=== PATIENT | female | born 1940 | race Caucasian/White ===

== ENCOUNTER → 2017-01-30 | Outpatient (CLI) | payer BC ==
[~2017-01-30] MED LIST: ACET-1311 PO; ALBUAER2 INH; AMOX250C3 PO; ASPCH81X PO; CALC-416 PO; CHOL1000 PO; FLUO40CA8 PO; FLVHFA110 INH; MULT-506 PO; OMEG10007 PO; WARF2TAB PO
--- NOTE | 2017-01-30 15:47 | DIAGNOSTIC IMAGING REPORT ---
RIGHT KNEE 3 VIEWS; LEFT KNEE 3 VIEWS CLINICAL HISTORY: Bilateral knee pain. FINDINGS: An AP standing view of both knees, a sunrise view of both knees, with crosstable lateral views of the right and left knee are compared to study dated 08/29/2016. The skeletal structures are osteopenic. No fracture is identified. 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 There is been undersurface remodeling of both patellas. No periprosthetic lucency is identified in either knee. There are bilateral joint effusions, right larger than left. Mild soft tissue swelling is seen bilaterally, right greater than left. A calcified fabella is noted on the right. Venous varicosities are suggested in the right calf. IMPRESSION: 1. Osteopenia with no acute bony abnormality seen in either knee. 2. 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 No prior prosthetic lucency is identified. 3. There is bilateral soft tissue swelling and bilateral joint effusion, right greater than left. Electronically signed by: Nghia Marley M.D. 01/30/2017 3:46 PM Dictated Date/Time: 01/30/2017 3:43 PM
== END | disposition home or self-care (01) ==
LOC: C.RDSM 15:00
PROVIDERS: ATTEND Physician Assistant
DX: R52 Pain, unspecified (principal)

== ENCOUNTER → 2017-07-03 | Outpatient (CLI) | payer BC ==
--- NOTE | 2017-07-03 14:08 | DIAGNOSTIC IMAGING REPORT ---
BILATERAL KNEES 4 VIEWS CLINICAL HISTORY: Bilateral knee pain COMPARISON STUDY: 01/30/2017 FINDINGS: There are postsurgical changes of bilateral total knee arthroplasties and patellar resurfacing. No acute fractures are visualized. There are no erosive or destructive changes. A small right joint effusion is suspected. IMPRESSION: Postsurgical change. No fractures or dislocations. Small right joint effusion Electronically signed by: Jon Cespedes M.D. 07/03/2017 2:07 PM Dictated Date/Time: 07/03/2017 2:05 PM
== END | disposition home or self-care (01) ==
LOC: C.RDSM 13:45
PROVIDERS: ATTEND Physician Assistant
DX: M25.561 Pain in right knee (principal); M25.562 Pain in left knee; M25.461 Effusion, right knee; Z96.651 Presence of right artificial knee joint; Z96.652 Presence of left artificial knee joint

== ENCOUNTER → 2017-08-09 | Outpatient (CLI) | payer BC ==
[2017-08-09 15:23] LABS: ALT/SGPT 18 U/L (12-78); BLOOD UREA NITROGEN 13 mg/dl (7-18); BUN/CREATININE RATIO 17.5 (10-20); CALCIUM 9.3 mg/dl (8.5-10.1); CARBON DIOXIDE 26 mmol/L (21-32); CHLORIDE 105 mmol/L (98-107); CREATININE 0.76 mg/dl (0.60-1.20); GLUCOSE 94 mg/dl (70-99); SODIUM 139 mmol/L (136-145)
[2017-08-09 15:34] LABS: ALKALINE PHOSPHATASE 76 U/L (45-117); AST/SGOT 17 U/L (15-37)
== END | disposition home or self-care (01) ==
LOC: C.LAB1850 13:21
PROVIDERS: ATTEND Physician Assistant
DX: E05.00 Thyrotoxicosis with diffuse goiter without thyrotoxic crisis or storm (principal); M81.0 Age-related osteoporosis without current pathological fracture

== ENCOUNTER → 2017-10-12 | Outpatient (CLI) | payer BC ==
--- NOTE | 2017-10-12 11:21 | DIAGNOSTIC IMAGING REPORT ---
LUMBAR SPINE MIN 4 VIEWS HISTORY: Pain LOW BACK PAIN COMPARISON: None. FINDINGS: There is no fracture. Considerable degenerative disc change throughout the entire lumbar region. No evidence for compression deformity. No subluxation. IMPRESSION: Considerable degenerative disc change throughout the entire lumbar region. No acute process. No evidence for subluxation. The above report was generated using voice recognition software. It may contain grammatical, syntax or spelling errors. Electronically signed by: Huy Jung M.D. 10/12/2017 11:19 AM Dictated Date/Time: 10/12/2017 11:19 AM
== END | disposition home or self-care (01) ==
LOC: C.RDSM 11:04
PROVIDERS: ATTEND Family Medicine
DX: M54.5 Low back pain (principal); M47.896 Other spondylosis, lumbar region

== ENCOUNTER → 2017-10-27 | Outpatient (CLI) | payer BC ==
--- NOTE | 2017-10-27 18:19 | DIAGNOSTIC IMAGING REPORT ---
MRI LUMBAR SPINE W/O CONTRAST CLINICAL HISTORY: Back pain with left leg radiculopathy. Patient failed conservative management TECHNIQUE: Sagittal and axial T1, T2 and STIR images were obtained. COMPARISON STUDY: Conventional radiographic study the lumbar spine dated 10/12/2017 OBSERVATIONS: There are no areas of marrow edema to indicate occult fracture. There are old mild compression deformities involving the L5 and T11 vertebra. L1-2: No disc protrusions or extrusions. No evidence of spinal canal or neural foraminal compromise. L2-3: There is a mild circumferential disc bulge. There is mild spinal stenosis. There is mild bilateral foraminal narrowing L3-4: There is a mild circumferential disc bulge. There is no significant spinal stenosis. There is mild left-sided foraminal narrowing. L4-5: There is a mild circumferential disc bulge. There is no spinal stenosis. There is mild bilateral foraminal narrowing. L5-S1: There is a moderate left-sided disc extrusion. This likely impinges on the left S1 nerve root. There is facet joint hypertrophy. There is moderate spinal canal narrowing. The conus medullaris and cauda equina appear normal. The examination is moderately compromised due to technical standpoint secondary to patient motion. IMPRESSION: 1. Moderate left-sided disc extrusion at the L5-S1 level. There is moderate spinal canal narrowing. The disc likely impinges on the left S1 nerve root 2. Multilevel spondylitic changes. Multilevel mild foraminal narrowing. Mild spinal stenosis the L2-3 level. Electronically signed by: Jon Cespedes M.D. 10/27/2017 6:18 PM Dictated Date/Time: 10/27/2017 6:11 PM
== END | disposition home or self-care (01) ==
LOC: C.MRIBC 16:28
PROVIDERS: ATTEND Family Medicine
DX: M48.061 Spinal stenosis, lumbar region without neurogenic claudication (principal); M51.27 Other intervertebral disc displacement, lumbosacral region

== ENCOUNTER → 2017-11-22 | Day surgery (SDC) | payer BC ==
[2017-11-13 13:26] VITALS: Ht 154.9 cm; Wt 79.5 kg
[~2017-11-22] VITALS: Ht 154.9 cm; Wt 79.5 kg
[~2017-11-22] MED LIST changes: -ACET-1311 PO; -ALBUAER2 INH; -AMOX250C3 PO; -CALC-416 PO; +CALC150C PO; -CHOL1000 PO; +CHOL100010 PO; +IOPAMIDOL INJ 61% 15 ML VIAL ONE; +LIDOCAINE HCL 1% MPF 5 ML VIAL ONE; +NRN/300 PO; +SODIUM CHLORIDE 0.9% INJ 10 ML VIAL ONE; +TRAM-10 PO; -WARF2TAB PO
--- NOTE | 2017-11-22 14:48 | History & Physical Bridge - SC ---
H&P Re-Evaluation Bridge Note: I have examined the patient, reviewed the History & Physical and in the interval since the performance of the History & Physical I have noted the following changes of clinical significance: No changes noted
--- NOTE | 2017-11-22 15:09 | [facility] Post Operative Brief Note ---
Immediate Operative Summary Operative Date Nov 22, 2017. Pre-Operative Diagnosis L5-S1 HNP W/ STENOSIS AND LEFT L5 RADICULOPATHY Post-Operative Diagnosis SAME Procedure(s) Performed LUMBAR EPIDURAL STEROID INJECTION Surgeon DR. Roma SWANN Publicist Surgeon(s) 0 Estimated Blood Loss 0 Findings As per op note Specimens NA Complication(s) None Disposition Recovery Room / PACU
[2017-11-22 15:11] VITALS: TEMP 36.5
--- NOTE | 2017-11-22 15:18 | Discharge Instructions ---
Discharge Instructions Date of Service Nov 22, 2017. Visit Reason for Visit: Lumbar Spinal Stenosis Discharge Discharge Diagnosis / Problem: left leg pain Discharge Goals Goal(s): Decrease discomfort, Improve function Medications Stopped Medications Name(s): aspirin Activity Recommendations Activity Limitations: resume your previous activity Anesthesia . Post Anesthesia Instructions: If you have had General Anesthesia or IV Sedation: * Do not drive today. * Resume driving when surgeon permits. * Do not make important decisions or sign legal documents today. * Call surgeon for: 1. Temperature elevations greater than 101 degrees F. 2. Uncontrollable pain. 3. Excessive bleeding. 4. Persistent nausea and vomiting. 5. Medication intolerance (nausea, vomiting or rash). * For nausea and vomiting use only clear liquids such as: tea, soda, bouillon until nausea subsides, then gradually increase diet as tolerated. * If you have any concerns or questions, call your surgeon's office. If physician is unavailable and it is an emergency, call 911 or go to the nearest emergency room. . Diet Recommendations Recommended Home Diet: no limitations Procedures Procedures Performed: LUMBAR EPIDURAL STEROID INJECTION Pending Studies Studies pending at discharge: no Medical Emergencies . Who to Call and When: Medical Emergencies: If at any time you feel your situation is an emergency, please call 911 immediately. . Non-Emergent Contact Non-Emergency issues call your: Specialist . . "Provider Documentation" section prepared by Kenn Miller. .
[2017-11-22 15:37] VITALS: BP 151/79; PULSE 46; O2SAT 95
--- NOTE | 2017-11-22 15:58 | OPERATIVE REPORT ---
DATE OF OPERATION: 11/22/2017 PREOPERATIVE DIAGNOSES: L5-S1 herniated nucleus pulposus with stenosis and left L5 radiculopathy. POSTOPERATIVE DIAGNOSES: Same. PROCEDURE: Left paramedian L5-S1 intralaminar epidural steroid injection under fluoroscopic guidance. INDICATIONS: The patient is a 77-year-old white female who has a large disk herniation on top with some foraminal narrowing, causing a left-sided L5 radiculopathy, who presents today for an epidural injection to provide her with relief as she did not tolerate gabapentin and has not had any success with physical therapy since September. PHYSICAL EXAMINATION: Pleasant female seated comfortably. She has normal lower extremity strength. Negative seated straight leg raises. Intact sensation distally at L5-S1 dermatomes. CONSENT: Verbal and written consent was obtained from the patient. Risks and benefits were reviewed. Risks include, but are not limited to epidural abscess, epidural hematoma, allergic reaction, and dural puncture. The patient wishes to proceed. DESCRIPTION OF PROCEDURE: The patient was taken back into the special procedures room of [facility]. She was maintained in a prone position. Backside was cleansed with Betadine x3 and a dry sterile dressing was applied. Fluoroscope was used to identify the L5-S1 intralaminar space and overlying skin was anesthetized with 4 mL of lidocaine 1% with a 25-gauge 1-1/2 inch needle. A 22-gauge 3-1/2 inch Tuohy needle was then directed down towards the intralaminar space. It was advanced under lateral fluoroscopic guidance and loss of resistance was noted at a depth of 9 cm. Isovue-300 contrast 1 mL was injected in which demonstrated epidural uptake pattern, which was confirmed with both AP and lateral views. She then underwent injection after negative aspiration of 40 mg of Depo-Medrol and 4 mL of preservative free sodium chloride. Injection was well tolerated and reproduced a familiar transient radicular sensation down the left leg. DISPOSITION: 1. The patient was taken out into the discharge recovery area, where she will be discharged home once discharge criteria have been met. 2. Follow up in the [facility] office in 4 weeks' time. I attest to the content of the Intraoperative Record and any orders documented therein. Any exception s are noted below.
== END | disposition home or self-care (01) ==
LOC: X.SURG 13:17
PROVIDERS: ATTEND Physical Medicine & Rehabilitation
DX: M51.17 Intervertebral disc disorders with radiculopathy, lumbosacral region (principal)

== ENCOUNTER 2021-05-07 15:18 | Observation (INO) ==
--- NOTE | 2021-05-07 15:51 | XRay Report ---
XR wrist RT min 3V routine CLINICAL HISTORY: Right wrist pain status post trauma COMPARISON: None. DISCUSSION: There is an acute impacted intra-articular fracture of the distal radius. The radial zuleyma cular surface demonstrates a dorsal tilt of 24 degrees. There is mild widening of the scapholunate di stance and a scapholunate ligamentous disruption cannot be excluded. There are advanced arthritic jose nges the level the first carpal metacarpal joint IMPRESSION: 1. Acute impacted intra-articular fracture of the distal radius with secondary 24 degrees dorsal tilt of the radial articular surface 2. Mild widening of the scapholunate distance. A scapholunate ligamentous disruption cannot be exclud ed ACT 112: Negative or not required by law. Electronically signed by: Jon Cespedes M.D. 05/07/2021 3:50 PM
--- NOTE | 2021-05-07 17:41 | History & Physical Report ---
Date of Service May 07, 2021 Assessment & Plan (1) Fracture of right distal radius: I talked to her and her about the diagnosis and treatment options. They elected to proceed with open reduction internal fixation of the right wrist. I think it would be best done tomorrow morning. We will keep him at the hospital overnight tonight and do her procedure first thing tomorrow morning. Her and her understand the risks, benefits, and alternatives of procedure and elected to proceed. Questions were answered at bedside. The decision was made for surgery. She will be n.p.o. past midnight tonight. She was placed in a volar splint to help her with stability overnight. She does not need any pain medications. History of Present Illness Chief Complaint: Right distal radius fracture. Primary Care Provider: Milka Velasquez MD Kami is a pleasant 80-year-old female who was painting this evening on a stepladder. She took an awkward step off the stepladder and fell backwards. She used her right wrist to brace her fall. She had sudden pain in the right wrist. She came to the emergency room where radiographs demonstrated a displaced right distal radius fracture. Orthopedics was consulted to evaluate and treat.. Allergies Allergy/AdvReac Type Severity Reaction Status Date / Time gabapentin Allergy Intermediate Hives Verified 05/07/21 16:54 Sulfa (Sulfonamide Allergy Intermediate HIVES Verified 05/07/21 16:54 Antibiotics) trimethoprim Allergy Intermediate HIVES Verified 05/07/21 16:54 Home Medications Medication Instructions Recorded Confirmed Type calcium carbonate 500 mg calcium 500 mg PO DAILY 01/31/20 05/07/21 History (1,250 mg) tablet cholecalciferol (vitamin D3) 50 2,000 units PO DAILY 01/31/20 05/07/21 History mcg (2,000 unit) tablet multivitamin 1 tab PO DAILY 01/31/20 05/07/21 History omega 1-hbg-bml-fish oil 1,000 mg 1 cap PO DAILY 01/31/20 05/07/21 History (120 mg-180 mg) capsule fluoxetine 40 mg capsule 40 mg PO DAILY #90 cap 08/26/20 05/07/21 Rx albuterol sulfate 90 mcg/actuation 1 inh INH QID PRN #8.5 gm 12/14/20 05/07/21 Rx aerosol inhaler fluticasone propionate 110 2 puff INH BID gm 03/12/21 05/07/21 History mcg/actuation HFA aerosol inhaler Past Med/Surg History Medical History Depression History of Graves' disease Lumbar radiculopathy Paresthesia of both hands Surgical History S/P left knee arthroscopy Family History Mother Alzheimer disease Depression Father Myocardial infarction Brother Non-Hodgkin lymphoma Sister Stroke Denies family history of Ovarian cancer Prostate cancer Breast cancer Lung cancer Colorectal cancer Social History Smoking Status: Never smoker Second Hand Exposure: No; Hx Alcohol Use: No Hx Substance Use: No Preferred Language: Kazakh Communication Ability: Effective Visual Impairment: Limited 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 Physical Exam On physical examination of the right wrist, there is a slight radial deformity. She has active motion of all of her fingers. She has no numbness in her hand. Her skin is clean and dry.. Constitutional WD/WN, vitals as above Eyes PERRL, conjunctivae normal, anicteric sclerae ENMT external ear and nose normal, oropharynx normal Neck trachea midline, no thyromegaly Respiratory normal respiratory effort Cardiovascular RRR, no murmur, no edema Gastrointestinal (Abdomen) normal bowel sounds, soft, nontender, no hepatosplenomegaly Psychiatric A+Ox3, euthymic affect Results & Data Results & Data Laboratory Results . Diagnostic Findings X-rays of the right wrist do show a four-part right distal radius fracture. The fracture is intra-articular. There is a sagittal split of the fracture as well.. PG Care Time/CCT Total # of Minutes Spent Total Time Spent with Patient: Total time spent is greater than 50% in coordination of care (as documented) at patient's floor/unit and/or counseling patient: Coding Level of Care Code 08004 Initial Inpt Care Lvl 2 (57 - DECISION FOR SURGERY) Diagnoses Fracture of right distal radius S52.501A
[2021-05-07 18:23] LABS: Basophils # (auto) 0.04 K/uL (0-0.2); Basophils % (auto) 0.4 %; Eosinophils # (auto) 0.16 K/uL (0-0.5); Eosinophils % (auto) 1.7 %; Hematocrit (blood only) 44.4 % (37-47); Immature Granulocytes # (auto) 0.01 K/uL (0.00-0.02); Immature Granulocytes % (auto) 0.1 %; Lymphocytes # (auto) 2.43 K/uL (1.2-3.4); Lymphocytes % (auto) 26.2 %; Mean Corpuscular Hemoglobin 31.8 pg (25-34); Mean Corpuscular Hgb Conc 33.8 g/dL (32-36); Mean Corpuscular Volume 94.1 fL (80-100); Mean Platelet Volume 10.3 fL (7.4-10.4); Monocytes # (auto) 0.93 K/uL (0.11-0.59); Neutrophils # (auto) 5.69 K/uL (1.4-6.5); Neutrophils % (auto) 61.6 %; Platelet Count 267 K/uL (130-400); RDW Coefficient of Variation 14.9 % (11.5-14.5); RDW Standard Deviation 51.3 fL (36.4-46.3); Red Blood Count 4.72 M/uL (4.2-5.4); White Blood Count 9.26 K/uL (4.8-10.8)
--- NOTE | 2021-05-07 18:34 | XRay Report ---
XR chest 2V PA/lateral HISTORY: Preop. Right wrist fracture. COMPARISON: Chest 02/24/2018. FINDINGS: No pneumothorax. No pleural effusions. Mild emphysema and mild diffuse chronic interstitial thickening, unchanged. There are small linear densities within the mid lung zones suggestive of scar ring. This is also unchanged. No new focal lung consolidations to suggest pneumonia. No evidence for pulmonary edema. The heart remains mildly enlarged. There is a tortuous thoracic aorta, unchanged. IMPRESSION: Stable chronic changes as described above. No acute process within the chest. ACT 112: Negative or not required by law. Electronically signed by: Melvin Hale M.D. 05/07/2021 6:32 PM
[2021-05-07 18:40] LABS: Calcium 9.7 mg/dl (8.5-10.1); Creatinine Clr Calc Pharmacy 72.5 ml/min; Est GFR (African American) 97.4 ml/min; Potassium 4.4 mmol/L (3.5-5.1)
[2021-05-07] MEDS ORDERED: ALBUTEROL HFA 8 GM INHALER INH PRN (21:33)
[2021-05-07] MEDS ORDERED: FLUTICASONE FUROATE 200MCG 14 PUFFS/INHALER INH SCH (22:00)
--- NOTE | 2021-05-07 22:31 | Emergency Department Note ---
History of Present Illness General Chief complaint: Wrist Pain Stated complaint: POSS BROKEN RIGHT WRIST Time Seen by Provider: 05/07/21 16:19 History of Present Illness Maximum Pain Intensity: 5 80-year-old female who presents to the emergency department for evaluation of a right wrist injury after she missed the bottom step on her stepladder while painting, and fell. The patient reports a deformity and swelling of the right wrist. She denies any other injuries from her fall, and rates her wrist discomfort a 5 out of 10. The patient is right-hand dominant. She denies any paresthesias or numbness of the hand or fingers. Home Medications Medication Instructions Recorded Confirmed Type calcium carbonate 500 mg calcium 500 mg PO DAILY 01/31/20 05/07/21 History (1,250 mg) tablet cholecalciferol (vitamin D3) 50 2,000 units PO DAILY 01/31/20 05/07/21 History mcg (2,000 unit) tablet multivitamin 1 tab PO DAILY 01/31/20 05/07/21 History omega 9-xoj-gms-fish oil 1,000 mg 1 cap PO DAILY 01/31/20 05/07/21 History (120 mg-180 mg) capsule fluoxetine 40 mg capsule 40 mg PO DAILY #90 cap 08/26/20 05/07/21 Rx albuterol sulfate 90 mcg/actuation 1 inh INH QID PRN #8.5 gm 12/14/20 05/07/21 Rx aerosol inhaler fluticasone propionate 110 2 puff INH BID gm 03/12/21 05/07/21 History mcg/actuation HFA aerosol inhaler Allergies Allergy/AdvReac Type Severity Reaction Status Date / Time gabapentin Allergy Intermediate Hives Verified 05/07/21 16:54 Sulfa (Sulfonamide Allergy Intermediate HIVES Verified 05/07/21 16:54 Antibiotics) trimethoprim Allergy Intermediate HIVES Verified 05/07/21 16:54 Past Med/Surg History Medical History Depression History of Graves' disease Lumbar radiculopathy Paresthesia of both hands Surgical History S/P left knee arthroscopy Family History Mother Alzheimer disease Depression Father Myocardial infarction Brother Non-Hodgkin lymphoma Sister Stroke Denies family history of Ovarian cancer Prostate cancer Breast cancer Lung cancer Colorectal cancer Social History Smoking Status: Never smoker Second Hand Exposure: No; Hx Alcohol Use: No Hx Substance Use: No Preferred Language: Guamanian Communication Ability: Effective Visual Impairment: Limited Hearing Ability: Normal Nut Orchardist Required: No marital status: Current Living Situation: Spouse current occupational status: retired Feels Safe at Home: Yes during the past year weight has: remained stable Physical Activity Frequency: 5-6 Times per Week Physical Activity Frequency Comment: walks her dog at least a mile daily and gardens Seatbelt Use: always Sunscreen Use: Yes Review of Systems 10 system review was performed and was negative except for pertinent positives and negatives as indicated in history of present illness Physical Exam Vital Signs Vital Signs - 24 hr 05/07/21 15:28 05/07/21 16:21 05/07/21 17:58 Temperature 36.9 C Temperature Source Skin Pulse Rate 56 L Pulse Rate [Left Finger] 73 61 Pulse Rhythm [Left Finger] Regular Regular Pulse Strength [Left Finger] Normal Normal Respiratory Rate 18 20 16 Respiratory Effort / Characteristics Non-Labored Spontaneous Non-Labored Spontaneous Respiratory Depth Normal Normal Respiratory Pattern Regular Blood Pressure 141/71 H Blood Pressure [Right Arm] 185/103 H 161/76 H Blood Pressure Mean 94 Blood Pressure Mean [Right Arm] 130 104 Blood Pressure Position [Right Arm] Sitting Sitting Pulse Oximetry 99 95 94 Oxygen Delivery Method Room Air Room Air Sepsis Recent Fever Within 48 Hours No Sepsis New/Unexplained Change in Mental Status No Sepsis Action Taken by Nursing No Action Required CONSTITUTIONAL: Healthy and well nourished. Patient appears in minimal distress on initial exam. HEENT: Normocephalic, atraumatic. No facial abrasions, epistaxis, subconjunctival hemorrhage, raccoon's eyes or mejia sign. NECK: Full active range of motion without discomfort. RESPIRATORY: Clear to auscultation bilaterally with no wheezing, crackles, rhonchi or stridor. CARDIOVASCULAR: Regular rate and rhythm with no murmurs, rubs or gallops. MUSCULOSKELETAL: Examination shows a deformity of the right wrist without any open wounds or skin tenting. Patient has good flexion and extension of the fingers. Capillary refill of the fingers is less than 2 seconds. No tenderness to palpation through the forearm, elbow or shoulder region. INTEGUMENTARY: No rash or other significant dermatologic conditions noted. HEMATOLOGIC: No ecchymosis or petechiae. PSYCHIATRIC: Positive affect. NEUROLOGIC: Right hand and fingers are sensory intact. Course Course Patient history and physical exam were performed. Nurses notes were reviewed. Vital signs were reviewed, showing an elevated blood pressure. The patient refused any analgesics on initial exam. X-rays of the right wrist confirms a comminuted intra-articular fracture of the distal radius with dorsal displacement and angulation. X-rays were reviewed with the patient. Consultation was placed with Dr. Mcfarland, orthopedic surgeon on-call, who came to the emergency department and recommended overnight admission with open reduction internal fixation in the morning. The patient is in agreement. Please see Dr. Mcfarland's dictation for further treatment and final disposition. The patient refused any additional analgesics prior to transfer of care to Dr. Mcfarland's care. The patient was also seen and examined by Dr. Buchanan, ED attending physician, who agrees with work-up provided and orthopedic surgical management. Administered Medications Fluticasone Furoate (Fluticasone Furoate 200mcg 14 Puffs/Inhaler) 1 puffs INH HS АНДРЕЙ Stop: 06/06/21 21:59 Last Admin: 05/07/21 22:40 Dose: 1 puffs Documented by: [id number] Sodium Chloride (Nss 1000ml) 1,000 mls @ 80 mls/hr IV .[id number] АНДРЕЙ Stop: 06/06/21 21:32 Last Admin: 05/07/21 22:41 Dose: 80 mls/hr Documented by: [id number] Morphine Sulfate (Morphine Sulfate 2 Mg/Ml Carp) 1 mg IV Q1H PRN PRN Reason: Pain Stop: 05/21/21 22:32 Last Admin: 05/07/21 22:37 Dose: 1 mg Documented by: [id number] Medical Decision Making Medical Records Attestation: I reviewed the patient's medical records. Home Medications Current Medication List: was personally reviewed by me Laboratory Data Attestation: I reviewed the patient's lab results. Result diagrams: 05/07/21 18:10 05/07/21 18:10 Lab Results 05/07/21 05/07/21 05/07/21 Range/Units 17:50 17:50 18:10 WBC 9.26 (4.8-10.8) K/uL RBC 4.72 (4.2-5.4) M/uL Hgb 15.0 (12.0-16.0) g/dL Hct 44.4 (37-47) % MCV 94.1 (80-100) fL MCH 31.8 (25-34) pg MCHC 33.8 (32-36) g/dL RDW Std Deviation 51.3 H (36.4-46.3) fL RDW Coeff of Apple 14.9 H (11.5-14.5) % Plt Count 267 (130-400) K/uL MPV 10.3 (7.4-10.4) fL Immature Gran % (Auto) 0.1 % Neut % (Auto) 61.6 % Lymph % (Auto) 26.2 % Tompkins % (Auto) 10.0 % Eos % (Auto) 1.7 % Baso % (Auto) 0.4 % Neut # (Auto) 5.69 (1.4-6.5) K/uL Lymph # (Auto) 2.43 (1.2-3.4) K/uL Tompkins # (Auto) 0.93 H (0.11-0.59) K/uL Eos # (Auto) 0.16 (0-0.5) K/uL Baso # (Auto) 0.04 (0-0.2) K/uL Immature Gran # (Auto) 0.01 (0.00-0.02) K/uL Sodium (136-145) mmol/L Potassium (3.5-5.1) mmol/L Chloride (98-107) mmol/L Carbon Dioxide (21-32) mmol/L Anion Gap (3-11) BUN (7-18) mg/dl Creatinine (0.6-1.2) mg/dl Est Cr Clr Drug Dosing ml/min Est GFR ( Amer) ml/min Est GFR (Non-Af Amer) ml/min BUN/Creatinine Ratio (10-20) Glucose (70-99) mg/dl Calcium (8.5-10.1) mg/dl COVID-19 Eval Order Covid19 at [facility] SARS-CoV-2 (PCR) NEGATIVE (Negative) 05/07/21 Range/Units 18:10 WBC (4.8-10.8) K/uL RBC (4.2-5.4) M/uL Hgb (12.0-16.0) g/dL Hct (37-47) % MCV (80-100) fL MCH (25-34) pg MCHC (32-36) g/dL RDW Std Deviation (36.4-46.3) fL RDW Coeff of Apple (11.5-14.5) % Plt Count (130-400) K/uL MPV (7.4-10.4) fL Immature Gran % (Auto) % Neut % (Auto) % Lymph % (Auto) % Tompkins % (Auto) % Eos % (Auto) % Baso % (Auto) % Neut # (Auto) (1.4-6.5) K/uL Lymph # (Auto) (1.2-3.4) K/uL Tompkins # (Auto) (0.11-0.59) K/uL Eos # (Auto) (0-0.5) K/uL Baso # (Auto) (0-0.2) K/uL Immature Gran # (Auto) (0.00-0.02) K/uL Sodium 138 (136-145) mmol/L Potassium 4.4 (3.5-5.1) mmol/L Chloride 106 (98-107) mmol/L Carbon Dioxide 28 (21-32) mmol/L Anion Gap 4.0 (3-11) BUN 14 (7-18) mg/dl Creatinine 0.66 (0.6-1.2) mg/dl Est Cr Clr Drug Dosing 72.5 ml/min Est GFR ( Amer) 97.4 ml/min Est GFR (Non-Af Amer) 84.0 ml/min BUN/Creatinine Ratio 22.0 H (10-20) Glucose 97 (70-99) mg/dl Calcium 9.7 (8.5-10.1) mg/dl COVID-19 Eval Order SARS-CoV-2 (PCR) (Negative) Imaging Data Attestation: I personally reviewed and interpreted this imaging study as follows: My Impression: My interpretation of right wrist x-ray shows an impacted, comminu pelon and intra-articular fracture of the distal radius with dorsal displacement and angulation of approximately 24 degrees. Radiologist report was also reviewed. Radiologist's Impression: Wrist X-Ray 05/07/21 15:34 XR wrist RT min 3V routine CLINICAL HISTORY: Right wrist pain status post trauma COMPARISON: None. DISCUSSION: There is an acute impacted intra-articular fracture of the distal radius. The radial articular surface demonstrates a dorsal tilt of 24 degrees. There is mild widening of the scapholunate distance and a scapholunate li gamentous disruption cannot be excluded. There are advanced arthritic changes the level the first carpal metacarpal joint IMPRESSION: 1. Acute impacted intra-articular fracture of the distal radius with secondary 24 degrees dorsal tilt of the radial articular surface 2. Mild widening of the scapholunate distance. A scapholunate ligamentous disruption cannot be excluded ACT 112: Negative or not required by law. Electronically signed by: Jon Cespedes M.D. 05/07/2021 3:50 PM Chest X-Ray 05/07/21 17:37 XR chest 2V PA/lateral HISTORY: Preop. Right wrist fracture. COMPARISON: Chest 02/24/2018. FINDINGS: No pneumothorax. No pleural effusions. Mild emphysema and mild diffuse chronic interstitial thickening, unchanged. There are small linear densities within the mid lung zones suggestive of scarring. This is also unchanged. No new focal lung consolidations to suggest pneumonia. No evidence for pulmonary edema. The heart remains mildly enlarged. There is a tortuous thoracic aorta, unchanged. IMPRESSION: Stable chronic changes as described above. No acute process within the chest. ACT 112: Negative or not required by law. Electronically signed by: Melvin Hale M.D. 05/07/2021 6:32 PM Blood Pressure Blood Pressure Findings: Elevated blood pressure Blood Pressure Disposition: elevated BP felt to be situational MDM Narrative Attending Attestation: Mary Buchanan MD independently saw and evaluated this patient and agree with history and physical is otherwise documented by the physician family services assistant. See their note for full details. Patient seated in room with husbnad in no distress. Right handed with R wrist fracture on XR. No numbness in the right fingers. Seen by ortho, with plan for surgery in morning. Impression & Plan Fracture of right distal radius, Fall from ladder Discharge Plan Visit Data Chief Complaint: Wrist Pain Stated Complaint: POSS BROKEN RIGHT WRIST ED Provider: Ceasar Buchanan ED Midlevel Provider: Ariel Merritt Discharge Problem: Fracture of right distal radius, Fall from ladder Patient Disposition: Admitted As Inpatient Discharge Instructions Interventions: ED Discharge Assessment Last Done: 05/07/21 20:57 Discharge Problem: Fracture of right distal radius Qualifiers: Encounter type: initial encounter Fracture type: closed Fracture morphology: other intra-articular Qualified Code(s): S52.571A - Other intraarticular fracture of lower end of right radius, initial encounter for closed fracture Fall from ladder Qualifiers: Encounter type: initial encounter Qualified Code(s): W11.XXXA - Fall on and fro m ladder, initial encounter
[2021-05-07] MEDS ORDERED: MoRPHine SULFATE 2 MG/ML CARP ONE (22:36)
[2021-05-07] MEDS: MoRPHine SULFATE 2 MG/ML CARP IV PRN ×2 (22:37→23:41)
[2021-05-07] MEDS: SODIUM CHLORIDE 0.9% 1000ML 1,000 ML IV SCH (22:41)
[2021-05-08] MEDS ORDERED: KETOROLAC TROMETHAMINE 15 MG/ML VIAL IV ONE (00:28)
[2021-05-08] MEDS: MoRPHine SULFATE 2 MG/ML CARP IV PRN ×2 (01:15→04:19)
[2021-05-08] MEDS ORDERED: ceFAZolin 2000MG 2,000 MG/15 ML SYR IV SCH (06:00)
[2021-05-08] MEDS ORDERED: LIDOCAINE 2% 2 ML VIAL/AMP(20MG/ML) INFIL ONE ×2 (06:54→07:01)
[2021-05-08] MEDS ORDERED: ACETAMINOPHEN 1000 MG/100 ML IV IV ONE (06:55)
[2021-05-08] MEDS ORDERED: FAMOTIDINE/PF 20 MG/2 ML VIAL IV ONE (06:55)
[2021-05-08] MEDS ORDERED: DEXAMETHASONE SOD INJ 4 MG/ML VIAL ONE (07:01)
[2021-05-08] MEDS ORDERED: ONDANSETRON INJ 2 MG/ML 2 ML VIAL ONE (07:01)
[2021-05-08] MEDS ORDERED: PROPOFOL IV EMULSION 10 MG/ML 20 ML VIAL IV ONE (07:01)
[2021-05-08] MEDS ORDERED: MIDAZOLAM HCL 1 MG/ML 2ML VIAL ONE (07:02)
[2021-05-08] MEDS ORDERED: fentaNYL citrate 100 MCG/2 ML VIAL ONE (07:02)
--- NOTE | 2021-05-08 07:40 | Anesthesiology Consultation ---
Date of Service May 08, 2021 Assessment & Plan (1) Encounter for pre-operative examination: Chart Review Chart Review: Acceptable Risk for Surgery and Patient NOT seen in Pre Admission Testing Consults Requested none History Surgery Operation Date: 05/08/21 07:30 Proposed Procedures p Open Reduction Internal Fixation Wrist Fracture(Right) - Gareth Mcfarland DO Height/Weight Height: 5 ft 1 in Weight: 94.5 kg Allergies Allergy/AdvReac Type Severity Reaction Status Date / Time gabapentin Allergy Intermediate Hives Verified 05/07/21 16:54 Sulfa (Sulfonamide Allergy Intermediate HIVES Verified 05/07/21 16:54 Antibiotics) trimethoprim Allergy Intermediate HIVES Verified 05/07/21 16:54 Medications Home Medications Medication Instructions Recorded Confirmed Last Taken calcium carbonate 500 mg calcium 500 mg PO DAILY 01/31/20 05/07/21 05/07/21 (1,250 mg) tablet cholecalciferol (vitamin D3) 50 2,000 units PO DAILY 01/31/20 05/07/21 05/07/21 mcg (2,000 unit) tablet multivitamin 1 tab PO DAILY 01/31/20 05/07/21 05/07/21 omega 0-jlb-lcz-fish oil 1,000 mg 1 cap PO DAILY 01/31/20 05/07/21 05/07/21 (120 mg-180 mg) capsule fluoxetine 40 mg capsule 40 mg PO DAILY #90 cap 08/26/20 05/07/21 05/07/21 albuterol sulfate 90 mcg/actuation 1 inh INH QID PRN #8.5 gm 12/14/20 05/07/21 Unknown aerosol inhaler fluticasone propionate 110 2 puff INH BID gm 03/12/21 05/07/21 05/07/21 mcg/actuation HFA aerosol inhaler Active Medications Generic Name Dose Route Start Last Admin Trade Name Freq PRN Reason Stop Dose Admin Fluticasone Furoate 1 puffs 05/07/21 22:00 05/07/21 22:40 Fluticasone Furoate 200mcg 14 Puffs/Inhaler INH 06/06/21 21:59 1 puffs HS АНДРЕЙ Administration Sodium Chloride 1,000 mls @ 80 mls/hr 05/07/21 21:33 05/07/21 22:41 Nss 1000ml IV 06/06/21 21:32 80 mls/hr .[id number] АНДРЕЙ Administration Morphine Sulfate 2 mg 05/08/21 00:29 05/08/21 04:19 Morphine Sulfate 2 Mg/Ml Carp IV 05/22/21 00:28 2 mg Q1H PRN Administration Pain NPO Date Last Intake of Fluids: 05/07/21 Time Last Intake of Fluids: 22:00 Date Last Intake of Solids: 05/07/21 Time Last Intake of Solids: 22:00 Past Medical History Medical History Depression History of Graves' disease Lumbar radiculopathy Paresthesia of both hands Past Family History Family History Mother Alzheimer disease Depression Father Myocardial infarction Brother Non-Hodgkin lymphoma Sister Stroke Denies family history of Ovarian cancer Prostate cancer Breast cancer Lung cancer Colorectal cancer Past Surgical History Surgical History S/P left knee arthroscopy Social History Smoking Status: Never smoker Hx Alcohol Use: No Hx Substance Use: No Physical Exam Vital Signs Last Vital Signs Temp 36.6 C 05/07/21 23:58 Pulse 53 L 05/07/21 23:58 Resp 18 05/07/21 23:58 BP 99/62 L 05/07/21 23:58 Pulse Ox 92 05/07/21 23:58 Testing Laboratory Results 05/07/21 18:10 05/07/21 18:10
[2021-05-08] MEDS ORDERED: ATROPINE SULFATE 0.1 MG/ML 10ML SYR IV PRN (08:05)
[2021-05-08] MEDS ORDERED: ONDANSETRON INJ 2 MG/ML 2 ML VIAL IV PRN ×2 (08:05→10:45)
[2021-05-08] MEDS ORDERED: fentaNYL citrate 100 MCG/2 ML VIAL IV PRN (08:05)
[2021-05-08] MEDS ORDERED: ePHEDrine sulfate 50 MG/ML AMP IV PRN (08:05)
[2021-05-08] MEDS ORDERED: BUPIVACAINE/EPINEPHRINE 0.5% MPF 1:200,000 30 ML VIAL ONE (08:46)
[2021-05-08] MEDS ORDERED: FLUoxetine HCL 20 MG CAP PO SCH (09:00)
--- NOTE | 2021-05-08 09:02 | Fluoroscopy Report ---
INTRAOPERATIVE RADIOGRAPHS CLINICAL HISTORY: Open reduction and internal fixation of the right radius. Fluoroscopy time: 37 seconds. FINDINGS: 2 spot fluoroscopic views of the right wrist are compared to radiographs dated 05/07/2021. Th ere has been buttress plate fixation of an impacted distal radial fracture with restorationist of near-a natomic alignment. Numerous cortical lag screws transfix the buttress plate. The orthopedic hardware appears intact. Overlying soft tissue edema is noted. IMPRESSION: Intraoperative images from open reduction and internal fixation of the right radius. Electronically signed by: Nghia Marley M.D. 05/08/2021 9:00 AM
--- NOTE | 2021-05-08 09:22 | Operative Report ---
[facility] Post Operative Report Pre & Post Diagnosis Operation Date: 05/08/21 07:30 Pre-Op Diagnosis: 4 part right intra-articular distal radius fracture Post-Op Diagnosis: 4 part right intra-articular distal radius fracture I identified the patient and participated in the time-out.: Yes Procedure Operation Date: 05/08/21 07:30 Actual Procedures p Open Reduction Internal Fixation Right distal radius Fracture(Right) - Gareth Mcfarland DO Surgeon Gareth Mcfarland DO Environmental Law Professor Modesto Lopez PAC Estimated Blood Loss 10 Findings Consistent with Post-Op Diagnosis Specimens None Complications none Disposition Disposition: Recovery Room Indications Kami is a pleasant 80-year-old female who fell yesterday onto her right outstretched hand. She came to the emergency room and radiographs demonstrated a displaced distal radius fracture. After discussions at bedside, she elected to proceed with open reduction internal fixation the following morning. Description of Procedure On May 08, 2021 Vannesa was brought down from her hospital room to the preoperative holding area. The operative extremity was identified and signed. She was given a preoperative antibiotic. She is taken back the operating room and laid on the table in supine position. She was put under general anesthesia. The right wrist was prepped and draped in sterile fashion. A timeout was done. The patient and the operative extremity was properly identified. A volar approach was made directly over the flexor carpi radialis. Dissection was taken down to the tendon and the flexor tendon was retracted ulnarly. The supinator was then elevated off the distal radius and the fracture was exposed. The fracture was then reduced. Fluoroscopic images were used to ensure anatomic reduction of the fracture. A Synthes variable angle distal radial locking plate was then placed. K wires were used to hold the plate in place. Fluoroscopic images showed anatomic alignment of the fracture and appropriate placement of the plate. A single compression screw was placed in the combination hole. A single locking screw was placed distally. The K wires were removed. I was happy with the overall alignment of the wrist and the hardware. The remainder the distal locking screws were placed. 2 proximal locking screws were placed. All the screws were tightened. The length of the screws were checked under fluoroscopy. Final fluoroscopic images showed anatomic alignment of the wrist. The wounds then irrigated. Surrounding soft tissues were injected with 15 cc of Marcaine with epinephrine. The tourniquet was deflated and hemostasis was obtained. The deep fascial layer was closed with 3-0 Vicryl. Skin was closed with 3-0 Vicryl and 4-0 nylon suture in a mattress fashion. She was then placed in a soft dressing and a volar splint. She was then extubated and transferred to a [facility]. She was taken to the post anesthesia care unit in stable condition. She tolerated the procedure well. Modesto Lopez PA-C, was present for the entire procedure. He was critical for patient positioning, prepping, draping, retraction exposure, wound closure and application of sterile dressing. I attest to the content of the Intraoperative Record and any orders documented therein. Any exceptions are noted below.
--- NOTE | 2021-05-08 10:29 | Anesthesiology Progress Note ---
Date of Service May 08, 2021 Anesthesia Post Procedure Vital Signs Vital Signs: Temp Pulse Pulse Pulse Resp BP BP 05/08/21 10:20 36.2 C L 62 15 113/52 L 05/08/21 10:00 36.2 C L 64 17 116/70 05/08/21 09:50 65 14 115/80 05/08/21 09:40 68 21 115/60 05/08/21 09:32 36.5 C 68 14 115/81 05/07/21 23:58 36.6 C 53 L 18 05/07/21 23:00 36.9 C 110 H 20 05/07/21 20:57 69 20 159/97 H 05/07/21 19:58 50 L 20 05/07/21 17:58 61 16 05/07/21 16:21 73 20 05/07/21 15:28 36.9 C 56 L 18 141/71 H BP Pulse Ox 05/08/21 10:20 94 05/08/21 10:00 94 05/08/21 09:50 94 05/08/21 09:40 94 05/08/21 09:32 94 05/07/21 23:58 99/62 L 92 05/07/21 23:00 172/103 H 92 05/07/21 20:57 93 05/07/21 19:58 169/68 H 94 05/07/21 17:58 161/76 H 94 05/07/21 16:21 185/103 H 95 05/07/21 15:28 99 Transfer of Care Handoff Completed per policy Notes Mental Status: alert / awake / arousable and participated in evaluation Patient Amnestic to Procedure: Yes Nausea / Vomiting: adequately controlled Pain: adequately controlled Airway Patency, RR, SpO2: stable & adequate BP & HR: stable & adequate Hydration State: stable & adequate Anesthetic Complications: no major complications apparent and Pt Satisfied with anesthetic care Notes: block is functioning well.
[2021-05-08] MEDS ORDERED: SODIUM CHLORIDE 0.9% 1000ML 1,000 ML IV SCH (10:45)
[2021-05-08] MEDS ORDERED: MAGNESIUM HYDROXIDE SUSP 30 ML UDC PO PRN (10:45)
[2021-05-08] MEDS ORDERED: bisacodyL 10 MG SUPP PR PRN (10:45)
[2021-05-08] MEDS ORDERED: HYDROmorphone INJ 0.5 MG/0.5 ML SYR IV PRN ×2 (10:45)
[2021-05-08] MEDS ORDERED: oxyCODONE HCL IR 5 MG TAB (IMMEDIATE RELEASE) PO PRN ×2 (10:45)
[2021-05-08] MEDS ORDERED: NALOXONE HCL 0.4 MG/1 ML VIAL/CARP IV PRN (10:45)
[2021-05-08] MEDS ORDERED: METOCLOPRAMIDE HCL INJ 5 MG/ML 2 ML VIAL IV PRN (10:45)
[2021-05-08] MEDS: SODIUM CHLORIDE 0.9% 1000ML 1,000 ML IV SCH (11:07)
[2021-05-08] MEDS ORDERED: SENNA 8.6 MG TAB PO SCH (21:00)
[2021-05-08] MEDS ORDERED: DOCUSATE SODIUM 100 MG CAP PO SCH (21:00)
--- NOTE | 2021-05-09 07:15 | Discharge Summary ---
Date of Service May 09, 2021 Admission HPI (Per Admitting) Kami is a pleasant 80-year-old female who was painting this evening on a stepladder. She took an awkward step off the stepladder and fell backwards. She used her right wrist to brace her fall. She had sudden pain in the right wrist. She came to the emergency room where radiographs demonstrated a displaced right distal radius fracture. Orthopedics was consulted to evaluate and treat.. Admission Exam (Per Admitting) On physical examination of the right wrist, there is a slight radial deformity. She has active motion of all of her fingers. She has no numbness in her hand. Her skin is clean and dry.. Principal Diagnosis Same as "Discharge Diagnosis" noted below under Discharge Instructions. Discharge Data Consultations 05/07/21 17:12 ED Decision to Admit Stat Procedures Performed Operation Date: 05/08/21 07:30 Actual Procedures p Open Reduction Internal Fixation Right Wrist Fracture(Right) - Gareth Mcfarland DO Ordered Studies 05/08/21 FL wrist RT 2V Routine 05/08/21 07:44 US - OR guided needle placemen Routine Hospital Course (1) Fracture of right distal radius: On May 07, 2021 Vannesa fell on her outstretched hand sustaining a right distal radius fracture. She came to the emergency room and the decision was made to admit her overnight to do an open reduction internal fixation following day. The next day she underwent an open reduction internal fixation of the right distal radius without complication. Postoperatively she was placed in a splint and transferred back to the general orthopedic floors. Once she had recovered from the anesthesia, she was walked around with the nurses and then discharged home. She was given full discharge instructions. She will follow-up with orthopedics in 2 weeks. Encounter type: initial encounter Fracture morphology: other intra-articular Fracture type: closed Qualified Code(s): S52.571A - Other in traarticular fracture of lower end of right radius, initial encounter for closed fracture PG Care Time/CCT Total # of Minutes Spent Total Time Spent with Patient: Total time spent is greater than 50% in coordination of care (as documented) at patient's floor/unit and/or counseling patient: Discharge Plan Discharge Items Patient Disposition: Home - Home Health Services Reason For Visit: R WRIST FRACTURE Discharge Diagnosis: Fixation of the right wrist Activity: As commented below Non-emergency contact: Surgeon Call non-emergency contact if: your wound has increased redness and your wound has increased drainage Follow-up/Referrals: Milka Velasquez MD [Primary Care Provider] - Diet: Regular Addtl Attending Provider Instructions: ORTHOPEDIC INSTRUCTIONS Activity Recommendations: May use your fingers on the right hand. No gripping or lifting with the right hand. Medications: Oxycodone-take the oxycodone as needed for pain. You may resume all other home medications. Dressing Care: Leave the splint intact until follow-up visit in 2 to 3 weeks Showering: Do not get the splint wet. You may shower, but be sure that the splint stays dry. Things To Watch For: 1. Fever above 102 degrees Fahrenheit. 2. Unusual chest pain or shortness of breath. 3. Call [facility] at with any of the above problems Follow-Up Visit: Follow-up with Dr. Mcfarland's PA (Gareth Burden) 2-3 weeks after your day of surgery. Please call to make the appointment. He will remove your dahlia and answer any questions. If you have any additional questions or concerns, Dr Mcfarland is usually in the office at the same time and will be available If you have any questions call Pending Studies at Discharge: No Stand-Alone Forms: My [facility], Smoking Cessation Medications and DC Order Prescriptions: New oxycodone 5 mg tablet 5 mg PO Q4H PRN (Reason: pain) Qty: 30 RF: 0 ondansetron HCl [Zofran] 4 mg tablet 4 mg PO DAILY PRN (Reason: nausea and vomiting) Qty: 10 RF: 0 Continued fluoxetine [Prozac] 40 mg capsule 40 mg PO DAILY Qty: 90 RF: 3 cholecalciferol (vitamin D3) 50 mcg (2,000 unit) tablet 2,000 units PO DAILY RF: 0 multivitamin Tablet 1 tab PO DAILY RF: 0 calcium carbonate [Calcium 500] 500 mg calcium (1,250 mg) tablet 500 mg PO DAILY RF: 0 omega 3-bve-jax-fish oil [Fish Oil] 1,000 mg (120 mg-180 mg) capsule 1 cap PO DAILY RF: 0 albuterol sulfate [Ventolin HFA] 90 mcg/actuation HFA aerosol inhaler 1 inh INH QID PRN (Reason: shortness of breath or wheezing) Qty: 8.5 RF: 5 Flovent HFA 110 mcg/actuation HFA aerosol inhaler 2 puff INH BID RF: 0 Discharge Orders: Discharge Order (Routine); Ordered 05/08/21 Ordered By: Benton Lopez Admission Data Admit Date/Time: 05/07/21 18:13 Attending Provider: Gareth Mcfarland Admit Provider: Gareth Mcfarland Primary Care Provider: Milka Velasquez Other Providers: Gareth Mcfarland Other Interventions: Discharge Summary Assessment (RN) Last Done: 05/08/21 11:09
[2021-05-09] MEDS ORDERED: MULTIVITAMIN TAB PO SCH (09:00)
== END 2021-05-08 15:05 | disposition home health service (06) ==
LOC: ED 15:18 → 2W 18:13 → INTOOBSV 18:13 → 2W 20:57

== ENCOUNTER 2021-09-24 22:21 | Inpatient (IN) ==
[2021-09-24] MEDS ORDERED: guaiFENesin 600 MG TABCR PO STA (22:33)
--- NOTE | 2021-09-24 22:33 | Emergency Department Note ---
Impression & Plan Back pain, Chest congestion ED Provider Note NAME: IRA SABA AGE: 81 SEX: F : 1940 ARRIVES VIA: Ambulance INFORMANT: Patient, ED PROVIDER(S): Corey Low MD Chief Complaint: Chest congestion, back pain, sciatica HPI: Patient does present due to the above concerns. The patient was stating that she was having some intermittent chest congestion but is vaccinated for Covid. The patient denies cough. The patient is also concerned that she has had back discomfort and can never find a comfortable position. Patient describes it is in the midline and radiating. The patient denies any bowel bladder incontinence or retention. The patient did have a moderate compression deformity at L5 patient had a lumbar spine MRI which showed an acute on chronic compression fracture at L5 with no associated retropulsion. There is severe central canal narrowing at L5 due to severe facet degenerative changes and broad-based posterior disc bulge per MRI completed on August 19. The patient has been taking numerous trials of medications including gabapentin, narcotics and high-dose fentanyl patches but without relief. The patient was seen by Dr. Pulliam with pain management who did do an injection and states that this is not improved anything at all. Patient does not feel as though she could be cared fo r at home by her elderly . Patient is also concerned as she is unable to see Dr. Lopez for several months. ROS: See HPI for pertinent positives and negatives. A total of 10 systems were revi ewed and otherwise negative. Past medical history: See below Surgical history: See below Social history: See below Physical Exam: GENERAL: NAD, wearing a mask, non-toxic. EYE EXAM: Normal conjunctiva. PERRL, no anisocoria and EOM's grossly intact w/o pain. NECK: Supple, no nuchal rigidity, no adenopathy, non-tender. No signs of meningismus. LUNGS: Clear to auscultation. Normal chest wall mechanics. HEART: NSR, no MRG. ABDOMEN: Abdomen soft, non-tender, normo-active bowel sounds, no masses, no rebound or guarding. BACK: No CVA TTP. SKIN: No rashes and no bruising. UPPER EXTREMITIES: Upper extremities are grossly normal. LOWER EXTREMITIES: Grossly normal, no edema. Negative straight leg raise bilaterally. No saddle anesthesia. NEURO EXAM: A&O x3, cranial nerves II-XII grossly intact, normal speech, moves all 4 extremities on command w/o issue. Differential diagnoses: Cardiac ischemia, aortic dissection, pulmonary embolism, pneumothorax, pneumonia, pericarditis, myocarditis, esophageal rupture, GERD, cholecystitis, pancreatitis, musculoskeletal, as well as other pathologies. Course: Patient was seen and evaluated the bedside. Full history physical exam was performed. EKG interpreted by me Sinus with first-degree AV block, rate of 78, prolonged CO, normal QRS, left axi s deviation, T wave inversion in lead III not in contiguous leads. Imaging Studies: See Below Cardiac monitoring: An order was placed for continuous cardiac monitoring. The monitor shows a rate of 82 with sinus rhythm. MDM: Patient did present with back pain and chest congestion. Blood work was obtained along with an EKG troponin and chest x-ray. Patient has complained of chronic back discomfort but states that nothing works. The patient has a negative straight leg raise bilaterally and has no saddle anesthesia. Patient white count 10.9 with normal H&H and platelet count. Kidney function is unremarkable. Upon reassessment the patient was complaining of back pain. The patient did not appear to be uncomfortable upon initial evaluation. I did discuss that if the patient is already had hydromorphone and fentanyl patches as well as having been seen by pain management with back injections there may not be medications from the emergency department that would improve the patient's d iscomfort. The patient had been ordered Tylenol lidocaine patches. I did have the caser in speak to the patient as the patient does not feel as though she is able to go home. I did speak the on-call hospitalist Dr. Villa and the patient was admitted to the medicine service. 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 History of Graves' disease Lumbar radiculopathy Osteoarthritis Osteoporosis Surgical History History of colonoscopy History of knee replacement procedure of left knee History of knee replacement procedure of right knee S/P ORIF (open reduction internal fixation) fracture Rt wrist Family History Mother Alzheimer disease Depression Father Myocardial infarction Brother Non-Hodgkin lymphoma Sister Stroke Other No family history of adverse response to anesthesia Denies family history of Ovarian cancer Prostate cancer Breast cancer Lung cancer Colorectal cancer Social History Smoking Status: Never smoker Second Hand Exposure: No; Do You Dip or Chew Tobacco: No; Tobacco Cessation Education Requested by Patient: No Hx Alcohol Use: No Hx Substance Use: No Preferred Language: Korean Communication Ability: Effective Visual Impairment: Limited Hearing Ability: Normal Partner Manager Required: No Beliefs That Will Affect Care: None marital status: Current Living Situation: Spouse Current Living Situation Comment: Lives with current occupational status: retired Feels Safe at Home: No Is there a partner from a previous relationship who is making you feel unsafe now?: No Any Concerns about Your Family Situation: No Would You Like to Speak to Someone About Your Situation: No Safety Concerns: Feels Safe At This Time during the past year weight has: remained stable Physical Activity Frequency: 5-6 Times per Week Physical Activity Frequency Comment: walks her dog at least a mile daily and gardens Seatbelt Use: always Sunscreen Use: Yes Assistive Devices: Walker Allergies Allergies Allergy/AdvReac Type Severity Reaction Status Date / Time Sulfa (Sulfonamide Allergy Intermediate HIVES Verified 09/24/21 23:30 Antibiotics) trimethoprim Allergy Intermediate HIVES Verified 09/24/21 23:30 OPIODS AdvReac Severe TOLERANT--DON'T Uncoded 09/24/21 23:30 WORK. Home Meds Home Medications Medication Instructions Recorded Confirmed calcium carbonate 500 mg calcium 500 mg PO QAM 01/31/20 09/24/21 (1,250 mg) tablet (Calcium 500) cholecalciferol (vitamin D3) 50 2,000 units PO QAM 01/31/20 09/24/21 mcg (2,000 unit) tablet multivitamin 1 tab PO QAM 01/31/20 09/24/21 omega 2-jld-prg-fish oil 1,000 mg 1 cap PO QAM 01/31/20 09/24/21 (120 mg-180 mg) capsule (Fish Oil) fluticasone propionate 110 2 puff INH BID PRN gm 08/13/21 09/24/21 mcg/actuation HFA aerosol inhaler (Flovent HFA) calcitonin (salmon) 200 1 spray INTRANASAL (ALT) DAILY PRN 09/24/21 09/24/21 unit/actuation nasal spray pregabalin 50 mg capsule 50 mg PO BID 09/24/21 09/24/21 Previous Rx's Medication Instructions Recorded zolpidem 10 mg tablet (Ambien) 10 mg PO HS PRN #30 tab 09/03/21 fluoxetine 20 mg capsule 20 mg PO DAILY #90 cap 09/14/21 fluoxetine 40 mg capsule (Prozac) 40 mg PO QAM #90 cap 09/14/21 Results & Data (ED) Vital Signs Vital Signs - 24 hr 09/24/21 22:39 09/25/21 00:20 09/25/21 01:35 Temperature 37.0 C Temperature Source Oral Pulse Rate 82 Pulse Rate [Apical] 80 71 Respiratory Rate 16 17 22 Respiratory Depth Normal Normal Blood Pressure 134/78 Blood Pressure [Right Arm] 134/78 134/78 Blood Pressure Mean 96 Blood Pressure Mean [Right Arm] 96 96 Pulse Oximetry 94 94 94 Oxygen Delivery Method Nasal Cannula Room Air Room Air Sepsis Recent Fever Within 48 Hours No Sepsis New/Unexplained Change in Mental Status N/A Sepsis Action Taken by Nursing No Action Required Laboratory Data Result diagrams: 09/25/21 05:42 09/25/21 05:42 Lab Results 09/24/21 09/24/21 09/25/21 Range/Units 23:05 23:05 01:39 WBC 10.93 H (4.8-10.8) K/uL RBC 4.63 (4.2-5.4) M/uL Hgb 14.8 (12.0-16.0) g/dL Hct 43.5 (37-47) % MCV 94.0 (80-100) fL MCH 32.0 (25-34) pg MCHC 34.0 (32-36) g/dL RDW Std Deviation 50.7 H (36.4-46.3) fL RDW Coeff of Apple 14.8 H (11.5-14.5) % Plt Count 309 (130-400) K/uL MPV 10.3 (7.4-10.4) fL Immature Gran % (Auto) 0.4 % Neut % (Auto) 72.6 % Lymph % (Auto) 14.4 % [place] % (Auto) 11.4 % Eos % (Auto) 0.9 % Baso % (Auto) 0.3 % Neut # (Auto) 7.94 H (1.4-6.5) K/uL Lymph # (Auto) 1.57 (1.2-3.4) K/uL [place] # (Auto) 1.25 H (0.11-0.59) K/uL Eos # (Auto) 0.10 (0-0.5) K/uL Baso # (Auto) 0.03 (0-0.2) K/uL Immature Gran # (Auto) 0.04 H (0.00-0.02) K/uL Sodium 137 (136-145) mmol/L Potassium (3.5-5.1) mmol/L Chloride 105 (98-107) mmol/L Carbon Dioxide 24 (21-32) mmol/L Anion Gap 8.0 (3-11) BUN 7 (7-18) mg/dl Creatinine 0.54 L (0.6-1.2) mg/dl Est Cr Clr Drug Dosing 93.0 ml/min Est GFR ( Amer) 103.3 ml/min Est GFR (Non-Af Amer) 89.1 ml/min BUN/Creatinine Ratio 13.2 (10-20) Glucose 131 H (70-99) mg/dl Calcium 9.1 (8.5-10.1) mg/dl Magnesium (1.8-2.4) mg/dl Total Bilirubin 0.6 (0.2-1) mg/dl AST (15-37) U/L ALT 17 (12-78) U/L Alkaline Phosphatase 99 (45-117) U/L Troponin I < 0.015 (0-0.045) ng/ml Total Protein 6.6 (6.4-8.2) gm/dl Albumin 2.7 L (3.4-5.0) gm/dl Globulin 3.9 (2.5-4.0) gm/dl Albumin/Globulin Ratio 0.7 L (0.9-2) TSH 1.450 (0.300-4.500) uIu/ml SARS-CoV-2, RNA, NAAT NEGATIVE (NEGATIVE) Administered Medications Calcium Carbonate (Calcium Carbonate 1250mg Tab) 1,250 mg [facility] [place] Stop: 10/25/21 08:59 Last Admin: 09/25/21 09:28 Dose: 1,250 mg Documented by: [id number] Fluoxetine HCl (Fluoxetine Hcl 20 Mg Cap) 60 mg PO QAM АНДРЕЙ Stop: 10/25/21 08:59 Last Admin: 09/25/21 09:28 Dose: 60 mg Documented by: [id number] Pregabalin (Pregabalin 100 Mg Cap) 100 mg PO BID АНДРЕЙ Stop: 10/25/21 08:59 Last Admin: 09/25/21 09:33 Dose: 100 mg Documented by: [id number] Discontinued Medications Acetaminophen (Acetaminophen 500 Mg Tab) 1,000 mg PO NOW STA Stop: 09/25/21 00:04 Last Admin: 09/25/21 00:18 Dose: 1,000 mg Documented by: [id number] Guaifenesin (Guaifenesin 600 Mg Tabcr) 600 mg PO NOW STA Stop: 09/24/21 22:34 Last Admin: 09/25/21 00:18 Dose: 600 mg Documented by: [id number] Sodium Chloride (Nss) 500 mls @ 999 mls/hr IV .Q31M АНДРЕЙ Stop: 09/24/21 23:15 Last Infusion: 09/24/21 23:29 Dose: 0 mls/hr Documented by: [id number] Admin: 09/24/21 22:58 Dose: 999 mls/hr Documented by: [id number] Lidocaine (Lidocaine 5% 1 Patch) 1 patch TD NOW STA Stop: 09/25/21 00:04 Last Admin: 09/25/21 00:18 Dose: 1 patch Documented by: [id number] Methylprednisolone (Methylprednisolone 125 Mg/2 Ml Vial) 60 mg IV NOW STA Stop: 09/25/21 01:08 Last Admin: 09/25/21 01:34 Dose: 60 mg Documented by: [id number] Miscellaneous (Remove Lidoderm Patch) 1 ea N/A ONE ONE Stop: 09/25/21 12:01 Last Admin: 09/25/21 11:26 Dose: 1 ea Documented by: [id number] Imaging Data Radiologist's Impression: Chest X-Ray 09/24/21 22:33 XR chest 1V portable HISTORY: 81 years-old Female weakness, chest congestion acute weakness with chest congestion COMPARISON: Chest radiograph 08/19/2021 TECHNIQUE: Portable AP view of the chest FINDINGS: Cardiac silhouette is mildly enlarged. Mild linear subsegmental atelectasis/scarring of the lateral left midlung. Asymmetric right hilar prominence redemonstrated, likely secondary to pulmonary vascularity. No p neumothorax, pleural effusion or overt pulmonary edema. No lobar airspace consolidation. No acute fracture. IMPRESSION: No acute process. ACT 112: Negative or not required by law. The above report was generated using voice recognition software. It may contain grammatical, syntax or spelling errors. Electronically signed by: Chad Hernández M.D. 09/24/2021 10:54 PM Discharge Plan Visit Data Chief Complaint: Back Injury/Pain Stated Complaint: Fatigue, Hypoxia ED Provider: Corey Low Discharge Problem: Back pain, Chest congestion Patient Disposition: Admitted As Inpatient Discharge Instructions Interventions: ED Discharge Assessment Last Done: 09/25/21 02:49
[2021-09-24] MEDS ORDERED: SODIUM CHLORIDE 0.9% 500 ML IV SCH (22:45)
--- NOTE | 2021-09-24 22:55 | XRay Report ---
XR chest 1V portable HISTORY: 81 years-old Female weakness, chest congestion acute weakness with chest congestion COMPARISON: Chest radiograph 08/19/2021 TECHNIQUE: Portable AP view of the chest FINDINGS: Cardiac silhouette is mildly enlarged. Mild linear subsegmental atelectasis/scarring of the lateral l eft midlung. Asymmetric right hilar prominence redemonstrated, likely secondary to pulmonary vascular ity. No pneumothorax, pleural effusion or overt pulmonary edema. No lobar airspace consolidation. No acute fracture. IMPRESSION: No acute process. ACT 112: Negative or not required by law. The above report was generated using voice recognition software. It may contain grammatical, syntax o r spelling errors. Electronically signed by: Chad Hernández M.D. 09/24/2021 10:54 PM
[2021-09-24 23:15] LABS: Basophils # (auto) 0.03 K/uL (0-0.2); Basophils % (auto) 0.3 %; Eosinophils % (auto) 0.9 %; Hematocrit (blood only) 43.5 % (37-47); Hemoglobin 14.8 g/dL (12.0-16.0); Immature Granulocytes # (auto) 0.04 K/uL (0.00-0.02); Immature Granulocytes % (auto) 0.4 %; Lymphocytes # (auto) 1.57 K/uL (1.2-3.4); Lymphocytes % (auto) 14.4 %; Mean Platelet Volume 10.3 fL (7.4-10.4); Monocytes # (auto) 1.25 K/uL (0.11-0.59); Monocytes % (auto) 11.4 %; Neutrophils # (auto) 7.94 K/uL (1.4-6.5); Neutrophils % (auto) 72.6 %; Platelet Count 309 K/uL (130-400); RDW Coefficient of Variation 14.8 % (11.5-14.5); RDW Standard Deviation 50.7 fL (36.4-46.3); Red Blood Count 4.63 M/uL (4.2-5.4); White Blood Count 10.93 K/uL (4.8-10.8)
[2021-09-24 23:54] LABS: Alanine Aminotransferase 17 U/L (12-78); Albumin Level 2.7 gm/dl (3.4-5.0); BUN Creatinine Ratio 13.2 (10-20); Blood Urea Nitrogen 7 mg/dl (7-18); Calcium 9.1 mg/dl (8.5-10.1); Carbon Dioxide 24 mmol/L (21-32); Chloride 105 mmol/L (98-107); Est GFR (African American) 103.3 ml/min; Est GFR (Non-African American) 89.1 ml/min; Glucose 131 mg/dl (70-99); Sodium 137 mmol/L (136-145)
[2021-09-25] MEDS ORDERED: LIDOCAINE 5% 1 PATCH TD STA (00:03)
[2021-09-25] MEDS ORDERED: ACETAMINOPHEN 500 MG TAB PO STA (00:03)
[2021-09-25 00:16] LABS: Albumin Globulin Ratio 0.7 (0.9-2); Alkaline Phosphatase 99 U/L (45-117); Bilirubin,Total 0.6 mg/dl (0.2-1); Globulin 3.9 gm/dl (2.5-4.0); Total Protein 6.6 gm/dl (6.4-8.2); Troponin I < 0.015 ng/ml (0-0.045)
[2021-09-25] MEDS ORDERED: methylPREDNISolone 125 MG/2 ML VIAL IV STA (01:07)
--- NOTE | 2021-09-25 02:05 | History & Physical Report ---
Date of Service September 25, 2021 Assessment & Plan (1) Compression fracture of L5 vertebra: Plan: Kami Valencia is a 81y/o F who presents for concerns of worsening back pain secondary to her known lumbar compression fractures. Compression fracture of L5: -XR from 08/19 demonstrating moderate compression deformity of L5 -MRI from 08/19 demonstrating acute on chronic severe compression fracture at L5 with no associated retropulsion; severe central canal narrowing at L5 -received 60mg methylprednisolone in ED -increased Pregabalin dosing to 100mg BID -PT/OT consulted -Pain management consulted -Spine Surgery consulted Diet: Regular DVT ppx: CODE STATUS: Full Code (2) Osteoporosis: History of Present Illness Primary Care Provider: Milka Velasquez MD Kami Valencia is a 81y/o F who presents for concerns of worsening back pain secondary to her known lumbar compression fractures. Over the last two months, has been having worsening back pain with radicular symptoms that has not been improved with medications. Was attempting to see Orthopaedic Surgery and Dr. Lopez but could not secure an appointment with them until January. Has been seen by Pain management over this time, and had an injection that did not provide relief of her pain. Has not had improvement with the fentanyl patches or with oral medications so far. Is reconsidering the potential surgical option that she previously wanted to avoid and would like to meet with ortho sooner than January in order to facilitate this decision. Has not had bowel or bladder incontinence, has not had changes in strength, has not had changes in sensation. Continues to have shooting pains down her legs to her mid-calf, with worst on the right. Allergies Allergy/AdvReac Type Severity Reaction Status Date / Time Sulfa (Sulfonamide Allergy Intermediate HIVES Verified 09/24/21 23:30 Antibiotics) trimethoprim Allergy Intermediate HIVES Verified 09/24/21 23:30 OPIODS AdvReac Severe TOLERANT--DON'T Uncoded 09/24/21 23:30 WORK. Home Medications Medication Instructions Recorded Confirmed Type calcium carbonate 500 mg calcium 500 mg PO QAM 01/31/20 09/24/21 History (1,250 mg) tablet (Calcium 500) cholecalciferol (vitamin D3) 50 2,000 units PO QAM 01/31/20 09/24/21 History mcg (2,000 unit) tablet multivitamin 1 tab PO QAM 01/31/20 09/24/21 History omega 5-lqg-vrs-fish oil 1,000 mg 1 cap PO QAM 01/31/20 09/24/21 History (120 mg-180 mg) capsule (Fish Oil) fluticasone propionate 110 2 puff INH BID PRN gm 08/13/21 09/24/21 History mcg/actuation HFA aerosol inhaler (Flovent HFA) zolpidem 10 mg tablet (Ambien) 10 mg PO HS PRN #30 tab 09/03/21 09/24/21 Rx fluoxetine 20 mg capsule 20 mg PO DAILY #90 cap 09/14/21 09/24/21 Rx fluoxetine 40 mg capsule (Prozac) 40 mg PO QAM #90 cap 09/14/21 09/24/21 Rx calcitonin (salmon) 200 1 spray INTRANASAL (ALT) DAILY PRN 09/24/21 09/24/21 History unit/actuation nasal spray pregabalin 50 mg capsule 50 mg PO BID 09/24/21 09/24/21 History 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 History of Graves' disease Lumbar radiculopathy Osteoarthritis Osteoporosis Surgical History History of colonoscopy History of knee replacement procedure of left knee History of knee replacement procedure of right knee S/P ORIF (open reduction internal fixation) fracture Rt wrist Family History Mother Alzheimer disease Depression Father Myocardial infarction Brother Non-Hodgkin lymphoma Sister Stroke Other No family history of adverse response to anesthesia Denies family history of Ovarian cancer Prostate cancer Breast cancer Lung cancer Colorectal cancer Social History Smoking Status: Never smoker Second Hand Exposure: No; Do You Dip or Chew Tobacco: No; Tobacco Cessation Education Requested by Patient: No Hx Alcohol Use: No Hx Substance Use: No Preferred Language: Mongolian Communication Ability: Effective Visual Impairment: Limited Hearing Ability: Normal Price Clerk Required: No Beliefs That Will Affect Care: None marital status: Current Living Situation: Spouse Current Living Situation Comment: Lives with current occupational status: retired Feels Safe at Home: No Is there a partner from a previous relationship who is making you feel unsafe now?: No Any Concerns about Your Family Situation: No Would You Like to Speak to Someone About Your Situation: No Safety Concerns: Feels Safe At This Time during the past year weight has: remained stable Physical Activity Frequency: 5-6 Times per Week Physical Activity Frequency Comment: walks her dog at least a mile daily and gardens Seatbelt Use: always Sunscreen Use: Yes Assistive Devices: Walker Review of Systems Review of Systems: All systems reviewed & are unremarkable except as noted in HPI & below Physical Exam Constitutional: WD/WN, vitals as above Eyes: PERRL, conjunctivae normal, anicteric sclerae Respiratory: normal respiratory effort, lungs clear to auscultation Auscultation: no crackles, no rales, no rhonchi and no wheezes Cardiovascular: Rate/Rhythm: regular rate and regular rhythm Heart Sounds: no gallop, no murmur and no cardiac rub Vessels: normal peripheral pulses; no JVD Extremities: no edema Gastrointestinal (Abdomen): Inspection/Auscultation: normal bowel sounds; abdomen not distended Percussion/Palpation: abdomen soft; abdomen nontender and no guarding Skin: no rashes, warm and dry Neurologic: PERRL, EOMI, accommodation nl, no face palsy, no dysarthria CN's II-XI intact bilaterally and moves all extremities Psychiatric: Orientation: alert and oriented x 3 Results & Data Results & Data ([facility]) Vital Signs (Past 12 Hours) Vital Signs Temp Pulse Pulse Resp BP BP Pulse Ox 09/25/21 01:35 71 22 134/78 94 09/25/21 00:20 80 17 134/78 94 09/24/21 22:39 37.0 C 82 16 134/78 94 Laboratory Results 09/25/21 09/25/21 09/25/21 Range/Units 05:42 05:42 01:39 WBC 10.71 (4.8-10.8) K/uL RBC 4.63 (4.2-5.4) M/uL Hgb 15.1 (12.0-16.0) g/dL Hct 43.4 (37-47) % MCV 93.7 (80-100) fL MCH 32.6 (25-34) pg MCHC 34.8 (32-36) g/dL RDW Std Deviation 50.3 H (36.4-46.3) fL RDW Coeff of Apple 14.7 H (11.5-14.5) % Plt Count 294 (130-400) K/uL MPV 9.9 (7.4-10.4) fL Immature Gran % (Auto) 0.3 % Neut % (Auto) 91.6 % Lymph % (Auto) 7.2 % [place] % (Auto) 0.7 % Eos % (Auto) 0.0 % Baso % (Auto) 0.2 % Neut # (Auto) 9.81 H (1.4-6.5) K/uL Lymph # (Auto) 0.77 L (1.2-3.4) K/uL [place] # (Auto) 0.08 L (0.11-0.59) K/uL Eos # (Auto) 0.00 (0-0.5) K/uL Baso # (Auto) 0.02 (0-0.2) K/uL Immature Gran # (Auto) 0.03 H (0.00-0.02) K/uL Sodium Pending (136-145) mmol/L Potassium Pending (3.5-5.1) mmol/L Chloride Pending (98-107) mmol/L Carbon Dioxide Pending (21-32) mmol/L Anion Gap Pending (3-11) BUN Pending (7-18) mg/dl Creatinine Pending (0.6-1.2) mg/dl Est Cr Clr Drug Dosing Pending ml/min Est GFR ( Amer) Pending ml/min Est GFR (Non-Af Amer) Pending ml/min BUN/Creatinine Ratio Pending (10-20) Glucose Pending (70-99) mg/dl Calcium Pending (8.5-10.1) mg/dl Magnesium (1.8-2.4) mg/dl Total Bilirubin (0.2-1) mg/dl AST (15-37) U/L ALT (12-78) U/L Alkaline Phosphatase (45-117) U/L Troponin I (0-0.045) ng/ml Total Protein (6.4-8.2) gm/dl Albumin (3.4-5.0) gm/dl Globulin (2.5-4.0) gm/dl Albumin/Globulin Ratio (0.9-2) TSH (0.300-4.500) uIu/ml SARS-CoV-2, RNA, NAAT NEGATIVE (NEGATIVE) 09/24/21 09/24/21 Range/Units 23:05 23:05 WBC 10.93 H (4.8-10.8) K/uL RBC 4.63 (4.2-5.4) M/uL Hgb 14.8 (12.0-16.0) g/dL Hct 43.5 (37-47) % MCV 94.0 (80-100) fL MCH 32.0 (25-34) pg MCHC 34.0 (32-36) g/dL RDW Std Deviation 50.7 H (36.4-46.3) fL RDW Coeff of Aplpe 14.8 H (11.5-14.5) % Plt Count 309 (130-400) K/uL MPV 10.3 (7.4-10.4) fL Immature Gran % (Auto) 0.4 % Neut % (Auto) 72.6 % Lymph % (Auto) 14.4 % [place] % (Auto) 11.4 % Eos % (Auto) 0.9 % Baso % (Auto) 0.3 % Neut # (Auto) 7.94 H (1.4-6.5) K/uL Lymph # (Auto) 1.57 (1.2-3.4) K/uL [place] # (Auto) 1.25 H (0.11-0.59) K/uL Eos # (Auto) 0.10 (0-0.5) K/uL Baso # (Auto) 0.03 (0-0.2) K/uL Immature Gran # (Auto) 0.04 H (0.00-0.02) K/uL Sodium 137 (136-145) mmol/L Potassium (3.5-5.1) mmol/L Chloride 105 (98-107) mmol/L Carbon Dioxide 24 (21-32) mmol/L Anion Gap 8.0 (3-11) BUN 7 (7-18) mg/dl Creatinine 0.54 L (0.6-1.2) mg/dl Est Cr Clr Drug Dosing 93.0 ml/min Est GFR ( Amer) 103.3 ml/min Est GFR (Non-Af Amer) 89.1 ml/min BUN/Creatinine Ratio 13.2 (10-20) Glucose 131 H (70-99) mg/dl Calcium 9.1 (8.5-10.1) mg/dl Magnesium (1.8-2.4) mg/dl Total Bilirubin 0.6 (0.2-1) mg/dl AST (15-37) U/L ALT 17 (12-78) U/L Alkaline Phosphatase 99 (45-117) U/L Troponin I < 0.015 (0-0.045) ng/ml Total Protein 6.6 (6.4-8.2) gm/dl Albumin 2.7 L (3.4-5.0) gm/dl Globulin 3.9 (2.5-4.0) gm/dl Albumin/Globulin Ratio 0.7 L (0.9-2) TSH 1.450 (0.300-4.500) uIu/ml SARS-CoV-2, RNA, NAAT (NEGATIVE) Medications Administered Impressions Chest X-Ray 09/24/21 22:33 XR chest 1V portable HISTORY: 81 years-old Female weakness, chest congestion acute weakness with chest congestion COMPARISON: Chest radiograph 08/19/2021 TECHNIQUE: Portable AP view of the chest FINDINGS: Cardiac silhouette is mildly enlarged. Mild linear subsegmental atelectasis/scarring of the lateral left midlung. Asymmetric right hilar prominence redemonstrated, likely secondary to pulmonary vascularity. No pneumothorax, pleural effusion or overt pulmonary edema. No lobar airspace consolidation. No acute fracture. IMPRESSION: No acute process. ACT 112: Negative or not required by law. The above report was generated using voice recognition software. It may contain grammatical, syntax or spelling errors. Electronically signed by: Chad Hernández M.D. 09/24/2021 10:54 PM Supervising Physician Co-Signing Physician Notes Attending addendum: I have physically seen this patient, have supervised the medical residents activities, and agree with the H&P unless as otherwise noted. Assessment and Plan: Acute on chronic back pain/L5 compression fracture- X-rays and MRI from 08/19: Cute on chronic severe compression fracture at L5, with severe central canal narrowing at L5 Patient reports that she has been on multiple narcotics without significant improvement in symptoms She presently is on fentanyl patch Received methylprednisolone 60 mg IV in the ED Increase pregabalin as noted Consult PT/OT Consult orthopedic spine surgery Dr. Lopez, who she has appointment within a few months Remaining orders and notations as noted Resident Activity Tracking Resident Involvement: Resident Care Provided Care Provided: Adult [facility]
[2021-09-25] MEDS ORDERED: ACETAMINOPHEN 325 MG TAB PO PRN (04:12)
[2021-09-25] MEDS ORDERED: ALUMINUM/MAGNESIUM SUSP 30 ML UDC PO PRN (04:12)
[2021-09-25] MEDS ORDERED: CALCITONIN SALMON NA 200 IU/AC 3.7 ML BTL PRN (04:12)
[2021-09-25] MEDS ORDERED: POLYETHYLENE (MIRALAX) 17 GM PACK PO PRN (04:12)
[2021-09-25] MEDS ORDERED: ONDANSETRON INJ 2 MG/ML 2 ML VIAL IV PRN (04:12)
[2021-09-25] MEDS ORDERED: MAGNESIUM HYDROXIDE SUSP 30 ML UDC PO PRN (04:12)
[2021-09-25 05:56] LABS: Basophils # (auto) 0.02 K/uL (0-0.2); Basophils % (auto) 0.2 %; Hematocrit (blood only) 43.4 % (37-47); Hemoglobin 15.1 g/dL (12.0-16.0); Immature Granulocytes # (auto) 0.03 K/uL (0.00-0.02); Immature Granulocytes % (auto) 0.3 %; Lymphocytes # (auto) 0.77 K/uL (1.2-3.4); Lymphocytes % (auto) 7.2 %; Mean Corpuscular Hemoglobin 32.6 pg (25-34); Mean Corpuscular Hgb Conc 34.8 g/dL (32-36); Mean Corpuscular Volume 93.7 fL (80-100); Mean Platelet Volume 9.9 fL (7.4-10.4); Monocytes # (auto) 0.08 K/uL (0.11-0.59); Monocytes % (auto) 0.7 %; Neutrophils # (auto) 9.81 K/uL (1.4-6.5); Neutrophils % (auto) 91.6 %; Platelet Count 294 K/uL (130-400); RDW Coefficient of Variation 14.7 % (11.5-14.5); RDW Standard Deviation 50.3 fL (36.4-46.3); Red Blood Count 4.63 M/uL (4.2-5.4); White Blood Count 10.71 K/uL (4.8-10.8)
[2021-09-25 06:35] LABS: BUN Creatinine Ratio 16.7 (10-20); Calcium 9.1 mg/dl (8.5-10.1); Creatinine Clr Calc Pharmacy 114.1 ml/min; Est GFR (African American) 110.5 ml/min; Est GFR (Non-African American) 95.3 ml/min; Potassium 3.8 mmol/L (3.5-5.1)
--- NOTE | 2021-09-25 08:57 | XRay Report ---
XR lumbar spine 2-3V CLINICAL HISTORY: back pain TECHNIQUE: 3 views of the lumbar spine were obtained. Comparison: None available at the time of this dictation. FINDINGS: No fractures or subluxations are identified. Degenerative changes are seen in the lumbar spine. Align ment appears unremarkable. IMPRESSION: No acute fracture or subluxation. ACT 112: Negative or not required by law. Electronically signed by: Kamran Nelson M.D. 09/25/2021 8:56 AM
[2021-09-25] MEDS ORDERED: FLUoxetine HCL 20 MG CAP PO SCH (09:00)
[2021-09-25] MEDS: FLUoxetine HCL 20 MG CAP PO SCH (09:28)
[2021-09-25] MEDS: CALCIUM CARBONATE 1250MG TAB PO SCH (09:28)
[2021-09-25] MEDS: PREGABALIN 100 MG CAP PO SCH ×2 (09:33→21:46)
--- NOTE | 2021-09-25 09:57 | Orthopedic Consultation ---
Date of Consultation September 25, 2021 Assessment & Plan (1) Compression fracture of L5 vertebra: Assessment L5 compression fracture with lumbar spinal stenosis. Plan at this time in length discussion with this patient reviewing her previous imaging and clinical presentation. She has progressed with her symptoms I would like to obtain an updated MRI of the lumbar spine. Ultimately she may be a candidate for an L5 kyphoplasty with decompression of the L5-S1 level. This may or may not require lumbar stabilization by way of a fusion. Make further conditions upon follow-up and review of MRI. History of Present Illness Reason for Consultation: Back and leg pain Attending Physician: Ashley Ladd MD History of Present Illness Is a very pleasant 81-year-old female that has history of worsening back and leg pain over the summer. She believes this occurred after a fall where she did sustain a right wrist fracture. She is undergone surgery for this. Over the past several months she has had worsening back pain with radiation to bilateral extremities particularly the right leg. Is in the buttock posterior thigh to the below the knee and foot. It does require her to use a walker when ambulating. She can only go short distances. Prior to this time she is very independent managing her home and yard without difficulty. She has undergone epidural injections without any improvement. Allergies Allergy/AdvReac Type Severity Reaction Status Date / Time Sulfa (Sulfonamide Allergy Intermediate HIVES Verified 09/24/21 23:30 Antibiotics) trimethoprim Allergy Intermediate HIVES Verified 09/24/21 23:30 OPIODS AdvReac Severe TOLERANT--DON'T Uncoded 09/24/21 23:30 WORK. Home Medications Medication Instructions Recorded Confirmed Type calcium carbonate 500 mg calcium 500 mg PO QAM 01/31/20 09/24/21 History (1,250 mg) tablet (Calcium 500) cholecalciferol (vitamin D3) 50 2,000 units PO QAM 01/31/20 09/24/21 History mcg (2,000 unit) tablet multivitamin 1 tab PO QAM 01/31/20 09/24/21 History omega 1-dnr-vjm-fish oil 1,000 mg 1 cap PO QAM 01/31/20 09/24/21 History (120 mg-180 mg) capsule (Fish Oil) fluticasone propionate 110 2 puff INH BID PRN gm 08/13/21 09/24/21 History mcg/actuation HFA aerosol inhaler (Flovent HFA) zolpidem 10 mg tablet (Ambien) 10 mg PO HS PRN #30 tab 09/03/21 09/24/21 Rx fluoxetine 20 mg capsule 20 mg PO DAILY #90 cap 09/14/21 09/24/21 Rx fluoxetine 40 mg capsule (Prozac) 40 mg PO QAM #90 cap 09/14/21 09/24/21 Rx calcitonin (salmon) 200 1 spray INTRANASAL (ALT) DAILY PRN 09/24/21 09/24/21 History unit/actuation nasal spray pregabalin 50 mg capsule 50 mg PO BID 09/24/21 09/24/21 History Patient History Medical History (Updated 09/03/21 @ 00:08 by Tammi Vo) Asthma Back pain Compression fracture of L5 vertebra Depression 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 History of Graves' disease Lumbar radiculopathy Osteoarthritis Osteoporosis Surgical History History of colonoscopy History of knee replacement procedure of left knee History of knee replacement procedure of right knee S/P ORIF (open reduction internal fixation) fracture Rt wrist Family History Mother Alzheimer disease Depression Father Myocardial infarction Brother Non-Hodgkin lymphoma Sister Stroke Other No family history of adverse response to anesthesia Denies family history of Ovarian cancer Prostate cancer Breast cancer Lung cancer Colorectal cancer Social History Smoking Status: Never smoker Second Hand Exposure: No; Do You Dip or Chew Tobacco: No; Tobacco Cessation Education Requested by Patient: No Hx Alcohol Use: No Hx Substance Use: No Preferred Language: Zimbabwean Communication Ability: Effective Visual Impairment: Limited Hearing Ability: Normal Sales Account Coordinator Required: No Beliefs That Will Affect Care: None marital status: Current Living Situation: Spouse Current Living Situation Comment: Lives with current occupational status: retired Feels Safe at Home: No Is there a partner from a previous relationship who is making you feel unsafe now?: No Any Concerns about Your Family Situation: No Would You Like to Speak to Someone About Your Situation: No Safety Concerns: Feels Safe At This Time during the past year weight has: remained stable Physical Activity Frequency: 5-6 Times per Week Physical Activity Frequency Comment: walks her dog at least a mile daily and gardens Seatbelt Use: always Sunscreen Use: Yes Assistive Devices: Walker Physical Exam Physical Exam: On exam she is able to sit up in bed. She has reasonable plantar flexion dorsiflexion extensor hallucis longus bilaterally. Sensory appears to be symmetric and intact. Results & Data ([facility]) Vital Signs (Past 12 Hours) Vital Signs Temp Pulse Pulse Pulse Resp BP BP 09/25/21 08:16 36.8 C 80 18 118/78 09/25/21 03:20 36.9 C 73 16 149/67 H 09/25/21 02:49 79 18 144/80 H 09/25/21 01:35 71 22 134/78 09/25/21 00:20 80 17 134/78 09/24/21 22:39 37.0 C 82 16 134/78 Pulse Ox 09/25/21 08:16 94 09/25/21 03:20 92 09/25/21 02:49 94 09/25/21 01:35 94 09/25/21 00:20 94 09/24/21 22:39 94
--- NOTE | 2021-09-25 13:15 | Magnetic Resonance Report ---
MR lumbar spine wo con CLINICAL HISTORY: back and leg pain TECHNIQUE: Multiplanar sequences through the lumbar spine were obtained, without intravenous contrast . Comparison: Comparison is made to MRI lumbar spine 08/19/2021 FINDINGS: Redemonstration of compression fracture of L5. Disks are normal in height and signal. L1-L2: Broad-based posterior disc bulge. No canal stenosis. Mild to moderate neuroforaminal stenosis. L2-L3: Broad-based posterior disc bulge with ligamentum flavum and facet hypertrophy. Moderate canal stenosis. Moderate neuroforaminal stenosis. L3-L4: Right base posterior disc bulge with facet hypertrophy. Ryem-ri-tyjusvmh canal stenosis. Mild neuroforaminal stenosis. L4-L5: Small broad base posterior disc bulge with bilateral facet arthropathy. Moderate canal stenosi s. Moderate neuroforaminal stenosis. L5-S1: Severe narrowing of the spinal canal due to severe facet arthrosis and a small posterior disc bulge. Severe canal stenosis. Severe neuroforaminal stenosis. The spinal ligaments are intact, without evidence of disruption or abnormal signal intensity. The spi nal cord is normal in signal intensity and there is no evidence of cord contusion. There is no eviden ce of an extradural, intradural, extramedullary or intramedullary lesion. Visualized soft tissues are normal. IMPRESSION: Exam is essentially unchanged from prior. There is severe canal and neural foraminal stenosis at L5-S 1 and up to moderate canal and neural foraminal stenosis elsewhere. Compression fracture of L5 is aga in seen. ACT 112: Negative or not required by law. Electronically signed by: Kamran Nelson M.D. 09/25/2021 1:13 PM
--- NOTE | 2021-09-25 16:04 | Hospitalist Progress Note ---
Date of Service September 25, 2021 Assessment & Plan (1) Compression fracture of L5 vertebra: Plan: Kami Valencia is a 81y/o F who presents for concerns of worsening back pain secondary to her known lumbar compression fractures. Intractable back pain with lumbar radiculopathy Compression fracture of L5/Back pain - XR from 08/19 demonstrating moderate compression deformity of L5 - MRI from 08/19 demonstrating acute on chronic severe compression fracture at L5 with no associated retropulsion; severe central canal narrowing at L5 - Received 60mg methylprednisolone in ED - Increased Pregabalin dosing to 100mg BID --> continue up-titration to goal of 150mg TID (outpatient PCP goal) - Continue home calcitonin nasal spray - PT/OT consulted - Check vitamin D level - Pain management consulted, pending - Ortho/spine Surgery consulted - Per note on 09/25: will obtain an updated MRI of the lumbar spine.May be candidate for surgical intervention. Further considerations pending f/u and review of ordered MRI. Chronic Conditions Insomnia: continue home Ambien 10mg qhs prn Depression: continue home fluoxetine 60mg po qAM Diet: Regular CODE STATUS: Full Code (2) Osteoporosis: Admission and Anticipated Discharge Date Admission Date: September 25, 2021 Supervising Physician Co-Signing Physician Notes Resident Physician Supervision Note: I independently interviewed and examined the patient and verified the goodman history and physical, reviewed labs and image studies and agree with resident Dr. Newell findings and care plan. Subjective Patient seen and evaluated at bedside this morning. Reports persistent pain in the low back with radiation to the BLE, R>L. Pain is rated at a 7.5/10. Has been ambulating with rolling walker due to the pain. Patient states no relief with the fentanyl patch trial at home; also failed trial of hydromorphone at home. 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 She is eating well. Denies abdominal pain, nausea, or vomiting. Patient with no other concerns this morning. Review of Systems Review of Systems: All systems reviewed & are unremarkable except as noted in HPI & below Physical Exam Physical Exam: GENERAL: No acute distress. Well developed and well nourished. Vital signs reviewed as above. EYES: EOMI. Anicteric sclerae. HENT: Atraumatic, normocephalic. Moist mucous membranes. RESPIRATORY: Clear to auscultation bilaterally. No wheezing, rales, or rhonchi. CARDIOVASCULAR: Regular rate and rhythm. No murmurs. ABDOMEN: Soft, non-tender and non-distended. Normal bowel sounds. BACK: Patient with no spinous process tenderness to palpation. Normal sensation. EXTREMITIES: No edema. Non-tender. Normal sensation. SKIN: Warm, dry. NEUROLOGIC: A/O x3. No focal neurological deficits. Observed to ambulate to bathroom with assistive walker w/o difficulty. PSYCHIATRIC: Cooperative. Appropriate mood and affect. Results & Data Results & Data ([facility]) Vital Signs (Past 12 Hours) Vital Signs Temp Pulse Resp BP Pulse Ox 09/25/21 08:16 36.8 C 80 18 118/78 94 Laboratory Results 09/25/21 09/25/21 09/25/21 Range/Units 05:42 05:42 01:39 WBC 10.71 (4.8-10.8) K/uL RBC 4.63 (4.2-5.4) M/uL Hgb 15.1 (12.0-16.0) g/dL Hct 43.4 (37-47) % MCV 93.7 (80-100) fL MCH 32.6 (25-34) pg MCHC 34.8 (32-36) g/dL RDW Std Deviation 50.3 H (36.4-46.3) fL RDW Coeff of Apple 14.7 H (11.5-14.5) % Plt Count 294 (130-400) K/uL MPV 9.9 (7.4-10.4) fL Immature Gran % (Auto) 0.3 % Neut % (Auto) 91.6 % Lymph % (Auto) 7.2 % [place] % (Auto) 0.7 % Eos % (Auto) 0.0 % Baso % (Auto) 0.2 % Neut # (Auto) 9.81 H (1.4-6.5) K/uL Lymph # (Auto) 0.77 L (1.2-3.4) K/uL [place] # (Auto) 0.08 L (0.11-0.59) K/uL Eos # (Auto) 0.00 (0-0.5) K/uL Baso # (Auto) 0.02 (0-0.2) K/uL Immature Gran # (Auto) 0.03 H (0.00-0.02) K/uL Sodium 139 (136-145) mmol/L Potassium 3.8 (3.5-5.1) mmol/L Chloride 108 H (98-107) mmol/L Carbon Dioxide 25 (21-32) mmol/L Anion Gap 6.0 (3-11) BUN 7 (7-18) mg/dl Creatinine 0.44 L (0.6-1.2) mg/dl Est Cr Clr Drug Dosing 114.1 ml/min Est GFR ( Amer) 110.5 ml/min Est GFR (Non-Af Amer) 95.3 ml/min BUN/Creatinine Ratio 16.7 (10-20) Glucose 141 H (70-99) mg/dl Calcium 9.1 (8.5-10.1) mg/dl Magnesium (1.8-2.4) mg/dl Total Bilirubin (0.2-1) mg/dl AST (15-37) U/L ALT (12-78) U/L Alkaline Phosphatase (45-117) U/L Troponin I (0-0.045) ng/ml Total Protein (6.4-8.2) gm/dl Albumin (3.4-5.0) gm/dl Globulin (2.5-4.0) gm/dl Albumin/Globulin Ratio (0.9-2) TSH (0.300-4.500) uIu/ml SARS-CoV-2, RNA, NAAT NEGATIVE (NEGATIVE) 09/24/21 09/24/21 Range/Units 23:05 23:05 WBC 10.93 H (4.8-10.8) K/uL RBC 4.63 (4.2-5.4) M/uL Hgb 14.8 (12.0-16.0) g/dL Hct 43.5 (37-47) % MCV 94.0 (80-100) fL MCH 32.0 (25-34) pg MCHC 34.0 (32-36) g/dL RDW Std Deviation 50.7 H (36.4-46.3) fL RDW Coeff of Apple 14.8 H (11.5-14.5) % Plt Count 309 (130-400) K/uL MPV 10.3 (7.4-10.4) fL Immature Gran % (Auto) 0.4 % Neut % (Auto) 72.6 % Lymph % (Auto) 14.4 % [place] % (Auto) 11.4 % Eos % (Auto) 0.9 % Baso % (Auto) 0.3 % Neut # (Auto) 7.94 H (1.4-6.5) K/uL Lymph # (Auto) 1.57 (1.2-3.4) K/uL [place] # (Auto) 1.25 H (0.11-0.59) K/uL Eos # (Auto) 0.10 (0-0.5) K/uL Baso # (Auto) 0.03 (0-0.2) K/uL Immature Gran # (Auto) 0.04 H (0.00-0.02) K/uL Sodium 137 (136-145) mmol/L Potassium (3.5-5.1) mmol/L Chloride 105 (98-107) mmol/L Carbon Dioxide 24 (21-32) mmol/L Anion Gap 8.0 (3-11) BUN 7 (7-18) mg/dl Creatinine 0.54 L (0.6-1.2) mg/dl Est Cr Clr Drug Dosing 93.0 ml/min Est GFR ( Amer) 103.3 ml/min Est GFR (Non-Af Amer) 89.1 ml/min BUN/Creatinine Ratio 13.2 (10-20) Glucose 131 H (70-99) mg/dl Calcium 9.1 (8.5-10.1) mg/dl Magnesium (1.8-2.4) mg/dl Total Bilirubin 0.6 (0.2-1) mg/dl AST (15-37) U/L ALT 17 (12-78) U/L Alkaline Phosphatase 99 (45-117) U/L Troponin I < 0.015 (0-0.045) ng/ml Total Protein 6.6 (6.4-8.2) gm/dl Albumin 2.7 L (3.4-5.0) gm/dl Globulin 3.9 (2.5-4.0) gm/dl Albumin/Globulin Ratio 0.7 L (0.9-2) TSH 1.450 (0.300-4.500) uIu/ml SARS-CoV-2, RNA, NAAT (NEGATIVE) Resident Activity Tracking Resident Involvement: Resident Care Provided Care Provided: Adult [facility]
[2021-09-25] MEDS: ZOLPIDEM TARTRATE 10 MG TAB PO PRN (21:46)
--- NOTE | 2021-09-26 02:51 | Billing Data ---
Date of Service September 26, 2021 Coding Level of Care Code INT OBSERVATION CARE 70M LVL 3
[2021-09-26 08:13] LABS: Basophils # (auto) 0.02 K/uL (0-0.2); Basophils % (auto) 0.2 %; Eosinophils % (auto) 0.9 %; Hematocrit (blood only) 41.7 % (37-47); Hemoglobin 13.7 g/dL (12.0-16.0); Immature Granulocytes # (auto) 0.06 K/uL (0.00-0.02); Immature Granulocytes % (auto) 0.6 %; Lymphocytes % (auto) 25.3 %; Mean Corpuscular Hemoglobin 31.3 pg (25-34); Mean Corpuscular Hgb Conc 32.9 g/dL (32-36); Mean Corpuscular Volume 95.2 fL (80-100); Mean Platelet Volume 10.5 fL (7.4-10.4); Monocytes # (auto) 1.11 K/uL (0.11-0.59); Monocytes % (auto) 10.4 %; Neutrophils # (auto) 6.67 K/uL (1.4-6.5); Neutrophils % (auto) 62.6 %; Platelet Count 304 K/uL (130-400); RDW Coefficient of Variation 15.1 % (11.5-14.5); RDW Standard Deviation 53.1 fL (36.4-46.3); Red Blood Count 4.38 M/uL (4.2-5.4); White Blood Count 10.66 K/uL (4.8-10.8)
[2021-09-26 08:46] LABS: BUN Creatinine Ratio 28.3 (10-20); Calcium 9.1 mg/dl (8.5-10.1); Creatinine Clr Calc Pharmacy 80.7 ml/min; Est GFR (African American) 103.9 ml/min; Est GFR (Non-African American) 89.7 ml/min; Potassium 4.3 mmol/L (3.5-5.1)
[2021-09-26] MEDS: CALCIUM CARBONATE 1250MG TAB PO SCH (09:01)
[2021-09-26] MEDS: FLUoxetine HCL 20 MG CAP PO SCH (09:01)
[2021-09-26] MEDS: PREGABALIN 100 MG CAP PO SCH ×2 (09:02→20:27)
--- NOTE | 2021-09-26 09:44 | Electrocardiogram Report ---
Test Reason : Blood Pressure : / mmHG Vent. Rate : 078 BPM Atrial Rate : 078 BPM P-R Int : 222 ms QRS Dur : 078 ms QT Int : 436 ms P-R-T Axes : 018 -37 002 degrees QTc Int : 497 ms Poor data quality, interpretation may be adversely affected Sinus rhythm with 1st degree A-V block Left axis deviation Low voltage QRS Inferior infarct , age undetermined Possible Anterolateral infarct (cited on or before 24-SEP-2021) Abnormal ECG When compared with ECG of 19-AUG-2021 19:11, [place] interval has increased Inferior infarct is now Present Questionable change in initial forces of Lateral leads Confirmed by Wilfred Sorto ([id number]) on 09/26/2021 9:44:37 AM Referred By: REFERRED SELF Confirmed By:Wilfred Sorto
--- NOTE | 2021-09-26 10:47 | Orthopedic Progress Note ---
Date of Service September 26, 2021 Assessment & Plan (1) Compression fracture of L5 vertebra: Plan: Assessment lumbar spinal stenosis with compression fracture of L5. Plan at length discussion today with the patient regarding her updated MRI. It demonstrates some moderate stenosis L2-L3 but severe stenosis L L4-L5 L5-S1. The compression fracture has progressed. Reviewed these films with him discussed treatment it would require a kyphoplasty of L5 with a decompression and fusion L4-S1. Risk benefits pros cons and alternatives were outlined in detail. Risk include but not limited to anesthesia blindness stroke paralysis nerve damage blood loss requiring transfusion infection requiring reoperation. Benefit of the marked improvement her ability to stand and ambulate. At this time she was made n.p.o. after midnight we will plan for surgery in the a.m. Admission and Anticipated Discharge Date Admission Date: September 25, 2021 Subjective Patient still complaining of back and right greater than left leg pain. This continues to markedly limited ability to stand and ambulate with any distance. Pain is still significant. Physical Exam Physical Exam: Patient is in bed. She does have reasonable strength testing. She is able to tolerate physical therapy today but falling a few steps. Results & Data ([facility]) Vital Signs (Past 12 Hours) Vital Signs Temp Pulse Resp BP Pulse Ox 09/26/21 07:52 36.5 C 71 18 129/73 93 09/25/21 22:55 36.4 C L 62 16 128/73 92
--- NOTE | 2021-09-26 11:41 | Hospitalist Progress Note ---
Date of Service September 26, 2021 Assessment & Plan (1) Compression fracture of L5 vertebra: Plan: Kami Valencia is a 81y/o F who presents for concerns of worsening back pain secondary to her known lumbar compression fractures. Intractable back pain with lumbar radiculopathy Compression fracture of L5/Back pain - XR from 08/19 demonstrating moderate compression deformity of L5 - MRI from 08/19 demonstrating acute on chronic severe compression fracture at L5 with no associated retropulsion; severe central canal narrowing at L5 - Received 60mg methylprednisolone in ED - Increased Pregabalin dosing to 100mg BID on 09/25 --> continue up-titration to goal of 150mg TID (outpatient PCP goal) - Continue home calcitonin nasal spray - Continue PT/OT - Vitamin D level, pending - Ortho/spine Surgery following - Per note on 09/25: will obtain an updated MRI of the lumbar spine.May be candidate for surgical intervention. Further considerations pending f/u and review of ordered MRI. - 09/26: MRI reviewed -- moderate stenosis L2-L3, severe stenosis L L4-L5 and L5-S1; compression fracture progressed; discussed surgical intervention; patient to be made NPO at midnight and will plan for surgery tomorrow morning Chronic Conditions Insomnia: continue home Ambien 10mg qhs prn Depression: continue home fluoxetine 60mg po qAM Diet: Regular CODE STATUS: Full Code (2) Osteoporosis: Admission and Anticipated Discharge Date Admission Date: September 25, 2021 Supervising Physician Co-Signing Physician Notes Resident Physician Supervision Note: I independently interviewed and examined the patient and verified the goodman history and physical, reviewed labs and image studies and agree with resident Dr. Newell findings and care plan. Subjective Patient seen and evaluated at bedside this morning. Reports slightly improved pain from yesterday, rating the pain at a 6/10 at present, but notes that it continues to significantly impact ambulation and ADLs. Patient was able to sleep last night. She is tolerating po intake without abdominal pain, nausea, or vomiting. No other questions or concerns at this time. Review of Systems Review of Systems: See HPI Physical Exam Physical Exam: GENERAL: No acute distress. Well developed and well nourished. Vital signs reviewed as above. EYES: EOMI. Anicteric sclerae. HENT: Atraumatic, normocephalic. Moist mucous membranes. RESPIRATORY: Clear to auscultation bilaterally. No wheezing, rales, or rhonchi. CARDIOVASCULAR: Regular rate and rhythm. No murmurs. ABDOMEN: Soft, non-tender and non-distended. Normal bowel sounds. BACK: Patient with no spinous process tenderness to palpation. Normal sensation. EXTREMITIES: No edema. Non-tender. Normal sensation. SKIN: Warm, dry. NEUROLOGIC: A/O x3. No focal neurological deficits. PSYCHIATRIC: Cooperative. Appropriate mood and affect. Results & Data Results & Data ([facility]) Vital Signs (Past 12 Hours) Vital Signs Temp Pulse Resp BP Pulse Ox 09/26/21 07:52 36.5 C 71 18 129/73 93 Laboratory Results 09/26/21 09/26/21 09/26/21 Range/Units 07:11 07:11 07:11 WBC 10.66 (4.8-10.8) K/uL RBC 4.38 (4.2-5.4) M/uL Hgb 13.7 (12.0-16.0) g/dL Hct 41.7 (37-47) % MCV 95.2 (80-100) fL MCH 31.3 (25-34) pg MCHC 32.9 (32-36) g/dL RDW Std Deviation 53.1 H (36.4-46.3) fL RDW Coeff of Apple 15.1 H (11.5-14.5) % Plt Count 304 (130-400) K/uL MPV 10.5 H (7.4-10.4) fL Immature Gran % (Auto) 0.6 % Neut % (Auto) 62.6 % Lymph % (Auto) 25.3 % [place] % (Auto) 10.4 % Eos % (Auto) 0.9 % Baso % (Auto) 0.2 % Neut # (Auto) 6.67 H (1.4-6.5) K/uL Lymph # (Auto) 2.70 (1.2-3.4) K/uL [place] # (Auto) 1.11 H (0.11-0.59) K/uL Eos # (Auto) 0.10 (0-0.5) K/uL Baso # (Auto) 0.02 (0-0.2) K/uL Immature Gran # (Auto) 0.06 H (0.00-0.02) K/uL Sodium 142 (136-145) mmol/L Potassium 4.3 (3.5-5.1) mmol/L Chloride 110 H (98-107) mmol/L Carbon Dioxide 25 (21-32) mmol/L Anion Gap 7.0 (3-11) BUN 15 D (7-18) mg/dl Creatinine 0.53 L (0.6-1.2) mg/dl Est Cr Clr Drug Dosing 80.7 ml/min Est GFR ( Amer) 103.9 ml/min Est GFR (Non-Af Amer) 89.7 ml/min BUN/Creatinine Ratio 28.3 H (10-20) Glucose 99 (70-99) mg/dl Calcium 9.1 (8.5-10.1) mg/dl 25-OH Vitamin D Total Pending Resident Activity Tracking Resident Involvement: Resident Care Provided Care Provided: Adult Hospital Medicine
[2021-09-27] MEDS: ZOLPIDEM TARTRATE 10 MG TAB PO PRN ×2 (00:18→23:48)
--- NOTE | 2021-09-27 06:45 | Hospitalist Progress Note ---
Date of Service September 27, 2021 Assessment & Plan (1) Compression fracture of L5 vertebra: Plan: Kami Valencia is a 81y/o F who presents for worsening back pain secondary to her known lumbar compression fractures. Kyphoplasty L5 decompression fusion L4-S1 planned for 09/27/21 PM. Intractable back pain with lumbar radiculopathy Compression fracture of L5/Back pain - XR from 08/19 demonstrating moderate compression deformity of L5 - MRI from 08/19 demonstrating acute on chronic severe compression fracture at L5 with no associated retropulsion; severe central canal narrowing at L5 - Received 60mg methylprednisolone in ED - Increased Pregabalin dosing to 100mg BID on 09/25 --> continue up-titration to goal of 150mg TID (outpatient PCP goal) - Pain management consult: recommends tylenol. Patient may consider genetic testing as outpatient for opiate sensitivity. Patient clinically reports insensitivity to prior narcotic treatments. - Continue home calcitonin nasal spray - Vitamin D level wnl - Given the compression fractures, consider bisphosphonate in outpatient setting after appropriate delay after surgery; discuss w/ PCP; - Ortho/spine Surgery following - 09/26: MRI reviewed -- moderate stenosis L2-L3, severe stenosis L L4-L5 and L5-S1; compression fracture progressed; discussed surgical intervention Chronic Conditions Insomnia: continue home Ambien 10mg qhs prn Depression: continue home fluoxetine 60mg po qAM Asthma: home Flovent prn Diet: NPO awaiting surgery CODE STATUS: Full Code Dispo: med/surg ppx: SCDs. Chemoppx per surgery (2) Osteoporosis: Admission and Anticipated Discharge Date Admission Date: September 26, 2021 Supervising Physician Co-Signing Physician Notes I personally examined the patient and verified all goodman points of history and exam, discussed case, and agree with decision making with Dr Alexander For surgery later today. Understand situation. No new complaints. Notes that she does not respond to narcotic pain medicines. vitals noted nad heent nc at mmm breathing unlabored no accessory muscles good effort skin no rashes no pallor or icterus neuro no focal deficits spinal stenosis/compression fx - for OR today. PT/OT eval and treat. outpt bone [employer] w/u and treatment given osteoporotic fx of L5 SCD for DVT proph given spine surgery otherwise as above Subjective Current pain level (low back, buttocks, and down leg) is 6/10, tolerable, same as yesterday. Worse w/ movement. Bilat radicular symptoms, worse on R. Mostly down to calfs, sometimes down to foot. No other complaints. Review of Systems Review of Systems: All systems reviewed & are unremarkable except as noted in HPI & below Constitutional: Denies fever, chills Eyes: Denies blurry vision, vision changes Cardiovascular: Denies chest pain, palpitations Respiratory: Denies shortness of breath Gastrointestinal: Denies abdominal pain, nausea, vomiting, constipation, diarrhea Genitourinary: Denies urinary symptoms including dysuria Musculoskeletal: Denies weakness, muscle aches/pain, joint aches/pain Neurological: Denies headache, focal weakness Physical Exam Physical Exam: General: Grossly A&O. NAD. Cooperative. HEENT: Atraumatic, normocephalic. EOMI Pulm: CTAB. -wheezes, -rales, -rhonchi. Trace BLE, worse on R Cardiac: RRR, -mrg. Abdominal: Nontender, nondistended, soft. Msk: Moving extremities. Neuro: Neg SLR bilat. Lower extremity strength intact. Results & Data Results & Data ([facility]) Vital Signs (Past 12 Hours) Vital Signs vitals appropriate. 90-93 on RA Temp Pulse Resp BP Pulse Ox 09/26/21 22:21 37.1 C 64 16 137/77 92 Laboratory Results cbc, bmp stable. Ca 8.4L, albumin not checked today. vit d wnl 58.7. Diagnostic Findings 09/25/21 lumbar spine MRI IMPRESSION: Exam is essentially unchanged from prior. There is severe canal and neural foraminal stenosis at L5-S1 and up to moderate canal and neural foraminal stenosis elsewhere. Compression fracture of L5 is again seen. Resident Activity Tracking Resident Involvement: Resident Care Provided Care Provided: Adult [facility] Medicine
--- NOTE | 2021-09-27 08:35 | Pain Management Consultation ---
Date of Consultation September 27, 2021 Assessment & Plan (1) Compression fracture of L5 vertebra: (2) Lumbar spinal stenosis: 1. Agree with plan for L4-S1 fusion given that patient has failed conservative measures. She is n.p.o. for the OR today. 2. Patient states that utilization of Tylenol is acceptable at this time given that no opiate in her past has been effective in diminishing her pain. We discussed at length genetic testing for opiate sensitivity/efficacy which patient may pursue as an outpatient at her leisure. 3. Please call should you have any further questions, pain management will sign off. History of Present Illness Attending Physician: Akshat Aguiar DO History of Present Illness 81-year-old female with history of axial low back pain and lumbar radicular symptoms bilaterally along the lateral thigh to the level of the ankle. She d enies any motor weakness, bowel or bladder incontinence, foot drop. She states she has a history of a fall and a known L5 compression fracture. She reports interventional pain management was performed by Dr. Pulliam (notes were not available for review) but reports that these were not effective in diminishing her pain thus has a planned operative procedure for an L4-S1 fusion and L5 kyphoplasty with Dr. Lopez today. Patient reports that her pain is around 5 out of 10 worse with movement and notes that she is tried a multitude of opiates in the past but has been told she has a genetic tolerance to opiates. She has not had formal genetic testing. She states she typically has been using Tylenol for pain as it works just as well as any other opiate, but finds it rather ineffective at treating her pain. She denies other constitutional complaints at this time. Pain Assessment Full Body Front + Back: 1. 2. 3. [facility] Combined Pain Scale: 5-Moderate - Cannot perform normal tasks without increase in pain Allergies Allergy/AdvReac Type Severity Reaction Status Date / Time Sulfa (Sulfonamide Allergy Intermediate HIVES Verified 09/24/21 23:30 Antibiotics) trimethoprim Allergy Intermediate HIVES Verified 09/24/21 23:30 OPIODS AdvReac Severe TOLERANT--DON'T Uncoded 09/24/21 23:30 WORK. Home Medications Medication Instructions Recorded Confirmed Type calcium carbonate 500 mg calcium 500 mg PO QAM 01/31/20 09/24/21 History (1,250 mg) tablet (Calcium 500) cholecalciferol (vitamin D3) 50 2,000 units PO QAM 01/31/20 09/24/21 History mcg (2,000 unit) tablet multivitamin 1 tab PO QAM 01/31/20 09/24/21 History omega 7-vjw-jbf-fish oil 1,000 mg 1 cap PO QAM 01/31/20 09/24/21 History (120 mg-180 mg) capsule (Fish Oil) fluticasone propionate 110 2 puff INH BID PRN gm 08/13/21 09/24/21 History mcg/actuation HFA aerosol inhaler (Flovent HFA) zolpidem 10 mg tablet (Ambien) 10 mg PO HS PRN #30 tab 09/03/21 09/24/21 Rx fluoxetine 20 mg capsule 20 mg PO DAILY #90 cap 09/14/21 09/24/21 Rx fluoxetine 40 mg capsule (Prozac) 40 mg PO QAM #90 cap 09/14/21 09/24/21 Rx calcitonin (salmon) 200 1 spray INTRANASAL (ALT) DAILY PRN 09/24/21 09/24/21 History unit/actuation nasal spray pregabalin 50 mg capsule 50 mg PO BID 09/24/21 09/24/21 History Patient History Medical History (Updated 09/27/21 @ 08:39 by Milka Berger DO) Asthma Back pain Compression fracture of L5 vertebra Depression 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 History of Graves' disease Lumbar radiculopathy Lumbar spinal stenosis Osteoarthritis Osteoporosis Surgical History History of colonoscopy History of knee replacement procedure of left knee History of knee replacement procedure of right knee S/P ORIF (open reduction internal fixation) fracture Rt wrist Family History Mother Alzheimer disease Depression Father Myocardial infarction Brother Non-Hodgkin lymphoma Sister Stroke Other No family history of adverse response to anesthesia Denies family history of Ovarian cancer Prostate cancer Breast cancer Lung cancer Colorectal cancer Social History Smoking Status: Never smoker Second Hand Exposure: No; Do You Dip or Chew Tobacco: No; Tobacco Cessation Education Requested by Patient: No Hx Alcohol Use: No Hx Substance Use: No Preferred Language: Palauan Communication Ability: Effective Visual Impairment: Limited Hearing Ability: Normal Gravedigger Required: No Beliefs That Will Affect Care: None marital status: Current Living Situation: Spouse Current Living Situation Comment: Lives with current occupational status: retired Feels Safe at Home: Yes Safety Concerns: Feels Safe At This Time during the past year weight has: remained stable Physical Activity Frequency: 5-6 Times per Week Physical Activity Frequency Comment: walks her dog at least a mile daily and gardens Seatbelt Use: always Sunscreen Use: Yes Assistive Devices: Glasses Physical Exam Constitutional: WD/WN, vitals as above well developed and well nourished; no acute distress Eyes: PERRL, conjunctivae normal, anicteric sclerae ENMT: external ear and nose normal, oropharynx normal Neck: trachea midline, no thyromegaly Respiratory: normal respiratory effort; no respiratory distress Cardiovascular: Rate/Rhythm: regular rate and regular rhythm Musculoskeletal: no cyanosis or clubbing, extremities motor strength 5/5 (grossly) Spine: + lumbar spinal tenderness Skin: no rashes, warm and dry Psychiatric: A+Ox3, euthymic affect Results (Pain Clinic) Diagnostic Review MRI: non enhanced, reports reviewed and findings discussed with patient MRI Findings: 09/25/21 MR lumbar spine wo con CLINICAL HISTORY: back and leg pain TECHNIQUE: Multiplanar sequences through the lumbar spine were obtained, without intravenous contrast. Comparison: Comparison is made to MRI lumbar spine 08/19/2021 FINDINGS: Redemonstration of compression fracture of L5. Disks are normal in height and signal. L1-L2: Broad-based posterior disc bulge. No canal stenosis. Mild to moderate neuroforaminal stenosis. L2-L3: Broad-based posterior disc bulge with ligamentum flavum and facet hypertrophy. Moderate canal stenosis. Moderate neuroforaminal stenosis. L3-L4: Right base posterior disc bulge with facet hypertrophy. Gnpf-tp-kvwzgsmo canal stenosis. Mild neuroforaminal stenosis. L4-L5: Small broad base posterior disc bulge with bilateral facet arthropathy. Moderate canal stenosis. Moderate neuroforaminal stenosis. L5-S1: Severe narrowing of the spinal canal due to severe facet arthrosis and a small posterior disc bulge. Severe canal stenosis. Severe neuroforaminal meena nosis. The spinal ligaments are intact, without evidence of disruption or abnormal signal intensity. The spinal cord is normal in signal intensity and there is no evidence of cord contusion. There is no evidence of an extradural, intradural, extramedullary or intramedullary lesion. Visualized soft tissues are normal. IMPRESSION: Exam is essentially unchanged from prior. There is severe canal and neural foraminal stenosis at L5-S1 and up to moderate canal and neural foraminal stenosis elsewhere. Compression fracture of L5 is again seen. Radiology: reports reviewed Radiology Findings: 09/25/21 XR lumbar spine 2-3V CLINICAL HISTORY: back pain TECHNIQUE: 3 views of the lumbar spine were obtained. Comparison: None available at the time of this dictation. FINDINGS: No fractures or subluxations are identified. Degenerative changes are seen in the lumbar spine. Alignment appears unremarkable. IMPRESSION: No acute fracture or subluxation. Previous Records Review Previous Records: personally reviewed by me Opioid Risk Assessment Opioid Risk Assessment: risk assessment performed and no issues identified
--- NOTE | 2021-09-27 08:44 | Anesthesiology Consultation ---
Date of Service September 27, 2021 Assessment & Plan (1) Encounter for pre-operative examination: Chart Review Chart Review: Acceptable Risk for Surgery (in May had an ORIF wrist with LMA and block without issue) History Surgery Operation Date: 09/27/21 09:00 Proposed Procedures p Kyphoplasty L5 - Kenn Lopez DO s Decompression Fusion L4-S1 - Kenn Lopez, Height/Weight Height: 5 ft 1 in Weight: 79.2 kg Allergies Allergy/AdvReac Type Severity Reaction Status Date / Time Sulfa (Sulfonamide Allergy Intermediate HIVES Verified 09/24/21 23:30 Antibiotics) trimethoprim Allergy Intermediate HIVES Verified 09/24/21 23:30 OPIODS AdvReac Severe TOLERANT--DON'T Uncoded 09/24/21 23:30 WORK. Medications Home Medications Medication Instructions Recorded Confirmed Last Taken calcium carbonate 500 mg calcium 500 mg PO QAM 01/31/20 09/24/21 05/07/21 (1,250 mg) tablet (Calcium 500) cholecalciferol (vitamin D3) 50 2,000 units PO QAM 01/31/20 09/24/21 05/07/21 mcg (2,000 unit) tablet multivitamin 1 tab PO QAM 01/31/20 09/24/21 05/07/21 omega 3-psl-sbs-fish oil 1,000 mg 1 cap PO QAM 01/31/20 09/24/21 06/03/21 (120 mg-180 mg) capsule (Fish Oil) fluticasone propionate 110 2 puff INH BID PRN gm 08/13/21 09/24/21 Unknown mcg/actuation HFA aerosol inhaler (Flovent HFA) zolpidem 10 mg tablet (Ambien) 10 mg PO HS PRN #30 tab 09/03/21 09/24/21 Unknown fluoxetine 20 mg capsule 20 mg PO DAILY #90 cap 09/14/21 09/24/21 09/24/21 fluoxetine 40 mg capsule (Prozac) 40 mg PO QAM #90 cap 09/14/21 09/24/21 calcitonin (salmon) 200 1 spray INTRANASAL (ALT) DAILY PRN 09/24/21 09/24/21 Unknown unit/actuation nasal spray pregabalin 50 mg capsule 50 mg PO BID 09/24/21 09/24/21 09/24/21 Active Medications Generic Name Dose Route Start Last Admin Trade Name Freq PRN Reason Stop Dose Admin Calcium Carbonate 1,250 mg 09/25/21 09:00 09/26/21 09:01 Calcium Carbonate 1250mg Tab PO 10/25/21 08:59 1,250 mg QAM АНДРЕЙ Administration Fluoxetine HCl 60 mg 09/25/21 09:00 09/26/21 09:01 Fluoxetine Hcl 20 Mg Cap PO 10/25/21 08:59 60 mg QAM АНДРЕЙ Administration Pregabalin 100 mg 09/25/21 09:00 09/26/21 20:27 Pregabalin 100 Mg Cap PO 10/25/21 08:59 100 mg BID АНДРЕЙ Administration Zolpidem Tartrate 10 mg 09/25/21 04:12 09/27/21 00:18 Zolpidem Tartrate 10 Mg Tab PO 10/25/21 04:11 10 mg HS PRN Administration insomnia Past Medical History Medical History Asthma Back pain Compression fracture of L5 vertebra Depression 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 History of Graves' disease Lumbar radiculopathy Lumbar spinal stenosis Osteoarthritis Osteoporosis Past Family History Family History Mother Alzheimer disease Depression Father Myocardial infarction Brother Non-Hodgkin lymphoma Sister Stroke Other No family history of adverse response to anesthesia Denies family history of Ovarian cancer Prostate cancer Breast cancer Lung cancer Colorectal cancer Past Surgical History Surgical History History of colonoscopy History of knee replacement procedure of left knee History of knee replacement procedure of right knee S/P ORIF (open reduction internal fixation) fracture Rt wrist Social History Smoking Status: Never smoker Do You Dip or Chew Tobacco: No Hx Alcohol Use: No Hx Substance Use: No substance use type: does not use Physical Exam Vital Signs Last Vital Signs Temp 36.6 C 09/27/21 07:47 Pulse 71 09/27/21 07:47 Resp 16 09/27/21 07:47 BP 149/84 H 09/27/21 07:47 Pulse Ox 92 09/27/21 07:47 Testing Laboratory Results 09/26/21 07:11 09/26/21 07:11 Electrocardiogram Date: 09/24/21 Findings: + NSR @ (78) and + OR (possible inf and anterolateral) Chest X-Ray Date: 09/24/21 Findings: + NAD
[2021-09-27] MEDS: CALCIUM CARBONATE 1250MG TAB PO SCH (08:51)
[2021-09-27] MEDS: FLUoxetine HCL 20 MG CAP PO SCH (08:51)
[2021-09-27] MEDS: PREGABALIN 100 MG CAP PO SCH ×2 (08:51→19:53)
[2021-09-27 09:38] LABS: Mean Corpuscular Hgb Conc 33.5 g/dL (32-36); Mean Platelet Volume 10.3 fL (7.4-10.4); Platelet Count 323 K/uL (130-400)
[2021-09-27 10:16] LABS: Basophils # (auto) 0.03 K/uL (0-0.2); Basophils % (auto) 0.4 %; Eosinophils # (auto) 0.24 K/uL (0-0.5); Hematocrit (blood only) 40.9 % (37-47); Hemoglobin 13.7 g/dL (12.0-16.0); Immature Granulocytes # (auto) 0.03 K/uL (0.00-0.02); Immature Granulocytes % (auto) 0.4 %; Lymphocytes # (auto) 2.24 K/uL (1.2-3.4); Lymphocytes % (auto) 28.3 %; Mean Corpuscular Hemoglobin 31.6 pg (25-34); Mean Corpuscular Volume 94.2 fL (80-100); Monocytes # (auto) 0.82 K/uL (0.11-0.59); Monocytes % (auto) 10.4 %; Neutrophils # (auto) 4.56 K/uL (1.4-6.5); Neutrophils % (auto) 57.5 %; RDW Coefficient of Variation 15.1 % (11.5-14.5); RDW Standard Deviation 52.5 fL (36.4-46.3); Red Blood Count 4.34 M/uL (4.2-5.4); White Blood Count 7.92 K/uL (4.8-10.8)
[2021-09-27 10:29] LABS: BUN Creatinine Ratio 25.7 (10-20); Calcium 8.4 mg/dl (8.5-10.1); Est GFR (African American) 108.1 ml/min; Est GFR (Non-African American) 93.3 ml/min
[2021-09-27] MEDS ORDERED: fentaNYL citrate 100 MCG/2 ML VIAL ONE (13:27)
[2021-09-27] MEDS ORDERED: MIDAZOLAM HCL 1 MG/ML 2ML VIAL ONE (13:27)
[2021-09-27] MEDS ORDERED: ceFAZolin 2,000 MG/15 ML IV PUSH IV ONE (15:18)
[2021-09-27] MEDS ORDERED: EPINEPHrine INJ 1 MG/ML AMP ONE (15:28)
[2021-09-27] MEDS ORDERED: BUPIVACAINE 0.25% 30 ML VIAL ONE (15:28)
[2021-09-27] MEDS ORDERED: ceFAZolin 2000MG 2,000 MG/15 ML SYR IV ONE (15:30)
--- NOTE | 2021-09-27 15:33 | History & Physical Bridge Note ---
Date of Service September 27, 2021 History & Physical Bridge Note I have examined the patient, reviewed the History & Physical and in the interval since the performance of the History & Physical I have noted the following changes of clinical significance: no changes noted Kyphoplasty L5 decompression fusion L4-S1
[2021-09-27] MEDS ORDERED: PHENYLEPHRINE 100MCG/ML 5ML SYR IV PRN (15:36)
[2021-09-27] MEDS ORDERED: HYDROmorphone INJ 1 MG/ML SYRINGE IV PRN ×2 (15:36→19:03)
[2021-09-27] MEDS ORDERED: ATROPINE SULFATE 0.1 MG/ML 10ML SYR IV PRN (15:36)
[2021-09-27] MEDS ORDERED: ePHEDrine sulfate 50 MG/ML AMP IV PRN (15:36)
[2021-09-27] MEDS ORDERED: fentaNYL citrate 100 MCG/2 ML VIAL IV PRN (15:36)
[2021-09-27] MEDS ORDERED: LABETALOL HCL IV 5 MG/ML 20ML IV PRN (15:36)
[2021-09-27] MEDS ORDERED: ONDANSETRON INJ 2 MG/ML 2 ML VIAL IV PRN ×2 (15:36→19:03)
[2021-09-27] MEDS ORDERED: PROPOFOL IV EMULSION 10 MG/ML 20 ML VIAL IV ONE (16:07)
[2021-09-27] MEDS ORDERED: ROCURONIUM BROMIDE 10 MG/ML 5 ML VIAL IV ONE (16:07)
[2021-09-27] MEDS ORDERED: LIDOCAINE 2% 2 ML VIAL/AMP(20MG/ML) INFIL ONE (16:07)
[2021-09-27] MEDS ORDERED: ONDANSETRON INJ 2 MG/ML 2 ML VIAL ONE (16:07)
[2021-09-27] MEDS ORDERED: DEXAMETHASONE SOD INJ 4 MG/ML VIAL ONE (16:07)
[2021-09-27] MEDS ORDERED: ePHEDrine sulfate 50 MG/ML AMP ONE (16:30)
[2021-09-27] MEDS ORDERED: ePHEDrine sulfate 50 MG/ML SYR ONE (16:30)
[2021-09-27] MEDS ORDERED: FLOSEAL HEMOSTATIC MATRIX 10ML TOP ONE (16:43)
[2021-09-27] MEDS ORDERED: IOPAMIDOL INJ 61% 15 ML VIAL INSTIL ONE (16:44)
[2021-09-27] MEDS ORDERED: KETAMINE 50 MG/5 ML SYRINGE ONE (17:03)
[2021-09-27] MEDS ORDERED: FLUTICASONE HFA 110MCG INHALER INH PRN (17:15)
[2021-09-27] MEDS ORDERED: GLYCOPYRROLATE 0.2 MG/ML VIAL ONE (17:31)
[2021-09-27] MEDS ORDERED: NEOSTIGMINE METHYLSULFATE 1 MG/ML 10ML VIAL ONE (17:31)
--- NOTE | 2021-09-27 17:40 | Operative Report ---
Post Operative Report Pre & Post Diagnosis Operation Date: 09/27/21 09:00 Pre-Op Diagnosis: Lumbar spinal stenosis with spondylolisthesis L5-S1 Compression fracture L5 Post-Op Diagnosis: Same I identified the patient and participated in the time-out.: Yes Procedure Operation Date: 09/27/21 09:00 Actual Procedures #1 lumbar decompression with bilateral medial facetectomies and foraminotomies L4-5 L5-S1. #2 kyphoplasty L5 vertebral body. #3 posterior spinal fusion L4-5 L5-S1. #4 placement of posterior instrumentation L4-S1 including cross-link. # 5 placement of infuse collagen sponge, master graft in the posterior lateral gutters. Surgeon Kenn Lopez, Perishable Fruit Inspector Betina Miller Estimated Blood Loss 100 Findings See Below Patient is 5 foot 1 inches tall weighing over 79 kg with a BMI of 33. Patient's body habitus did contribute to significant technical difficulty requiring her deepest retractors longus instruments in order to perform her procedure. This at least 50% increased operative time. Specimens None Indications This is an 81-year-old female who presents with marked decline in status with back pain and inability to ambulate secondary to leg pain. In light of her severe neural compression and compression fracture we elected to move forward with the above-mentioned procedure. Description of Procedure Patient was met with identified informed consent obtained. Patient was then taken to the operative suite underwent intubation placed in a prone position the Yusef table atop Chuck frame. All bony prominences well-padded eyes inspected to ensure no external pressure placed upon the. This point lumbar spine was prepped and draped in a sterile fashion. Sharp dissection with the assistance of Bovie cautery was performed down to and exposing the lamina and transverse processes of L for L5 and the sacral ala bilaterally. Obvious bilateral pars defect of L5 was noted. Complete laminectomy of L5 partial laminectomy of L3 was then performed including bilateral medial facetectomies and foraminotomies addressing severe spinal stenosis and neural compression. After decompression Kyphon working cannulas were then placed by way of a transpedicular approach into the L5 vertebral body. 2 Kyphon balloons were then inserted and sequentially inflated. I then injected approximately 4-1/2 cc of Kyphon cement into the vertebral body. It did demonstrate excellent fill interdigitation. After this was complete pedicle screws were placed in L4 and S1 levels bilaterally with the assistance of fluoroscopy. I did place bony cement within the vertebral bodies prior to placement of the screws. Proper size rods were then locked into position including a cross-link. The transverse processes of L4-L5 and sacral ala were then burred to subcortical bleeding bone. Infuse collagen sponge master graft was then placed in the posterior gutters. 15 round RADHA drain inserted. The incision was then closed with 1 Vicryl in the fascia 2-0 Vicryl subcutaneously and 4 Monocryl for final skin closure. Steri- Strip sterile dressing was placed. Patient will continue to PACU stable condition. Please note spinal cord monitoring was utilized at the procedure no changes noted. Lastly Betina Miller was present at the entire surgery involved in patient positioning complex portions of the surgery and final skin closure. I attest to the content of the Intraoperative Record and any orders documented therein. Any exceptions are noted below.
[2021-09-27] MEDS ORDERED: ceFAZolin SPECIAL PROCEDURE STOCK 1 GM ADDVIAL IV ONE (18:03)
--- NOTE | 2021-09-27 18:15 | Fluoroscopy Report ---
FL lumbar spine 2-3V CLINICAL HISTORY: KYPHO L5 . Status post internal fixation as well. COMPARISON STUDY: 11/22/2017 FLUOROSCOPY TIME: 2 minutes and 46 seconds. FLUOROSCOPIC IMAGES: 5 fluoroscopic spot images FINDINGS: The L5 vertebral body level was localized and vertebroplasty was performed. Interpedicular screw and veronique fixation was also placed at L4 and S1 IMPRESSION: Status post vertebral plasty and internal fixation. ACT 112: Negative or not required by law. Electronically signed by: Ryan Frost M.D. 09/27/2021 6:13 PM
--- NOTE | 2021-09-27 18:33 | Anesthesiology Progress Note ---
Date of Service September 27, 2021 Anesthesia Post Procedure Vital Signs Vital Signs: Temp Pulse Pulse Pulse Resp BP BP 09/27/21 18:20 94 H 16 107/71 09/27/21 18:10 83 14 109/57 L 09/27/21 18:00 76 14 99/62 L 09/27/21 17:54 36.6 C 84 14 144/80 H 09/27/21 15:05 36.5 C 20 L 75 20 139/94 09/27/21 07:47 36.6 C 71 16 149/84 H 09/26/21 22:21 37.1 C 64 16 137/77 Pulse Ox 09/27/21 18:20 95 09/27/21 18:10 98 09/27/21 18:00 97 09/27/21 17:54 97 09/27/21 15:05 95 09/27/21 07:47 92 09/26/21 22:21 92 Pain Intensity Back: Pain Intensity: 4 Transfer of Care Handoff Completed per policy Notes Mental Status: alert / awake / arousable Patient Amnestic to Procedure: Yes Nausea / Vomiting: adequately controlled Pain: adequately controlled Airway Patency, RR, SpO2: stable & adequate BP & HR: stable & adequate Hydration State: stable & adequate Anesthetic Complications: no major complications apparent and Pt Satisfied with anesthetic care
--- NOTE | 2021-09-27 18:39 | Billing Data ---
Date of Service September 27, 2021 Coding Level of Care Code 58539 Subseq Hosp Care Lvl 2
[2021-09-27] MEDS ORDERED: NALOXONE HCL 0.4 MG/1 ML VIAL/CARP IV PRN (19:03)
[2021-09-27] MEDS ORDERED: METOCLOPRAMIDE HCL INJ 5 MG/ML 2 ML VIAL IV PRN (19:03)
[2021-09-27] MEDS ORDERED: oxyCODONE HCL IR 5 MG TAB (IMMEDIATE RELEASE) PO PRN (19:03)
[2021-09-27] MEDS ORDERED: diphenhydrAMINE Capsule 25 MG CAP PO PRN (19:03)
[2021-09-27] MEDS ORDERED: hydrOXYzine HCl 25 MG TAB PO PRN (19:03)
[2021-09-27] MEDS ORDERED: ACETAMINOPHEN 1,000 MG/100 ML VIAL IV PRN (19:03)
[2021-09-27] MEDS ORDERED: LORazepam 0.5 MG TAB PO PRN (19:03)
[2021-09-27] MEDS ORDERED: SOD PHOSPHATE/SOD BIPHOSPHATE ENEMA 132 ML BTL PR PRN (19:03)
[2021-09-27] MEDS ORDERED: MAGNESIUM HYDROXIDE SUSP 30 ML UDC PO PRN (19:03)
[2021-09-27] MEDS ORDERED: ALUMINUM/MAGNESIUM SUSP 30 ML UDC PO PRN (19:03)
[2021-09-27] MEDS ORDERED: DO NOT ADMINISTER PNEUMOCOCCAL VACCINE PRN (19:03)
[2021-09-27] MEDS ORDERED: PROMETHAZINE HCL 12.5 MG in SODIUM CHLORIDE 0.9% 50 ML IV PRN (19:03)
[2021-09-27] MEDS ORDERED: HYDROmorphone INJ 0.5 MG/0.5 ML SYR IV PRN (19:03)
[2021-09-27] MEDS ORDERED: DO NOT ADMINISTER FLU VACCINE PRN (19:03)
[2021-09-27] MEDS ORDERED: FAMOTIDINE 20 MG TAB PO PRN (19:03)
[2021-09-27] MEDS ORDERED: LORazepam 0.5 MG/1 ML VIAL IV PRN (19:03)
[2021-09-27] MEDS ORDERED: bisacodyL 10 MG SUPP PR PRN (19:03)
[2021-09-27] MEDS ORDERED: traMADol HCL 50 MG TABLET PO PRN (19:03)
[2021-09-27] MEDS: ACETAMINOPHEN 500 MG TAB PO PRN (19:47)
[2021-09-27] MEDS: SODIUM CHLORIDE 0.9% 1000ML 1,000 ML IV SCH (19:47)
[2021-09-27] MEDS: FLUTICASONE FUROATE 200MCG 14 PUFFS/INHALER INH SCH (19:54)
[2021-09-27] MEDS: DOCUSATE SODIUM/SENNA 50/8.6MG TAB PO SCH (21:20)
[2021-09-27] MEDS: ceFAZolin 2000MG 2,000 MG/15 ML SYR IV SCH (23:43)
[2021-09-28] MEDS: SODIUM CHLORIDE 0.9% 1000ML 1,000 ML IV SCH ×2 (06:04→17:06)
[2021-09-28] MEDS: POLYETHYLENE (MIRALAX) 17 GM PACK PO SCH ×4 (06:05→22:59)
[2021-09-28] MEDS: ACETAMINOPHEN 500 MG TAB PO PRN ×2 (06:22→18:45)
[2021-09-28 06:47] LABS: Hematocrit (blood only) 35.6 % (37-47); Hemoglobin 11.7 g/dL (12.0-16.0); Immature Granulocytes # (auto) 0.05 K/uL (0.00-0.02); Immature Granulocytes % (auto) 0.4 %; Lymphocytes % (auto) 8.4 %; Mean Corpuscular Hemoglobin 31.5 pg (25-34); Mean Corpuscular Hgb Conc 32.9 g/dL (32-36); Mean Platelet Volume 10.1 fL (7.4-10.4); Monocytes # (auto) 0.89 K/uL (0.11-0.59); Monocytes % (auto) 6.8 %; Neutrophils # (auto) 11.03 K/uL (1.4-6.5); Neutrophils % (auto) 84.4 %; Platelet Count 291 K/uL (130-400); RDW Standard Deviation 53.1 fL (36.4-46.3); Red Blood Count 3.71 M/uL (4.2-5.4); White Blood Count 13.07 K/uL (4.8-10.8)
--- NOTE | 2021-09-28 06:52 | Hospitalist Progress Note ---
Date of Service September 28, 2021 Assessment & Plan (1) Compression fracture of L5 vertebra: Plan: Kami Valencia is a 81y/o F who presents for worsening back pain secondary to her known lumbar compression fractures. Kyphoplasty L5 decompression fusion L4-S1 planned for 09/27/21 PM. Intractable back pain with lumbar radiculopathy Compression fracture of L5/Back pain - XR from 08/19 demonstrating moderate compression deformity of L5 - MRI from 08/19 demonstrating acute on chronic severe compression fracture at L5 with no associated retropulsion; severe central canal narrowing at L5 - Received 60mg methylprednisolone in ED - Increased Pregabalin dosing to 100mg BID on 09/25 --> continue up-titration to goal of 150mg TID (outpatient PCP goal) - Pain management consult: recommends tylenol. Patient may consider genetic testing as outpatient for opiate sensitivity. Patient clinically reports insensitivity to prior narcotic treatments. - Continue home calcitonin nasal spray - Vitamin D level wnl - Given the compression fractures, consider bisphosphonate in outpatient setting after appropriate delay after surgery; discuss w/ PCP; - Ortho/spine Surgery following - 09/26: MRI reviewed -- moderate stenosis L2-L3, severe stenosis L L4-L5 and L5-S1; compression fracture progressed; discussed surgical intervention - six clicks mobility 19 and 18. Patient is doing well. Will continue eval regarding dispo, home vs rehab Acute blood loss anemia Hb 13.7->11.7. BPs softer. Asymptomatic. Follow clinically. Follow CBC. Chronic Conditions Insomnia: continue home Ambien 10mg qhs prn Depression: continue home fluoxetine 60mg po qAM Asthma: home Flovent prn Diet: regular. NSS 100/hr CODE STATUS: Full Code Dispo: med/surg ppx: SCDs. Chemoppx per surgery (2) Osteoporosis: (3) Acute blood loss anemia: Admission and Anticipated Discharge Date Admission Date: September 26, 2021 Supervising Physician Co-Signing Physician Notes I personally examined the patient and verified all goodman points of history and exam, discussed case, and agree with decision making with Dr Cuello. For surgery later today. Understand situation. No new complaints. Notes that she does not respond to narcotic pain medicines. vitals noted nad heent nc at mmm breathing unlabored no accessory muscles good effort skin no rashes no pallor or icterus neuro no focal deficits spinal stenosis/compression fx - post op and doing very well. PT/OT eval and treat - pt would prefer to go to rehab, medically stable - will await ortho input in regards to stability for discharge from postop spine perspective. outpt bone health w/u and treatment given osteoporotic fx of L5 acute blood loss anemia - not at all unexpected given necessary surgery, asymptomatic and overall hemodynamically stable - continue to follow. SCD for DVT proph given spine surgery and acute blood loss anemia otherwise as above Subjective Patient is doing well this morning. Her pain is much improved. She currently has mild low back pain w/ radiation to right mid thigh, but this is mild. Denies f/c, cp/sob, abd sxs. She tolerated small meal last night. She was able to sit in chair earlier this morning. Denes any dizziness or lightheadedness. Review of Systems Review of Systems: As per HPI Physical Exam Physical Exam: General: Grossly A&O. NAD. Cooperative. HEENT: Atraumatic, normocephalic. EOMI Pulm: CTAB anteriorly. -wheezes, -rales, -rhonchi. Puffy lower extremity at ankles, but no pitting edema appreciated. Worse on R. Cardiac: RRR, -mrg. Abdominal: Nontender, nondistended, soft. Msk: Moving extremities. Neuro: Lower extremity strength and sensation intact. Results & Data Results & Data ([facility]) Vital Signs (Past 12 Hours) Vital Signs softer BPs this AM. 90% on RA Temp Pulse Resp BP Pulse Ox 09/28/21 06:00 36.9 C 86 16 93/61 L 90 09/28/21 02:00 36.9 C 92 H 16 94/58 L 90 09/27/21 22:10 36.6 C 89 18 91/57 L 94 09/27/21 21:00 36.8 C 85 18 97/57 L 94 09/27/21 20:00 36.8 C 85 18 100/62 92 09/27/21 19:30 36.4 C L 74 16 91/52 L 94 09/27/21 19:00 36.7 C 87 18 101/62 91 Laboratory Results wbc 7.92->13.07H. Hb 13.7->11.7. K 4->4.7 Cr stable .58. bsg 160. corrected ca wnl Resident Activity Tracking Resident Involvement: Resident Care Provided Care Provided: Adult Hospital Medicine
[2021-09-28 07:12] LABS: Albumin Globulin Ratio 0.7 (0.9-2); Albumin Level 2.1 gm/dl (3.4-5.0); BUN Creatinine Ratio 20.7 (10-20); Bilirubin,Total 0.3 mg/dl (0.2-1); Calcium 8.4 mg/dl (8.5-10.1); Creatinine Clr Calc Pharmacy 73.7 ml/min; Est GFR (African American) 100.9 ml/min; Est GFR (Non-African American) 87.1 ml/min; Potassium 4.7 mmol/L (3.5-5.1); Total Protein 5.1 gm/dl (6.4-8.2)
[2021-09-28] MEDS: CALCIUM CARBONATE 1250MG TAB PO SCH (10:00)
[2021-09-28] MEDS: PREGABALIN 100 MG CAP PO SCH ×2 (10:00→20:37)
[2021-09-28] MEDS: FLUoxetine HCL 20 MG CAP PO SCH (10:01)
[2021-09-28] MEDS: ceFAZolin 2000MG 2,000 MG/15 ML SYR IV SCH (10:02)
--- NOTE | 2021-09-28 16:03 | Orthopedic Progress Note ---
Date of Service September 28, 2021 Assessment & Plan (1) Lumbar spinal stenosis: Plan: Patient status post lumbar decompression fusion. Plan at this time initiate physical therapy monitor her RADHA output consider rehab placement when a bed is available. I reviewed with her in detail my concern regarding her osteopenia and to be very cautious with activity. Admission and Anticipated Discharge Date Admission Date: September 26, 2021 Subjective Patient's back and leg symptoms markedly improved Physical Exam Physical Exam: Patient is in the chair at the bedside. She appears comfortable. She is good strength testing. Results & Data ([facility]) Vital Signs (Past 12 Hours) Vital Signs Temp Pulse Resp BP Pulse Ox 09/28/21 12:08 36.8 C 66 16 91/55 L 92 09/28/21 06:00 36.9 C 86 16 93/61 L 90
--- NOTE | 2021-09-28 17:52 | Billing Data ---
Date of Service September 28, 2021 Coding Level of Care Code 86942 Subseq Hosp Care Lvl 2
[2021-09-28] MEDS: FLUTICASONE FUROATE 200MCG 14 PUFFS/INHALER INH SCH (18:44)
[2021-09-28] MEDS: DOCUSATE SODIUM/SENNA 50/8.6MG TAB PO SCH (20:38)
[2021-09-28] MEDS: guaiFENesin 600 MG TABCR PO SCH (20:38)
[2021-09-28] MEDS: ZOLPIDEM TARTRATE 10 MG TAB PO PRN (22:59)
[2021-09-29] MEDS: ACETAMINOPHEN 500 MG TAB PO PRN (05:36)
[2021-09-29] MEDS: POLYETHYLENE (MIRALAX) 17 GM PACK PO SCH ×4 (05:37→23:52)
--- NOTE | 2021-09-29 06:51 | Hospitalist Progress Note ---
Date of Service September 29, 2021 Assessment & Plan (1) Compression fracture of L5 vertebra: Plan: Kami Valencia is a 81y/o F who presents for worsening back pain secondary to her known lumbar compression fractures. S/P Kyphoplasty L5 decompression fusion L4- S1 on 09/27/21 Intractable back pain with lumbar radiculopathy Compression fracture of L5/Back pain - XR from 08/19 demonstrating moderate compression deformity of L5 - MRI from 08/19 demonstrating acute on chronic severe compression fracture at L5 with no associated retropulsion; severe central canal narrowing at L5 - Received 60mg methylprednisolone in ED - Increased Pregabalin dosing to 100mg BID on 09/25 --> continue up-titration to goal of 150mg TID (outpatient PCP goal). Increasing to 125mg BID on 09/29 PM - Trialed toradol 30 IV w/ minimal relief - Pain management consult: recommends tylenol. Patient may consider genetic testing as outpatient for opiate sensitivity. Patient clinically reports insensitivity to prior narcotic treatments. - Continue home calcitonin nasal spray - Vitamin D level wnl - Given the compression fractures, consider bisphosphonate in outpatient setting after appropriate delay after surgery; discuss w/ PCP; - Ortho/spine Surgery following - 09/26: MRI reviewed -- moderate stenosis L2-L3, severe stenosis L L4-L5 and L5-S1; compression fracture progressed; discussed surgical intervention - Discussed dispo plan w/ patient: given home situation and current mobility, awaiting SNF placement Acute blood loss anemia Hb 13.7->11.7, stable since. BPs softer. Asymptomatic. Follow clinically. Follow CBC. Leukocytosis 7.92->13.07->15.57 Noted on days after back surgery. Low suspicion for infectious etiology at this time. Follow CBC. Chronic Conditions Insomnia: continue home Ambien 10mg qhs prn Depression: continue home fluoxetine 60mg po qAM Asthma: home Flovent prn Diet: regular. IV fluids discontinued CODE STATUS: Full Code Dispo: med/surg ppx: SCDs. Chemoppx per surgery (2) Osteoporosis: (3) Acute blood loss anemia: (4) Leukocytosis: Admission and Anticipated Discharge Date Admission Date: September 26, 2021 Supervising Physician Co-Signing Physician Notes I personally examined the patient and verified all goodman points of history and exam, discussed case, and agree with decision making with Dr Cuello. more incisional pain, otherwise though nerve pain still better. vitals noted nad heent nc at mmm breathing unlabored no accessory muscles good effort skin no rashes no pallor or icterus neuro no focal deficits spinal stenosis/compression fx - post op and doing very well. PT/OT eval and tr eat -working on rehab. outpt bone health w/u and treatment given osteoporotic fx of L5 acute blood loss anemia - not at all unexpected given necessary surgery, asymptomatic and overall hemodynamically stable - continue to follow. SCD for DVT proph given spine surgery and acute blood loss anemia otherwise as above Subjective low back pain at surgery site is worse today than yesterday. 7/10 pain, worse than yesterday, attributes to overexerting yesterday (sat in chair for 2 hours and walked). Denies sciatic type symptoms today. States she thinks she would benefit from from inpatient rehab. Last BM yesterday. Open to increasing the lyrica. Neither the tylenol or lyrica helps her pain much. Review of Systems Review of Systems: As per HPI Physical Exam Physical Exam: General: Grossly A&O. NAD. Cooperative. HEENT: Atraumatic, normocephalic. EOMI Pulm: CTAB anteriorly. -wheezes, -rales, -rhonchi. Cardiac: RRR, -mrg. Puffy appearing ankles, no pitting edema. Abdominal: Nontender, nondistended, soft. Msk: Moving extremities. Neuro: Lower extremity strength and sensation intact. Results & Data Results & Data ([facility]) Vital Signs (Past 12 Hours) Vital Signs bps mostly low 90s/50s. most recent 105/59. weaned to room air 90-93. afeb. Temp Pulse Resp BP Pulse Ox 09/28/21 23:06 36.6 C 79 17 105/59 L 93 Laboratory Results wbc 7.92->13.07->15.57. Hb stable from yesterday. 13.7->11.7->11.8. bmp stable Resident Activity Tracking Resident Involvement: Resident Care Provided Care Provided: Adult Hospital Medicine
[2021-09-29] MEDS: guaiFENesin 600 MG TABCR PO SCH ×2 (08:05→20:15)
[2021-09-29] MEDS: CALCIUM CARBONATE 1250MG TAB PO SCH (08:05)
[2021-09-29] MEDS: PREGABALIN 100 MG CAP PO SCH (08:05)
[2021-09-29] MEDS: FLUoxetine HCL 20 MG CAP PO SCH (08:06)
[2021-09-29 08:28] LABS: Basophils # (auto) 0.02 K/uL (0-0.2); Basophils % (auto) 0.1 %; Eosinophils # (auto) 0.12 K/uL (0-0.5); Eosinophils % (auto) 0.8 %; Hematocrit (blood only) 35.4 % (37-47); Hemoglobin 11.8 g/dL (12.0-16.0); Immature Granulocytes # (auto) 0.11 K/uL (0.00-0.02); Immature Granulocytes % (auto) 0.7 %; Lymphocytes # (auto) 2.11 K/uL (1.2-3.4); Lymphocytes % (auto) 13.6 %; Mean Corpuscular Hemoglobin 31.4 pg (25-34); Mean Corpuscular Hgb Conc 33.3 g/dL (32-36); Mean Corpuscular Volume 94.1 fL (80-100); Monocytes # (auto) 1.67 K/uL (0.11-0.59); Monocytes % (auto) 10.7 %; Neutrophils # (auto) 11.54 K/uL (1.4-6.5); Neutrophils % (auto) 74.1 %; Platelet Count 263 K/uL (130-400); RDW Coefficient of Variation 15.1 % (11.5-14.5); RDW Standard Deviation 51.6 fL (36.4-46.3); Red Blood Count 3.76 M/uL (4.2-5.4); White Blood Count 15.57 K/uL (4.8-10.8)
[2021-09-29 09:05] LABS: BUN Creatinine Ratio 17.1 (10-20); Calcium 8.5 mg/dl (8.5-10.1); Creatinine Clr Calc Pharmacy 83.8 ml/min; Est GFR (African American) 105.3 ml/min; Est GFR (Non-African American) 90.8 ml/min; Potassium 4.5 mmol/L (3.5-5.1)
[2021-09-29] MEDS ORDERED: KETOROLAC 30 MG/ML VIAL IV STA (10:21)
--- NOTE | 2021-09-29 11:32 | Orthopedic Progress Note ---
Date of Service September 29, 2021 Assessment & Plan (1) Compression fracture of L5 vertebra: Plan: At this time we will continue physical therapy await placement for rehab in the next few days. Admission and Anticipated Discharge Date Admission Date: September 26, 2021 Subjective Patient's back pain is controlled. Leg pain markedly improved. Physical Exam Physical Exam: Patient has good strength testing. She is comfortable. Results & Data ([facility]) Vital Signs (Past 12 Hours) Vital Signs Temp Pulse Resp BP Pulse Ox 09/29/21 07:31 36.7 C 76 14 121/81 92
--- NOTE | 2021-09-29 18:12 | Billing Data ---
Date of Service September 29, 2021 Coding Level of Care Code 96388 Subseq Hosp Care Lvl 2
[2021-09-29] MEDS: FLUTICASONE FUROATE 200MCG 14 PUFFS/INHALER INH SCH (18:21)
[2021-09-29] MEDS: DOCUSATE SODIUM/SENNA 50/8.6MG TAB PO SCH (20:15)
[2021-09-29] MEDS ORDERED: PREGABALIN 25 MG CAP PO SCH (21:00)
[2021-09-29] MEDS: ZOLPIDEM TARTRATE 10 MG TAB PO PRN (23:19)
[2021-09-30] MEDS: POLYETHYLENE (MIRALAX) 17 GM PACK PO SCH ×4 (05:16→23:34)
--- NOTE | 2021-09-30 07:09 | Hospitalist Progress Note ---
Date of Service September 30, 2021 Assessment & Plan (1) Compression fracture of L5 vertebra: Plan: Kami Valenica is a 81y/o F who presents for worsening back pain secondary to her known lumbar compression fractures. S/P Kyphoplasty L5 decompression fusion L4- S1 on 09/27/21 overnight event: mild fall, likely 2/2 sedation d/c'd narcotic and ativan prn orders. hold AM lyrica. added fall precautions Home Ambien 10 qhs prn for insomnia which she has been needing nightly; decreased to 5 mg persistent leukocytosis postop 7.92->13.07->15.57->16.65 Received dose of decadron perioperative 09/27/21 Checked venous doppler BLE because had some physical exam findings; result was no dvt Low suspicion for infectious etiology at this time. Follow CBC. Intractable back pain with lumbar radiculopathy Compression fracture of L5/Back pain - XR from 08/19 demonstrating moderate compression deformity of L5 - MRI from 08/19 demonstrating acute on chronic severe compression fracture at L5 with no associated retropulsion; severe central canal narrowing at L5 - Received 60mg methylprednisolone in ED - Increased Pregabalin dosing to 100mg BID on 09/25 --> continue up-titration to goal of 150mg TID (outpatient PCP goal). Increasing to 125mg BID on 09/29 PM - Trialed toradol 30 IV w/ minimal relief - Pain management consult: recommends tylenol. Patient may consider genetic testing as outpatient for opiate sensitivity. Patient clinically reports insensitivity to prior narcotic treatments. - Continue home calcitonin nasal spray - Vitamin D level wnl - Given the osteoporotic L5 compression fracture, consider outpatient bone workup and bisphosphonate in outpatient setting after appropriate delay after surgery; discuss w/ PCP; - Ortho/spine Surgery following - 09/26: MRI reviewed -- moderate stenosis L2-L3, severe stenosis L L4-L5 and L5-S1; compression fracture progressed; discussed surgical intervention - Discussed dispo plan w/ patient: given home situation and current mobility, a waiting SNF placement Acute blood loss anemia Hb 13.7->11.7, stable since. BPs softer. Asymptomatic. Follow clinically. Follow CBC. Chronic Conditions Insomnia: continue home Ambien 10mg qhs prn Depression: continue home fluoxetine 60mg po qAM Asthma: home Flovent prn Diet: regular. IV fluids discontinued CODE STATUS: Full Code Dispo: med/surg ppx: SCDs. Chemoppx per surgery (2) Osteoporosis: (3) Acute blood loss anemia: (4) Leukocytosis: Admission and Anticipated Discharge Date Admission Date: September 26, 2021 Supervising Physician Co-Signing Physician Notes I personally examined the patient and verified all goodman points of history and exam, discussed case, and agree with decision making with Dr Cuello. visited twice today - sleeping comfortably both times. d/w dr cuello and w RN - as above. vitals noted both times sleeping comfortably nad heent nc at mmm breathing unlabored no accessory muscles good effort skin no rashes no pallor or icterus no neuro asymmetry at rest spinal stenosis/compression fx - post op, recovering. PT/OT eval and treat - working on rehab. outpt bone [employer] w/u and treatment given osteoporotic fx of L5 acute blood loss anemia - not at all unexpected given necessary surgery, asymptomatic and overall hemodynamically stable - continue to follow. leukocytosis - likely steroid effect. no overt s/s infection SCD for DVT proph given spine surgery and acute blood loss anemia otherwise as above Subjective Per nursing, fell overnight and is answering questions, but seems less energetic overall this AM. Per MAR, received 0.5mg IV ativan 8pm and is on multiple sedating home meds qhs. Patient's pain level is 6/10. It is at low back mostly at the surgical site. Only slight radiation partly down right thigh. No f/c, cp, sob, abd sxs. Moving bowels mostly regularly, Miralax helping. Occasional pain in R upper calf this AM. Review of Systems Review of Systems: As per HPI Physical Exam Physical Exam: General: A&Ox4. NAD. Cooperative. Answering questions, but slightly slower response, likely 2/2 sedation. More fatigued HEENT: Atraumatic, normocephalic. EOMI Pulm: CTAB anteriorly. -wheezes, -rales, -rhonchi. Cardiac: RRR, -mrg. Puffy appearing ankles, Slight Trace BLE, worse on R. Abdominal: Nontender, nondistended, soft. Msk: Moving extremities. No gross calf asymmetry Neuro: Lower extremity strength and sensation intact. Neg SLR Results & Data Results & Data ([facility]) Vital Signs (Past 12 Hours) Vital Signs BP 113/74, w/ low of 92/59. 91-98 on RA Temp Pulse Resp BP Pulse Ox 09/29/21 23:11 36.8 C 83 17 113/74 93 Laboratory Results wbc 7.92->13.07->15.57->16.65. Hb stable 11.3. bmp stable. Diagnostic Findings Venous Doppler Study 09/30/21 11:18 BILATERAL LOWER EXTREMITY VENOUS DOPPLER CLINICAL HISTORY: right calf pain. Trace edema. Several days postop. COMPARISON STUDY: . TECHNIQUE: Sonography of the deep venous system of the bilateral lower extremities was performed. Compression and augmentation were evaluated. FINDINGS: The bilateral common femoral, superficial femoral and popliteal veins were compressible. Augmentation was normal. Flow was shown within the deep calf vessels. IMPRESSION: No evidence of deep venous thrombus within the bilateral lower extremities. ACT 112: Negative or not required by law. Electronically signed by: Andrez Gillis M.D. 09/30/2021 1:16 PM Resident Activity Tracking Resident Involvement: Resident Care Provided Care Provided: Adult Hospital Medicine
[2021-09-30] MEDS: CALCIUM CARBONATE 1250MG TAB PO SCH (09:09)
[2021-09-30] MEDS: ACETAMINOPHEN 500 MG TAB PO SCH ×3 (09:09→23:34)
[2021-09-30] MEDS: FLUoxetine HCL 20 MG CAP PO SCH (09:10)
[2021-09-30] MEDS: guaiFENesin 600 MG TABCR PO SCH ×2 (09:11→21:40)
[2021-09-30 09:21] LABS: Basophils # (auto) 0.02 K/uL (0-0.2); Basophils % (auto) 0.1 %; Eosinophils # (auto) 0.13 K/uL (0-0.5); Eosinophils % (auto) 0.8 %; Hematocrit (blood only) 33.9 % (37-47); Hemoglobin 11.3 g/dL (12.0-16.0); Immature Granulocytes # (auto) 0.12 K/uL (0.00-0.02); Immature Granulocytes % (auto) 0.7 %; Lymphocytes # (auto) 2.22 K/uL (1.2-3.4); Lymphocytes % (auto) 13.3 %; Mean Corpuscular Hemoglobin 31.2 pg (25-34); Mean Corpuscular Hgb Conc 33.3 g/dL (32-36); Mean Corpuscular Volume 93.6 fL (80-100); Mean Platelet Volume 10.1 fL (7.4-10.4); Monocytes # (auto) 1.64 K/uL (0.11-0.59); Monocytes % (auto) 9.8 %; Neutrophils # (auto) 12.52 K/uL (1.4-6.5); Neutrophils % (auto) 75.3 %; Platelet Count 254 K/uL (130-400); RDW Coefficient of Variation 15.4 % (11.5-14.5); RDW Standard Deviation 53.2 fL (36.4-46.3); Red Blood Count 3.62 M/uL (4.2-5.4); White Blood Count 16.65 K/uL (4.8-10.8)
[2021-09-30 09:39] LABS: BUN Creatinine Ratio 20.5 (10-20); Calcium 8.1 mg/dl (8.5-10.1); Creatinine Clr Calc Pharmacy 99.4 ml/min; Est GFR (African American) 111.3 ml/min; Est GFR (Non-African American) 96.1 ml/min; Potassium 4.1 mmol/L (3.5-5.1)
--- NOTE | 2021-09-30 10:27 | Orthopedic Progress Note ---
Date of Service September 30, 2021 Assessment & Plan (1) Compression fracture of L5 vertebra: Plan: This time continue physical therapy we will discontinue her drain and dressing today. Hope for rehab tomorrow. Admission and Anticipated Discharge Date Admission Date: September 26, 2021 Subjective Back pain is controlled leg symptoms improved Physical Exam Physical Exam: Patient is ambulating well. Good strength testing. Results & Data ([facility]) Vital Signs (Past 12 Hours) Vital Signs Temp Pulse Resp BP Pulse Ox 09/30/21 07:23 36.5 C 89 16 122/75 93 09/29/21 23:11 36.8 C 83 17 113/74 93
--- NOTE | 2021-09-30 13:18 | Ultrasound Report ---
BILATERAL LOWER EXTREMITY VENOUS DOPPLER CLINICAL HISTORY: right calf pain. Trace edema. Several days postop. COMPARISON STUDY: . TECHNIQUE: Sonography of the deep venous system of the bilateral lower extremities was performed. Co mpression and augmentation were evaluated. FINDINGS: The bilateral common femoral, superficial femoral and popliteal veins were compressible. A ugmentation was normal. Flow was shown within the deep calf vessels. IMPRESSION: No evidence of deep venous thrombus within the bilateral lower extremities. ACT 112: Negative or not required by law. Electronically signed by: Andrez Gillis M.D. 09/30/2021 1:16 PM
--- NOTE | 2021-09-30 17:58 | Billing Data ---
Date of Service September 30, 2021 Coding Level of Care Code 90435 Subseq Hosp Care Lvl 2
[2021-09-30] MEDS: FLUTICASONE FUROATE 200MCG 14 PUFFS/INHALER INH SCH (18:37)
[2021-09-30] MEDS: DOCUSATE SODIUM/SENNA 50/8.6MG TAB PO SCH (21:39)
[2021-09-30] MEDS: ZOLPIDEM TARTRATE 5 MG TAB PO PRN (21:40)
[2021-09-30] MEDS: MELATONIN 3 MG TAB PO PRN (23:34)
--- NOTE | 2021-10-01 07:29 | Hospitalist Progress Note ---
Date of Service October 01, 2021 Assessment & Plan (1) Compression fracture of L5 vertebra: Plan: Kami Valencia is a 81y/o F who presents for worsening back pain secondary to her known lumbar compression fractures. S/P Kyphoplasty L5 decompression fusion L4- S1 on 09/27/21 Intractable back pain with lumbar radiculopathy w/ L5 compression fracture - MRI from 08/19 demonstrating acute on chronic severe compression fracture at L5 with no associated retropulsion; severe central canal narrowing at L5 - Received 60mg methylprednisolone in ED - Lyrica currently held - Trialed toradol 30 IV w/ minimal relief - Pain management consult: recommends tylenol. Patient may consider genetic testing as outpatient for opiate sensitivity. Patient clinically reports insensitivity to prior narcotic treatments. - Continue home calcitonin nasal spray - Given the osteoporotic L5 compression fracture, consider outpatient bone workup and bisphosphonate in outpatient setting after appropriate delay after surgery; discuss w/ PCP. Vit D wnl. - Ortho/spine Surgery following - 09/26: MRI reviewed -- moderate stenosis L2-L3, severe stenosis L L4-L5 and L5-S1; compression fracture progressed; discussed surgical intervention - Discussed dispo plan w/ patient: given home situation and current mobility, awaiting SNF placement - Newly added tizanidine 2mg TID PRN w/ some relief - Trialing 1 time dose of Dilaudid 0.5mg IV - Bedside commode for slightly decreased mobility 2/2 pain overnight event 09/29->09/30: mild fall, likely 2/2 sedation d/c'd narcotic and ativan prn orders. hold AM lyrica. added fall precautions Home Ambien 10 qhs prn for insomnia which she has been needing nightly; decreased to 5 mg persistent leukocytosis postop 7.92->13.07->15.57->16.65->13.78 Received dose of decadron perioperative 09/27/21 Checked venous doppler BLE because had some physical exam findings; result was no dvt Low suspicion for infectious etiology at this time. Follow CBC. Acute blood loss anemia Hb 13.7->11s->10.8. relatively since initial decrease. Asymptomatic. Follow clinically. Follow CBC. Chronic Conditions Depression: continue home fluoxetine 60mg po qAM Asthma: home Flovent prn Diet: regular. IV fluids discontinued CODE STATUS: Full Code Dispo: med/surg ppx: SCDs. Chemoppx per surgery (2) Osteoporosis: (3) Acute blood loss anemia: (4) Leukocytosis: Admission and Anticipated Discharge Date Admission Date: September 26, 2021 Supervising Physician Co-Signing Physician Notes I personally examined the patient and verified all goodman points of history and exam, discussed case, and agree with decision making with Dr Cuello. Visited multiple times, and discussed with orthopedic surgery. Pain fairly bad through the day. Tizanidine helped for a few hours. X-rays reviewed and discussed with orthopedic surgery. Revisited later, patient in severe painDilaudid orderedwe discussed essentially testing her narcotics resistance, particularly given that she is not looking at adverse reactions, just lack of efficacywhen I revisited later, her pain was under better control, she was more upset after an emotional interaction. vitals noted appearing at different times in pain distress, and then later when she said the pain was under better control, she was in some emotional distress. heent nc at mmm breathing unlabored no accessory muscles good effort skin no rashes no pallor or icterus spinal stenosis/compression fx - post op, recovering. PT/OT eval and treat - working on rehab. outpt bone [place] w/u and treatment given osteoporotic fx of L5 Uncontrolled paintizanidine helps some, although short-livedorder 3 times daily as needed. Dose of Dilaudid seems to have helped more than she would have expectedordered every 4 hours as needed. Continue Tylenol. Continue sup portive care. X-rays without bony foci for painorthopedics is considering whether or not to repeat MRI. Cement noted, discussed with orthopedicsnoted that it does occur occasionally. acute blood loss anemia - not at all unexpected given necessary surgery, asymptomatic and overall hemodynamically stable - continue to follow. leukocytosis - likely steroid effect. no overt s/s infection SCD for DVT proph given spine surgery and acute blood loss anemia otherwise as above Subjective Upset at inadequate pain control. 08/15. Agreeable to trying tizanidine. No other complaints. Review of Systems Review of Systems: As per HPI Physical Exam Physical Exam: General: A&Ox4. NAD. Cooperative. HEENT: Atraumatic, normocephalic. EOMI Pulm: CTAB anteriorly. -wheezes, -rales, -rhonchi. Cardiac: RRR, -mrg. Puffy appearing ankles Abdominal: Nontender, nondistended, soft. Msk: Moving extremities. Psych: frustrated/sad affect Results & Data Results & Data ([facility]) Vital Signs (Past 12 Hours) Vital Signs 91-93 on room air. vitals stable. Temp Pulse Resp BP Pulse Ox 09/30/21 22:45 36.7 C 78 16 110/65 92 Laboratory Results wbc 16.65->13.78. Hb 11s->10.8. bmp wnl Resident Activity Tracking Resident Involvement: Resident Care Provided Care Provided: Adult Hospital Medicine
[2021-10-01 08:33] LABS: Basophils # (auto) 0.02 K/uL (0-0.2); Basophils % (auto) 0.1 %; Eosinophils # (auto) 0.12 K/uL (0-0.5); Eosinophils % (auto) 0.9 %; Hematocrit (blood only) 32.7 % (37-47); Hemoglobin 10.8 g/dL (12.0-16.0); Immature Granulocytes # (auto) 0.09 K/uL (0.00-0.02); Immature Granulocytes % (auto) 0.7 %; Lymphocytes # (auto) 1.74 K/uL (1.2-3.4); Lymphocytes % (auto) 12.6 %; Mean Corpuscular Hemoglobin 30.9 pg (25-34); Mean Corpuscular Volume 93.7 fL (80-100); Mean Platelet Volume 9.9 fL (7.4-10.4); Monocytes # (auto) 1.19 K/uL (0.11-0.59); Monocytes % (auto) 8.6 %; Neutrophils # (auto) 10.62 K/uL (1.4-6.5); Neutrophils % (auto) 77.1 %; Platelet Count 285 K/uL (130-400); RDW Coefficient of Variation 15.4 % (11.5-14.5); RDW Standard Deviation 53.1 fL (36.4-46.3); Red Blood Count 3.49 M/uL (4.2-5.4); White Blood Count 13.78 K/uL (4.8-10.8)
[2021-10-01] MEDS ORDERED: tiZANidine HCL 4 MG TABLET PO STA (08:41)
[2021-10-01 09:12] LABS: BUN Creatinine Ratio 20.3 (10-20); Calcium 8.4 mg/dl (8.5-10.1); Creatinine Clr Calc Pharmacy 118.8 ml/min; Est GFR (Non-African American) 101.8 ml/min; Potassium 4.2 mmol/L (3.5-5.1)
[2021-10-01] MEDS: FLUoxetine HCL 20 MG CAP PO SCH (10:11)
[2021-10-01] MEDS: ACETAMINOPHEN 500 MG TAB PO SCH ×2 (10:11→17:27)
[2021-10-01] MEDS: CALCIUM CARBONATE 1250MG TAB PO SCH (10:12)
[2021-10-01] MEDS: guaiFENesin 600 MG TABCR PO SCH ×2 (10:12→19:55)
--- NOTE | 2021-10-01 13:19 | XRay Report ---
XR lumbar spine 2-3V HISTORY: 81 years-old Female post op follow-up study in a patient with prior kyphoplasty infusion COMPARISON: MRI lumbar spine and CT abdomen and pelvis 09/25/2021 TECHNIQUE: 3 views of the lumbar spine FINDINGS: L5 burst fracture redemonstrated with interval kyphoplasty. Posterior interbody veronique and screw fusion is noted at L4-S1. Cement material is also noted at the L4 level and extends within a tubular fashion within the anterior soft tissues, likely into a lumbar vein. The hardware appears intact. No additio nal acute fracture or subluxation. Multilevel intervertebral disc space narrowing with spondylitic sp urring and facet arthrosis redemonstrated. IMPRESSION: L5 burst fracture redemonstrated with interval vertebroplasty. Status post posterior inte rbody veronique and screw fusion at L4-S1. ACT 112: Negative or not required by law. The above report was generated using voice recognition software. It may contain grammatical, syntax o r spelling errors. Electronically signed by: Chad Hernández M.D. 10/01/2021 1:18 PM
--- NOTE | 2021-10-01 14:42 | Orthopedic Progress Note ---
Date of Service October 01, 2021 Assessment & Plan (1) Compression fracture of L5 vertebra: Plan: X-rays obtained lumbar spine demonstrate no evidence of adjacent level fracture or hardware migration. My thought is to keep her relatively low activity today try to gain control of her pain and muscle spasms reintroduce physical therapy tomorrow and assess her progress. If she fails to improve we may need to obtain an MRI lumbar spine to rule out an occult fracture. Admission and Anticipated Discharge Date Admission Date: September 26, 2021 Subjective Patient complaining mostly of back pain with some posterior thigh pain. This is worse than yesterday. She denies any numbness or tingling in the lower extremities. Physical Exam Physical Exam: On exam she does have excellent strength testing with plantar flexion dorsiflexion quadriceps. Sensory is intact. Results & Data ([facility]) Vital Signs (Past 12 Hours) Vital Signs Temp Pulse Resp BP Pulse Ox 10/01/21 08:31 36.6 C 74 16 147/79 H 93
[2021-10-01] MEDS: HYDROmorphone INJ 0.5 MG/0.5 ML SYR IV STA ×2 (16:27→17:25)
--- NOTE | 2021-10-01 18:21 | Billing Data ---
Date of Service October 01, 2021 Coding Level of Care Code 14884 Subseq Hosp Care Lvl 3
[2021-10-01] MEDS: FLUTICASONE FUROATE 200MCG 14 PUFFS/INHALER INH SCH (19:25)
[2021-10-01] MEDS: DOCUSATE SODIUM/SENNA 50/8.6MG TAB PO SCH (19:41)
[2021-10-01] MEDS: tiZANidine HCL 4 MG TABLET PO PRN (19:55)
[2021-10-01] MEDS: ZOLPIDEM TARTRATE 5 MG TAB PO PRN (23:03)
[2021-10-02] MEDS: ACETAMINOPHEN 500 MG TAB PO SCH ×3 (01:03→16:43)
[2021-10-02] MEDS: MELATONIN 3 MG TAB PO PRN ×2 (01:04→23:01)
[2021-10-02] MEDS: HYDROmorphone INJ 0.5 MG/0.5 ML SYR IV PRN ×2 (01:05→07:14)
[2021-10-02] MEDS: tiZANidine HCL 4 MG TABLET PO PRN ×2 (04:07→14:26)
--- NOTE | 2021-10-02 07:34 | Hospitalist Progress Note ---
Date of Service October 02, 2021 Assessment & Plan (1) Compression fracture of L5 vertebra: Plan: Kami Valencia is a 81y/o F who presents for worsening back pain secondary to her known lumbar compression fractures. S/P Kyphoplasty L5 decompression fusion L4- S1 on 09/27/21 Intractable back pain with lumbar radiculopathy w/ L5 compression fracture - MRI from 08/19 demonstrating acute on chronic severe compression fracture at L5 with no associated retropulsion; severe central canal narrowing at L5 - Trialed toradol 30 IV w/ minimal relief - Pain management consult: recommends tylenol. Patient may consider genetic testing as outpatient for opiate sensitivity. Patient clinically reports insensitivity to prior narcotic treatments. - Continue home calcitonin nasal spray - Given the osteoporotic L5 compression fracture, consider outpatient bone workup and bisphosphonate in outpatient setting after appropriate delay after surgery; discuss w/ PCP. Vit D wnl. - Ortho/spine Surgery following - 09/26: MRI reviewed -- moderate stenosis L2-L3, severe stenosis L L4-L5 and L5-S1; compression fracture progressed; discussed surgical intervention -- 10/02: Per ortho, patient is doing well. No concerns about the XR findings - Discussed dispo plan w/ patient: given home situation and current mobility, awaiting SNF placement - Newly added tizanidine 2mg PO TID PRN w/ some relief - Dilaudid 0.5 mg IV prn w/ good response, decreased q4h prn to q8h prn - Bedside commode for slightly decreased mobility 2/2 pain overnight event 09/29->09/30: mild fall, likely 2/2 sedation d/c'd narcotic and ativan prn orders. hold AM lyrica. added fall precautions Home Ambien 10 qhs prn for insomnia which she has been needing nightly; decreased to 5 mg persistent leukocytosis postop Received dose of decadron perioperative 09/27/21 Checked venous doppler BLE because had some physical exam findings; result was no dvt Low suspicion for infectious etiology at this time. Follow CBC. Acute blood loss anemia Hb 13.7->11s, relatively stable since initial decrease. Asymptomatic. Follow clinically. Follow CBC. Chronic Conditions Depression: continue home fluoxetine 60mg po qAM Asthma: home Flovent prn Diet: regular. IV fluids discontinued CODE STATUS: Full Code Dispo: med/surg ppx: SCDs. SQ Lovenox daily. (2) Osteoporosis: (3) Acute blood loss anemia: (4) Leukocytosis: Admission and Anticipated Discharge Date Admission Date: September 26, 2021 Supervising Physician Co-Signing Physician Notes I personally examined the patient and verified all goodman points of history and exam, discussed case, and agree with decision making with Dr Cuello. Patient appears to be comfortable. spinal stenosis/compression fx - post op, recovering. PT/OT eval and treat - working on rehab. outpt bone health w/u and treatment given osteoporotic fx of L5. Patient currently not in pain. Uncontrolled paintizanidine helps some, although short-livedorder 3 times daily as needed. Dose of Dilaudid seems to have helped more than she would have expectedordered every 4 hours as needed. Continue Tylenol. Continue supportive care. X-rays without bony foci for painorthopedics is considering whether or not to repeat MRI. Cement noted, discussed with orthopedicsnoted that it does occur occasionally. acute blood loss anemia - not at all unexpected given necessary surgery, asymp tomatic and overall hemodynamically stable - continue to follow. leukocytosis - likely steroid effect. no overt s/s infection SCD for DVT proph given spine surgery and acute blood loss anemia otherwise as above Subjective She is feeling a bit better today after the dilaudid (received 3 doses 0.5 mg since yesterday evening) and tizanidine. This is the best day she's had in a while. Patient states her Ambien seems to be lasting less in duration, only 2 hours now. Ambulated to bathroom. Per ortho, ok to start Lovenox. Do PT today. Xray reassuring. No radicular pain unless putting direct pressure on it. No chest pain or sob. Ortho recommends that patient eat meals in chair and not in bed. Review of Systems Review of Systems: As per HPI Physical Exam Physical Exam: General: Grossly A&O. NAD. Cooperative. HEENT: Atraumatic, normocephalic. EOMI Pulm: CTAB anteriorly. -wheezes, -rales, -rhonchi. Cardiac: RRR, -mrg. Puffy appearing ankles Abdominal: Nontender, nondistended, soft. Msk: Moving extremities. Neuro: Neg SLR. Results & Data Results & Data ([facility]) Vital Signs (Past 12 Hours) Vital Signs vitals reviewed Temp Pulse Resp BP Pulse Ox 10/01/21 22:07 36.3 C L 57 L 17 141/67 H 94 Laboratory Results wbc downtrending 16.65->13.78->12.73. Hb stable 11.0. bmp stable. Cr .34. Lumbar spine xr 10/01 w/ some extension of cement material. Hardware intact. Resident Activity Tracking Resident Involvement: Resident Care Provided Care Provided: Adult Hospital Medicine
[2021-10-02 07:52] LABS: Basophils # (auto) 0.03 K/uL (0-0.2); Basophils % (auto) 0.2 %; Eosinophils # (auto) 0.22 K/uL (0-0.5); Eosinophils % (auto) 1.7 %; Hematocrit (blood only) 32.8 % (37-47); Immature Granulocytes # (auto) 0.08 K/uL (0.00-0.02); Immature Granulocytes % (auto) 0.6 %; Lymphocytes % (auto) 12.6 %; Mean Corpuscular Hemoglobin 31.8 pg (25-34); Mean Corpuscular Hgb Conc 33.5 g/dL (32-36); Mean Corpuscular Volume 94.8 fL (80-100); Mean Platelet Volume 9.9 fL (7.4-10.4); Monocytes % (auto) 7.9 %; Platelet Count 333 K/uL (130-400); RDW Coefficient of Variation 15.4 % (11.5-14.5); RDW Standard Deviation 53.4 fL (36.4-46.3); Red Blood Count 3.46 M/uL (4.2-5.4); White Blood Count 12.73 K/uL (4.8-10.8)
[2021-10-02 08:11] LABS: BUN Creatinine Ratio 19.1 (10-20); Calcium 8.1 mg/dl (8.5-10.1); Creatinine Clr Calc Pharmacy 125.7 ml/min; Est GFR (African American) 120.3 ml/min; Est GFR (Non-African American) 103.8 ml/min; Potassium 4.1 mmol/L (3.5-5.1)
[2021-10-02] MEDS: FLUoxetine HCL 20 MG CAP PO SCH (08:30)
[2021-10-02] MEDS: CALCIUM CARBONATE 1250MG TAB PO SCH (08:31)
[2021-10-02] MEDS: KETOROLAC TROMETHAMINE 15 MG/ML VIAL IV PRN (08:32)
[2021-10-02] MEDS: guaiFENesin 600 MG TABCR PO SCH ×2 (08:32→20:00)
--- NOTE | 2021-10-02 09:29 | Orthopedic Progress Note ---
Date of Service October 02, 2021 Assessment & Plan (1) Compression fracture of L5 vertebra: Plan: Today we are hoping to reinitiate more advanced physical therapy. We will see how she progresses. Hopefully transfer to rehab in the next day or so. Admission and Anticipated Discharge Date Admission Date: September 26, 2021 Subjective Patient's back pain is improved. She is obtaining some relief from the IV hydromorphone. Physical Exam Physical Exam: On exam she has good strength testing. She does appear more comfortable today. Results & Data ([facility]) Vital Signs (Past 12 Hours) Vital Signs Temp Pulse Resp BP Pulse Ox 10/02/21 07:24 36.7 C 77 16 122/75 93 10/01/21 22:07 36.3 C L 57 L 17 141/67 H 94
[2021-10-02] MEDS ORDERED: HYDROmorphone INJ 0.5 MG/0.5 ML SYR IV PRN (12:24)
[2021-10-02] MEDS: FLUTICASONE FUROATE 200MCG 14 PUFFS/INHALER INH SCH (18:15)
[2021-10-02] MEDS: ONDANSETRON 4 MG OD TAB PO PRN (18:15)
[2021-10-02] MEDS: DOCUSATE SODIUM/SENNA 50/8.6MG TAB PO SCH (20:00)
[2021-10-02] MEDS: ENOXAPARIN INJ 40 MG/0.4 ML SYR SQ SCH (20:17)
--- NOTE | 2021-10-02 20:40 | Billing Data ---
Date of Service October 02, 2021 Coding Level of Care Code 95191 Subseq Hosp Care Lvl 2
[2021-10-03] MEDS: ACETAMINOPHEN 500 MG TAB PO SCH ×2 (00:53→09:43)
[2021-10-03] MEDS: KETOROLAC TROMETHAMINE 15 MG/ML VIAL IV PRN ×2 (03:15→23:24)
[2021-10-03] MEDS: ONDANSETRON 4 MG OD TAB PO PRN (05:44)
[2021-10-03 07:56] LABS: Basophils # (auto) 0.02 K/uL (0-0.2); Basophils % (auto) 0.2 %; Eosinophils # (auto) 0.16 K/uL (0-0.5); Eosinophils % (auto) 1.5 %; Hemoglobin 11.1 g/dL (12.0-16.0); Immature Granulocytes # (auto) 0.09 K/uL (0.00-0.02); Immature Granulocytes % (auto) 0.8 %; Lymphocytes # (auto) 1.77 K/uL (1.2-3.4); Lymphocytes % (auto) 16.6 %; Mean Corpuscular Hgb Conc 32.6 g/dL (32-36); Mean Platelet Volume 9.6 fL (7.4-10.4); Monocytes # (auto) 0.88 K/uL (0.11-0.59); Monocytes % (auto) 8.2 %; Neutrophils # (auto) 7.77 K/uL (1.4-6.5); Neutrophils % (auto) 72.7 %; Platelet Count 381 K/uL (130-400); RDW Standard Deviation 52.1 fL (36.4-46.3); Red Blood Count 3.58 M/uL (4.2-5.4); White Blood Count 10.69 K/uL (4.8-10.8)
[2021-10-03 08:13] LABS: BUN Creatinine Ratio 20.2 (10-20); Calcium 8.4 mg/dl (8.5-10.1); Creatinine Clr Calc Pharmacy 87.3 ml/min; Est GFR (African American) 106.6 ml/min; Potassium 4.4 mmol/L (3.5-5.1)
[2021-10-03] MEDS: guaiFENesin 600 MG TABCR PO SCH ×2 (09:44→20:13)
[2021-10-03] MEDS: FLUoxetine HCL 20 MG CAP PO SCH (09:44)
[2021-10-03] MEDS: CALCIUM CARBONATE 1250MG TAB PO SCH (09:44)
--- NOTE | 2021-10-03 10:12 | Orthopedic Progress Note ---
Date of Service October 03, 2021 Assessment & Plan (1) Lumbar spinal stenosis: Plan: This time continue physical therapy. She is to wear her brace when out of bed. Suspect component of her leg pain is IT band tendinopathy and deconditioning. At this point will hopefully get her to rehab as soon as Monday. Admission and Anticipated Discharge Date Admission Date: September 26, 2021 Subjective Patient feels her back pain is improved. She describes some posterior thigh pain with ambulation but is comfortable in bed and sitting at this time. Physical Exam Physical Exam: Patient is in a chair at the bedside. She has reasonable strength testing. She appears comfortable. Results & Data ([facility]) Vital Signs (Past 12 Hours) Vital Signs Temp Pulse Resp BP Pulse Ox 10/03/21 08:20 36.4 C L 65 16 142/78 H 95 10/02/21 22:29 36.7 C 76 18 151/78 H 95
[2021-10-03] MEDS ORDERED: ACETAMINOPHEN 1000 MG/100 ML IV IV PRN (10:31)
--- NOTE | 2021-10-03 10:54 | Hospitalist Progress Note ---
Date of Service October 03, 2021 Assessment & Plan (1) Compression fracture of L5 vertebra: Plan: Kami Valencia is a 81y/o F who was admitted to [facility] on 09/27 for worsening back pain secondary to her known lumbar compression fractures. S/P Kyphoplasty L5 decompression fusion L4-S1 on 09/27. Stable and pending placement to SNF. Low Back Pain with L5 Compression Fracture, POD7 s/p Kyphoplasty Doing well overall. Stable. - h/o narcotic insensitivity; had pain management consult with recs for Tylenol vs Toradol - continue both PRN - continue home calcitonin nasal spray - continue Tizanidine - continue PRN Dilaudid for severe pain - Orthopedic surgery on board - appreciate recs - continue PT/OT - Concern for osteoporosis - recommend outpatient DEXA per PCP Acute blood loss anemia Hb 13.7->11s, relatively stable since initial decrease. Asymptomatic. - follow clinically. Follow CBC. Chronic Conditions Depression: continue home fluoxetine 60mg po qAM Asthma: home Flovent prn Diet: regular CODE STATUS: Full Code Dispo: med/surg, pending placement at SNF DVT ppx: SCDs. SQ Lovenox daily. (2) Osteoporosis: (3) Acute blood loss anemia: (4) Leukocytosis: Admission and Anticipated Discharge Date Admission Date: September 26, 2021 Supervising Physician Co-Signing Physician Notes I personally examined the patient and verified all goodman points of history and exam, discussed case, and agree with decision making with Dr Cuello. Patient appears to be comfortable. spinal stenosis/compression fx - post op, recovering. PT/OT eval and treat - working on rehab. outpt bone Cloupia w/u and treatment given osteoporotic fx of L5. Patient currently not in pain. Uncontrolled paintizanidine helps some, although short-livedorder 3 times daily as needed. Dose of Dilaudid seems to have helped more than she would have expectedordered every 4 hours as needed. Continue Tylenol. Continue supportive care. X-rays without bony foci for painorthopedics is considering whether or not to repeat MRI. Cement noted, discussed with orthopedicsnoted that it does occur occasionally. acute blood loss anemia - not at all unexpected given necessary surgery, asymptomatic and overall hemodynamically stable - continue to follow. leukocytosis - likely steroid effect. no overt s/s infection. No fever. SCD for DVT proph given spine surgery and acute blood loss anemia otherwise as above Subjective Received Toradol 15mg IV x1 overnight for back pain which helped. This morning patient is doing well overall. No concerns/complaints. Review of Systems Review of Systems: Denies fever/chills, chest pain, palpitations, SOB, cough, N/V, abdominal pain, rash. Physical Exam Physical Exam: General: A&Ox3. NAD. Cooperative. HEENT: Atraumatic, normocephalic. Pulm: CTAB A&P. -wheezes, -rales, -rhonchi. Symmetrical chest rise. No increase work of breathing. No respiratory distress. Cardiac: RRR, -mrg. Radial pulses intact and symmetrical. No LE edema. Abdominal: soft, non-tender, non-distended, BS x 4 Skin: warm, dry, no rash Results & Data Results & Data ([facility]) Vital Signs (Past 12 Hours) Vital Signs Temp Pulse Resp BP Pulse Ox 10/03/21 08:20 36.4 C L 65 16 142/78 H 95 Resident Activity Tracking Resident Involvement: Resident Care Provided Care Provided: Adult Hospital Medicine
[2021-10-03] MEDS: FLUTICASONE FUROATE 200MCG 14 PUFFS/INHALER INH SCH (18:17)
[2021-10-03] MEDS ORDERED: HYDROmorphone HCL 2 MG TAB PO STA (20:02)
[2021-10-03] MEDS: DOCUSATE SODIUM/SENNA 50/8.6MG TAB PO SCH (20:12)
[2021-10-03] MEDS: ENOXAPARIN INJ 40 MG/0.4 ML SYR SQ SCH (20:13)
--- NOTE | 2021-10-03 20:52 | Billing Data ---
Date of Service October 03, 2021 Coding Level of Care Code 19086 Subseq Hosp Care Lvl 2
[2021-10-03] MEDS: tiZANidine HCL 4 MG TABLET PO PRN (22:46)
[2021-10-04] MEDS: MELATONIN 3 MG TAB PO PRN ×2 (01:31→21:07)
[2021-10-04] MEDS: KETOROLAC TROMETHAMINE 15 MG/ML VIAL IV PRN (03:35)
--- NOTE | 2021-10-04 05:54 | Hospitalist Progress Note ---
Date of Service October 04, 2021 Assessment & Plan (1) Compression fracture of L5 vertebra: Plan: Kami Valencia is a 81y/o F who was admitted to [facility] on 09/27 for worsening back pain secondary to her known lumbar compression fractures. S/P Kyphoplasty L5 decompression fusion L4-S1 on 09/27. Stable and pending placement to SNF. Low Back Pain with L5 Compression Fracture s/p Kyphoplasty on 09/27 Doing well overall. Stable. s/p kyphoplasty 09/27. - h/o narcotic insensitivity; had pain management consult with recs for Tylenol vs Toradol - continue both PRN - continue home calcitonin nasal spray - reporting tizanidine and Dilaudid as two most helpful agents at this point -- spoke with nursing, will monitor response to each today, can consider switching to schedule from PRN - Orthopedic surgery on board - appreciate recs - continue PT/OT - Concern for osteoporosis - recommend outpatient DEXA per PCP Acute blood loss anemia Hb 13.7->11s, stable since initial decrease. Asymptomatic. - follow clinically. Follow CBC. Chronic Conditions Depression: continue home fluoxetine 60mg po qAM Asthma: home Flovent prn Diet: regular CODE STATUS: Full Code Dispo: med/surg, pending placement at SNF DVT ppx: SCDs. SQ Lovenox daily. (2) Osteoporosis: (3) Acute blood loss anemia: (4) Leukocytosis: Admission and Anticipated Discharge Date Admission Date: September 26, 2021 Supervising Physician Co-Signing Physician Notes I also saw the patient with the resident physician and personally examined the patient and verified all goodman points of history and exam, discussed case, and agree with decision making with Dr Bueno. I agree with the impression and plan as noted in the resident documentation. Patient reports that she can be ready twice in the hallway today and the pain was more tolerable than days previous. Upon our exam, she appears to be comfortable; she is conversational. Exam 126/61, 70, 16, 36.4, 94% on room air No acute distress. Heart regular rate and rhythm. Respirations are nonlabored Data WBC 11.39, hemoglobin 10.9, platelets 4 6. BUN 9, creatinine 0.45 Low back pain, L5 compression fracture status post kyphoplasty 09/27 Pain control Orthopedics consultation Acute blood loss anemia Stable CBC in a.m. Else as in resident documentation Subjective No acute events overnight. Patient seen the bedside this morning, does report still quite a bit of pain within her lower back. She says that the muscle relaxants were a lot more than she previously thought.She also says that Toradol and Tylenol take the edge off, but are not significantly helpful. She endorses moving her bowels and bladder okay. Denies any chest pain, palpitations, shortness of breath. Denies any numbness or tingling in her lower legs. Review of Systems Review of Systems: as per HPI Physical Exam Physical Exam: General: Tired, but otherwise well-appearing 81-year-old female was lying back in her hospital bed, relaxed upon my arrival. She is intermittently frustrated throughout her conversation as we discuss her hospital course and projected recovery. She is in no acute distress otherwise. HEENT: NCAT. Eyes - Sclera are white, anicteric, and without injection. Mouth - MMM with no tonsillar edema or exudates. Cardiac: Normal rate and regular rhythm; S1 and S2 present with no murmurs, rubs, or gallops. Pulmonary: Good respiratory effort with symmetric expansion of the chest. No use of accessory muscles. Lungs were clear to auscultation bilaterally with no cr ackles or wheezes. Abdominal: Abdomen was soft, nondistended, and non-tender to palpation. MSK/Extremities: Upper and lower extremities are warm and well perfused. RLE, LLE strength 5/5 bilaterally. Sensation to light touch grossly in tact. Capillary refill < 3 seconds. Results & Data Results & Data ([facility]) Vital Signs (Past 12 Hours) Vital Signs Temp Pulse Resp BP Pulse Ox 10/03/21 21:40 36.8 C 59 L 18 133/85 94 Resident Activity Tracking Resident Involvement: Resident Care Provided Care Provided: Adult Hospital Medicine
[2021-10-04 07:55] LABS: Basophils # (auto) 0.03 K/uL (0-0.2); Basophils % (auto) 0.3 %; Eosinophils % (auto) 1.8 %; Hematocrit (blood only) 33.2 % (37-47); Hemoglobin 10.9 g/dL (12.0-16.0); Immature Granulocytes # (auto) 0.18 K/uL (0.00-0.02); Immature Granulocytes % (auto) 1.6 %; Lymphocytes # (auto) 2.28 K/uL (1.2-3.4); Mean Corpuscular Hemoglobin 31.2 pg (25-34); Mean Corpuscular Hgb Conc 32.8 g/dL (32-36); Mean Corpuscular Volume 95.1 fL (80-100); Mean Platelet Volume 9.3 fL (7.4-10.4); Monocytes # (auto) 0.94 K/uL (0.11-0.59); Monocytes % (auto) 8.3 %; Neutrophils # (auto) 7.76 K/uL (1.4-6.5); Platelet Count 406 K/uL (130-400); RDW Coefficient of Variation 15.1 % (11.5-14.5); Red Blood Count 3.49 M/uL (4.2-5.4); White Blood Count 11.39 K/uL (4.8-10.8)
[2021-10-04 08:26] LABS: BUN Creatinine Ratio 20.6 (10-20); Calcium 8.6 mg/dl (8.5-10.1); Est GFR (African American) 109.7 ml/min; Est GFR (Non-African American) 94.6 ml/min; Magnesium 2.1 mg/dl (1.8-2.4); Potassium 4.7 mmol/L (3.5-5.1)
[2021-10-04] MEDS: FLUoxetine HCL 20 MG CAP PO SCH (09:47)
[2021-10-04] MEDS: guaiFENesin 600 MG TABCR PO SCH ×2 (09:48→20:41)
[2021-10-04] MEDS: CALCIUM CARBONATE 1250MG TAB PO SCH (09:48)
[2021-10-04] MEDS: POLYETHYLENE (MIRALAX) 17 GM PACK PO SCH (09:50)
[2021-10-04] MEDS ORDERED: HYDROmorphone INJ 0.5 MG/0.5 ML SYR IV PRN (10:07)
[2021-10-04] MEDS ORDERED: ACETAMINOPHEN 500 MG TAB PO PRN (11:32)
[2021-10-04] MEDS: tiZANidine HCL 4 MG TABLET PO PRN ×2 (11:34→20:41)
[2021-10-04] MEDS: FLUTICASONE FUROATE 200MCG 14 PUFFS/INHALER INH SCH (18:34)
[2021-10-04] MEDS: DOCUSATE SODIUM/SENNA 50/8.6MG TAB PO SCH (20:41)
[2021-10-04] MEDS: ENOXAPARIN INJ 40 MG/0.4 ML SYR SQ SCH (20:41)
[2021-10-04] MEDS ORDERED: HYDROmorphone HCL 2 MG TAB PO PRN (20:52)
--- NOTE | 2021-10-05 06:19 | Hospitalist Progress Note ---
Date of Service October 05, 2021 Assessment & Plan (1) Compression fracture of L5 vertebra: Plan: Kami Valencia is a 81y/o F who was admitted to [facility] on 09/27 for worsening back pain secondary to her known lumbar compression fractures. S/P Kyphoplasty L5 decompression fusion L4-S1 on 09/27. Stable and pending placement to SNF. Low Back Pain with L5 Compression Fracture s/p Kyphoplasty on 09/27 Doing well overall. Stable. s/p kyphoplasty 09/27. - h/o narcotic insensitivity; pain management previously consulted - continue home calcitonin nasal spray - schedule acetaminophen 1g q8h - schedule tizanidine 2mg q8h -- can increase / make PRN as outpatient if tolerating - given persistent pain, spoke with orthopedics -- proceed with Decadron 8mg IV x 1 followed by oral steroid taper to aid with postoperative pain - recommend pain management consult for continued aid / for outpatient given opioid insensitivity for genetic testing - Toradol, Dilaudid p.r.n. for breakthrough pain - Orthopedic surgery on board - appreciate recs - continue PT/OT - Likely osteoporotic in nature - would likely benefit from bisphosphonates as outpatient Acute blood loss anemia Hb 13.7->11s, stable since initial decrease. Asymptomatic. - follow clinically. Follow CBC. Chronic Conditions Depression: continue home fluoxetine 60mg po qAM Asthma: home Flovent prn Diet: regular CODE STATUS: Full Code Dispo: med/surg, pending placement at SNF DVT ppx: SCDs. SQ Lovenox daily. (2) Osteoporosis: (3) Acute blood loss anemia: (4) Leukocytosis: Admission and Anticipated Discharge Date Admission Date: September 26, 2021 Supervising Physician Co-Signing Physician Notes I also saw the patient with the resident physician and personally examined the patient and verified all goodman points of history and exam, discussed case, and agree with decision making with Dr Bueno. Also discussed the case with the orthopedic business analysis consultant. I agree with the impression and plan as noted in the resident documentation. Upon exam, the patient is seated in the bedside chair. She reports pain of a six on a 1-10 scale; she reports an acceptable level would be a five on the same scale. Physical therapy consultation from yesterday recommends acute inpatient rehabilitation. Exam 146/55, 72, 18, 36.6, 92% on room air No acute distress. Heart regular rate and rhythm. Respirations are nonlabored Low back pain, L5 compression fracture status post kyphoplasty 09/27 Dexamethasone 8 mg IV x1 now Outpatient tapering dose of steroids Ultimately outpatient pain clinic follow-up Else as in resident documentation Subjective Unfortunately pain is persisting and greatly interrupted sleep last night. Says the pain is a shooting, stabbing-like pain (describes as 'sciatica') that originates in her lower back and radiates down her left buttock towards her posterior thigh. Unable to get comfortable with positioning. Says it is almost unbearable trying to change positions. Says Dilaudid is helpful when given p.o. No issues with BMs, voiding. No CP/palpitations/SOB/n/v. Appetite good. She does express that 'I'm not sure I can go on like this.' When asked what she meant, she did say that it is not worth living in this degree of pain given its associated quality of life. When asked about SI, she said she had thoughts of how it would be better to not be living right now (given degree of pain), but wouldn't actually carry through with anything to harm herself / cause . She is responsive to reassurance and the idea of getting pain better under control / would likely improve QOL. Review of Systems Review of Systems: as per HPI Physical Exam Physical Exam: General: Tired, but otherwise well-appearing 81-year-old female was lying back in her hospital bed, relaxed upon my arrival. She is intermittently frustrated throughout her conversation as we discuss her hospital course and projected recovery. She is in no acute distress otherwise. HEENT: NCAT. Eyes - Sclera are white, anicteric, and without injection. Mouth - MMM with no tonsillar edema or exudates. Cardiac: Normal rate and regular rhythm; S1 and S2 present with no murmurs, rubs, or gallops. Pulmonary: Good respiratory effort with symmetric expansion of the chest. No use of accessory muscles. Lungs were clear to auscultation bilaterally with no crackles or wheezes. Abdominal: Abdomen was soft, nondistended, and non-tender to palpation. MSK/Extremities: Upper and lower extremities are warm and well perfused. RLE, LLE strength 5/5 bilaterally. Sensation to light touch grossly in tact. Capillary refill < 3 seconds. Psych: Mental status exam as follows: - Appearance: Patient appears appropriate for situation. - Behavior: Engaged in our conversation and made good eye-contact. - Speech: Talkative and speaking spontaneously with no increased latency. Appropriate rate, rhythm, and tone. - Mood: Patient describes their mood as " really bad ". - Affect: Patient's affect is best described as sad and somewhat split in her perceptions of care/course of recovery. - Thought process: Linear - Thought/Speech Content: Endorses passive SI, no active. See HPI - Cognition: appropriate. - Insight: Unable to reliably assess. Results & Data Results & Data ([facility]) Vital Signs (Past 12 Hours) Vital Signs Temp Pulse Resp BP Pulse Ox 10/04/21 20:35 36.5 C 74 18 143/75 H 92 Resident Activity Tracking Resident Involvement: Resident Care Provided Care Provided: Adult Hospital Medicine
[2021-10-05] MEDS: FLUoxetine HCL 20 MG CAP PO SCH (08:39)
[2021-10-05] MEDS: CALCIUM CARBONATE 1250MG TAB PO SCH (08:39)
[2021-10-05] MEDS: tiZANidine HCL 4 MG TABLET PO SCH ×3 (08:39→20:45)
[2021-10-05] MEDS: guaiFENesin 600 MG TABCR PO SCH ×2 (08:40→20:43)
[2021-10-05] MEDS: POLYETHYLENE (MIRALAX) 17 GM PACK PO SCH (08:41)
[2021-10-05] MEDS ORDERED: dexAMETHasone 8 MG in SYRINGE 0 ML IV ONE (11:00)
[2021-10-05] MEDS: ACETAMINOPHEN 500 MG TAB PO SCH ×2 (14:35→21:11)
--- NOTE | 2021-10-05 14:42 | Orthopedic Progress Note ---
Date of Service October 05, 2021 Assessment & Plan (1) Compression fracture of L5 vertebra: Plan: At this point I would ask her to continue with physical therapy. We will give her a dose of steroids to help with her discomfort. Suspect she is struggling with quite a bit of deconditioning. She is okay for discharge when bed available. Admission and Anticipated Discharge Date Admission Date: September 26, 2021 Subjective Patient complaining of back and leg pain with ambulation. She was however able to tolerate physical therapy yesterday reasonably well. She is not undergone therapy yet today. Physical Exam Physical Exam: On exam she appears comfortable. Has good strength testing lower extremities. Results & Data ([facility]) Vital Signs (Past 12 Hours) Vital Signs Temp Pulse Resp BP Pulse Ox 10/05/21 07:19 36.6 C 72 18 146/55 H 92
[2021-10-05] MEDS ORDERED: dexAMETHasone 4 MG TAB PO ONE (15:27)
[2021-10-05] MEDS: FLUTICASONE FUROATE 200MCG 14 PUFFS/INHALER INH SCH (17:59)
[2021-10-05] MEDS: DOCUSATE SODIUM/SENNA 50/8.6MG TAB PO SCH (20:43)
[2021-10-05] MEDS: MELATONIN 3 MG TAB PO PRN (20:43)
[2021-10-05] MEDS: ENOXAPARIN INJ 40 MG/0.4 ML SYR SQ SCH (20:43)
[2021-10-06] MEDS: ACETAMINOPHEN 500 MG TAB PO SCH ×2 (05:30→13:30)
--- NOTE | 2021-10-06 06:36 | Hospitalist Progress Note ---
Date of Service October 06, 2021 Assessment & Plan (1) Compression fracture of L5 vertebra: Plan: Kami Valencia is a 81y/o F who was admitted to [facility] on 09/27 for worsening back pain secondary to her known lumbar compression fractures. S/P Kyphoplasty L5 decompression fusion L4-S1 on 09/27. Low Back Pain with L5 Compression Fracture s/p Kyphoplasty on 09/27 Doing well overall. Pain better following steroids. Stable. s/p kyphoplasty 09/27. - h/o narcotic insensitivity; pain management previously consulted - continue home calcitonin nasal spray - continue scheduled tizanidine, acetaminophen at discharge -- ween as outpatie nt (both started here) --> can also consider small doses of PO Dilaudid (0.5mg PRN q8h demonstrated adequate response) - Received single dose of dexamethasone on 10/05 with very positive response --> can consider Medrol DP as outpatient to further aid with pain - recommend pain management consult for continued aid / for outpatient given opioid insensitivity for genetic testing - Orthopedic surgery followed during stay - will need outpatient follow-ups - continue PT/OT at discharge - Likely osteoporotic in nature - would likely benefit from bisphosphonates as outpatient Acute blood loss anemia Hb 13.7->11s, stable since initial decrease. Asymptomatic throughout stay. Chronic Conditions Depression: continue home fluoxetine 60mg po qAM Asthma: home Flovent prn Code Status: FULL CODE (2) Osteoporosis: (3) Acute blood loss anemia: (4) Leukocytosis: Admission and Anticipated Discharge Date Admission Date: September 26, 2021 Supervising Physician Co-Signing Physician Notes I also saw the patient with the resident physician and personally examined the patient and verified all goodman points of history and exam, discussed case, and agree with decision making with Dr Bueno. She is feeling much improved today. She was dosed with IV Decadron yesterday, so suspect this may be the reason for her improved pain control. She is also pleased to be going to inpatient rehabilitation today. Exam 148/87, 79, 16, 36.8, 92% on room air No acute distress. Heart regular rate and rhythm. Respirations are nonlabored Low back pain, L5 compression fracture status post kyphoplasty 09/27 She received 8 mg of IV dexamethasone on the day prior to hospital discharge; could consider tapering dose if symptoms warrant. Tizanidine, although would like to taper this as her symptoms improve Transfer for acute inpatient rehabilitation today Ultimately outpatient pain clinic follow-up Else as in resident documentation Subjective NAEO. Did not require additional analgesics following dexamethasone one-time dose. Reports feeling much better this AM - pain greatly reduced and manageable. Also says she was able to get sleep for the first time in days. No n/v/d. Appetite good. Strength better. No numbness/tingling. Denies CP/palpitations/SOB. Review of Systems Review of Systems: as per HPI Physical Exam Physical Exam: General: More energetic and more well-appearing 81-year-old female sitting back in hospital chair on my arrival. Appears comfortable. HEENT: NCAT. Eyes - Sclera are white, anicteric, and without injection. Mouth - MMM with no tonsillar edema or exudates. Cardiac: Good peripheral perfusion. No lower extremity swelling. Pulmonary: Good respiratory effort with symmetric expansion of the chest. No use of accessory muscles. MSK/Extremities: Upper and lower extremities are warm and well perfused. RLE, LLE strength 5/5 bilaterally. Results & Data Results & Data ([facility]) Vital Signs (Past 12 Hours) Vital Signs Temp Pulse Resp BP Pulse Ox 10/06/21 06:08 36.8 C 53 L 16 129/70 92 10/05/21 22:31 36.6 C 65 16 122/73 92 Resident Activity Tracking Resident Involvement: Resident Care Provided Care Provided: Adult Hospital Medicine
[2021-10-06] MEDS: CALCIUM CARBONATE 1250MG TAB PO SCH (09:22)
[2021-10-06] MEDS: FLUoxetine HCL 20 MG CAP PO SCH (09:22)
[2021-10-06] MEDS: tiZANidine HCL 4 MG TABLET PO SCH ×2 (09:23→13:30)
[2021-10-06] MEDS: guaiFENesin 600 MG TABCR PO SCH (09:24)
[2021-10-06] MEDS: POLYETHYLENE (MIRALAX) 17 GM PACK PO SCH (09:25)
--- NOTE | 2021-10-06 12:46 | Discharge Summary ---
Date of Service October 06, 2021 Admission HPI Per Admitting Provider Kami Valencia is a 81y/o F who presents for concerns of worsening back pain secondary to her known lumbar compression fractures. Over the last two months, has been having worsening back pain with radicular symptoms that has not been improved with medications. Was attempting to see Orthopaedic Surgery and Dr. Lopez but could not secure an appointment with them until January. Has been seen by Pain management over this time, and had an injection that did not provide relief of her pain. Has not had improvement with the fentanyl patches or with oral medications so far. Is reconsidering the potential surgical option that she previously wanted to avoid and would like to meet with ortho sooner than January in order to facilitate this decision. Has not had bowel or bladder incontinence, has not had changes in strength, has not had changes in sensation. Continues to have shooting pains down her legs to her mid-calf, with worst on the right. Admission Exam Per Admitting Provider Constitutional: WD/WN, vitals as above Eyes: PERRL, conjunctivae normal, anicteric sclerae Respiratory: normal respiratory effort, lungs clear to auscultation Auscultation: no crackles, no rales, no rhonchi and no wheezes Cardiovascular: Rate/Rhythm: regular rate and regular rhythm Heart Sounds: no gallop, no murmur and no cardiac rub Vessels: normal peripheral pulses; no JVD Extremities: no edema Gastrointestinal (Abdomen): Inspection/Auscultation: normal bowel sounds; abdomen not distended Percussion/Palpation: abdomen soft; abdomen nontender and no guarding Skin: no rashes, warm and dry Neurologic: PERRL, EOMI, accommodation nl, no face palsy, no dysarthria CN's II-XI intact bilaterally and moves all extremities Psychiatric: Orientation: alert and oriented x 3 Principal Diagnosis L5 compression fracture s/p kyphoplasty 09/27 acute blood loss anemia Discharge Exam General: More energetic and more well-appearing 81-year-old female sitting back in hospital chair on my arrival. Appears comfortable. HEENT: NCAT. Eyes - Sclera are white, anicteric, and without injection. Mouth - MMM with no tonsillar edema or exudates. Cardiac: Good peripheral perfusion. No lower extremity swelling. Pulmonary: Good respiratory effort with symmetric expansion of the chest. No use of accessory muscles. MSK/Extremities: Upper and lower extremities are warm and well perfused. RLE, LLE strength 5/5 bilaterally. Discharge Data Allergies Allergy/AdvReac Type Severity Reaction Status Date / Time Sulfa (Sulfonamide Allergy Intermediate HIVES Verified 09/24/21 23:30 Antibiotics) trimethoprim Allergy Intermediate HIVES Verified 09/24/21 23:30 OPIODS AdvReac Severe TOLERANT--DON'T Uncoded 09/24/21 23:30 WORK. Consultations 09/25/21 01:13 ED Decision to Admit Stat 09/25/21 02:02 Consult Orthopedic Surgery Routine 10/05 Dr. Lopez: "(1) Compression fracture of L5 vertebra: Plan: At this point I would ask her to continue with physical therapy. We will give her a dose of steroids to help with her discomfort. Suspect she is struggling with quite a bit of deconditioning. She is okay for discharge when bed available." 09/25/21 02:04 Consult Pain Management Routine 09/27 Dr. Berger: "(1) Compression fracture of L5 vertebra: (2) Lumbar spinal stenosis: 1. Agree with plan for L4-S1 fusion given that patient has failed conservative measures. She is n.p.o. for the OR today. 2. Patient states that utilization of Tylenol is acceptable at this time given that no opiate in her past has been effective in diminishing her pain. We discussed at length genetic testing for opiate sensitivity/efficacy which patient may pursue as an outpatient at her leisure. 3. Please call should you have any further questions, pain management will sign off." 10/01/21 05:50 Consult Behavioral Health Liaison Routine 10/02 Nikolay FISCHER "I met with patient after reports that she had made a suicidal statement of, "I cant go on like this". When I explained the reason for my visit to the patient she stated, "I feel much better today". She verbalized understandable frustration regarding her chronic pain, in addition to her inability to achieve pain reduction through opiate administration. Patient is denying any SI at this time, and denies ever having any intent or active desire to go through with self harm measures. She scored a 1 on the suicide risk assessment, and does not feel the need for psychiatric services at this time." Procedures Performed Operation Date: 09/27/21 09:00 Actual Procedures p Kyphoplasty L5; Intra-op cement use: 3 mL at L4, 4 mL at L5, and 1.5 mL at S1 for a total of 8.5 mL - Kenn Lopez DO s Decompression Fusion L4-S1 - Kenn Lopez DO Ordered Studies 09/25/21 09:55 MR lumbar spine wo con Routine CLINICAL HISTORY: back and leg pain TECHNIQUE: Multiplanar sequences through the lumbar spine were obtained, without intravenous contrast. Comparison: Comparison is made to MRI lumbar spine 08/19/2021 FINDINGS: Redemonstration of compression fracture of L5. Disks are normal in height and signal. L1-L2: Broad-based posterior disc bulge. No canal stenosis. Mild to moderate neuroforaminal stenosis. L2-L3: Broad-based posterior disc bulge with ligamentum flavum and facet hypertrophy. Moderate canal stenosis. Moderate neuroforaminal stenosis. L3-L4: Right base posterior disc bulge with facet hypertrophy. [id number] canal stenosis. Mild neuroforaminal stenosis. L4-L5: Small broad base posterior disc bulge with bilateral facet arthropathy. Moderate canal stenosis. Moderate neuroforaminal stenosis. L5-S1: Severe narrowing of the spinal canal due to severe facet arthrosis and a small posterior disc bulge. Severe canal stenosis. Severe neuroforaminal stenosis. The spinal ligaments are intact, without evidence of disruption or abnormal signal intensity. The spinal cord is normal in signal intensity and there is no evidence of cord contusion. There is no evidence of an extradural, intradural, extramedullary or intramedullary lesion. Visualized soft tissues are normal. IMPRESSION: Exam is essentially unchanged from prior. There is severe canal and neural foraminal stenosis at L5-S1 and up to moderate canal and neural foraminal stenosis elsewhere. Compression fracture of L5 is again seen. 09/27/21 FL lumbar spine 2-3V Routine CLINICAL HISTORY: KYPHO L5 . Status post internal fixation as well. COMPARISON STUDY: 11/22/2017 FLUOROSCOPY TIME: 2 minutes and 46 seconds. FLUOROSCOPIC IMAGES: 5 fluoroscopic spot images FINDINGS: The L5 vertebral body level was localized and vertebroplasty was performed. Interpedicular screw and veronique fixation was also placed at L4 and S1 IMPRESSION: Status post vertebral plasty and internal fixation. 09/30/21 11:18 US venous doppler LE Urgent CLINICAL HISTORY: right calf pain. Trace edema. Several days postop. COMPARISON STUDY: . TECHNIQUE: Sonography of the deep venous system of the bilateral lower extremities was performed. Compression and augmentation were evaluated. FINDINGS: The bilateral common femoral, superficial femoral and popliteal veins were compressible. Augmentation was normal. Flow was shown within the deep calf vessels. IMPRESSION: No evidence of deep venous thrombus within the bilateral lower extremities. Hospital Course (1) Compression fracture of L5 vertebra: Kami Valencia is a 81y/o F who was admitted to [facility] on 09/27 for worsening back pain secondary to her known lumbar compression fractures. S/P Kyphoplasty L5 decompression fusion L4-S1 on 09/27. Low Back Pain with L5 Compression Fracture s/p Kyphoplasty on 09/27 Doing well overall. Pain better following steroids. Stable. s/p kyphoplasty 09/27. - h/o narcotic insensitivity; pain management previously consulted d/t difficult to control pain while here (acceptable pain score = 5 per patient) - continue home calcitonin nasal spray - continue scheduled tizanidine, acetaminophen at discharge -- ween as outpatient (both started here) --> can also consider small doses of PO Dilaudid (0.5mg PRN q8h demonstrated adequate response) - Received single dose of dexamethasone on 10/05 with very positive response --> can consider Medrol DP as outpatient to further aid with pain if needed - recommend pain management consult for continued aid / for outpatient given opioid insensitivity for genetic testing - Orthopedic surgery followed during stay - will need outpatient follow-ups - continue PT/OT at discharge - likely osteoporotic in nature - would likely benefit from bisphosphonates as outpatient Acute blood loss anemia Hb 13.7->11s, stable since initial decrease. Asymptomatic throughout stay. Chronic Conditions Depression: continue home fluoxetine 60mg po qAM Asthma: home Flovent prn Code Status: FULL CODE (2) Osteoporosis: (3) Acute blood loss anemia: (4) Leukocytosis: Total Time Total Time Spent Total Time Spent (In Minutes): 30 Discharge Plan Discharge Items Patient Disposition: Transfer Inpatient Rehab Fac Reason For Visit: COMPRESSION FRACTURE Discharge Diagnosis: Lumbar spinal stenosis with compression fracture of L5 Activity: As commented below Non-emergency contact: Primary Care Provider Call non-emergency contact if: you have any medication questions Follow-up/Referrals: Milka Velasquez MD [Primary Care Provider] - Diet: Regular Addtl Attending Provider Instructions: ACTIVITY RECOMMENDATIONS: SELF CARE INSTRUCTIONS AFTER THORACIC/LUMBAR FUSIONS 1. You may walk to your tolerance. It is good exercise for your legs and back. Expect some back and intermittent leg aches and pains. 2. You may perform "counter-top" level activities (make a sandwich, dexter with a project, etc.). 3. No bending or lifting of more than 10 pounds or back twisting of any nature (roll like a log when turning in bed). 4. You may ride in a car for 20-30 minutes at a time. No driving until after your first visit with your doctor. 5. Frequent changes of position and restricting sitting to 30 minutes at a time will help limit the amount of back spasms and stiffness you may experience. 6. You may discontinue the use of ambulatory aids (cane, crutches, etc.) once your strength and confidence allow. 7. You may manufacturing executive the shower and let water strike your incision when you arrive home at least once daily. Do not take a tub bath, sit in a hot tub or go into a swimming pool until after your first recheck in the office. SPECIAL CARE INSTRUCTIONS: VERY IMPORTANT TO READ AND REVIEW A. Your surgical incision has been closed with a cosmetic suture under the skin that will dissolve in about 6 weeks. In 14 days, you can use a pair of clean scissors and cut the suture that is left outside of the skin at the ends of your incision. 1. The small skin tapes can be removed 7 days after surgery if they have not fallen off by that point. 2. You may keep the wound open to air as much as possible to promote healing after post-op day number 5 unless told otherwise by your doctor. 3. If you think the wound looks like it is becoming infected (redness or worsening drainage) and/or you are experiencing fever, chill or worsening back pain and muscle spasms, contact the office so that we may evaluate you as soon as possible. B. Complications are uncommon, but please contact us if you have any signs or symptoms of: 1. wound infection (fever higher than 102.5 degrees F, redness, separation of wound, drainage, or increasing pain from the incision) 2. blood clots in legs (pain, swelling, redness and warmth in legs) 3. urinary tract infection (fever higher than 102.5 degrees F, burning upon urination or increased frequency of urination) 4. nerve problems (inability to walk on your toes or heels, numbness, loss of bowel or bladder control) 5. any other symptoms that concern you C. Please call the office at if you have any concerns or questions about your operation or recovery. D. No smoking! Smoking drastically decreases the chance of a solid fusion. E. Do not take any anti-inflammatory medications (Indocin, Advil, Motrin, Aspirin, Naprosyn, etc.) as these may inhibit the chance of a solid fusion. Tylenol is okay to take for pain. MANAGING PAIN AFTER SPINAL SURGERY 1. Narcotic medication is intended for short-term use and will be provided for surgical pain. Surgical pain usually lasts for a period of 4-6 weeks. Narcotic medication includes Percocet, Vicodin, Darvocet, Tylenol #3 or Lortab. 2. Longer-term pain is more appropriately treated with non-narcotic medication such as Tylenol ES. 3. Muscle spasm is not appropriately treated with narcotics. Muscle relaxers such as Soma, Flexeril or Skelaxin can be used along with Tylenol ES. 4. Remember that we all live with some "aches and pains". This is not unusual or uncommon after an injury or as we get older. a. Back pain is expected and may include muscle spasms for 4 to 6 weeks after surgery. The pain should gradually improve. If the pain worsens for no apparent reason, please contact the office. b. Intermittent leg pain may also be experienced and should not be concerned about unless it worsens for no apparent reason. If so, please contact the office. 5. We will provide appropriate medication within the normal guidelines of their prescribed use. We will also be very cautious and aware of potential abuse and extended duration of patients' medication needs. a. Pain medications are for your comfort and to assist with sleep and rest so that the tissue can heal. They are not provided in order to return to normal activity and should not be used through the day. To do so or worsening pain at night can result from ongoing tissue damage and development of tolerance to the prescribed medicine. 6. Please allow 2-3 days to process refills. Prescriptions will not be mailed but must be picked up at the office. FOLLOW UP VISIT: Keep your scheduled follow-up appointment. Any questions, please call the office at . Add Report Developer Provider Instructions: Kami Valencia is a 81y/o F who was admitted to [facility] on 09/27 for worsening back pain secondary to her known lumbar compression fractures. S/P Kyphoplasty L5 decompression fusion L4-S1 on 09/27. Low Back Pain with L5 Compression Fracture s/p Kyphoplasty on 09/27 Doing well overall. Pain better following steroids. Stable. s/p kyphoplasty 09/27. - h/o narcotic insensitivity; pain management previously consulted d/t difficult to control pain while here (acceptable pain score = 5 per patient) - continue home calcitonin nasal spray - continue scheduled tizanidine, acetaminophen at discharge -- ween as outpatient (both started here) --> can also consider small doses of PO Dilaudid (0.5mg PRN q8h demonstrated adequate response) - Received single dose of dexamethasone on 10/05 with very positive response --> can consider Medrol DP as outpatient to further aid with pain if needed - recommend pain management consult for continued aid / for outpatient given opioid insensitivity for genetic testing - Orthopedic surgery followed during stay - will need outpatient follow-ups - continue PT/OT at discharge - likely osteoporotic in nature - would likely benefit from bisphosphonates as outpatient Acute blood loss anemia Hb 13.7->11s, stable since initial decrease. Asymptomatic throughout stay. Chronic Conditions Depression: continue home fluoxetine 60mg po qAM Asthma: home Flovent prn Code Status: FULL CODE Pending Studies at Discharge: No Stand-Alone Forms: [facility] Skilled Items Patient informed of condition?: Yes DNR: No Discharge Level of Care: Acute rehab Communicable Disease: No Discharge Prognosis: Improving Lines: None Urinary Catheter: No Medications and DC Order Prescriptions: New tizanidine 4 mg Tablet 2 mg PO TID 30 Days Qty: 45 RF: 0 acetaminophen [Tylenol Extra Strength] 500 mg Tablet 500 mg PO Q6H 30 Days Qty: 120 RF: 0 Continued zolpidem [Ambien] 10 mg tablet 10 mg PO HS PRN (Reason: insomnia) Qty: 30 RF: 0 fluoxetine 20 mg capsule 20 mg PO DAILY Qty: 90 RF: 3 fluoxetine [Prozac] 40 mg capsule 40 mg PO QAM Qty: 90 RF: 3 cholecalciferol (vitamin D3) 50 mcg (2,000 unit) tablet 2,000 units PO QAM RF: 0 multivitamin Tablet 1 tab PO QAM RF: 0 calcium carbonate [Calcium 500] 500 mg calcium (1,250 mg) tablet 500 mg PO QAM RF: 0 omega [id number]-fish oil [Fish Oil] 1,000 mg (120 mg-180 mg) capsule 1 cap PO QAM RF: 0 Flovent HFA 110 mcg/actuation HFA aerosol inhaler 2 puff INH BID PRN (Reason: asthma) RF: 0 calcitonin (salmon) 200 unit/actuation spray,non-aerosol 1 spray intranasal (ALT) DAILY PRN (Reason: NEEDED) RF: 0 pregabalin 50 mg capsule 50 mg PO BID RF: 0 Discharge Orders: Discharge Order (Routine); Ordered 10/06/21 Ordered By: Akshat Bueno Admission Data Admit Date/Time: 09/26/21 15:01 Attending Provider: Blake Dunbar Admit Provider: Yoel Ozuna Primary Care Provider: Milka Velasquez Other Providers: [facility] ; [place] ; Valerie Bush [facility] ; Ashley Ladd ; Manuel Chen ; Kenn Lopez ; Satya Alaniz Other Interventions: Discharge Summary Assessment (RN) Last Done: 10/06/21 12:30 Supervising Physician Co-Signing Physician Notes I also saw the patient with the resident physician and personally examined the patient and verified all goodman points of history and exam, discussed case, and agree with decision making with Dr Bueno. She is feeling much improved today. She was dosed with IV Decadron yesterday, so suspect this may be the reason for her improved pain control. She is also pleased to be going to inpatient rehabilitation today. Exam 148/87, 79, 16, 36.8, 92% on room air No acute distress. Heart regular rate and rhythm. Respirations are nonlabored Low back pain, L5 compression fracture status post kyphoplasty 09/27 She received 8 mg of IV dexamethasone on the day prior to hospital discharge; could consider tapering dose if symptoms warrant. Tizanidine, although would like to taper this as her symptoms improve Transfer for acute inpatient rehabilitation today Ultimately outpatient pain clinic follow-up Else as in resident documentation
== END 2021-10-06 14:00 | DRG 457 ==
LOC: ED 22:21 → 3N 22:21 → SUATTDRO 09-25 02:02 → 3N 09-25 02:49 → SUATTDRO 09-26 15:01

== ENCOUNTER 2021-10-23 09:46 | Inpatient (IN) ==
[~2021-10-23 09:46] MED LIST changes: -ASPCH81X PO; -CALC150C PO; -CHOL100010 PO; -FLUO40CA8 PO; -FLVHFA110 INH; -IOPAMIDOL INJ 61% 15 ML VIAL ONE; -LIDOCAINE HCL 1% MPF 5 ML VIAL ONE; -MULT-506 PO; +NALOXONE HCL 0.4 MG/1 ML VIAL/CARP ONE; -NRN/300 PO; -OMEG10007 PO; +RAPID SEQUENCE INDUCTION BAG ONE; -SODIUM CHLORIDE 0.9% INJ 10 ML VIAL ONE; -TRAM-10 PO
[2021-10-23] MEDS ORDERED: SUCCINYLCHOLINE CHLORIDE 20 MG/ML 10 ML VIAL IV ONE (09:47)
[2021-10-23] MEDS ORDERED: ETOMIDATE 2 MG/ML 20 ML VIAL IV ONE (09:47)
[2021-10-23] MEDS ORDERED: PROPOFOL IV EMULSION 10 MG/ML 100 ML VIAL IV ONE (09:55)
--- NOTE | 2021-10-23 10:03 | Emergency Department Note ---
Impression & Plan Polysubstance overdose, Suicide attempt, Respiratory failure, Aspiration pneumonia, Prolonged QT interval ED Provider Note Name: IRA SABA Age: 81 Sex: F Arrives Via: Ambulance Informant: EMS, Son (Grya Saba [phone]) ED Provider: Ranjit Huggins MD Chief Complaint: Overdose Impression: As per impressions above Medical Decision Makin-year-old female with long history of depression though no known suicide attempts previously arrives for evaluation of polysubstance overdose. Patient has been on large doses of narcotics and other pain medication since falling this summer. She has recent admission for chronic pain control apparently. On arrival she is obtunded there is emesis in her mouth and she is not breathing well. She is already received 2 rounds of Narcan without much improvement. She is moving some of her extremities and pushing to painful stimuli however is not following commands not opening eyes and has poor respiratory drive. She was intubated on arrival I will note moderate difficulty with intubation due to anterior larynx, large tongue and edematous cords. She was moderately hypoxic on arrival however we did bag her up without difficulty and there was no hypoxia during intubation. Patient was placed on some propofol for comfort. This was followed by some Versed. Blood pressure started to drop and she was given IV boluses of normal saline. She did slowly develop hypoxia thus she was deep suctioned without improvement chest x-ray without change and due to the worsening cough hypotensive as well she was started on Levophed at which point her blood pressure came up and her oxygen sats. Critical care was down and evaluated her who bronched her without any clear findings. They also placed a left IJ central line for better access as she only has distal peripheral small IVs at this time. Given the worsening hypoxia she was sent to CT for CT of the chest which was fortunately negative. During that she was noted to be mildly hypothermic and was also placed on warmers. Patient was kept comfortable. She was noted to have an elevated troponin. I am suspicious that patient may have overdosed at some point over the evening and likely had a prolonged hypoxic episode possibly due to respiratory depres amelia and the emesis that was noted in the posterior pharynx. Given the concern for aspiration she was given 3 g IV Unasyn. I will note that with the elevated troponin there is a likelihood of some cardiac injury however without ischemia on EKG and other findings as they are I do not feel starting her on heparin would be indicated at this time and hospitalist agrees. I do not feel the patient is in sepsis severe sepsis nor septic shock. Do not feel blood cultures are indicated at this time. Antibiotics were used for aspiration pneumonia management and not for sepsis. I did discuss this at length with the over the phone once he was able to be contacted. He confirms that she did attempt to kill herself 3 days ago though after discussing with her he had not thought that she was going to try this again. He notes he thought ureter may be around 6 AM but there is a good likelihood that she may have overdosed at any point during the evening. While he is quite certain that she did overdose on Ambien and Dilaudid, he cannot verify her confirm whether any other medications were taken. Given her exam I do suspect that this was sedative induced but with the periodic movements which do not appear to be seizure-like and her prolonged QTC I am concerned that this is her Zoloft that she overdosed on. This is why I felt that it was reasonable to give some Versed and some propofol for sedation. Given the increasing QTC we did give her 2 g IV magnesium for presumed overdose causing QTC prolongation. Many bedside evaluations were done of patient throughout the active care during the morning and early afternoon of 10/23/21. Prior Medical Record and Triage/Nursing Notes reviewed by Me Additional history obtained from chart Differentials:Overdose, toxicologic, infection, hypoglycemia, electrolyte abnormalities, cardiac sources, intracerebral event, neurologic, trauma, as well as other pathologies. Vital Signs: reviewed and remarkable for hypoxia Interventions: See Below Labs:Reviewed and remarkable for elevated troponin Imaging:See Below EKG:Per My Interpretation: Indication Overdose: NSR 99 bpm, qtc 574. No Ectopy. No Ischemia. Compared to EKG earlier on 10/23 QTC has lengthened Cardiac/Tele Monitoring: Cardiac Monitoring: An Order was placed for continuous cardiac monitoring. The monitor shows a rate of 80 with a normal sinus rhythm. Consults:CCM Dr Johnson, [place] Hospitalist Dr Leggett Plan: Disposition:Hospitalization. Condition: Critical History of Present Illness:This is an 81-year-old female arrives via EMS for altered mental status. Patient has apparently been dealing with back pain since her fall over the summer. She has been on large doses of pain medications throughout this. Very nice patient has been dealing with worsening depression recently. Few days ago she apparently attempted suicide by turning on the car in the garage when her found her. This morning has been found patient asleep and unresponsive in bed with 2 empty bottles next to her. His vitals were Ambien and Dilaudid. It is estimated she took roughly 15 tablets of each. EMS contacted and she received 2 mg of Narcan by police and then 1 mg IV Narcan by EMS. She required BVM in route to ER. EMS notes she woke up mildly to Narcan but is still not protecting airway. No known other medication ingestions. No known alcohol ingestion. No known drug use. EMS is not aware of any recent trauma nor falls. Per chart reports that she is intolerant to opioids and that they do not work for her though she is on significant doses of Dilaudid when reviewing her PDMP. She is also apparently on gabapentin and Ambien. ROS: Unable to obtain due to altered mental status Past Medical History:Unable to obtain due to altered mental status Past Surgical History:Unable to obtain due to altered mental status Family History:Unable to obtain due to altered mental status Social History:Unable to obtain due to altered mental status Home Medications:Unable to obtain due to altered mental status Allergies:Unable to obtain due to altered mental status - though per chart Morataya lfa, Trimethoprim Vitals:Blood Pressure: 158/81, Pulse 83, RR 25, T 35.8C, O2 75% on BVM Physical Exam: GENERAL: Patient is obtunded and minimally responsive. Agonal junky respirations. EYES: No scleral icterus, unremarkable pupils. ENT: Emesis and secretions posterior pharnyx. Large beefy tongue. Mucous membranes moist, no nasal congestion. NECK: No masses appreciated, nomeningismus, trachea is midline. RESPIRATORY: Poor respiratory drive with diffuse crackles. CARDIOVASCULAR: Regular rate and rhythm.No murmurs, rubs, gallops appreciated. GASTROINTESTINAL: Abdomen soft, non-tender, no peritonitis.Bowel sounds positive.No masses appreciated. BACK: No midline tenderness, no CVA tenderness EXTREMITIES: Normal motion all extremities, no cyanosis, no edema. NEUROLOGIC: Obtunded, minimal responsive to stimuli. At times weakly moves all extremities. SKIN: Pale/Diaphoretic, No rash, no jaundice GCS: 5 ED Course: Times/Reassessments: many throughout the stay. Multiple conversations with and son. I will note that I discussed the case with the and the need for better access. He is aware that a left IJ central line would be placed for better access. He is understanding that there are risks associated with this and verbally agrees with the need for what ever he should do to keep her comfortable and alive. Critical Care: I have personally spent 80 minutes of critical care time in the direct management of this patient. Overdose with respiratory failure. This was a life/limb threatening event. This 80 minutes is in excess of all separately billable procedures. 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 History of Graves' disease Lumbar radiculopathy Lumbar spinal stenosis Osteoarthritis Osteoporosis Surgical History History of colonoscopy History of knee replacement procedure of left knee History of knee replacement procedure of right knee S/P ORIF (open reduction internal fixation) fracture Rt wrist Status post kyphoplasty Family History Mother Alzheimer disease Depression Father Myocardial infarction Brother Non-Hodgkin lymphoma Sister Stroke Other No family history of adverse response to anesthesia Denies family history of Ovarian cancer Prostate cancer Breast cancer Lung cancer Colorectal cancer Social History Smoking Status: Unknown if ever smoked Second Hand Exposure: No; Hx Alcohol Use: No Hx Substance Use: No Preferred Language: Korean Communication Ability: Effective Visual Impairment: Limited Hearing Ability: Normal Cereal Maker Required: No Beliefs That Will Affect Care: None marital status: Current Living Situation: Spouse Current Living Situation Comment: Lives with current occupational status: retired Feels Safe at Home: Declines to Answer during the past year weight has: remained stable Physical Activity Frequency: 5-6 Times per Week Physical Activity Frequency Comment: walks her dog at least a mile daily and gardens Seatbelt Use: always Sunscreen Use: Yes Assistive Devices: Walker Allergies Allergies Allergy/AdvReac Type Severity Reaction Status Date / Time Sulfa (Sulfonamide Allergy Intermediate HIVES Verified 10/22/21 13:40 Antibiotics) trimethoprim Allergy Intermediate HIVES Verified 10/22/21 13:40 OPIODS AdvReac Severe TOLERANT--DON'T Uncoded 09/24/21 23:30 WORK. Home Meds Home Medications Medication Instructions Recorded Confirmed calcium carbonate 500 mg calcium 0 mg PO QAM 01/31/20 10/23/21 (1,250 mg) tablet (Calcium 500) cholecalciferol (vitamin D3) 50 0 units PO QAM 01/31/20 10/23/21 mcg (2,000 unit) tablet multivitamin 1 tab PO QAM 01/31/20 10/23/21 omega 8-ooz-tyt-fish oil 1,000 mg 1 cap PO QAM 01/31/20 10/23/21 (120 mg-180 mg) capsule (Fish Oil) fluticasone propionate 110 2 puff INH BID PRN gm 08/13/21 10/23/21 mcg/actuation HFA aerosol inhaler (Flovent HFA) calcitonin (salmon) 200 1 spray INTRANASAL (ALT) DAILY PRN 09/24/21 10/23/21 unit/actuation nasal spray acetaminophen 500 mg tablet 0 mg PO Q6H 10/23/21 10/23/21 (Tylenol Extra Strength) zolpidem 5 mg tablet 5 mg PO HS PRN 10/23/21 10/23/21 Previous Rx's Medication Instructions Recorded fluoxetine 20 mg capsule 20 mg PO DAILY #90 cap 09/14/21 fluoxetine 40 mg capsule (Prozac) 40 mg PO QAM #90 cap 09/14/21 tizanidine 4 mg tablet 2 mg PO TID 30 Days #45 tab 10/06/21 hydromorphone 4 mg tablet 4 mg PO Q8H PRN #30 tab 10/11/21 (Dilaudid) meloxicam 15 mg tablet 15 mg PO DAILY #7 tab 10/22/21 pregabalin 75 mg capsule (Lyrica) 75 mg PO TID #90 cap 10/22/21 Results & Data (ED) Vital Signs Vital Signs - 24 hr 10/23/21 09:50 10/23/21 09:53 10/23/21 09:55 Pulse Rate 82 86 87 Pulse Rate [Forehead] Pulse Rate from SpO2 Sensor Pulse Rhythm Regular Pulse Strength Normal Respiratory Rate 27 H 8 L 24 Respiratory Effort / Characteristics Spontaneous Respiratory Depth Shallow Respiratory Pattern Bradypnea Blood Pressure 127/79 147/82 H Blood Pressure [Right Arm] Blood Pressure Mean 95 103 Blood Pressure Mean [Right Arm] Pulse Oximetry 78 L 82 L 94 Oxygen Delivery Method Non-rebreather Fraction of Inspired Oxygen 100 Sepsis Recent Fever Within 48 Hours No Sepsis New/Unexplained Change in Mental Status N/A Sepsis Action Taken by Nursing No Action Required End-Tidal CO2 30 End Tidal CO2 (18-54mmHg) 10/23/21 10:00 10/23/21 10:10 10/23/21 10:20 Pulse Rate 85 83 88 Pulse Rate [Forehead] Pulse Rate from SpO2 Sensor 85 87 Pulse Rhythm Pulse Strength Respiratory Rate 20 22 23 Respiratory Effort / Characteristics Respiratory Depth Respiratory Pattern Blood Pressure 147/82 H Blood Pressure [Right Arm] Blood Pressure Mean 103 Blood Pressure Mean [Right Arm] Pulse Oximetry 96 81 L Oxygen Delivery Method Fraction of Inspired Oxygen Sepsis Recent Fever Within 48 Hours Sepsis New/Unexplained Change in Mental Status Sepsis Action Taken by Nursing End-Tidal CO2 End Tidal CO2 (18-54mmHg) 10/23/21 10:30 10/23/21 10:40 10/23/21 10:50 Pulse Rate 83 83 80 Pulse Rate [Forehead] Pulse Rate from SpO2 Sensor 84 78 77 Pulse Rhythm Pulse Strength Respiratory Rate 25 H 22 20 Respiratory Effort / Characteristics Respiratory Depth Respiratory Pattern Blood Pressure 158/81 H Blood Pressure [Right Arm] Blood Pressure Mean 106 Blood Pressure Mean [Right Arm] Pulse Oximetry 75 L 99 93 Oxygen Delivery Method Fraction of Inspired Oxygen Sepsis Recent Fever Within 48 Hours Sepsis New/Unexplained Change in Mental Status Sepsis Action Taken by Nursing End-Tidal CO2 34 32 29 End Tidal CO2 (18-54mmHg) 10/23/21 11:00 10/23/21 11:10 10/23/21 11:19 Pulse Rate 87 79 Pulse Rate [Forehead] 80 Pulse Rate from SpO2 Sensor 88 78 Pulse Rhythm Pulse Strength Respiratory Rate 20 22 20 Respiratory Effort / Characteristics Respiratory Depth Respiratory Pattern Blood Pressure Blood Pressure [Right Arm] 93/46 L Blood Pressure Mean Blood Pressure Mean [Right Arm] 61 Pulse Oximetry 96 93 92 Oxygen Delivery Method Mechanical Vent Fraction of Inspired Oxygen Sepsis Recent Fever Within 48 Hours Sepsis New/Unexplained Change in Mental Status Sepsis Action Taken by Nursing End-Tidal CO2 29 27 End Tidal CO2 (18-54mmHg) 30 10/23/21 11:20 10/23/21 11:30 10/23/21 11:52 Pulse Rate 77 76 Pulse Rate [Forehead] Pulse Rate from SpO2 Sensor 76 73 Pulse Rhythm Pulse Strength Respiratory Rate 20 20 26 H Respiratory Effort / Characteristics Respiratory Depth Respiratory Pattern Blood Pressure Blood Pressure [Right Arm] Blood Pressure Mean Blood Pressure Mean [Right Arm] Pulse Oximetry 92 95 Oxygen Delivery Method Fraction of Inspired Oxygen Sepsis Recent Fever Within 48 Hours Sepsis New/Unexplained Change in Mental Status Sepsis Action Taken by Nursing End-Tidal CO2 30 27 25 End Tidal CO2 (18-54mmHg) 10/23/21 12:00 10/23/21 12:10 Pulse Rate 69 71 Pulse Rate [Forehead] 71 Pulse Rate from SpO2 Sensor Pulse Rhythm Pulse Strength Respiratory Rate 20 21 Respiratory Effort / Characteristics Respiratory Depth Respiratory Pattern Blood Pressure Blood Pressure [Right Arm] 64/45 L Blood Pressure Mean Blood Pressure Mean [Right Arm] 51 Pulse Oximetry 77 L Oxygen Delivery Method Mechanical Vent Fraction of Inspired Oxygen Sepsis Recent Fever Within 48 Hours Sepsis New/Unexplained Change in Mental Status Sepsis Action Taken by Nursing End-Tidal CO2 25 24 End Tidal CO2 (18-54mmHg) Laboratory Data Result diagrams: 10/23/21 10:22 10/23/21 11:24 Lab Results 10/23/21 10/23/21 10/23/21 Range/Units 10:07 10:22 10:22 WBC 12.94 H (4.8-10.8) K/uL RBC 4.34 (4.2-5.4) M/uL Hgb 13.4 (12.0-16.0) g/dL Hct 43.4 (37-47) % MCV 100.0 (80-100) fL MCH 30.9 (25-34) pg MCHC 30.9 L (32-36) g/dL RDW Std Deviation 56.9 H (36.4-46.3) fL RDW Coeff of Apple 15.6 H (11.5-14.5) % Plt Count 339 (130-400) K/uL MPV 9.7 (7.4-10.4) fL Immature Gran % (Auto) 1.5 % Neut % (Auto) 84.4 % Lymph % (Auto) 6.1 % [place] % (Auto) 7.7 % Eos % (Auto) 0.1 % Baso % (Auto) 0.2 % Neut # (Auto) 10.93 H (1.4-6.5) K/uL Lymph # (Auto) 0.79 L (1.2-3.4) K/uL [place] # (Auto) 1.00 H (0.11-0.59) K/uL Eos # (Auto) 0.01 (0-0.5) K/uL Baso # (Auto) 0.02 (0-0.2) K/uL Immature Gran # (Auto) 0.19 H (0.00-0.02) K/uL ABG pH 7.33 L (7.35-7.45) ABG pCO2 45 (35-46) mmHg ABG pO2 133 H (80-95) mmHg ABG HCO3 23 (19-24) mmol/L ABG O2 Saturation 98.7 H (90-95) % ABG Base Excess -3.0 (-9-1.8) mEq/L Ricki Test Pos (Pos) Carboxyhemoglobin % THgb Barometric Pressure 732.3 mm/Hg Oxygen Given 100% Sodium 140 (136-145) mmol/L Potassium (3.5-5.1) mmol/L Chloride 107 (98-107) mmol/L Carbon Dioxide 27 (21-32) mmol/L Anion Gap 6.0 (3-11) BUN 9 (7-18) mg/dl Creatinine 1.24 H (0.6-1.2) mg/dl Est Cr Clr Drug Dosing 37.9 ml/min Est GFR ( Amer) 47.5 ml/min Est GFR (Non-Af Amer) 41.0 ml/min BUN/Creatinine Ratio 7.0 L (10-20) Glucose 152 H (70-99) mg/dl Calcium 8.8 (8.5-10.1) mg/dl Magnesium (1.8-2.4) mg/dl Total Bilirubin 0.3 (0.2-1) mg/dl AST (15-37) U/L ALT 29 (12-78) Alkaline Phosphatase 208 H D (45-117) U/L Troponin I 0.211 H* (0-0.045) ng/ml Total Protein 6.7 (6.4-8.2) gm/dl Albumin 2.8 L (3.4-5.0) gm/dl Globulin 3.9 (2.5-4.0) gm/dl Albumin/Globulin Ratio 0.7 L (0.9-2) TSH 2.390 (0.300-4.500) uIu/ml Urine Color Urine Appearance (Clear) Urine pH (4.5-7.5) Ur Specific [place] (1.000-1.030) Urine Protein (Negative) Urine Glucose (UA) (Negative) Urine Ketones (Negative) Urine Blood (Negative) Urine Nitrite (Negative) Urine Bilirubin (Negative) Urine Urobilinogen (Negative) Ur Leukocyte Esterase (Negative) Urine WBC (Auto) (0-5) /hpf Urine RBC (Auto) (0-4) /hpf U Hyaline Cast (Auto) (0-5) /lpf U Epithel Cells (Auto) (0-5) /lpf Urine Bacteria (Auto) (Negative) Ur Renal Epithelial Cell Salicylates (2.8-20) mg/dl Urine Opiates Screen (Neg) Ur Methadone, Qual (Neg) Acetaminophen (10-30) ug/ml Urine Barbiturates (Neg) Ur Phencyclidine (PCP) (Neg) U Amphetamin/Meth Scrn (Neg) MDMA (Ecstasy) Screen (Neg) U Benzodiazepines Scrn (Neg) Ur Cocaine Metabolite (Neg) U Marijuana (THC) Screen (Neg) Ethyl Alcohol mg/dL (0-3) mg/dl SARS-CoV-2, RNA, NAAT (NEGATIVE) 10/23/21 10/23/21 10/23/21 Range/Units 10:22 10:22 10:22 WBC (4.8-10.8) K/uL RBC (4.2-5.4) M/uL Hgb (12.0-16.0) g/dL Hct (37-47) % MCV (80-100) fL MCH (25-34) pg MCHC (32-36) g/dL RDW Std Deviation (36.4-46.3) fL RDW Coeff of Apple (11.5-14.5) % Plt Count (130-400) K/uL MPV (7.4-10.4) fL Immature Gran % (Auto) % Neut % (Auto) % Lymph % (Auto) % [place] % (Auto) % Eos % (Auto) % Baso % (Auto) % Neut # (Auto) (1.4-6.5) K/uL Lymph # (Auto) (1.2-3.4) K/uL [place] # (Auto) (0.11-0.59) K/uL Eos # (Auto) (0-0.5) K/uL Baso # (Auto) (0-0.2) K/uL Immature Gran # (Auto) (0.00-0.02) K/uL ABG pH (7.35-7.45) ABG pCO2 (35-46) mmHg ABG pO2 (80-95) mmHg ABG HCO3 (19-24) mmol/L ABG O2 Saturation (90-95) % ABG Base Excess (-9-1.8) mEq/L Ricki Test (Pos) Carboxyhemoglobin 0.0 % THgb Barometric Pressure mm/Hg Oxygen Given Sodium (136-145) mmol/L Potassium (3.5-5.1) mmol/L Chloride (98-107) mmol/L Carbon Dioxide (21-32) mmol/L Anion Gap (3-11) BUN (7-18) mg/dl Creatinine (0.6-1.2) mg/dl Est Cr Clr Drug Dosing ml/min Est GFR ( Amer) ml/min Est GFR (Non-Af Amer) ml/min BUN/Creatinine Ratio (10-20) Glucose (70-99) mg/dl Calcium (8.5-10.1) mg/dl Magnesium (1.8-2.4) mg/dl Total Bilirubin (0.2-1) mg/dl AST (15-37) U/L ALT (12-78) Alkaline Phosphatase (45-117) U/L Troponin I (0-0.045) ng/ml Total Protein (6.4-8.2) gm/dl Albumin (3.4-5.0) gm/dl Globulin (2.5-4.0) gm/dl Albumin/Globulin Ratio (0.9-2) TSH (0.300-4.500) uIu/ml Urine Color Urine Appearance (Clear) Urine pH (4.5-7.5) Ur Specific [place] (1.000-1.030) Urine Protein (Negative) Urine Glucose (UA) (Negative) Urine Ketones (Negative) Urine Blood (Negative) Urine Nitrite (Negative) Urine Bilirubin (Negative) Urine Urobilinogen (Negative) Ur Leukocyte Esterase (Negative) Urine WBC (Auto) (0-5) /hpf Urine RBC (Auto) (0-4) /hpf U Hyaline Cast (Auto) (0-5) /lpf U Epithel Cells (Auto) (0-5) /lpf Urine Bacteria (Auto) (Negative) Ur Renal Epithelial Cell Salicylates < 1.7 L (2.8-20) mg/dl Urine Opiates Screen (Neg) Ur Methadone, Qual (Neg) Acetaminophen < 2 L (10-30) ug/ml Urine Barbiturates (Neg) Ur Phencyclidine (PCP) (Neg) U Amphetamin/Meth Scrn (Neg) MDMA (Ecstasy) Screen (Neg) U Benzodiazepines Scrn (Neg) Ur Cocaine Metabolite (Neg) U Marijuana (THC) Screen (Neg) Ethyl Alcohol mg/dL < 3.0 (0-3) mg/dl SARS-CoV-2, RNA, NAAT (NEGATIVE) 10/23/21 10/23/21 10/23/21 Range/Units 10:50 10:50 11:03 WBC (4.8-10.8) K/uL RBC (4.2-5.4) M/uL Hgb (12.0-16.0) g/dL Hct (37-47) % MCV (80-100) fL MCH (25-34) pg MCHC (32-36) g/dL RDW Std Deviation (36.4-46.3) fL RDW Coeff of Apple (11.5-14.5) % Plt Count (130-400) K/uL MPV (7.4-10.4) fL Immature Gran % (Auto) % Neut % (Auto) % Lymph % (Auto) % [place] % (Auto) % Eos % (Auto) % Baso % (Auto) % Neut # (Auto) (1.4-6.5) K/uL Lymph # (Auto) (1.2-3.4) K/uL [place] # (Auto) (0.11-0.59) K/uL Eos # (Auto) (0-0.5) K/uL Baso # (Auto) (0-0.2) K/uL Immature Gran # (Auto) (0.00-0.02) K/uL ABG pH (7.35-7.45) ABG pCO2 (35-46) mmHg ABG pO2 (80-95) mmHg ABG HCO3 (19-24) mmol/L ABG O2 Saturation (90-95) % ABG Base Excess (-9-1.8) mEq/L Ricki Test (Pos) Carboxyhemoglobin % THgb Barometric Pressure mm/Hg Oxygen Given Sodium (136-145) mmol/L Potassium (3.5-5.1) mmol/L Chloride (98-107) mmol/L Carbon Dioxide (21-32) mmol/L Anion Gap (3-11) BUN (7-18) mg/dl Creatinine (0.6-1.2) mg/dl Est Cr Clr Drug Dosing ml/min Est GFR ( Amer) ml/min Est GFR (Non-Af Amer) ml/min BUN/Creatinine Ratio (10-20) Glucose (70-99) mg/dl Calcium (8.5-10.1) mg/dl Magnesium (1.8-2.4) mg/dl Total Bilirubin (0.2-1) mg/dl AST (15-37) U/L ALT (12-78) Alkaline Phosphatase (45-117) U/L Troponin I (0-0.045) ng/ml Total Protein (6.4-8.2) gm/dl Albumin (3.4-5.0) gm/dl Globulin (2.5-4.0) gm/dl Albumin/Globulin Ratio (0.9-2) TSH (0.300-4.500) uIu/ml Urine Color Yellow Urine Appearance Clear (Clear) Urine pH 6.5 (4.5-7.5) Ur Specific [place] 1.010 (1.000-1.030) Urine Protein Negative (Negative) Urine Glucose (UA) Negative (Negative) Urine Ketones Negative (Negative) Urine Blood Negative (Negative) Urine Nitrite Negative (Negative) Urine Bilirubin Negative (Negative) Urine Urobilinogen Negative (Negative) Ur Leukocyte Esterase Trace H (Negative) Urine WBC (Auto) 5-10 H (0-5) /hpf Urine RBC (Auto) 0-4 (0-4) /hpf U Hyaline Cast (Auto) 10-30 H (0-5) /lpf U Epithel Cells (Auto) >30 H (0-5) /lpf Urine Bacteria (Auto) Negative (Negative) Ur Renal Epithelial Cell Not Reportable Salicylates (2.8-20) mg/dl Urine Opiates Screen Pos H (Neg) Ur Methadone, Qual Neg (Neg) Acetaminophen (10-30) ug/ml Urine Barbiturates Neg (Neg) Ur Phencyclidine (PCP) Neg (Neg) U Amphetamin/Meth Scrn Neg (Neg) MDMA (Ecstasy) Screen Neg (Neg) U Benzodiazepines Scrn Neg (Neg) Ur Cocaine Metabolite Neg (Neg) U Marijuana (THC) Screen Neg (Neg) Ethyl Alcohol mg/dL (0-3) mg/dl SARS-CoV-2, RNA, NAAT NEGATIVE (NEGATIVE) 10/23/21 Range/Units 11:24 WBC (4.8-10.8) K/uL RBC (4.2-5.4) M/uL Hgb (12.0-16.0) g/dL Hct (37-47) % MCV (80-100) fL MCH (25-34) pg MCHC (32-36) g/dL RDW Std Deviation (36.4-46.3) fL RDW Coeff of Apple (11.5-14.5) % Plt Count (130-400) K/uL MPV (7.4-10.4) fL Immature Gran % (Auto) % Neut % (Auto) % Lymph % (Auto) % [place] % (Auto) % Eos % (Auto) % Baso % (Auto) % Neut # (Auto) (1.4-6.5) K/uL Lymph # (Auto) (1.2-3.4) K/uL [place] # (Auto) (0.11-0.59) K/uL Eos # (Auto) (0-0.5) K/uL Baso # (Auto) (0-0.2) K/uL Immature Gran # (Auto) (0.00-0.02) K/uL ABG pH (7.35-7.45) ABG pCO2 (35-46) mmHg ABG pO2 (80-95) mmHg ABG HCO3 (19-24) mmol/L ABG O2 Saturation (90-95) % ABG Base Excess (-9-1.8) mEq/L Ricki Test (Pos) Carboxyhemoglobin % THgb Barometric Pressure mm/Hg Oxygen Given Sodium (136-145) mmol/L Potassium 4.3 (3.5-5.1) mmol/L Chloride (98-107) mmol/L Carbon Dioxide (21-32) mmol/L Anion Gap (3-11) BUN (7-18) mg/dl Creatinine (0.6-1.2) mg/dl Est Cr Clr Drug Dosing ml/min Est GFR ( Amer) ml/min Est GFR (Non-Af Amer) ml/min BUN/Creatinine Ratio (10-20) Glucose (70-99) mg/dl Calcium (8.5-10.1) mg/dl Magnesium 2.4 (1.8-2.4) mg/dl Total Bilirubin (0.2-1) mg/dl AST 35 (15-37) U/L ALT (12-78) Alkaline Phosphatase (45-117) U/L Troponin I (0-0.045) ng/ml Total Protein (6.4-8.2) gm/dl Albumin (3.4-5.0) gm/dl Globulin (2.5-4.0) gm/dl Albumin/Globulin Ratio (0.9-2) TSH (0.300-4.500) uIu/ml Urine Color Urine Appearance (Clear) Urine pH (4.5-7.5) Ur Specific [place] (1.000-1.030) Urine Protein (Negative) Urine Glucose (UA) (Negative) Urine Ketones (Negative) Urine Blood (Negative) Urine Nitrite (Negative) Urine Bilirubin (Negative) Urine Urobilinogen (Negative) Ur Leukocyte Esterase (Negative) Urine WBC (Auto) (0-5) /hpf Urine RBC (Auto) (0-4) /hpf U Hyaline Cast (Auto) (0-5) /lpf U Epithel Cells (Auto) (0-5) /lpf Urine Bacteria (Auto) (Negative) Ur Renal Epithelial Cell Salicylates (2.8-20) mg/dl Urine Opiates Screen (Neg) Ur Methadone, Qual (Neg) Acetaminophen (10-30) ug/ml Urine Barbiturates (Neg) Ur Phencyclidine (PCP) (Neg) U Amphetamin/Meth Scrn (Neg) MDMA (Ecstasy) Screen (Neg) U Benzodiazepines Scrn (Neg) Ur Cocaine Metabolite (Neg) U Marijuana (THC) Screen (Neg) Ethyl Alcohol mg/dL (0-3) mg/dl SARS-CoV-2, RNA, NAAT (NEGATIVE) Administered Medications Propofol (Diprivan) 1,000 mg in 100 mls @ 17.577 mls/hr IV .Q5H42M АНДРЕЙ; Protocol Stop: 10/26/21 09:59 Last Titration: 10/23/21 14:01 Dose: 40 mcg/kg/min, 20.1 mls/hr Documented by: [id number] Titration: 10/23/21 12:53 Dose: 35 mcg/kg/min, 17.6 mls/hr Documented by: [id number] Titration: 10/23/21 12:44 Dose: 25 mcg/kg/min, 12.6 mls/hr Documented by: [id number] Titration: 10/23/21 12:30 Dose: 15 mcg/kg/min, 7.5 mls/hr Documented by: [id number] Titration: 10/23/21 12:21 Dose: 10 mcg/kg/min, 5 mls/hr Documented by: [id number] Admin: 10/23/21 10:41 Dose: 5 mcg/kg/min, 2.5 mls/hr Documented by: [id number] Cosigned by: [id number] Norepinephrine Bitartrate (Levophed/D5w) 8 mg in 508 mls @ 25.512 mls/hr IV .V57S14H [facility]; Protocol Stop: 11/22/21 12:14 Last Titration: 10/23/21 14:47 Dose: 0.08 mcg/kg/min, 25.5 mls/hr Documented by: [id number] Admin: 10/23/21 12:18 Dose: 0.1 mcg/kg/min, 31.9 mls/hr Documented by: [id number] Cosigned by: [id number] Parenteral Electrolytes (Normosol-R) 1,000 mls @ 125 mls/hr IV .Q8H [facility] Stop: 11/22/21 13:14 Last Admin: 10/23/21 14:47 Dose: 125 mls/hr Documented by: [id number] Fentanyl Citrate (Fentanyl Citrate) 2,500 mcg in 250 mls @ 2.5 mls/hr IV .Q96H [facility]; Protocol Stop: 11/06/21 14:44 Last Admin: 10/23/21 15:45 Dose: 25 mcg/hr, 2.5 mls/hr Documented by: [id number] Cosigned by: [id number] Discontinued Medications Fentanyl Citrate (Fentanyl Citrate 100 Mcg/2 Ml Vial) 50 mcg IV NOW STA Stop: 10/23/21 12:28 Last Admin: 10/23/21 12:52 Dose: 50 mcg Documented by: [id number] Ampicillin Sodium/Sulbactam Sodium 3,000 mg/ Sodium Chloride 108 mls @ 200 mls/hr IV NOW STA; Protocol Stop: 10/23/21 11:28 Last Infusion: 10/23/21 13:29 Dose: 0 mls/hr Documented by: [id number] Admin: 10/23/21 11:56 Dose: 200 mls/hr Documented by: [id number] Magnesium Sulfate/Dextrose (Magnesium Sulfate / D5w) 1 gm in 100 mls @ 200 mls/hr IV Q30M [facility] Stop: 10/23/21 11:59 Last Infusion: 10/23/21 14:48 Dose: 0 mls/hr Documented by: [id number] Admin: 10/23/21 14:11 Dose: 200 mls/hr Documented by: [id number] Infusion: 10/23/21 11:56 Dose: 0 mls/hr Documented by: [id number] Admin: 10/23/21 11:12 Dose: 200 mls/hr Documented by: [id number] Sodium Chloride (Nss 1000ml) 2,000 mls @ 999 mls/hr IV .Q2H1M ONE Stop: 10/23/21 14:09 Last Infusion: 10/23/21 12:48 Dose: 0 mls/hr Documented by: [id number] Admin: 10/23/21 12:18 Dose: 999 mls/hr Documented by: [id number] Ioversol (Optiray 320 125ml) 120 ml IV ONCE ONE Stop: 10/23/21 13:15 Last Admin: 10/23/21 13:14 Dose: 120 ml Documented by: [id number] Magnesium Sulfate/Dextrose (Magnesium Sulfate 1gm / D5w Bag) Confirm Administered Dose 1 gm IV .STK-MED ONE Stop: 10/23/21 14:08 Last Admin: 10/23/21 14:13 Dose: Not Given Documented by: [id number] Midazolam HCl (Midazolam Hcl 5 Mg/Ml 1 Ml Vial) 5 mg IV NOW STA Stop: 10/23/21 10:34 Last Admin: 10/23/21 10:42 Dose: Not Given Documented by: [id number] Midazolam HCl (Midazolam Hcl 5 Mg/Ml Vial) Confirm Administered Dose 10 mg .ROUTE .STK-MED ONE Stop: 10/23/21 10:35 Last Admin: 10/23/21 10:42 Dose: 5 mg Documented by: [id number] Miscellaneous (Rapid Sequence Induction Bag) Confirm Administered Dose 1 ea .ROUTE .STK-MED ONE Stop: 10/23/21 09:45 Last Admin: 10/23/21 10:42 Dose: 1 ea Documented by: [id number] Naloxone HCl (Naloxone Hcl 0.4 Mg/1 Ml Vial/Carp) Confirm Administered Dose 0.4 mg .ROUTE .STK-MED ONE Stop: 10/23/21 09:45 Last Admin: 10/23/21 10:40 Dose: Not Given Documented by: [id number] Norepinephrine Bitartrate (Norepinephrine/D5w 8 Mg/508 Ml) Confirm Administered Dose 8 mg IV .STK-MED ONE Stop: 10/23/21 12:09 Last Admin: 10/23/21 12:18 Dose: Not Given Documented by: [id number] Propofol (Propofol Iv Emulsion 10 Mg/Ml 100 Ml Vial) Confirm Administered Dose 1,000 mg IV .STK-MED ONE Stop: 10/23/21 09:56 Last Admin: 10/23/21 10:41 Dose: 1,000 mg Documented by: [id number] Cosigned by: [id number] Imaging Data Radiologist's Impression: Head CT 10/23/21 09:59 CT SCAN OF THE BRAIN WITHOUT IV CONTRAST CLINICAL HISTORY: Change in mental status. Overdose. COMPARISON STUDY: CT of the brain dated 08/19/2021. TECHNIQUE: Unenhanced axial CT scan of the brain is performed from the vertex to the skull base. A dose lowering technique was utilized adhering to the principles of ALARA. CT DOSE: 614.27 mGy.cm FINDINGS: Endotracheal and enteric tubes are noted on the mangle roll operator tomogram. Brain parenchyma: There are age-related involutional changes noting moderate subcortical and periventricular microangiopathic change. There is no hemorrhage, mass effect, or evidence of acute territorial ischemia by CT criteria. 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 Mak-white matter differentiation is preserved. No extra-axial fluid collection is seen. Ventricles, sulci, cisterns: Prominent secondary to involutional change. Cavum septum pellucidum is incidentally noted. Intracranial vasculature: There is atherosclerotic calcification of the cavernous carotid arteries. Calvarium: Unremarkable. Sinuses and mastoids: A 2.0 cm calcified structure in the right maxillary antrum likely represents an osteoma. There is mild mucosal thickening within the maxillary, sphenoid, frontal, and ethmoid sinuses. The mastoid air cells are well pneumatized. Orbits: The bony orbits are grossly intact. There are bilateral ocular lens implants. IMPRESSION: There is no hemorrhage, mass effect, or evidence of acute territ orial ischemia by CT criteria. ACT 112: Negative or not required by law. Electronically signed by: Nghia Marley M.D. 10/23/2021 12:08 PM Chest X-Ray 10/23/21 10:00 SINGLE VIEW CHEST CLINICAL HISTORY: Change in mental status. Overdose. Intubation. FINDINGS: An AP, portable, semierect chest radiograph is compared to study dated 09/24/2021. An enteric tube has been placed. The tip of the catheter projects below the diaphragm over the gastric fundus. An endotracheal tube has been placed. The tip projects approximately 3 cm above the eva. The heart is enlarged noting atherosclerotic calcification of the thoracic aorta. The pulmonary vasculature is noncongested. Foci of scarring/atelectasis are seen throughout both lungs. No airspace consolidation or large pleural effusion is identified. No pneumothorax is seen. The skeletal structures are osteopenic. The bony thorax is grossly intact. IMPRESSION: 1. Endotracheal and enteric tubes have been placed as above. 2. Cardiomegaly. 3. No airspace consolidation or pleural effusion is identified.. ACT 112: Negative or not required by law. Electronically signed by: Nghia Marley M.D. 10/23/2021 11:06 AM Chest X-Ray 10/23/21 12:12 SINGLE VIEW CHEST CLINICAL HISTORY: Hypoxia. Overdose. Respiratory failure. FINDINGS: An AP, portable, upright chest radiograph is compared to study perfor med earlier the same day 10/23/2021. An enteric tube and an endotracheal tube are unchanged in position. The heart is enlarged noting atherosclerotic calcification of the thoracic aorta. The pulmonary vasculature is noncongested. Foci of scarring/atelectasis are seen throughout both lungs, greatest in the left midlung. No airspace consolidation typical for pneumonia or large pleural effusion is identified. No pneumothorax is seen. The skeletal structures are osteopenic. The bony thorax is grossly intact. IMPRESSION: 1. Stable lines and tubes. 2. No airspace consolidation or large pleural effusion is identified. ACT 112: Negative or not required by law. Electronically signed by: Nghia Marley M.D. 10/23/2021 12:39 PM Discharge Plan Visit Data Chief Complaint: Overdose (Intentional) ED Provider: Ranjit Huggins Discharge Problem: Polysubstance overdose, Suicide attempt, Respiratory failure, Aspiration pneumonia, Prolonged QT interval Discharge Instructions Interventions: ED Discharge Assessment Last Done: 10/23/21 16:04 Discharge Problem: Polysubstance overdose Qualifiers: Encounter type: initial encounter Injury intent: intentional self-harm Qualified Code(s): T50.902A - Poisoning by unspecified drugs, medicaments and biological substances, intentional self-harm, initial encounter Respiratory failure Qualifiers: Chronicity: acute Respiratory failure complication: hypoxia Qualified Code(s): J96.01 - Acute respiratory failure with hypoxia Aspiration pneumonia Qualifiers: Aspiration pneumonia type: unspecified Laterality: bilateral Lung location: unspecified part of lung Qualified Code(s): J69.0 - Pneumonitis due to inhalation of food and vomit
[2021-10-23] MEDS ORDERED: MIDAZOLAM HCL 5 MG/ML 1 ML VIAL IV STA (10:33)
[2021-10-23] MEDS ORDERED: MIDAZOLAM HCL 5 MG/ML VIAL ONE (10:34)
[2021-10-23] MEDS: propofoL 1,000 MG/100 ML VIAL IV SCH ×3 (10:41→21:12)
[2021-10-23 10:43] LABS: HCO3 ABG 23 mmol/L (19-24); Oxygen Saturation ABG 98.7 % (90-95); PCO2 ABG 45 mmHg (35-46); PO2 ABG 133 mmHg (80-95); pH ABG 7.33 (7.35-7.45)
[2021-10-23 10:46] LABS: Basophils # (auto) 0.02 K/uL (0-0.2); Basophils % (auto) 0.2 %; Eosinophils # (auto) 0.01 K/uL (0-0.5); Eosinophils % (auto) 0.1 %; Hematocrit (blood only) 43.4 % (37-47); Hemoglobin 13.4 g/dL (12.0-16.0); Immature Granulocytes # (auto) 0.19 K/uL (0.00-0.02); Immature Granulocytes % (auto) 1.5 %; Lymphocytes # (auto) 0.79 K/uL (1.2-3.4); Lymphocytes % (auto) 6.1 %; Mean Corpuscular Hemoglobin 30.9 pg (25-34); Mean Corpuscular Hgb Conc 30.9 g/dL (32-36); Mean Platelet Volume 9.7 fL (7.4-10.4); Monocytes % (auto) 7.7 %; Neutrophils # (auto) 10.93 K/uL (1.4-6.5); Neutrophils % (auto) 84.4 %; Platelet Count 339 K/uL (130-400); RDW Coefficient of Variation 15.6 % (11.5-14.5); RDW Standard Deviation 56.9 fL (36.4-46.3); Red Blood Count 4.34 M/uL (4.2-5.4); White Blood Count 12.94 K/uL (4.8-10.8)
[2021-10-23 10:49] LABS: Allen Test Pos (Pos)
[2021-10-23] MEDS ORDERED: AMPICILLIN/SULBACTAM SOD 3,000 MG in 0.9 % SODIUM CHLORIDE 100 ML IV STA (10:56)
[2021-10-23 11:00] LABS: Acetaminophen < 2 ug/ml (10-30); Salicylate < 1.7 mg/dl (2.8-20)
[2021-10-23 11:02] LABS: Albumin Level 2.8 gm/dl (3.4-5.0); Calcium 8.8 mg/dl (8.5-10.1); Creatinine Clr Calc Pharmacy 37.9 ml/min; Est GFR (African American) 47.5 ml/min
--- NOTE | 2021-10-23 11:07 | XRay Report ---
SINGLE VIEW CHEST CLINICAL HISTORY: Change in mental status. Overdose. Intubation. FINDINGS: An AP, portable, semierect chest radiograph is compared to study dated 09/24/2021. An enter ic tube has been placed. The tip of the catheter projects below the diaphragm over the gastric fundus . An endotracheal tube has been placed. The tip projects approximately 3 cm above the eva. The hea rt is enlarged noting atherosclerotic calcification of the thoracic aorta. The pulmonary vasculature is noncongested. Foci of scarring/atelectasis are seen throughout both lungs. No airspace consolidati on or large pleural effusion is identified. No pneumothorax is seen. The skeletal structures are oste openic. The bony thorax is grossly intact. IMPRESSION: 1. Endotracheal and enteric tubes have been placed as above. 2. Cardiomegaly. 3. No airspace consolidation or pleural effusion is identified.. ACT 112: Negative or not required by law. Electronically signed by: Nghia Marley M.D. 10/23/2021 11:06 AM
[2021-10-23] MEDS: MAGNESIUM SULFATE / D5W 1 GM/100 ML BAG IV SCH ×2 (11:12→14:11)
[2021-10-23 11:15] LABS: Albumin Globulin Ratio 0.7 (0.9-2); Bilirubin,Total 0.3 mg/dl (0.2-1); Globulin 3.9 gm/dl (2.5-4.0); Thyroid Stimulating Hormone 2.39 uIu/ml (0.300-4.500); Total Protein 6.7 gm/dl (6.4-8.2)
[2021-10-23 11:16] LABS: Appearance Urine Clear (Clear); Bacteria Urine Automated Negative (Negative); Bilirubin Urine Negative (Negative); Blood Urine Negative (Negative); Color Urine Yellow; Epithelial Cell Urine Auto >30 /lpf (0-5); Glucose Urine UA Negative (Negative); Ketones Urine Negative (Negative); Leukocyte Esterase Urine Trace (Negative); Nitrite Urine Negative (Negative); Protein Urine Negative (Negative); RBC Urine Automated 0-4 /hpf (0-4); Urobilinogen Urine Negative (Negative); pH Urine 6.5 (4.5-7.5)
[2021-10-23] MEDS ORDERED: PROPOFOL BOLUS FROM BAG IV PRN (11:44)
[2021-10-23] MEDS ORDERED: STAT IV Infusion **Titration per Protocol STA ×3 (11:44→14:45)
[2021-10-23 11:56] LABS: Potassium 4.3 mmol/L (3.5-5.1)
[2021-10-23 12:01] LABS: Magnesium 2.4 mg/dl (1.8-2.4)
[2021-10-23 12:02] LABS: Amphetamines+Metham, Urine Neg (Neg); Barbiturates, Urine Neg (Neg); Benzodiazepine, Urine Neg (Neg); Cocaine, Urine Neg (Neg); MDMA (Ecstacy), Urine Neg (Neg); Methadone, Urine Neg (Neg); Opiate, Urine Pos (Neg); Phencyclidine, Urine Neg (Neg)
[2021-10-23] MEDS ORDERED: NOREPINEPHRINE/D5W 8 MG/508 ML IV ONE (12:08)
[2021-10-23] MEDS ORDERED: SODIUM CHLORIDE 0.9% 1000ML 2,000 ML IV ONE (12:09)
--- NOTE | 2021-10-23 12:09 | CT Scan Report ---
CT SCAN OF THE BRAIN WITHOUT IV CONTRAST CLINICAL HISTORY: Change in mental status. Overdose. COMPARISON STUDY: CT of the brain dated 08/19/2021. TECHNIQUE: Unenhanced axial CT scan of the brain is performed from the vertex to the skull base. A do se lowering technique was utilized adhering to the principles of ALARA. CT DOSE: 614.27 mGy.cm FINDINGS: Endotracheal and enteric tubes are noted on the plumbing designer tomogram. Brain parenchyma: There are age-related involutional changes noting moderate subcortical and periven tricular microangiopathic change. There is no hemorrhage, mass effect, or evidence of acute territori al ischemia by CT criteria. A small chronic lacunar infarct is noted in the left cerebellar hemispher e. Mak-white matter differentiation is preserved. No extra-axial fluid collection is seen. Ventricles, sulci, cisterns: Prominent secondary to involutional change. Cavum septum pellucidum is i ncidentally noted. Intracranial vasculature: There is atherosclerotic calcification of the cavernous carotid arteries. Calvarium: Unremarkable. Sinuses and mastoids: A 2.0 cm calcified structure in the right maxillary antrum likely represents an osteoma. There is mild mucosal thickening within the maxillary, sphenoid, frontal, and ethmoid sinus es. The mastoid air cells are well pneumatized. Orbits: The bony orbits are grossly intact. There are bilateral ocular lens implants. IMPRESSION: There is no hemorrhage, mass effect, or evidence of acute territorial ischemia by CT brannon colindres. ACT 112: Negative or not required by law. Electronically signed by: Nghia Marley M.D. 10/23/2021 12:08 PM
[2021-10-23] MEDS: NOREPINEPHRINE/D5W 8 MG/508 ML BAG IV SCH (12:18)
[2021-10-23] MEDS ORDERED: fentaNYL citrate 100 MCG/2 ML VIAL IV STA (12:27)
--- NOTE | 2021-10-23 12:31 | History & Physical Report ---
Date of Service October 23, 2021 Assessment & Plan (1) Polysubstance overdose: Plan: Urine toxicology positive for opiates. Salicylate and acetaminophen levels negative. Per EMS 15 tablets of hydromorphone and 15 tablets of Ambien, although per discussion with ER physician she could have overdose on other medications Suspected intentional overdose given recent suicidal attempt with carbon monoxide poisoning. Unresponsive to x2 Narcan from EMS Intubated in the ER due to unresponsiveness and hypoxia Increased hypoxia and hypotensive after propofol started, now improving on Levophed (2) Acute respiratory failure with hypoxia: Plan: Intubated in the ER 10/23, ventilation management per ICU team (3) Aspiration pneumonitis: Plan: Unasyn given in the ER. Suspect pneumonitis rather than pneumonia based on imaging and bronchoscopy. Antibiotics deferred to ICU team. (4) Acute kidney injury: Plan: Cr baseline 0.45, currently 1.24. IV fluids per ICU team. (5) Prolonged QT interval: Plan: Mg Sulphate 1g IV x2 Repeat EKG in AM. (6) Depression: Plan: Holding fluoxetine pending psychiatry evaluation once more awake. (7) Lumbar spinal stenosis: Plan: Holding pregabalin, tizanidine, Dilaudid, meloxicam pending improvement in cognition. (8) Elevated troponin: Plan: Suspect demand-ischemia in setting of hypoxia. Continue to trend. Plan: VTE Prophylaxis - deferred to ICU team Diet - NPO Disposition - admit to ICU Admission and Anticipated Discharge Date Admission Date: October 23, 2021 History of Present Illness Chief Complaint: Overdose Primary Care Provider: Milka Velasquez MD Kami Valencia is an 81 year old female who presents to the ER with unresponsiveness and hypoxia. Unable to get any history from patient due to intubation and sedation. History obtained from EMS notes and ER physician. Patient found sleeping by this morning unresponsive with empty bottles of Ambien and Dilaudid. Estimated overdose on 15 tablets of each. Reportedly she tried to kill herself 2-3 days ago with carbon monoxide poisoning. Therefore current overdose suspected to be intentional. She has a history of poorly controlled back pain with an L5 compression fracture and lumbar spinal stenosis for which she underwent kyphoplasty, lumbar decompression and spinal fusion on September 27. On arrival in the ER RR 6-8, O2 sats n low 80s therefore was intubated in the ER. BP 64/45 after propofol started. When seen patient receiving propofol, IV NSS bolus running with Levophed. Allergies Allergy/AdvReac Type Severity Reaction Status Date / Time Sulfa (Sulfonamide Allergy Intermediate HIVES Verified 10/22/21 13:40 Antibiotics) trimethoprim Allergy Intermediate HIVES Verified 10/22/21 13:40 OPIODS AdvReac Severe TOLERANT--DON'T Uncoded 09/24/21 23:30 WORK. Home Medications Medication Instructions Recorded Confirmed Type calcium carbonate 500 mg calcium 0 mg PO QAM 01/31/20 10/23/21 History (1,250 mg) tablet (Calcium 500) cholecalciferol (vitamin D3) 50 0 units PO QAM 01/31/20 10/23/21 History mcg (2,000 unit) tablet multivitamin 1 tab PO QAM 01/31/20 10/23/21 History omega 2-fea-wrz-fish oil 1,000 mg 1 cap PO QAM 01/31/20 10/23/21 History (120 mg-180 mg) capsule (Fish Oil) fluticasone propionate 110 2 puff INH BID PRN gm 08/13/21 10/23/21 History mcg/actuation HFA aerosol inhaler (Flovent HFA) fluoxetine 20 mg capsule 20 mg PO DAILY #90 cap 09/14/21 10/23/21 Rx fluoxetine 40 mg capsule (Prozac) 40 mg PO QAM #90 cap 09/14/21 10/23/21 Rx calcitonin (salmon) 200 1 spray INTRANASAL (ALT) DAILY PRN 09/24/21 10/23/21 History unit/actuation nasal spray tizanidine 4 mg tablet 2 mg PO TID 30 Days #45 tab 10/06/21 10/23/21 Rx hydromorphone 4 mg tablet 4 mg PO Q8H PRN #30 tab 10/11/21 10/23/21 Rx (Dilaudid) meloxicam 15 mg tablet 15 mg PO DAILY #7 tab 10/22/21 10/23/21 Rx pregabalin 75 mg capsule (Lyrica) 75 mg PO TID #90 cap 10/22/21 10/23/21 Rx acetaminophen 500 mg tablet 0 mg PO Q6H 10/23/21 10/23/21 History (Tylenol Extra Strength) zolpidem 5 mg tablet 5 mg PO HS PRN 10/23/21 10/23/21 History Past Med/Surg History Medical History Asthma Compression fracture of L5 vertebra Depression 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 History of Graves' disease Lumbar radiculopathy Lumbar spinal stenosis Osteoarthritis Osteoporosis Surgical History History of colonoscopy History of knee replacement procedure of left knee History of knee replacement procedure of right knee S/P ORIF (open reduction internal fixation) fracture Rt wrist Status post kyphoplasty Family History Mother Alzheimer disease Depression Father Myocardial infarction Brother Non-Hodgkin lymphoma Sister Stroke Other No family history of adverse response to anesthesia Denies family history of Ovarian cancer Prostate cancer Breast cancer Lung cancer Colorectal cancer Social History Smoking Status: Unknown if ever smoked Second Hand Exposure: No; Hx Substance Use: No Preferred Language: Greek Communication Ability: Effective Visual Impairment: Limited Hearing Ability: Normal Armed Security Professional Required: No Beliefs That Will Affect Care: None marital status: Current Living Situation: Spouse Current Living Situation Comment: Lives with current occupational status: retired Feels Safe at Home: Declines to Answer during the past year weight has: remained stable Physical Activity Frequency: 5-6 Times per Week Physical Activity Frequency Comment: walks her dog at least a mile daily and gardens Seatbelt Use: always Sunscreen Use: Yes Assistive Devices: Walker Review of Systems Review of Systems: Unobtainable due to endotracheal tube and Unobtainable due to reduced consciousness Physical Exam Constitutional: + mechanically ventilated Respiratory: symmetric chest movement; normal respiratory pattern Auscultation: + rhonchi (b/l equal) Cardiovascular: Rate/Rhythm: regular rate and regular rhythm Heart Sounds: no murmur Extremities: normal capillary refill (centrally, prolonged peripherally) Gastrointestinal (Abdomen): Percussion/Palpation: abdomen soft Skin: no rashes, warm and dry Neurologic: + obtunded Psychiatric: Orientation: + not alert Results & Data Results & Data ([place]) Vital Signs (Past 12 Hours) Vital Signs Pulse Pulse Resp BP BP Pulse Ox 10/23/21 11:19 80 20 93/46 L 92 10/23/21 10:30 83 25 H 158/81 H 75 L 10/23/21 10:20 88 23 10/23/21 10:10 83 22 81 L 10/23/21 10:00 85 20 147/82 H 96 10/23/21 09:53 86 8 L 147/82 H 82 L 10/23/21 09:50 82 27 H 127/79 78 L Laboratory Results Abnormal lab results 10/23/21 10/23/21 10/23/21 Range/Units 10:07 10:22 10:22 WBC 12.94 H (4.8-10.8) K/uL POC Hgb (12.0-16.0) g/dl POC Hct (37-47) % MCHC 30.9 L (32-36) g/dL RDW Std Deviation 56.9 H (36.4-46.3) fL RDW Coeff of Apple 15.6 H (11.5-14.5) % Neut # (Auto) 10.93 H (1.4-6.5) K/uL Lymph # (Auto) 0.79 L (1.2-3.4) K/uL [place] # (Auto) 1.00 H (0.11-0.59) K/uL Immature Gran # (Auto) 0.19 H (0.00-0.02) K/uL POC pH (7.35-7.45) POC pO2 (80-95) mmHg POC Total CO2 (24-31) mmol/L ABG pH 7.33 L (7.35-7.45) ABG pO2 133 H (80-95) mmHg POC ABG O2 Sat (90-95) % ABG O2 Saturation 98.7 H (90-95) % Creatinine 1.24 H (0.6-1.2) mg/dl BUN/Creatinine Ratio 7.0 L (10-20) Glucose 152 H (70-99) mg/dl Alkaline Phosphatase 208 H D (45-117) U/L Troponin I 0.211 H* (0-0.045) ng/ml Albumin 2.8 L (3.4-5.0) gm/dl Albumin/Globulin Ratio 0.7 L (0.9-2) Ur Leukocyte Esterase (Negative) Urine WBC (Auto) (0-5) /hpf U Hyaline Cast (Auto) (0-5) /lpf U Epithel Cells (Auto) (0-5) /lpf Salicylates (2.8-20) mg/dl Urine Opiates Screen (Neg) Acetaminophen (10-30) ug/ml 10/23/21 10/23/21 10/23/21 Range/Units 10:22 10:50 10:50 WBC (4.8-10.8) K/uL POC Hgb (12.0-16.0) g/dl POC Hct (37-47) % MCHC (32-36) g/dL RDW Std Deviation (36.4-46.3) fL RDW Coeff of Apple (11.5-14.5) % Neut # (Auto) (1.4-6.5) K/uL Lymph # (Auto) (1.2-3.4) K/uL [place] # (Auto) (0.11-0.59) K/uL Immature Gran # (Auto) (0.00-0.02) K/uL POC pH (7.35-7.45) POC pO2 (80-95) mmHg POC Total CO2 (24-31) mmol/L ABG pH (7.35-7.45) ABG pO2 (80-95) mmHg POC ABG O2 Sat (90-95) % ABG O2 Saturation (90-95) % Creatinine (0.6-1.2) mg/dl BUN/Creatinine Ratio (10-20) Glucose (70-99) mg/dl Alkaline Phosphatase (45-117) U/L Troponin I (0-0.045) ng/ml Albumin (3.4-5.0) gm/dl Albumin/Globulin Ratio (0.9-2) Ur Leukocyte Esterase Trace H (Negative) Urine WBC (Auto) 5-10 H (0-5) /hpf U Hyaline Cast (Auto) 10-30 H (0-5) /lpf U Epithel Cells (Auto) >30 H (0-5) /lpf Salicylates < 1.7 L (2.8-20) mg/dl Urine Opiates Screen Pos H (Neg) Acetaminophen < 2 L (10-30) ug/ml 10/23/21 Range/Units 12:25 WBC (4.8-10.8) K/uL POC Hgb 11.9 L (12.0-16.0) g/dl POC Hct 35 L (37-47) % MCHC (32-36) g/dL RDW Std Deviation (36.4-46.3) fL RDW Coeff of Apple (11.5-14.5) % Neut # (Auto) (1.4-6.5) K/uL Lymph # (Auto) (1.2-3.4) K/uL [place] # (Auto) (0.11-0.59) K/uL Immature Gran # (Auto) (0.00-0.02) K/uL POC pH 7.31 L (7.35-7.45) POC pO2 55 L (80-95) mmHg POC Total CO2 22 L (24-31) mmol/L ABG pH (7.35-7.45) ABG pO2 (80-95) mmHg POC ABG O2 Sat 85.0 L (90-95) % ABG O2 Saturation (90-95) % Creatinine (0.6-1.2) mg/dl BUN/Creatinine Ratio (10-20) Glucose (70-99) mg/dl Alkaline Phosphatase (45-117) U/L Troponin I (0-0.045) ng/ml Albumin (3.4-5.0) gm/dl Albumin/Globulin Ratio (0.9-2) Ur Leukocyte Esterase (Negative) Urine WBC (Auto) (0-5) /hpf U Hyaline Cast (Auto) (0-5) /lpf U Epithel Cells (Auto) (0-5) /lpf Salicylates (2.8-20) mg/dl Urine Opiates Screen (Neg) Acetaminophen (10-30) ug/ml Diagnostic Findings SINGLE VIEW CHEST CLINICAL HISTORY: Change in mental status. Overdose. Intubation. FINDINGS: An AP, portable, semierect chest radiograph is compared to study dated 09/24/2021. An enteric tube has been placed. The tip of the catheter projects below the diaphragm over the gastric fundus. An endotracheal tube has been placed. The tip projects approximately 3 cm above the eva. The heart is enlarged noting atherosclerotic calcification of the thoracic aorta. The pulmonary vasculature is noncongested. Foci of scarring/atelectasis are seen throughout both lungs. No airspace consolidation or large pleural effusion is identified. No pneumothorax is seen. The skeletal structures are osteopenic. The bony thorax is grossly intact. IMPRESSION: 1. Endotracheal and enteric tubes have been placed as above. 2. Cardiomegaly. 3. No airspace consolidation or pleural effusion is identified. Medications Administered Active Medications Generic Name Dose Route Start Last Admin Trade Name Freq PRN Reason Stop Dose Admin Dextrose 25 - 50 ml 10/23/21 13:04 Dextrose 50% 50 Ml Syringe IV 11/22/21 13:03 UD PRN Hypoglycemia Protocol Protocol Docusate Sodium 100 mg 10/23/21 21:00 Docusate Sodium 100 Mg Cap PO 11/22/21 20:59 BID АНДРЕЙ Fentanyl Citrate 100 mcg 10/23/21 13:04 Fentanyl Citrate 100 Mcg/2 Ml Vial IV 11/06/21 13:03 Q2H PRN Severe Pain (7,8,9,10) on NRS Glucagon 1 mg 10/23/21 13:04 Glucagon For Inj 1 Mg Vial SQ 11/22/21 13:03 UD PRN Hypoglycemia Protocol Protocol Glucose 4 - 8 tabs 10/23/21 13:04 Glucose 10 Tabs/Tube PO 11/22/21 13:03 UD PRN Hypoglycemia Protocol Protocol Glucose 15 - 30 gm 10/23/21 13:04 Glucose 40% Gel 15 Gm Tube PO 11/22/21 13:03 UD PRN Hypoglycemia Protocol Protocol Propofol 1,000 mg in 100 mls @ 2.511 mls/hr 10/23/21 10:00 10/23/21 12:53 Diprivan IV 10/26/21 09:59 35 mcg/kg/min .Q24H АНДРЕЙ 17.6 mls/hr Titration Protocol 5 MCG/KG/MIN Sodium Chloride 2,000 mls @ 999 mls/hr 10/23/21 12:09 10/23/21 12:48 Nss 1000ml IV 10/23/21 14:09 0 mls/hr .Q2H1M ONE Infusion Norepinephrine Bitartrate 8 mg in 508 mls @ 31.89 mls/hr 10/23/21 12:15 10/23/21 12:18 Levophed/D5w IV 11/22/21 12:14 0.1 mcg/kg/min .[id number] АНДРЕЙ 31.9 mls/hr Administration Protocol 0.1 MCG/KG/MIN Parenteral Electrolytes 1,000 mls @ 125 mls/hr 10/23/21 13:15 Normosol-R IV 11/22/21 13:14 .Q8H АНДРЕЙ Miscellaneous 1 ea 10/23/21 13:04 Icu Protocol For Hyperglycemia N/A 10/25/21 13:03 PRN PRN Hyperglycemia Protocol Protocol Miscellaneous 15 - 30 gm 10/23/21 13:04 Carbohydrates For Hypoglycemia PO 11/22/21 13:03 UD PRN Hypoglycemia Protocol Pantoprazole Sodium 40 mg 10/24/21 09:00 Pantoprazole 40 Mg Tab PO 11/23/21 08:59 QAM АНДРЕЙ Polyethylene Glycol 17 gm 10/23/21 13:04 Polyethylene (Miralax) 17 Gm Pack PO 11/22/21 13:03 DAILY PRN Constipation Propofol 20 mg 10/23/21 11:44 Propofol Bolus From Bag IV 10/26/21 11:43 Q5M PRN Sedation Sennosides 17.2 mg 10/23/21 21:00 Senna 8.6 Mg Tab PO 11/22/21 20:59 HS [facility] ECG Rate (beats per minute): 82 Rhythm: sinus with SA Findings: + prolonged QT (QTc 518ms) Comparison ECG Date: from (September 24, 2021) Code Status & VTE Plan Code Status Full - presumed (previously full resuscitation on last admission and current suicidal ideation precludes change in this) VTE Prophylaxis Plan VTE Prophylaxis will be ordered: Yes PG Care Time/CCT Total # of Minutes Spent Total Time Spent with Patient: Total time spent is greater than 50% in coordination of care (as documented) at patient's floor/unit and/or counseling patient: Coding Level of Care Code 63520 Initial Inpt Care Lvl 3 Diagnoses Polysubstance overdose T50.902A Encounter type: initial encounter Injury intent: intentional self-harm Acute respiratory failure with hypoxia J96.01 Prolonged QT interval R94.31 Depression F32.9 Active/Remission status: in full remission Lumbar spinal stenosis M48.061 Elevated troponin R77.8 Aspiration pneumonitis J69.0 Acute kidney injury N17.9 (1) Depression Active/Remission status: in full remission (2) Polysubstance overdose Encounter type: initial encounter Injury intent: intentional self-harm Qualified Code(s): T50.902A - Poisoning by unspecified drugs, medicaments and biological substances, intentional self-harm, initial encounter
[2021-10-23 12:39] LABS: iSTAT Arterial Blood Gas HCO3 21 meg/L (19-24); iSTAT Arterial Blood Gas pCO2 42 mmHg (35-46); iSTAT Arterial Blood Gas pH 7.31 (7.35-7.45); iSTAT Arterial Blood Gas pO2 55 mmHg (80-95); iSTAT Carbon Dioxide 22 mmol/L (24-31); iSTAT Hematocrit 35 % (37-47); iSTAT Hemoglobin 11.9 g/dl (12.0-16.0); iSTAT Potassium 4.2 mmol/L (3.3-5.0); iSTAT Sodium 141 mmol/L (135-144)
--- NOTE | 2021-10-23 12:41 | XRay Report ---
SINGLE VIEW CHEST CLINICAL HISTORY: Hypoxia. Overdose. Respiratory failure. FINDINGS: An AP, portable, upright chest radiograph is compared to study performed earlier the same d ay 10/23/2021. An enteric tube and an endotracheal tube are unchanged in position. The heart is enlar ged noting atherosclerotic calcification of the thoracic aorta. The pulmonary vasculature is nonconge sted. Foci of scarring/atelectasis are seen throughout both lungs, greatest in the left midlung. No a irspace consolidation typical for pneumonia or large pleural effusion is identified. No pneumothorax is seen. The skeletal structures are osteopenic. The bony thorax is grossly intact. IMPRESSION: 1. Stable lines and tubes. 2. No airspace consolidation or large pleural effusion is identified. ACT 112: Negative or not required by law. Electronically signed by: Nghia Marley M.D. 10/23/2021 12:39 PM
--- NOTE | 2021-10-23 12:58 | XRay Report ---
SINGLE VIEW CHEST CLINICAL HISTORY: Central venous catheter placement. FINDINGS: An AP, portable, upright chest radiograph is compared to study performed earlier the same d ay 10/23/2021. A left internal jugular central venous catheter has been placed. The tip projects over the SVC. An enteric tube and an endotracheal tube are unchanged in position. The heart is enlarged n oting atherosclerotic calcification of the thoracic aorta. The pulmonary vasculature is noncongested. Foci of scarring/atelectasis are seen throughout both lungs, greatest in the left midlung. No airspa ce consolidation typical for pneumonia or large pleural effusion is identified. No pneumothorax is se en. The skeletal structures are osteopenic. The bony thorax is grossly intact. IMPRESSION: 1. A left internal jugular central venous catheter has been placed. No pneumothorax is identified pos t procedure. 2. Remaining lines and tubes are unchanged. 3. No airspace consolidation or large pleural effusion is identified. ACT 112: Negative or not required by law. Electronically signed by: Nghia Marley M.D. 10/23/2021 12:57 PM
[2021-10-23 12:59] LABS: Troponin I 0.211 ng/ml (0-0.045)
[2021-10-23] MEDS ORDERED: CARBOHYDRATES FOR HYPOGLYCEMIA PO PRN (13:04)
[2021-10-23] MEDS ORDERED: GLUCAGON FOR INJ 1 MG VIAL SQ PRN (13:04)
[2021-10-23] MEDS ORDERED: POLYETHYLENE (MIRALAX) 17 GM PACK PO PRN (13:04)
[2021-10-23] MEDS ORDERED: ICU PROTOCOL FOR HYPERGLYCEMIA PRN ×2 (13:04→16:40)
[2021-10-23] MEDS ORDERED: DEXTROSE 50% 50 ML SYRINGE IV PRN (13:04)
[2021-10-23] MEDS ORDERED: GLUCOSE 10 TABS/TUBE PO PRN (13:04)
[2021-10-23] MEDS ORDERED: GLUCOSE 40% GEL 15 GM TUBE PO PRN (13:04)
[2021-10-23] MEDS ORDERED: fentaNYL citrate 100 MCG/2 ML VIAL IV PRN (13:04)
[2021-10-23] MEDS ORDERED: OPTIRAY 320 125ml IV ONE (13:14)
--- NOTE | 2021-10-23 13:21 | Procedure Note ---
Procedure Note Date of Service October 23, 2021 Supervising Physician Co-Signing Physician Notes INTERNAL JUGULAR CENTRAL LINE PROCEDURE NOTE: Ultrasound guided placement of catheter into central vein. Procedure: Internal Jugular Central Line Placement Attending: Dr. Johnson APC: Benton Soto Indication: Central Drug Administration, Poor Venous Access, Multiple Lab Draws Necessary, etc. Anesthesia: [x]None Emergent consent was implied following intubation and continued resuscitation in the EMD. Correct procedure, site, positioning, and implants(s) or special equipment if applicable. Patients Left Neck was cleansed and draped in the typical sterile fashion using Chloraprep. The Internal Jugular Vein and Carotid Artery were identified using ultrasound. The superficial tissue was under direct visualization with the ultrasound. the Internal Jugular vein was cannulated under direct ultrasound guidance using an introducer needle on a syringe. Good venous blood return was maintained prior to removal of syringe from introducer needle. Using Seldinger Technique, a guide wire was advanced through the introducer needle without resistance. The introducer needle was removed and ultrasound images were obtained of the guide wire within the Internal Jugular Vein and saved to the patients medical record. A small incision was made in penetrating fashion at the guide wire insertion site utilizing an 11 blade scalpel. The dilator was advanced to the vessel without resistance. The dilator was exchanged for the triple lumen catheter which was advanced into the vessel without resistance. The guide wire was removed intact from the catheter without issue. Claves were placed on each catheter tip with confirmation of good blood flow from each lumen. Each port was easily flushed with sterile saline. The catheter was placed at 20 cm and sutured in place. BioPatch was applied to the catheter and a sterile Tegaderm dressing was applied over the catheter with careful attention to sterility. Patient tolerated procedure well. No immediate complications were met. Post procedure x-ray was completed, placement was appropriate and no pneumothorax was noted. Images obtained are saved for permanent record Procedural Ultrasound Guidance: Procedure Date: Indication: Vasopressors, poor access, intubated and sedated Attending: Dr. Johnson Artery AND Vein visualized: Yes Compressible Vein: Yes Guidewire or Short Catheter seen in vein prior to dilation: Yes Images obtained were not saved permanent record. Coding
--- NOTE | 2021-10-23 13:22 | Procedure Note ---
Procedure Note Date of Service October 23, 2021 Note Procedure: Fiberoptic bronchoscopy Therapeutic aspiration of secretions, initial/subsequent Provider: Kenn Johnson MD Consent: Procedure was emergent. Patient intubated sedated and unable to provide consent. No family immediately available. Procedure: Patient was intubated in the emergency room. She reportedly aspirated prior to intubation and bronchoscopy was indicated to ensure no particulate matter. Appropriate radiographic studies had been reviewed prior to the procedure. She was placed on the 100% FiO2 on the ventilator A fiberoptic bronchoscope was advanced through the existing endotracheal tube via the Bodai adapter. The tube was sounded and found to be about 3 cm above the eva. There was no particulates noted within the endotracheal tube. The trachea appeared normal. The main eva was sharp. A systematic inspection of the lower airways was conducted. The right mainstem was normal. Right upper lobe demonstrated normal anatomic configuration. Bronchus intermedius was normal. Right middle lobe and right lower lobe bronchi were all normal. No significant endobronchial lesions identified. The scope was then withdrawn back to the level of the eva and advanced into the left mainstem bronchus. There were a few areas of whitish mucus adherent to the mucosa which were lavaged free and collected for microbiologic analysis. A systematic inspection of the left-sided airways was conducted. There were normal in anatomic configuration with normal mucosa and no evidence of endobronchial lesion, significant inflammation, or particulate matter. Scope was then withdrawn from the endotracheal tube. The patient tolerated the procedure well without obvious complication. Impression: 1. Endotracheal tube is in good position. 2. No significant particulate matter identified in the airways. Minimal secretions in the lower lobe bronchi collected for microbiologic analysis. Coding CPT Codes Pulmonary/Thoracic - Pulmonary and Thoracic: 77548 Bronchoscopy, clear airways ([id number]) [facility] Procedure Codes (Charges) Pulmonary/Thoracic Procedure 1: Pulmonary and Thoracic: 69642 Bronchoscopy, clear airways
--- NOTE | 2021-10-23 13:27 | CT Scan Report ---
CT ANGIOGRAM OF THE CHEST CLINICAL HISTORY: Overdose. Hypoxia. COMPARISON STUDY: Chest radiographs dated 10/23/2021. TECHNIQUE: Following the IV administration of 120 cc of Optiray 320, CT angiogram of the chest was pe rformed from the upper abdomen to the thoracic inlet utilizing the pulmonary embolus protocol. Images are reviewed in the axial, sagittal, and coronal planes. 3-D MIPS images are created and assessed. I V contrast was administered without complication. A dose lowering technique was utilized adhering to the principles of ALARA. CT DOSE: 672.97 mGy.cm FINDINGS: Thyroid: Imaged portions of the thyroid gland are normal in size and attenuation. Thoracic aorta: There is atherosclerotic calcification of the thoracic aorta, which is normal in alec em and demonstrates bovine variant arch anatomy. No dissection is seen. Pulmonary vasculature: The pulmonary trunk is normal in caliber. There are no filling defects identif ied in main, lobar, or segmental pulmonary branches to suggest pulmonary embolus. Heart: A left internal jugular central venous catheter is in place. The heart is enlarged and without pericardial effusion. The coronary arteries are densely calcified. Lungs and pleural spaces: An endotracheal tube terminates above the eva. The trachea and central a irways appear clear. Evaluation of the lung parenchyma is significantly degraded by motion artifact. Dependent airspace opacities likely represents segmental atelectasis. No pleural effusion is identifi ed. Foci of scarring/atelectasis are seen throughout both lungs. Mediastinum: There is no mediastinal lymphadenopathy. Dara: Clear. Axillae: There is no axillary lymphadenopathy. Upper abdomen: An enteric tube extends below the diaphragm. Partially visualized upper abdominal visc era is otherwise grossly unremarkable. Skeletal structures: The skeletal structures are osteopenic. Degenerative change and hyperkyphosis is noted in the thoracic spine. No lytic or blastic bony lesions are seen. IMPRESSION: 1. Streak and motion compromised examination. 2. There is no evidence of pulmonary embolus in the main, lobar, or segmental pulmonary arteries. 3. Cardiomegaly. 4. Dependent airspace consolidation likely represents segmental atelectasis. Correlate clinically for evidence of superimposed pneumonia. 5. No pleural effusion is identified. 6. Lines and tubes as above. ACT 112: Negative or not required by law. Electronically signed by: Nghia Marley M.D. 10/23/2021 1:26 PM
--- NOTE | 2021-10-23 13:33 | Critical Care Consultation ---
Date of Consultation October 23, 2021 Assessment & Plan (1) Polysubstance overdose: (2) Suicide attempt: (3) Acute kidney injury: (4) Aspiration pneumonitis: (5) Elevated troponin: (6) Acute respiratory failure with hypoxia: (7) Prolonged QT interval: (8) Asthma: (9) Lumbar radiculopathy: ICU CONSULT NOTE FORMAT: Reason Critically Ill: Possible polysubstance overdose- offending agents- Hydromorphone, Ambien, Tizanidine, Lyrica. Intubated with hypoxia, hypothermia, aspiration pneumonitis Neuro - Encephalopathy- toxic vs. metabolic vs. hypoxic, chronic pain with polysubstance abuse/overdose Intubated and sedated with Propofol and Fentanyl(added). Patient does localize pain and is tonguing at ETT. She had CT scan of the head completed which was negative for acute process or large vessel stroke. Patient is encephalopathic. There is concern for EMS reported hydromorphone and Ambien up to 15 tablets of each. This is unable to be confirmed. Her toxicology screen is positive for opiates. We will have to wait for these to clear and follow her mental status. Will attempt to keep LEVI -2 , Hydrate her with Normosol 125ml per hour. She has a minimal gap and her Carboxy hemoglobin is 0. She is hypothermic so Whitney hugger and blankets applied. Hold her home medications. Cardiac - NSTEMI type II, Shock, Prolonged QT- ([id number]) Elevated Troponin in the setting of hypoxia likely representing a type II NSTEMI. WIll trend her Troponin I and ECGs, presents with AYAH as well. She is on Levophed to maintain MAPS >65. Blood and sputum cultures sent. Urine negative for bacteria. Likely from multiple drug abuse. Will cover empirically for aspiration pneumonitis no further evidence of septic shock. Received magnesium for porolonged QT in the EMD. Continue to monitor- magnesium continue as needed Respiratory - hypoxia, aspiration pneumonitis, asthma Aspiration pneumonitis, hypoxia, with underlying scarring and intersitial corsening. Does carry history of asthma and unsure of her smoking history. Continue with her Unasyn Day #1, Day #1 intubated. Continue with lung protective ventilation with low PEEP high FIo2. Wean as appropriate, no evidence of PE or pulmonary edema on CTA of the chest completed now. Hypoxia improved with PEEP and warming. Follow closely. GI - no acute process Continue with OGT to LIWS at this time. PPI for today. If remains intubated >24 hours will initiate tube feeding. RENAL/LYTES - AYAH likely pre-renal follow Continue with Normosol at 125 ml per hour, continue vasopressors for MAP>65 - Martínez no evidence of UTI no bacteria in UA ENDO - Normal TSH follow glucose with ICU hyperglycemia protocol HEME - No acute issues HGB/HCT normal, carboxy hemoglobin negative ID - Aspiration Elevated WBC to 12, hypoxia, elevated NLR. Lactate pending - Unasyn Day #1 initiated for aspiration. Continue - Blood cultures and urine cultures pending LINES/IV ACCESS - PIV, ETT, CVL, OGT, Martínez Continue use of theese lines DVT PROPHYLAXIS - Heparin 5000 units sub q q8 DISPO: Remains ICU I have personally spent 55 minutes of critical care time in the direct management of this patient. This is a life/limb threatening event. This includes time spent evaluating patient, direct bedside care, chart review, placing orders, interpretation of diagnostic studies, discussion with consultants, patient, and family members, as well as other required patient management activities. This time is exclusive of all separately billable procedures, and teaching time and separate from and in addition to any other critical care service time. Thank you for allowing us to participate in the care of this patient. Please refer to my attending physician's documentation for any further recommendations. History of Present Illness Reason for Consultation: Potential overdose, encephalopathic, hypoxic respiratory failure requiring intubation Requesting Physician: Warren Leggett Attending Physician: Kenn Johnson History of Present Illness 81 YOF that was brought in from home via EMS for altered mental status and concern for overdose. Patient was found by this morning with reported medicine bottles by her bedside. The by reports from EMS was unsure when the patient was last well or normal. Patient is on Fluoxetine, Hydromorphone, Tizanidine, Pregablin and Ambien at home as possible offending agents. She was intubated in the EMD and critical care was consulted for evaluation of continued hypoxia. The patient was noted with PaO2 of 55 on 10 of PEEP, with poor peripheral correlation secondary to hypothermia. She reportedly aspirated on the way in via EMS and in the EMD prior to intubation with suctioning of her airways until clear. A central line was placed in her Left IJ for access under full sterile barriers, and after optimal sedation obtained, a bronchoscopy was completed by Dr. Johnson, which revealed normal airways and no tenacious secretions. Post bronchoscopy and post central line radiological film with adequate placment of central line and without pneumothorax following both procedures- however does have interstitial coarsening and scarring . CTA of the chest completed and is unremarkable for PE, but with some scarring and pneumonitis as above. Patient will be admitted to the ICU to continue to flush her system for potential overdose and continued ventilator support. Her toxicology screen is without concern and her Anion Gap is not concerning. Her troponin is elevated to 0.211 without any dynamic ECG changes and this is likely representing a type II NSTEMI secondary to hypoxia. Will ventilate on ARDSnet protocol and likely has some underlying pulmonary disease. Continue Unasyn for likely aspiration pneumonitis until she is extubated or if bronchoscopy evaluation reveals any bacteria. Allergies Allergy/AdvReac Type Severity Reaction Status Date / Time Sulfa (Sulfonamide Allergy Intermediate HIVES Verified 10/22/21 13:40 Antibiotics) trimethoprim Allergy Intermediate HIVES Verified 10/22/21 13:40 OPIODS AdvReac Severe TOLERANT--DON'T Uncoded 09/24/21 23:30 WORK. Home Medications Medication Instructions Recorded Confirmed Type calcium carbonate 500 mg calcium 0 mg PO QAM 01/31/20 10/23/21 History (1,250 mg) tablet (Calcium 500) cholecalciferol (vitamin D3) 50 0 units PO QAM 01/31/20 10/23/21 History mcg (2,000 unit) tablet multivitamin 1 tab PO QAM 01/31/20 10/23/21 History omega 1-ghd-ucb-fish oil 1,000 mg 1 cap PO QAM 01/31/20 10/23/21 History (120 mg-180 mg) capsule (Fish Oil) fluticasone propionate 110 2 puff INH BID PRN gm 08/13/21 10/23/21 History mcg/actuation HFA aerosol inhaler (Flovent HFA) fluoxetine 20 mg capsule 20 mg PO DAILY #90 cap 09/14/21 10/23/21 Rx fluoxetine 40 mg capsule (Prozac) 40 mg PO QAM #90 cap 09/14/21 10/23/21 Rx calcitonin (salmon) 200 1 spray INTRANASAL (ALT) DAILY PRN 09/24/21 10/23/21 History unit/actuation nasal spray tizanidine 4 mg tablet 2 mg PO TID 30 Days #45 tab 10/06/21 10/23/21 Rx hydromorphone 4 mg tablet 4 mg PO Q8H PRN #30 tab 10/11/21 10/23/21 Rx (Dilaudid) meloxicam 15 mg tablet 15 mg PO DAILY #7 tab 10/22/21 10/23/21 Rx pregabalin 75 mg capsule (Lyrica) 75 mg PO TID #90 cap 10/22/21 10/23/21 Rx acetaminophen 500 mg tablet 0 mg PO Q6H 10/23/21 10/23/21 History (Tylenol Extra Strength) zolpidem 5 mg tablet 5 mg PO HS PRN 10/23/21 10/23/21 History Patient History Medical History Asthma Compression fracture of L5 vertebra Depression 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 History of Graves' disease Lumbar radiculopathy Lumbar spinal stenosis Osteoarthritis Osteoporosis Surgical History History of colonoscopy History of knee replacement procedure of left knee History of knee replacement procedure of right knee S/P ORIF (open reduction internal fixation) fracture Rt wrist Status post kyphoplasty Family History Mother Alzheimer disease Depression Father Myocardial infarction Brother Non-Hodgkin lymphoma Sister Stroke Other No family history of adverse response to anesthesia Denies family history of Ovarian cancer Prostate cancer Breast cancer Lung cancer Colorectal cancer Social History Smoking Status: Unknown if ever smoked Second Hand Exposure: No; Hx Alcohol Use: No Hx Substance Use: No Preferred Language: Wallisian Communication Ability: Effective Visual Impairment: Limited Hearing Ability: Normal 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 Beliefs That Will Affect Care: None marital status: Current Living Situation: Spouse Current Living Situation Comment: Lives with current occupational status: retired Feels Safe at Home: Declines to Answer during the past year weight has: remained stable Physical Activity Frequency: 5-6 Times per Week Physical Activity Frequency Comment: walks her dog at least a mile daily and gardens Seatbelt Use: always Sunscreen Use: Yes Assistive Devices: Walker Review of Systems Review of Systems: Unable to perform secondary to sedation and mechanical ventilation Physical Exam Physical Exam: PHYSICAL EXAM: General: Sedated and mechanically ventilated Head: Normocephalic, atraumatic ENT: PERRLA no pharyngeal exudate, mucous membranes dry Neuro: Sedated, she is moving all her extremities, does localize pain Chest: equal rise and fall of the chest, no accessory muscle use, coarse crackles throughout lung feilds, Cardiac: Regular rate and rhythm, telemetry reviewed, skin warm dry, cap refill <3 seconds, peripheral pulses +2 no JVD, no murmur, no edema GI: NABS x 4 quadrants, soft, nontender to palpation, no rebound, : Martínez placed to gravity Extremities: Normal inspection, no peripheral edema or erythema, calfs nontender to palpation Psych: Normal mood and affect Skin: no rash or erythema Results & Data Results & Data ([facility]) Vital Signs (Past 12 Hours) Vital Signs Temp Pulse Pulse Resp BP BP Pulse Ox 10/23/21 12:35 80 16 130/73 65 L 10/23/21 12:27 35.8 C L 71 20 163/85 H 84 L 10/23/21 12:00 71 20 64/45 L 77 L 10/23/21 11:19 80 20 93/46 L 92 10/23/21 10:30 83 25 H 158/81 H 75 L 10/23/21 10:20 88 23 10/23/21 10:10 83 22 81 L 10/23/21 10:00 85 20 147/82 H 96 10/23/21 09:53 86 8 L 147/82 H 82 L 10/23/21 09:50 82 27 H 127/79 78 L Laboratory Results Abnormal lab results 10/23/21 10/23/21 10/23/21 Range/Units 10:07 10:22 10:22 WBC 12.94 H (4.8-10.8) K/uL POC Hgb (12.0-16.0) g/dl POC Hct (37-47) % MCHC 30.9 L (32-36) g/dL RDW Std Deviation 56.9 H (36.4-46.3) fL RDW Coeff of Apple 15.6 H (11.5-14.5) % Neut # (Auto) 10.93 H (1.4-6.5) K/uL Lymph # (Auto) 0.79 L (1.2-3.4) K/uL Wood # (Auto) 1.00 H (0.11-0.59) K/uL Immature Gran # (Auto) 0.19 H (0.00-0.02) K/uL POC pH (7.35-7.45) POC pO2 (80-95) mmHg POC Total CO2 (24-31) mmol/L ABG pH 7.33 L (7.35-7.45) ABG pO2 133 H (80-95) mmHg POC ABG O2 Sat (90-95) % ABG O2 Saturation 98.7 H (90-95) % Creatinine 1.24 H (0.6-1.2) mg/dl BUN/Creatinine Ratio 7.0 L (10-20) Glucose 152 H (70-99) mg/dl Alkaline Phosphatase 208 H D (45-117) U/L Troponin I 0.211 H* (0-0.045) ng/ml Albumin 2.8 L (3.4-5.0) gm/dl Albumin/Globulin Ratio 0.7 L (0.9-2) Ur Leukocyte Esterase (Negative) Urine WBC (Auto) (0-5) /hpf U Hyaline Cast (Auto) (0-5) /lpf U Epithel Cells (Auto) (0-5) /lpf Salicylates (2.8-20) mg/dl Urine Opiates Screen (Neg) Acetaminophen (10-30) ug/ml 10/23/21 10/23/21 10/23/21 Range/Units 10:22 10:50 10:50 WBC (4.8-10.8) K/uL POC Hgb (12.0-16.0) g/dl POC Hct (37-47) % MCHC (32-36) g/dL RDW Std Deviation (36.4-46.3) fL RDW Coeff of Apple (11.5-14.5) % Neut # (Auto) (1.4-6.5) K/uL Lymph # (Auto) (1.2-3.4) K/uL Wood # (Auto) (0.11-0.59) K/uL Immature Gran # (Auto) (0.00-0.02) K/uL POC pH (7.35-7.45) POC pO2 (80-95) mmHg POC Total CO2 (24-31) mmol/L ABG pH (7.35-7.45) ABG pO2 (80-95) mmHg POC ABG O2 Sat (90-95) % ABG O2 Saturation (90-95) % Creatinine (0.6-1.2) mg/dl BUN/Creatinine Ratio (10-20) Glucose (70-99) mg/dl Alkaline Phosphatase (45-117) U/L Troponin I (0-0.045) ng/ml Albumin (3.4-5.0) gm/dl Albumin/Globulin Ratio (0.9-2) Ur Leukocyte Esterase Trace H (Negative) Urine WBC (Auto) 5-10 H (0-5) /hpf U Hyaline Cast (Auto) 10-30 H (0-5) /lpf U Epithel Cells (Auto) >30 H (0-5) /lpf Salicylates < 1.7 L (2.8-20) mg/dl Urine Opiates Screen Pos H (Neg) Acetaminophen < 2 L (10-30) ug/ml 10/23/ Range/Units 12:25 WBC (4.8-10.8) K/uL POC Hgb 11.9 L (12.0-16.0) g/dl POC Hct 35 L (37-47) % MCHC (32-36) g/dL RDW Std Deviation (36.4-46.3) fL RDW Coeff of Apple (11.5-14.5) % Neut # (Auto) (1.4-6.5) K/uL Lymph # (Auto) (1.2-3.4) K/uL Wood # (Auto) (0.11-0.59) K/uL Immature Gran # (Auto) (0.00-0.02) K/uL POC pH 7.31 L (7.35-7.45) POC pO2 55 L (80-95) mmHg POC Total CO2 22 L (24-31) mmol/L ABG pH (7.35-7.45) ABG pO2 (80-95) mmHg POC ABG O2 Sat 85.0 L (90-95) % ABG O2 Saturation (90-95) % Creatinine (0.6-1.2) mg/dl BUN/Creatinine Ratio (10-20) Glucose (70-99) mg/dl Alkaline Phosphatase (45-117) U/L Troponin I (0-0.045) ng/ml Albumin (3.4-5.0) gm/dl Albumin/Globulin Ratio (0.9-2) Ur Leukocyte Esterase (Negative) Urine WBC (Auto) (0-5) /hpf U Hyaline Cast (Auto) (0-5) /lpf U Epithel Cells (Auto) (0-5) /lpf Salicylates (2.8-20) mg/dl Urine Opiates Screen (Neg) Acetaminophen (10-30) ug/ml Diagnostic Findings Head CT 10/23/21 09:59 CT SCAN OF THE BRAIN WITHOUT IV CONTRAST CLINICAL HISTORY: Change in mental status. Overdose. COMPARISON STUDY: CT of the brain dated 08/19/2021. TECHNIQUE: Unenhanced axial CT scan of the brain is performed from the vertex to the skull base. A dose lowering technique was utilized adhering to the principles of ALARA. CT DOSE: 614.27 mGy.cm FINDINGS: Endotracheal and enteric tubes are noted on the buttermaker continuous churn tomogram. Brain parenchyma: There are age-related involutional changes noting moderate subcortical and periventricular microangiopathic change. There is no hemorrhage, mass effect, or evidence of acute territorial ischemia by CT criteria. 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 Mak-white matter differentiation is preserved. No extra-axial fluid collection is seen. Ventricles, sulci, cisterns: Prominent secondary to involutional change. Cavum septum pellucidum is incidentally noted. Intracranial vasculature: There is atherosclerotic calcification of the cavernous carotid arteries. Calvarium: Unremarkable. Sinuses and mastoids: A 2.0 cm calcified structure in the right maxillary antrum likely represents an osteoma. There is mild mucosal thickening within the maxillary, sphenoid, frontal, and ethmoid sinuses. The mastoid air cells are well pneumatized. Orbits: The bony orbits are grossly intact. There are bilateral ocular lens implants. IMPRESSION: There is no hemorrhage, mass effect, or evidence of acute territorial ischemia by CT criteria. ACT 112: Negative or not required by law. Electronically signed by: Nghia Marley M.D. 10/23/2021 12:08 PM Chest X-Ray 10/23/21 10:00 SINGLE VIEW CHEST CLINICAL HISTORY: Change in mental status. Overdose. Intubation. FINDINGS: An AP, portable, semierect chest radiograph is compared to study dated 09/24/2021. An enteric tube has been placed. The tip of the catheter projects below the diaphragm over the gastric fundus. An endotracheal tube has been placed. The tip projects approximately 3 cm above the eva. The heart is enlarged noting atherosclerotic calcification of the thoracic aorta. The pulmonary vasculature is noncongested. Foci of scarring/atelectasis are seen throughout both lungs. No airspace consolidation or large pleural effusion is identified. No pneumothorax is seen. The skeletal structures are osteopenic. The bony thorax is grossly intact. IMPRESSION: 1. Endotracheal and enteric tubes have been placed as above. 2. Cardiomegaly. 3. No airspace consolidation or pleural effusion is identified.. ACT 112: Negative or not required by law. Electronically signed by: Nghia Marley M.D. 10/23/2021 11:06 AM Chest X-Ray 10/23/21 12:12 SINGLE VIEW CHEST CLINICAL HISTORY: Hypoxia. Overdose. Respiratory failure. FINDINGS: An AP, portable, upright chest radiograph is compared to study performed earlier the same day 10/23/2021. An enteric tube and an endotracheal tube are unchanged in position. The heart is enlarged noting atherosclerotic calcification of the thoracic aorta. The pulmonary vasculature is noncongested. Foci of scarring/atelectasis are seen throughout both lungs, greatest in the left midlung. No airspace consolidation typical for pneumonia or large pleural effusion is identified. No pneumothorax is seen. The skeletal structures are osteopenic. The bony thorax is grossly intact. IMPRESSION: 1. Stable lines and tubes. 2. No airspace consolidation or large pleural effusion is identified. ACT 112: Negative or not required by law. Electronically signed by: Nghia Marley M.D. 10/23/2021 12:39 PM Chest CTA 10/23/21 12:38 CT ANGIOGRAM OF THE CHEST CLINICAL HISTORY: Overdose. Hypoxia. COMPARISON STUDY: Chest radiographs dated 10/23/2021. TECHNIQUE: Following the IV administration of 120 cc of Optiray 320, CT angiogram of the chest was performed from the upper abdomen to the thoracic inlet utilizing the pulmonary embolus protocol. Images are reviewed in the axial, sagittal, and coronal planes. 3-D MIPS images are created and assessed. IV contrast was administered without complication. A dose lowering technique was utilized adhering to the principles of ALARA. CT DOSE: 672.97 mGy.cm FINDINGS: Thyroid: Imaged portions of the thyroid gland are normal in size and attenuation. Thoracic aorta: There is atherosclerotic calcification of the thoracic aorta, which is normal in caliber and demonstrates bovine variant arch anatomy. No dissection is seen. Pulmonary vasculature: The pulmonary trunk is normal in caliber. There are no filling defects identified in main, lobar, or segmental pulmonary branches to suggest pulmonary embolus. Heart: A left internal jugular central venous catheter is in place. The heart is enlarged and without pericardial effusion. The coronary arteries are densely calcified. Lungs and pleural spaces: An endotracheal tube terminates above the eva. The trachea and central airways appear clear. Evaluation of the lung parenchyma is significantly degraded by motion artifact. Dependent airspace opacities likely represents segmental atelectasis. No pleural effusion is identified. Foci of scarring/atelectasis are seen throughout both lungs. Mediastinum: There is no mediastinal lymphadenopathy. Dara: Clear. Axillae: There is no axillary lymphadenopathy. Upper abdomen: An enteric tube extends below the diaphragm. Partially visualized upper abdominal viscera is otherwise grossly unremarkable. Skeletal structures: The skeletal structures are osteopenic. Degenerative change and hyperkyphosis is noted in the thoracic spine. No lytic or blastic bony lesions are seen. IMPRESSION: 1. Streak and motion compromised examination. 2. There is no evidence of pulmonary embolus in the main, lobar, or segmental pulmonary arteries. 3. Cardiomegaly. 4. Dependent airspace consolidation likely represents segmental atelectasis. Correlate clinically for evidence of superimposed pneumonia. 5. No pleural effusion is identified. 6. Lines and tubes as above. ACT 112: Negative or not required by law. Electronically signed by: Nghia Marley M.D. 10/23/2021 1:26 PM Chest X-Ray 10/23/21 12:41 SINGLE VIEW CHEST CLINICAL HISTORY: Central venous catheter placement. FINDINGS: An AP, portable, upright chest radiograph is compared to study performed earlier the same day 10/23/2021. A left internal jugular central venous catheter has been placed. The tip projects over the SVC. An enteric tube and an endotracheal tube are unchanged in position. The heart is enlarged noting atherosclerotic calcification of the thoracic aorta. The pulmonary vasculature is noncongested. Foci of scarring/atelectasis are seen throughout both lungs, greatest in the left midlung. No airspace consolidation typical for pneumonia or large pleural effusion is identified. No pneumothorax is seen. The skeletal structures are osteopenic. The bony thorax is grossly intact. IMPRESSION: 1. A left internal jugular central venous catheter has been placed. No pneumothorax is identified post procedure. 2. Remaining lines and tubes are unchanged. 3. No airspace consolidation or large pleural effusion is identified. ACT 112: Negative or not required by law. Electronically signed by: Nghia Marley M.D. 10/23/2021 12:57 PM Coding Level of Care Code Critical Care 1st 30-74 mins Diagnoses Polysubstance overdose T50.902A Encounter type: initial encounter Injury intent: intentional self-harm Suicide attempt T14.91XA Acute kidney injury N17.9 Aspiration pneumonitis J69.0 Elevated troponin R77.8 Acute respiratory failure with hypoxia J96.01 Prolonged QT interval R94.31 Asthma J45.20 Asthma severity: mild Asthma persistence: intermittent Asthma complication type: uncomplicated Lumbar radiculopathy M54.16 (1) Polysubstance overdose Encounter type: initial encounter Injury intent: intentional self-harm Qualified Code(s): T50.902A - Poisoning by unspecified drugs, medicaments and biological substances, intentional self-harm, initial encounter (2) Asthma Asthma severity: mild Asthma persistence: intermittent Asthma complication type: uncomplicated Qualified Code(s): J45.20 - Mild intermittent asthma, uncomplicated
[2021-10-23] MEDS ORDERED: MAGNESIUM SULFATE 1GM / D5W BAG IV ONE (14:07)
[2021-10-23] MEDS ORDERED: fentaNYL citrate 2,500 MCG/250 ML BAG IV SCH (14:45)
[2021-10-23] MEDS: NORMOSOL-R 1,000 ML IV SCH ×2 (14:47→22:22)
[2021-10-23] MEDS ORDERED: PREGABALIN 75 MG CAP PO SCH (16:40)
[2021-10-23 17:12] LABS: iSTAT Allen Test Pass; iSTAT Arterial Blood Gas HCO3 20 meg/L (19-24); iSTAT Arterial Blood Gas pCO2 34 mmHg (35-46); iSTAT Arterial Blood Gas pH 7.38 (7.35-7.45); iSTAT Arterial Blood Gas pO2 60 mmHg (80-95); iSTAT Carbon Dioxide 21 mmol/L (24-31); iSTAT FiO2 80 %; iSTAT Site R Radial
[2021-10-23] MEDS: AMPICILLIN/SULBACTAM SOD 1,500 MG in 0.9 % SODIUM CHLORIDE 100 ML IV SCH (18:20)
[2021-10-23] MEDS: SENNA 8.6 MG TAB PO SCH (21:11)
[2021-10-23] MEDS: DOCUSATE SODIUM 100 MG CAP PO SCH (21:11)
[2021-10-23] MEDS: HEPARIN SOD 5,000 UNIT/0.5 ML VIAL SQ SCH (22:28)
[2021-10-24] MEDS: AMPICILLIN/SULBACTAM SOD 1,500 MG in 0.9 % SODIUM CHLORIDE 100 ML IV SCH ×5 (00:07→23:44)
[2021-10-24 03:54] LABS: iSTAT Allen Test Pass; iSTAT Arterial Blood Gas HCO3 22 meg/L (19-24); iSTAT Arterial Blood Gas pCO2 29 mmHg (35-46); iSTAT Arterial Blood Gas pH 7.49 (7.35-7.45); iSTAT Arterial Blood Gas pO2 73 mmHg (80-95); iSTAT Carbon Dioxide 23 mmol/L (24-31); iSTAT FiO2 40 %; iSTAT Site R Radial
[2021-10-24] MEDS: propofoL 1,000 MG/100 ML VIAL IV SCH (04:53)
[2021-10-24 05:27] LABS: INR 1.1 (0.9-1.1); Prothrombin Time 10.7 Seconds (9.0-12.0)
[2021-10-24] MEDS: HEPARIN SOD 5,000 UNIT/0.5 ML VIAL SQ SCH ×3 (05:28→23:43)
[2021-10-24 05:31] LABS: Basophils # (auto) 0.02 K/uL (0-0.2); Basophils % (auto) 0.2 %; Eosinophils # (auto) 0.05 K/uL (0-0.5); Eosinophils % (auto) 0.4 %; Hematocrit (blood only) 37.8 % (37-47); Hemoglobin 12.2 g/dL (12.0-16.0); Immature Granulocytes # (auto) 0.05 K/uL (0.00-0.02); Immature Granulocytes % (auto) 0.4 %; Lymphocytes # (auto) 3.46 K/uL (1.2-3.4); Lymphocytes % (auto) 26.7 %; Mean Corpuscular Hemoglobin 30.5 pg (25-34); Mean Corpuscular Hgb Conc 32.3 g/dL (32-36); Mean Corpuscular Volume 94.5 fL (80-100); Mean Platelet Volume 9.8 fL (7.4-10.4); Monocytes # (auto) 1.49 K/uL (0.11-0.59); Monocytes % (auto) 11.5 %; Neutrophils % (auto) 60.8 %; Platelet Count 307 K/uL (130-400); RDW Coefficient of Variation 15.5 % (11.5-14.5); RDW Standard Deviation 53.6 fL (36.4-46.3); White Blood Count 12.97 K/uL (4.8-10.8)
[2021-10-24 05:48] LABS: BUN Creatinine Ratio 12.4 (10-20); Calcium 8.1 mg/dl (8.5-10.1); Est GFR (African American) 100.9 ml/min; Est GFR (Non-African American) 87.1 ml/min; Magnesium 2.7 mg/dl (1.8-2.4); Potassium 3.3 mmol/L (3.5-5.1)
--- NOTE | 2021-10-24 06:20 | Electrocardiogram Report ---
Test Reason : Blood Pressure : / mmHG Vent. Rate : 082 BPM Atrial Rate : 082 BPM P-R Int : 186 ms QRS Dur : 080 ms QT Int : 444 ms P-R-T Axes : -13 -29 -02 degrees QTc Int : 518 ms Normal sinus rhythm with sinus arrhythmia Low voltage QRS Inferior infarct (cited on or before 24-SEP-2021) Prolonged QT Abnormal ECG When compared with ECG of 24-SEP-2021 22:54, [place] interval has decreased Borderline criteria for Anterolateral infarct are no longer Present Nonspecific T wave abnormality is no longer present in anterior leads Confirmed by Carlin Damico ([id number]) on 10/24/2021 6:20:27 AM Referred By: REFERRED SELF Confirmed By:Carlin Damico
[2021-10-24] MEDS: NORMOSOL-R 1,000 ML IV SCH ×2 (06:23→21:29)
[2021-10-24 06:27] LABS: Troponin I 0.525 ng/ml (0-0.045)
--- NOTE | 2021-10-24 06:27 | Electrocardiogram Report ---
Test Reason : Blood Pressure : / mmHG Vent. Rate : 077 BPM Atrial Rate : 077 BPM P-R Int : 000 ms QRS Dur : 074 ms QT Int : 440 ms P-R-T Axes : 000 -08 011 degrees QTc Int : 498 ms Poor data quality, interpretation may be adversely affected Probable Sinus rhythm Low voltage QRS Possible Inferior infarct (cited on or before 24-SEP-2021) Cannot rule out Anterior infarct , age undetermined Prolonged QT Abnormal ECG When compared with ECG of 23-OCT-2021 09:51, No significant change Confirmed by Carlin Damico ([id number]) on 10/24/2021 6:26:59 AM Referred By: REFERRED SELF Confirmed By:Carlin Damico
[2021-10-24] MEDS ORDERED: POTASSIUM CHLORIDE 20 MEQ/15 ML UDC PO STA (06:39)
[2021-10-24] MEDS: DOCUSATE SODIUM 100 MG CAP PO SCH ×2 (08:13→22:10)
[2021-10-24] MEDS: PANTOprazole 40 MG TAB PO SCH (08:13)
--- NOTE | 2021-10-24 08:19 | Critical Care Progress Note ---
Date of Service October 24, 2021 Assessment & Plan (1) Aspiration pneumonitis: (2) Suicide attempt: (3) Acute kidney injury: (4) Acute respiratory failure with hypoxia: Plan: Reason Critically Ill: Possible polysubstance overdose- offending agents- Hydromorphone, Ambien, Tizanidine, Lyrica. Intubated with hypoxia, hypothermia, aspiration pneumonitis 24-hour events: Patient presented to the emergency room was intubated. Central lines and arterial lines were placed in the emergency room. She was initiated on vasopressor agents. She has been observed overnight in the ICU. Her sensorium is clearing. She is currently on a sedation break and undergoing an SBT. Recommendations: Neuro -Encephalopathy- toxic vs. metabolic vs. hypoxic, chronic pain with polysubstance abuse/overdose Sedation break this morning. Will assess for liberation from mechanical ventilation. If she does well, she will be extubated. Continue suicide/elopement precautions. Behavioral health evaluation when medically clear Cardiac -NSTEMI type II, Shock, Prolonged QT- ([id number]) Currently on pressors likely due to sedation. He should be able to be weaned off once the patient is off all of her sedative medications and extubated. Troponin is peaked and is downtrending. Likely supply demand mismatch. Respiratory -hypoxia, aspiration pneumonitis, asthma Aspiration pneumonitis, hypoxia, with underlying scarring and intersitial corsening. Wean oxygen as tolerated GI - no acute process. She was intubated less than 24 hours so we will perform bedside swallow and advance diet as tolerated. RENAL/LYTES -AYAH. Serum creatinine is now back to normal. Initiate ICU electrolyte replacement protocols. - Can likely discontinue Martínez catheter once extubated ENDO - Normal TSH follow glucose with ICU hyperglycemia protocol HEME - No acute issues HGB/HCT normal, carboxy hemoglobin negative ID -Aspiration Day #2 Unasyn. White count remains mildly elevated at around 13. Afebrile overnight.. Culture showed no growth to date. If cultures negative at 72 hours, antibiotics can likely be discontinued LINES/IV ACCESS - PIV, ETT, CVL, OGT, Martínez Continue use of theese lines DVT PROPHYLAXIS - Heparin 5000 units sub q q8 DISPO: remain in ICU pending vent liberation. Admission and Anticipated Discharge Date Admission Date: October 23, 2021 Subjective intubated. sedation break currently. following commands and on SBT Review of Systems Review of Systems: Unobtainable due to endotracheal tube Physical Exam Constitutional: WD/WN, vitals as above + obese and + mechanically ventilated Eyes: PERRL Neck: trachea midline, no thyromegaly Respiratory: coarse BS bilaterally Cardiovascular: RRR, no murmur, no edema Gastrointestinal (Abdomen): normal bowel sounds, soft, nontender, no hepatosplenomegaly Musculoskeletal: Extremities: extremities normal to inspection Skin: no rashes, warm and dry Neurologic: Nonfocal exam Lymphatic: no cervical lymphadenopathy Results & Data Results & Data ([facility]) Vital Signs (Past 12 Hours) Vital Signs Temp Pulse Resp Pulse Ox 10/24/21 06:19 16 10/24/21 04:55 37.4 C 10/24/21 02:47 68 20 94 10/24/21 00:00 71 10/23/21 23:29 37.1 C 10/23/21 23:08 73 20 97 Critical Care Results & Data Vital Signs (Past 12 Hours) Vital Signs Temp Pulse Resp Pulse Ox 10/24/21 06:19 16 10/24/21 04:55 37.4 C 10/24/21 02:47 68 20 94 10/24/21 00:00 71 10/23/21 23:29 37.1 C 10/23/21 23:08 73 20 97 Lab & Micro Results (Past 24 Hours) RBC 4.00 M/uL (4.2-5.4) L 10/24/21 WBC 12.97 K/uL (4.8-10.8) H 10/24/21 Hgb 12.2 g/dL (12.0-16.0) 10/24/21 Hct 37.8 % (37-47) 10/24/21 MCV 94.5 fL (80-100) 10/24/21 MCH 30.5 pg (25-34) 10/24/21 MCHC 32.3 g/dL (32-36) 10/24/21 RDW Standard Deviation 53.6 fL (36.4-46.3) H 10/24/21 RDW Coefficient of Variation 15.5 % (11.5-14.5) H 10/24/21 Plt Count 307 K/uL (130-400) 10/24/21 MPV 9.8 fL (7.4-10.4) 10/24/21 Neutrophils (%) (Auto) 60.8 % 10/24/21 Lymphocytes (%) (Auto) 26.7 % 10/24/21 Monocytes # (Auto) 1.49 K/uL (0.11-0.59) H 10/24/21 Eosinophils # (Auto) 0.05 K/uL (0-0.5) 10/24/21 Immature Granulocyte % (Auto) 0.4 % 10/24/21 Neutrophils # (Auto) 7.90 K/uL (1.4-6.5) H 10/24/21 Lymphocytes # (Auto) 3.46 K/uL (1.2-3.4) H 10/24/21 Monocytes # (Auto) 1.49 K/uL (0.11-0.59) H 10/24/21 Eosinophils # (Auto) 0.05 K/uL (0-0.5) 10/24/21 Basophils # (Auto) 0.02 K/uL (0-0.2) 10/24/21 Immature Granulocyte # (Auto) 0.05 K/uL (0.00-0.02) H 10/24/21 Na 140 mmol/L (136-145) 10/24/21 K 3.3 mmol/L (3.5-5.1) L 10/24/21 Cl 109 mmol/L (98-107) H 10/24/21 CO2 24 mmol/L (21-32) 10/24/21 Anion Gap 7.0 (3-11) 10/24/21 BUN 7 mg/dl (7-18) 10/24/21 Creatinine 0.58 mg/dl (0.6-1.2) L 10/24/21 Estimated GFR ( Amer) 100.9 ml/min 10/24/21 Estimated GFR (Non-Af Amer) 87.1 ml/min 10/24/21 BUN/Creatinine Ratio 12.4 (10-20) 10/24/21 Glu 116 mg/dl (70-99) H 10/24/21 Ca 8.1 mg/dl (8.5-10.1) L 10/24/21 Total Bilirubin 0.3 mg/dl (0.2-1) 10/23/21 AST 35 U/L (15-37) 10/23/21 ALT 29 (12-78) 10/23/21 Alkaline Phosphatase 208 U/L (45-117) H 10/23/21 TP 6.7 gm/dl (6.4-8.2) 10/23/21 Albumin 2.8 gm/dl (3.4-5.0) L 10/23/21 Globulin 3.9 gm/dl (2.5-4.0) 10/23/21 Albumin/Globulin Ratio 0.7 (0.9-2) L 10/23/21 Mg 2.7 mg/dl (1.8-2.4) H 10/24/21 04:58 10/24/21 Calcium Level 8.1 mg/dl (8.5-10.1) L 10/24/21 04:58 10/24/21 Prothromb Time International Ratio 1.1 (0.9-1.1) 10/24/21 04:58 10/24/21 Blood Gas Barometric Pressure 732.3 mm/Hg 10/23/21 10:07 10/23/21 Arterial Blood pH 7.33 (7.35-7.45) L 10/23/21 10:07 10/23/21 Arterial Blood Partial Pressure CO2 45 mmHg (35-46) 10/23/21 10:07 10/23/21 Arterial Blood Partial Pressure O2 133 mmHg (80-95) H 10/23/21 10:07 10/23/21 Arterial Blood HCO3 23 mmol/L (19-24) 10/23/21 10:07 10/23/21 Arterial Blood Base Excess -3.0 mEq/L (-9-1.8) 10/23/21 10:07 10/23/21 Arterial Blood Oxygen Saturation 98.7 % (90-95) H 10/23/21 10:07 10/23/21 Blood Gas Oxygen Given 100% 10/23/21 10:07 10/23/21 Ricki Test Pass 10/24/21 03:41 10/24/21 Blood Gas Barometric Pressure 732.3 mm/Hg 10/23/21 10:07 10/23/21 Microbiology 10/23/21 Unknown Gram Stain - Final Bronch Wash,Right Lower Lobe Diagnostic Findings (Past 24 Hours) Head CT 10/23/21 09:59 CT SCAN OF THE BRAIN WITHOUT IV CONTRAST CLINICAL HISTORY: Change in mental status. Overdose. COMPARISON STUDY: CT of the brain dated 08/19/2021. TECHNIQUE: Unenhanced axial CT scan of the brain is performed from the vertex to the skull base. A dose lowering technique was utilized adhering to the principles of ALARA. 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 Brain parenchyma: There are age-related involutional changes noting moderate subcortical and periventricular microangiopathic change. There is no hemorrhage, mass effect, or evidence of acute territorial ischemia by CT criteria. 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 Mak-white matter differentiation is preserved. No extra-axial fluid collection is seen. Ventricles, sulci, cisterns: Prominent secondary to involutional change. Cavum septum pellucidum is incidentally noted. Intracranial vasculature: There is atherosclerotic calcification of the cavernous carotid arteries. Calvarium: Unremarkable. Sinuses and mastoids: A 2.0 cm calcified structure in the right maxillary antrum likely represents an osteoma. There is mild mucosal thickening within the maxillary, sphenoid, frontal, and ethmoid sinuses. The mastoid air cells are well pneumatized. Orbits: The bony orbits are grossly intact. There are bilateral ocular lens implants. IMPRESSION: There is no hemorrhage, mass effect, or evidence of acute territorial ischemia by CT criteria. ACT 112: Negative or not required by law. Electronically signed by: Nghia Marley M.D. 10/23/2021 12:08 PM Chest X-Ray 10/23/21 10:00 SINGLE VIEW CHEST CLINICAL HISTORY: Change in mental status. Overdose. Intubation. FINDINGS: An AP, portable, semierect chest radiograph is compared to study dated 09/24/2021. An enteric tube has been placed. The tip of the catheter projects below the diaphragm over the gastric fundus. An endotracheal tube has been placed. The tip projects approximately 3 cm above the eva. The heart is enlarged noting atherosclerotic calcification of the thoracic aorta. The pulmonary vasculature is noncongested. Foci of scarring/atelectasis are seen throughout both lungs. No airspace consolidation or large pleural effusion is identified. No pneumothorax is seen. The skeletal structures are osteopenic. The bony thorax is grossly intact. IMPRESSION: 1. Endotracheal and enteric tubes have been placed as above. 2. Cardiomegaly. 3. No airspace consolidation or pleural effusion is identified.. ACT 112: Negative or not required by law. Electronically signed by: Nghia Marley M.D. 10/23/2021 11:06 AM Chest X-Ray 10/23/21 12:12 SINGLE VIEW CHEST CLINICAL HISTORY: Hypoxia. Overdose. Respiratory failure. FINDINGS: An AP, portable, upright chest radiograph is compared to study performed earlier the same day 10/23/2021. An enteric tube and an endotracheal tube are unchanged in position. The heart is enlarged noting atherosclerotic calcification of the thoracic aorta. The pulmonary vasculature is noncongested. Foci of scarring/atelectasis are seen throughout both lungs, greatest in the left midlung. No airspace consolidation typical for pneumonia or large pleural effusion is identified. No pneumothorax is seen. The skeletal structures are os teopenic. The bony thorax is grossly intact. IMPRESSION: 1. Stable lines and tubes. 2. No airspace consolidation or large pleural effusion is identified. ACT 112: Negative or not required by law. Electronically signed by: Nghia Marley M.D. 10/23/2021 12:39 PM Chest CTA 10/23/21 12:38 CT ANGIOGRAM OF THE CHEST CLINICAL HISTORY: Overdose. Hypoxia. COMPARISON STUDY: Chest radiographs dated 10/23/2021. TECHNIQUE: Following the IV administration of 120 cc of Optiray 320, CT angiogram of the chest was performed from the upper abdomen to the thoracic inlet utilizing the pulmonary embolus protocol. Images are reviewed in the axial, sagittal, and coronal planes. 3-D MIPS images are created and assessed. IV contrast was administered without complication. A dose lowering technique was utilized adhering to the principles of ALARA. CT DOSE: 672.97 mGy.cm FINDINGS: Thyroid: Imaged portions of the thyroid gland are normal in size and attenuation. Thoracic aorta: There is atherosclerotic calcification of the thoracic aorta, which is normal in caliber and demonstrates bovine variant arch anatomy. No dissection is seen. Pulmonary vasculature: The pulmonary trunk is normal in caliber. There are no filling defects identified in main, lobar, or segmental pulmonary branches to suggest pulmonary embolus. Heart: A left internal jugular central venous catheter is in place. The heart is enlarged and without pericardial effusion. The coronary arteries are densely calcified. Lungs and pleural spaces: An endotracheal tube terminates above the eva. The trachea and central airways appear clear. Evaluation of the lung parenchyma is significantly degraded by motion artifact. Dependent airspace opacities likely represents segmental atelectasis. No pleural effusion is identified. Foci of scarring/atelectasis are seen throughout both lungs. Mediastinum: There is no mediastinal lymphadenopathy. Dara: Clear. Axillae: There is no axillary lymphadenopathy. Upper abdomen: An enteric tube extends below the diaphragm. Partially visualized upper abdominal viscera is otherwise grossly unremarkable. Skeletal structures: The skeletal structures are osteopenic. Degenerative change and hyperkyphosis is noted in the thoracic spine. No lytic or blastic bony lesions are seen. IMPRESSION: 1. Streak and motion compromised examination. 2. There is no evidence of pulmonary embolus in the main, lobar, or segmental pulmonary arteries. 3. Cardiomegaly. 4. Dependent airspace consolidation likely represents segmental atelectasis. Correlate clinically for evidence of superimposed pneumonia. 5. No pleural effusion is identified. 6. Lines and tubes as above. ACT 112: Negative or not required by law. Electronically signed by: Nghia Marley M.D. 10/23/2021 1:26 PM Chest X-Ray 10/23/21 12:41 SINGLE VIEW CHEST CLINICAL HISTORY: Central venous catheter placement. FINDINGS: An AP, portable, upright chest radiograph is compared to study performed earlier the same day 10/23/2021. A left internal jugular central venous catheter has been placed. The tip projects over the SVC. An enteric tube and an endotracheal tube are unchanged in position. The heart is enlarged noting atherosclerotic calcification of the thoracic aorta. The pulmonary vasculature is noncongested. Foci of scarring/atelectasis are seen throughout both lungs, g reatest in the left midlung. No airspace consolidation typical for pneumonia or large pleural effusion is identified. No pneumothorax is seen. The skeletal structures are osteopenic. The bony thorax is grossly intact. IMPRESSION: 1. A left internal jugular central venous catheter has been placed. No pneumothorax is identified post procedure. 2. Remaining lines and tubes are unchanged. 3. No airspace consolidation or large pleural effusion is identified. ACT 112: Negative or not required by law. Electronically signed by: Nghia Marley M.D. 10/23/2021 12:57 PM I & O Totals 24 Hours 10/23/21 10/24/21 10/25/21 06:59 06:59 06:59 Intake Total 4630.474 / 4630.474 304.550 / 304.550 Output Total 900 / 900 Balance 3730.474 / 3730.474 304.550 / 304.550 Cumulative 10/23/21 09:37 thru 10/24/21 07:03 Intake Total 4935.024 Output Total 900 Balance 4035.024 RT Ventilator Mngmt (Last Documented) Ventilator Ordered Settings Ventilator Support Mode Assist Control 10/24/21 04:00 Respiratory Rate 16 10/24/21 06:19 Ventilator Tidal Volume 340 10/24/21 06:19 Setting Minute Ventilation 6.8 10/24/21 02:47 Positive End Expiratory 5 10/24/21 06:19 Pressure Fraction of Inspired Oxygen 40 10/24/21 06:19 Machine Comment rate dropped due to abg Co2 29 10/24/21 06:19 and ph 7.5 Ventilator - PT Measurements Respiratory Rate 16 Exhaled Tidal Volume 340 Minute Ventilation 6.8 Peak Inspiratory Airway 20 Pressure Plateau Pressure 17 Respiratory Cycle Inspiratory: 1:2.8 Expiratory Ratio Inspiratory Phase Time 0.8 End-Tidal CO2 25 Static Lung Compliance 28.33 Dynamic Lung Compliance 22.67 Normal Static Lung Compliance 46.00 Patient Measurements Comment fio2 weaned and peep weaned due to spo2 100% on 80% and +10 Coding Level of Care Code 39008 Subseq Hosp Care Lvl 3 Diagnoses Aspiration pneumonitis J69.0 Suicide attempt T14.91XA Acute kidney injury N17.9 Acute respiratory failure with hypoxia J96.01
--- NOTE | 2021-10-24 11:36 | Hospitalist Progress Note ---
Date of Service October 24, 2021 Assessment & Plan (1) Polysubstance overdose: Plan: Reportedly overdose on Ambien and Dilaudidwas intubated and on pressors, but now improved. Extubated. Will need to continue suicide precautions, eventually anticipate role for inpatient psych, but at this point in time given that she is still medically acute, and we will need to work on better pain control, not an urgent need for consulting psych until it is closer to that time which she is stable enough to consider inpatient psych stay (2) Acute respiratory failure with hypoxia: Plan: Intubated on arrival to ER, fortunately now extubated (3) Aspiration pneumonitis: Plan: Continuing Unasyn (4) Acute kidney injury: Plan: Fortunately resolved with fluids and support (5) Prolonged QT interval: Plan: Improved to 498 (6) Depression: Plan: Continue fluoxetine, consider change to an SNRI for better pain modulation, but will defer at this point time, given that psychiatric involvement will be coming in the near future (7) Lumbar spinal stenosis: Plan: It seems that pain control and uncontrolled pain is largely driving her suicidalitytherefore we need to try to improve pain control as best as possible. This is somewhat difficult given her apparent resistance to opiates. Schedule Tylenol, increase Lyrica, trial of Toradol, whenever I had her before, Dilaudid did helpobviously this is a difficult situation given her suicidality and overdose, but as long as she is in a supervised setting, if the above measures do not help then nursing administered as needed narcotics could be considered. Also may need to ask pain management to evaluate again given the difficulty/nuance to her situation. (8) Elevated troponin: Plan: Suspect demand-ischemia in setting of hypoxia. Fortunately only a mild elevation Plan: VTE Prophylaxis - deferred to ICU team Diet - NPO Disposition -NICU, just extubated Admission and Anticipated Discharge Date Admission Date: October 23, 2021 Subjective Just extubated, and mentally seems a bit slow, mostly perseverates on back pain and not wanting to live. Very difficult to obtain much of any more HPI or review of systems beyond this at this time. Review of Systems Review of Systems: Unobtainable due to cognitive status Physical Exam Physical Exam: Groggy, anxious, but no physical distress. HEENT normocephalic atraumatic mucous membranes moist. Breathing unlabored no accessory muscle use good effort. Skin shows no rashes no pallor or icterus. No focal neuro deficits. Results & Data Results & Data ([facility]) Vital Signs (Past 12 Hours) Vital Signs Temp Pulse Resp BP Pulse Ox 10/24/21 10:00 98.8 F 63 18 93 10/24/21 09:45 98.8 F 76 16 93 10/24/21 09:30 99.0 F 77 12 92 10/24/21 09:15 99.0 F 84 20 91 10/24/21 09:00 99.1 F 82 23 93 10/24/21 08:45 99.1 F 79 36 H 92 10/24/21 08:30 99.1 F 67 16 94 10/24/21 08:15 99.1 F 78 9 L 93 10/24/21 08:00 99.1 F 72 15 93 10/24/21 07:45 99.0 F 66 16 93 10/24/21 07:30 99.0 F 71 19 94 10/24/21 07:15 99.0 F 74 17 95 10/24/21 07:00 99.0 F 76 16 140/86 95 10/24/21 06:19 16 10/24/21 04:55 99.3 F 10/24/21 02:47 68 20 94 10/24/21 00:00 71 PG Care Time/CCT Total # of Minutes Spent Total Time Spent with Patient: Total time spent is greater than 50% in coordination of care (as documented) at patient's floor/unit and/or counseling patient: Coding Level of Care Code 20172 Subseq Hosp Care Lvl 3 Diagnoses Polysubstance overdose T50.902A Encounter type: initial encounter Injury intent: intentional self-harm Acute respiratory failure with hypoxia J96.01 Aspiration pneumonitis J69.0 Acute kidney injury N17.9 Prolonged QT interval R94.31 Depression F32.9 Active/Remission status: in full remission Lumbar spinal stenosis M48.061 Elevated troponin R77.8 (1) Polysubstance overdose Encounter type: initial encounter Injury intent: intentional self-harm Qualified Code(s): T50.902A - Poisoning by unspecified drugs, medicaments and biological substances, intentional self-harm, initial encounter (2) Depression Active/Remission status: in full remission
[2021-10-24] MEDS: KETOROLAC TROMETHAMINE 15 MG/ML VIAL IV SCH ×3 (12:12→23:45)
[2021-10-24] MEDS: ACETAMINOPHEN 325 MG TAB PO SCH ×3 (12:22→22:10)
[2021-10-24] MEDS: NOREPINEPHRINE/D5W 8 MG/508 ML BAG IV SCH (13:21)
[2021-10-24] MEDS ORDERED: PREGABALIN 150 MG CAP PO SCH (21:00)
[2021-10-24] MEDS ORDERED: LORazepam 0.5 MG/1 ML VIAL IV PRN (21:02)
[2021-10-24] MEDS: SENNA 8.6 MG TAB PO SCH (22:10)
--- NOTE | 2021-10-25 00:09 | Communication Note ---
Date of Service: October 25, 2021 Contacted overnight by nursing as patient is expressing suicidal ideation with intent to harm herself, as well as difficulty sleeping. 1:1 ordered and behavioral health liaison asked to see patient. Also discussed case overnight with Dr. Seals (Psychiatry). She recommended Ativan q4h as needed for anxiety/agitation with current pain medicine plan and she will see her tomorrow. No other medication recommendations given at this time. I also placed consult to Pain management given that her SI is seemingly largely secondary to pain control difficulties. I also gave her melatonin for sleep as she was a polysubstance OD with Ambien involved.
[2021-10-25 05:20] LABS: Prothrombin Time 10.5 Seconds (9.0-12.0)
[2021-10-25 05:25] LABS: Basophils # (auto) 0.03 K/uL (0-0.2); Basophils % (auto) 0.4 %; Eosinophils # (auto) 0.21 K/uL (0-0.5); Eosinophils % (auto) 2.5 %; Hematocrit (blood only) 32.1 % (37-47); Hemoglobin 10.2 g/dL (12.0-16.0); Immature Granulocytes # (auto) 0.03 K/uL (0.00-0.02); Immature Granulocytes % (auto) 0.4 %; Lymphocytes # (auto) 2.05 K/uL (1.2-3.4); Lymphocytes % (auto) 24.8 %; Mean Corpuscular Hemoglobin 30.7 pg (25-34); Mean Corpuscular Hgb Conc 31.8 g/dL (32-36); Mean Corpuscular Volume 96.7 fL (80-100); Mean Platelet Volume 9.9 fL (7.4-10.4); Monocytes # (auto) 0.88 K/uL (0.11-0.59); Monocytes % (auto) 10.6 %; Neutrophils # (auto) 5.07 K/uL (1.4-6.5); Neutrophils % (auto) 61.3 %; Platelet Count 215 K/uL (130-400); RDW Coefficient of Variation 15.7 % (11.5-14.5); RDW Standard Deviation 55.1 fL (36.4-46.3); Red Blood Count 3.32 M/uL (4.2-5.4); White Blood Count 8.27 K/uL (4.8-10.8)
[2021-10-25] MEDS: NORMOSOL-R 1,000 ML IV SCH ×3 (05:31→13:57)
[2021-10-25 05:40] LABS: BUN Creatinine Ratio 12.7 (10-20); Calcium 8.2 mg/dl (8.5-10.1); Creatinine Clr Calc Pharmacy 146.8 ml/min; Est GFR (African American) 122.7 ml/min; Est GFR (Non-African American) 105.9 ml/min; Magnesium 2.2 mg/dl (1.8-2.4); Potassium 3.6 mmol/L (3.5-5.1)
[2021-10-25] MEDS: HEPARIN SOD 5,000 UNIT/0.5 ML VIAL SQ SCH ×3 (06:22→21:24)
[2021-10-25] MEDS: AMPICILLIN/SULBACTAM SOD 1,500 MG in 0.9 % SODIUM CHLORIDE 100 ML IV SCH (06:22)
[2021-10-25] MEDS: KETOROLAC TROMETHAMINE 15 MG/ML VIAL IV SCH ×3 (06:23→18:13)
[2021-10-25] MEDS ORDERED: MELATONIN 3 MG TAB PO PRN (07:30)
[2021-10-25] MEDS: ACETAMINOPHEN 325 MG TAB PO SCH ×3 (07:51→18:13)
[2021-10-25] MEDS: DOCUSATE SODIUM 100 MG CAP PO SCH ×2 (07:51→21:23)
[2021-10-25] MEDS: PANTOprazole 40 MG TAB PO SCH (07:51)
[2021-10-25] MEDS ORDERED: VANCOMYCIN CONSULT ACTIVE PRN (08:29)
[2021-10-25] MEDS ORDERED: POTASSIUM CHLORIDE CRTAB 20 MEQ TABCR PO STA ×2 (08:58→18:12)
[2021-10-25] MEDS ORDERED: VANCOMYCIN HCL 1,750 MG in SODIUM CHLORIDE 0.9% 500 ML IV ONE (09:00)
--- NOTE | 2021-10-25 09:02 | Pain Management Consultation ---
Date of Consultation October 25, 2021 Assessment & Plan (1) Lumbar spinal stenosis: (2) Compression fracture of L5 vertebra: (3) Lumbar radiculopathy: (4) Depression: Active/Remission status: in full remission (5) Polysubstance overdose: Encounter type: initial encounter Injury intent: intentional self-harm Qualified Code(s): T50.902A - Poisoning by unspecified drugs, medicaments and biological substances, intentional self-harm, initial encounter (6) Suicide attempt: 1. Recommend imaging of her lumbar spine to assess anatomy with plain film x-rays, CT lumbar spine without contrast and MRI with and without contrast of the lumbar spine. 2. Recommend initiation of Keppra 250 mg p.o. twice daily for neuropathic effect. Will require liver function monitoring post discharge. 3. Recommend repeat twelve-lead EKG to assess QTc interval. Provided that it is less than 485 ms recommend initiation of Butrans 5 mcg q. 7-day patch. I do not have record that Butrans has been tried previously and hopefully this will provide some measure of pain reduction. 4. Recommend she follow-up with the continuous mining machine coal miner at [facility] for formal opiate sensitivity testing. This will likely need to be accomplished as an outpatient. 5. Recommend orthopedic spine consult for assessment of L4-S1 fusion. 6. Thank you for this consultation we will continue to follow with the patient. History of Present Illness Attending Physician: Akshat Aguiar DO History of Present Illness 81-year-old female with history of a fall sustaining L5 compression fracture with axial low back pain and lumbar radicular symptoms bilaterally along the lateral thigh to the level of the ankle who I initially met in September 2021. At that point she had failed interventional pain management by Dr. Pulliam and subsequently underwent an L4-S1 fusion and L5 kyphoplasty by Dr. Lopez on 09/27/2021. 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 Post discharge from her L4-S1 fusion, she had been working with her primary care physician Dr. Velasquez to meet with a [facility] continuous mining machine coal miner to discuss potential genetic testing. This has not been formally completed to date. She has tried a multitude of opiates in the past including oxycodone, hydrocodone, hydromorphone, fentanyl without benefit. She returned to the [facility] emergency room on 10/23/2020 2: 21 suicide attempts (1 with carbon monoxide, a second with medications). She has subsequently extubated and states today that she has little incisional pain but has 9-1/2 out of 10 pain burning shooting down right greater than left lower extremity. Pain is constant and unrelenting and per her report nothing seems to make the pain better. She states that she is unable to tolerate the radicular s ymptoms and reports " I wish I was not here, I cannot take this pain." She denies any motor weakness, bowel or bladder incontinence, foot drop. Pain Assessment Full Body Front + [facility]: 1. [facility]: 10-Worst Imaginable - Paralyzing. Decreased consciousness due to pain. Allergies Allergy/AdvReac Type Severity Reaction Status Date / Time Sulfa (Sulfonamide Allergy Intermediate HIVES Verified 10/22/21 13:40 Antibiotics) trimethoprim Allergy Intermediate HIVES Verified 10/22/21 13:40 OPIODS AdvReac Severe TOLERANT--DON'T Uncoded 09/24/21 23:30 WORK. Home Medications Medication Instructions Recorded Confirmed Type calcium carbonate 500 mg calcium 0 mg PO QAM 01/31/20 10/23/21 History (1,250 mg) tablet (Calcium 500) cholecalciferol (vitamin D3) 50 0 units PO QAM 01/31/20 10/23/21 History mcg (2,000 unit) tablet multivitamin 1 tab PO QAM 01/31/20 10/23/21 History omega 6-knv-uhp-fish oil 1,000 mg 1 cap PO QAM 01/31/20 10/23/21 History (120 mg-180 mg) capsule (Fish Oil) fluticasone propionate 110 2 puff INH BID PRN gm 08/13/21 10/23/21 History mcg/actuation HFA aerosol inhaler (Flovent HFA) fluoxetine 20 mg capsule 20 mg PO DAILY #90 cap 09/14/21 10/23/21 Rx fluoxetine 40 mg capsule (Prozac) 40 mg PO QAM #90 cap 09/14/21 10/23/21 Rx calcitonin (salmon) 200 1 spray INTRANASAL (ALT) DAILY PRN 09/24/21 10/23/21 History unit/actuation nasal spray tizanidine 4 mg tablet 2 mg PO TID 30 Days #45 tab 10/06/21 10/23/21 Rx hydromorphone 4 mg tablet 4 mg PO Q8H PRN #30 tab 10/11/21 10/23/21 Rx (Dilaudid) meloxicam 15 mg tablet 15 mg PO DAILY #7 tab 10/22/21 10/23/21 Rx pregabalin 75 mg capsule (Lyrica) 75 mg PO TID #90 cap 10/22/21 10/23/21 Rx acetaminophen 500 mg tablet 0 mg PO Q6H 10/23/21 10/23/21 History (Tylenol Extra Strength) zolpidem 5 mg tablet 5 mg PO HS PRN 10/23/21 10/23/21 History Patient History Medical History Asthma Compression fracture of L5 vertebra Depression 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 History of Graves' disease Lumbar radiculopathy Lumbar spinal stenosis Osteoarthritis Osteoporosis Surgical History History of colonoscopy History of knee replacement procedure of left knee History of knee replacement procedure of right knee S/P ORIF (open reduction internal fixation) fracture Rt wrist Status post kyphoplasty Family History Mother Alzheimer disease Depression Father Myocardial infarction Brother Non-Hodgkin lymphoma Sister Stroke Other No family history of adverse response to anesthesia Denies family history of Ovarian cancer Prostate cancer Breast cancer Lung cancer Colorectal cancer Social History Smoking Status: Unknown if ever smoked Second Hand Exposure: No; Hx Substance Use: No Preferred Language: Lebanese Communication Ability: Effective Visual Impairment: Limited Hearing Ability: Normal Ranger Aide Required: No Beliefs That Will Affect Care: None marital status: Current Living Situation: Spouse Current Living Situation Comment: Lives with current occupational status: retired Feels Safe at Home: Declines to Answer during the past year weight has: remained stable Physical Activity Frequency: 5-6 Times per Week Physical Activity Frequency Comment: walks her dog at least a mile daily and gardens Seatbelt Use: always Sunscreen Use: Yes Assistive Devices: Walker Physical Exam Physical Exam: Constitutional: Well-developed, well-nourished, deconditioned Psych: Awake, alert, and oriented 3 with depressed affect and slightly slow to answer questions. Recent memory appears grossly intact Ear, nose, mouth, and throat: Moist nasal and slightly dry oral membranes, lips and tongues appear normal, no external ear abnormalities are noted Neck: The trachea is midline without deviation Respiratory: Normal respiratory effort without distress, no audible wheezes or rhonchi CV: Normal S1 and S2, 2+ dorsalis pedis pulses bilaterally Chest: Deferred Musculoskeletal: Head is normocephalic and atraumatic, gait not observed, she is able to slowly logroll in bed on her own volition Cervical: Lordotic curve: Normal Range of motion is normal with extension, flexion, side-bending, rotation Strength: Strength is grossly equal bilaterally with 5 out of 5 strength in all planes Lumbar: Lordotic curve: Loss of lumbar lordosis with a healing axial lumbar incision. Range of motion is decreased in all planes Tenderness: Minimally tender over the axial midline Facet provocation: Negative bilaterally Straight leg raise: Negative bilaterally, not worse with Achilles stretch Step-off injuries: None Strength: Strength is equal bilaterally with 5 out of 5 strength in all planes Sensation of lower extremities: Intact bilaterally Deep tendon reflexes: Rated at 1+ in bilateral S1, not tested in bilateral L4 due to TKA status bilaterally Myofascial spasm: Minimal spasm. No discrete trigger points noted Greater trochanters: Nontender bilaterally Sacroiliac joints: Nontender bilaterally Pathologic reflexes noted: None Skin: No rashes, lesions, ulcers, or induration noted. Lumbar incision is clean dry and intact without erythema fluctuance or drainage. Neuro: No nystagmus noted, the tongue is midline, the patient is able to rotate their head bilaterally : Deferred Results (Pain Clinic) Diagnostic Review MRI: non enhanced and reports reviewed MRI Findings: 09/25/21 prior to OR MR lumbar spine wo con CLINICAL HISTORY: back and leg pain TECHNIQUE: Multiplanar sequences through the lumbar spine were obtained, without intravenous contrast. Comparison: Comparison is made to MRI lumbar spine 08/19/2021 FINDINGS: Redemonstration of compression fracture of L5. Disks are normal in height and signal. L1-L2: Broad-based posterior disc bulge. No canal stenosis. Mild to moderate neuroforaminal stenosis. L2-L3: Broad-based posterior disc bulge with ligamentum flavum and facet hypertrophy. Moderate canal stenosis. Moderate neuroforaminal stenosis. L3-L4: Right base posterior disc bulge with facet hypertrophy. Dixl-eg-jctxucne canal stenosis. Mild neuroforaminal stenosis. L4-L5: Small broad base posterior disc bulge with bilateral facet arthropathy. Moderate canal stenosis. Moderate neuroforaminal stenosis. L5-S1: Severe narrowing of the spinal canal due to severe facet arthrosis and a small posterior disc bulge. Severe canal stenosis. Severe neuroforaminal stenosis. The spinal ligaments are intact, without evidence of disruption or abnormal signal intensity. The spinal cord is normal in signal intensity and there is no evidence of cord contusion. There is no evidence of an extradural, intradural, extramedullary or intramedullary lesion. Visualized soft tissues are normal. IMPRESSION: Exam is essentially unchanged from prior. There is severe canal and neural foraminal stenosis at L5-S1 and up to moderate canal and neural foraminal stenosis elsewhere. Compression fracture of L5 is again seen. Radiology Findings: 10/01/21 XR lumbar spine 2-3V HISTORY: 81 years-old Female post op follow-up study in a patient with prior kyphoplasty infusion COMPARISON: MRI lumbar spine and CT abdomen and pelvis 09/25/2021 TECHNIQUE: 3 views of the lumbar spine FINDINGS: L5 burst fracture redemonstrated with interval kyphoplasty. Posterior interbody veronique and screw fusion is noted at L4-S1. Cement material is also noted at the L4 level and extends within a tubular fashion within the anterior soft tissues, likely into a lumbar vein. The hardware appears intact. No additional acute frac ture or subluxation. Multilevel intervertebral disc space narrowing with spondylitic spurring and facet arthrosis redemonstrated. IMPRESSION: L5 burst fracture redemonstrated with interval vertebroplasty. Status post posterior interbody veronique and screw fusion at L4-S1. Previous Records Review Previous Records: personally reviewed by [place] Opioid Risk Assessment Opioid Risk Assessment: risk assessment performed and high risk identified
--- NOTE | 2021-10-25 09:12 | Pharmacy Report ---
Pharmacy Vanc AUC Short Note - Date of Service October 25, 2021 - Assessment & Plan Assessment 81 year old F ordered vancomycin for treatment of MRSA pneumonia. Pertinent microbiologic data includes: bronch washings culture + MRSA, Vanco JAYLIN = 1 Day # 1 of antimicrobial therapy today Plan Vancomycin * AUC/JAYLIN is the preferred PK/PD target for vancomycin * AUC guided dosing is effective and associated with decreased risk of nephrotoxicity compared to traditional trough targets * Trough level of 13.4 mcg/mL is predicted to achieve target AUC/JAYLIN of 400-600 mg/L.hr and may be associated with a 9 % risk of nephrotoxicity * Vancomycin 1,750 mg (~21mg/kg) IV x 1 loading dose, then, * Vancomycin 1,250 mg (~15mg/kg) IV q 12hrs * Trough level ordered for: 10/27/21 @ 0830 Pharmacy will continue to follow and will adjust dose/frequency as necessary. Thank you.
[2021-10-25] MEDS: levETIRAcetam 250 MG TAB PO SCH ×2 (10:58→21:23)
[2021-10-25] MEDS: BACLOFEN 10 MG TAB PO SCH ×3 (10:58→21:22)
--- NOTE | 2021-10-25 13:27 | CT Scan Report ---
CT lumbar spine wo con CLINICAL HISTORY: lumbar radiculopathy s/p fusion TECHNIQUE: Multidetector row helical CT of the lumbar spine was performed without administration of i ntravenous contrast. Coronal and sagittal reformations were obtained. Automated dose lowering techniq ues and/or adjustment according to patient size were utilized for this exam. Comparison: None available at the time of this dictation. FINDINGS: Posterior spinal fusion hardware seen spanning L4-S1. Loss of height is seen at L4 and especially L5. No acute fractures are identified. Degenerative changes are noted in the visualized spine. Vertebral body alignment is within normal limits. Surrounding soft tissues are unremarkable. IMPRESSION: Status post posterior fixation hardware placement at L4-S1. Significant loss of height at L4 and L5 a re unchanged. ACT 112: Negative or not required by law. Electronically signed by: Kamran Nelson M.D. 10/25/2021 1:25 PM
--- NOTE | 2021-10-25 14:13 | XRay Report ---
XR lumbar spine min 4V routine CLINICAL HISTORY: lumbar radiculopathy s/p fusion TECHNIQUE: 5 views of the lumbar spine were obtained. Comparison: None available at the time of this dictation. FINDINGS: Redemonstration of loss of height of L4 and L5. Posterior fixation hardware seen. Vertebral body heig hts and disc spaces are well maintained. Alignment appears unremarkable. IMPRESSION: Chronic degenerative changes without evidence of acute abnormality. Chronic loss of height is seen at L4-L5. ACT 112: Negative or not required by law. Electronically signed by: Kamran Nelson M.D. 10/25/2021 2:11 PM
--- NOTE | 2021-10-25 16:31 | Psychiatric Consultation ---
Date of Consultation October 25, 2021 Impression / Recommendations Impression 81 yo female with chronic pain s/p significant suicide attempt with ongoing active SI and requesting DNR status. (1) Depression: Active/Remission status: in full remission (2) Suicide attempt: (3) Polysubstance overdose: Encounter type: initial encounter Injury intent: intentional self-harm Qualified Code(s): T50.902A - Poisoning by unspecified drugs, medicaments and biological substances, intentional self-harm, initial encounter (4) Aspiration pneumonitis: (5) Lumbar radiculopathy: agree with hold Prozac, will self taper, discussed possible trial of Cymbalta given noradrenergic vs. Remeron given sleep concerns, she is not able to decide/consent at this time. continue Ativan 0.5 mg prn temporarily, fall risk continue 1-on-1, obviously not able to leave the hospital AMA reviewed with patient that a DNR does not seem to apply to her current medical status and we don't change status when actively suicidal. If she has previous wishes in writing that she wants to review hospitalist I'm sure they will discuss. Dr. Aguiar updated--later stated she was interested in Cymbalta trial. QTc is >500 so will likely wait a bit, if starting at higher end of Qtc would start 20 mg and repeat EKG. Not typically a contraindication but Prozac is still tapering and s/p OD. Risk Factors Assessment Do You Have Access To A Gun?: No (denies but need to confirm with if returns home) Psych History Identifying Data 81 yo female with a history of chronic pain admit medically on 10/23/21 following a suicide attempt by overdose. Consult is per hospitalist group for assistance in ongoing management of SI. Chief Complaint "I have a DNR order, just console my son, he's on his way because I'm gone". History of Present Illness Patient states that her whole life changed following her surgery in August and she could no longer function at home due to weakness, recurrent falls, and poor pain control. She repeatedly lists all medications that have been tried and is difficult to redirect to topics other than . She feels that since she was at rehab the dog prefers her and is "glad that she'll be taken care of", referring to the dog. She was not able to elaborate on reported carbon monoxide attempt just prior to the ingestion of 15 tabs each of Dilaudid and Ambien, and perhaps Lyrica and tizanidine. She wants to be left to because "I'll be better off". She was initially intubated, extubated yesterday but as day went on increasingly distraught/anxious and tearful and given that supervised, not ambulating without assist/etc Ativan 0.5 mg prn was recommended as a temporary comfort measure and confirmed 1-on-1. She coughed frequently during the assessment and is being treated for aspiration pneumonitis, AYAH, and monitored troponins following the OD. She states that she still wants to and often refers to herself in the past tense. Told the liaison in the hospital she could throw herself on the floor or try to jump out the window. Her Prozac is being held. She states she's taken it for years but doesn't believe anything helps. She is too overwhelmed too talk about her sleep and again refers to her DNR order and says "just let me ". Of note she was seen in the ED in August expressing SI in the context of pain. Past Psychiatric History Outpatient Services: meds per Dr. Velasquez, Pain management [facility] [place] Previous Psych Admissions: denied Do You Have Access To A Gun?: No (denies but need to confirm with if returns home) History of Previous Suicide Attempt: No Past Medication Trials: she denies other than Prozac and Ambien. Allergies Allergy/AdvReac Type Severity Reaction Status Date / Time Sulfa (Sulfonamide Allergy Intermediate HIVES Verified 10/22/21 13:40 Antibiotics) trimethoprim Allergy Intermediate HIVES Verified 10/22/21 13:40 OPIODS AdvReac Severe TOLERANT--DON'T Uncoded 09/24/21 23:30 WORK. Home Medications Medication Instructions Recorded Confirmed Type calcium carbonate 500 mg calcium 0 mg PO QAM 01/31/20 10/23/21 History (1,250 mg) tablet (Calcium 500) cholecalciferol (vitamin D3) 50 0 units PO QAM 01/31/20 10/23/21 History mcg (2,000 unit) tablet multivitamin 1 tab PO QAM 01/31/20 10/23/21 History omega 2-kxm-jzv-fish oil 1,000 mg 1 cap PO QAM 01/31/20 10/23/21 History (120 mg-180 mg) capsule (Fish Oil) fluticasone propionate 110 2 puff INH BID PRN gm 08/13/21 10/23/21 History mcg/actuation HFA aerosol inhaler (Flovent HFA) fluoxetine 20 mg capsule 20 mg PO DAILY #90 cap 09/14/21 10/23/21 Rx fluoxetine 40 mg capsule (Prozac) 40 mg PO QAM #90 cap 09/14/21 10/23/21 Rx calcitonin (salmon) 200 1 spray INTRANASAL (ALT) DAILY PRN 09/24/21 10/23/21 History unit/actuation nasal spray tizanidine 4 mg tablet 2 mg PO TID 30 Days #45 tab 10/06/21 10/23/21 Rx hydromorphone 4 mg tablet 4 mg PO Q8H PRN #30 tab 10/11/21 10/23/21 Rx (Dilaudid) meloxicam 15 mg tablet 15 mg PO DAILY #7 tab 10/22/21 10/23/21 Rx pregabalin 75 mg capsule (Lyrica) 75 mg PO TID #90 cap 10/22/21 10/23/21 Rx acetaminophen 500 mg tablet 0 mg PO Q6H 10/23/21 10/23/21 History (Tylenol Extra Strength) zolpidem 5 mg tablet 5 mg PO HS PRN 10/23/21 10/23/21 History Family History denied Substance Abuse History denied Personal History Living Arrangements: Home (with ) 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 History of Graves' disease Lumbar radiculopathy Lumbar spinal stenosis Osteoarthritis Osteoporosis Surgical History History of colonoscopy History of knee replacement procedure of left knee History of knee replacement procedure of right knee S/P ORIF (open reduction internal fixation) fracture Rt wrist Status post kyphoplasty Family History Mother Alzheimer disease Depression Father Myocardial infarction Brother Non-Hodgkin lymphoma Sister Stroke Other No family history of adverse response to anesthesia Denies family history of Ovarian cancer Prostate cancer Breast cancer Lung cancer Colorectal cancer Social History Smoking Status: Unknown if ever smoked Second Hand Exposure: No; Hx Substance Use: No Preferred Language: Monegasque Communication Ability: Effective Visual Impairment: Limited Hearing Ability: Normal Catalogue Librarian Required: No marital status: Current Living Situation: Spouse Current Living Situation Comment: Lives with current occupational status: retired Feels Safe at Home: Declines to Answer during the past year weight has: remained stable Physical Activity Frequency: 5-6 Times per Week Physical Activity Frequency Comment: walks her dog at least a mile daily and gardens Seatbelt Use: always Sunscreen Use: Yes Assistive Devices: Walker Physical Exam Psychiatric: Orientation: alert Apperance: + disheveled Eye Contact: + fair eye contact Motor Behavior: no abnormal motor movements Speech: normal rate/rhythm/volume of speech Affect: + depressed affect Mood: + depressed mood Thought Process: + perseveration and + concrete thought process Thought Content: + preoccupation; not paranoid and no delusions Suicidal Thoughts: + reports suicidal thoughts, + reports suicidal plan and + reports suicidal intent Homicidal Thoughts: denies homicidal thoughts Hallucinations: no auditory hallucinations and no visual hallucinations Cognition: language grossly intact; + attention not intact Estimated Intelligence: consistent with education level Insight: + poor insight Judgement: + poor judgement Vital Signs (Past 24 Hours): Last Vital Signs Temp 36.8 C 10/25/21 12:00 Pulse 58 L 10/25/21 12:00 Resp 18 10/25/21 12:00 BP 129/68 10/25/21 12:00 Pulse Ox 90 10/25/21 12:00 Review of Systems Unobtainable due to mental health condition Results & Data (PSY) Laboratory Results 10/25/21 10/25/21 10/25/21 Range/Units 04:54 04:54 04:54 WBC 8.27 (4.8-10.8) K/uL RBC 3.32 L (4.2-5.4) M/uL Hgb 10.2 L (12.0-16.0) g/dL Hct 32.1 L (37-47) % MCV 96.7 (80-100) fL MCH 30.7 (25-34) pg MCHC 31.8 L (32-36) g/dL RDW Std Deviation 55.1 H (36.4-46.3) fL RDW Coeff of Apple 15.7 H (11.5-14.5) % Plt Count 215 (130-400) K/uL MPV 9.9 (7.4-10.4) fL Immature Gran % (Auto) 0.4 % Neut % (Auto) 61.3 % Lymph % (Auto) 24.8 % Dickens % (Auto) 10.6 % Eos % (Auto) 2.5 % Baso % (Auto) 0.4 % Neut # (Auto) 5.07 (1.4-6.5) K/uL Lymph # (Auto) 2.05 (1.2-3.4) K/uL Dickens # (Auto) 0.88 H (0.11-0.59) K/uL Eos # (Auto) 0.21 (0-0.5) K/uL Baso # (Auto) 0.03 (0-0.2) K/uL Immature Gran # (Auto) 0.03 H (0.00-0.02) K/uL PT 10.5 (9.0-12.0) Seconds INR 1.0 (0.9-1.1) Sodium 140 (136-145) mmol/L Potassium 3.6 (3.5-5.1) mmol/L Chloride 108 H (98-107) mmol/L Carbon Dioxide 27 (21-32) mmol/L Anion Gap 5.0 (3-11) BUN 4 L (7-18) mg/dl Creatinine 0.32 L (0.6-1.2) mg/dl Est Cr Clr Drug Dosing 146.8 ml/min Est GFR ( Amer) 122.7 ml/min Est GFR (Non-Af Amer) 105.9 ml/min BUN/Creatinine Ratio 12.7 (10-20) Glucose 85 (70-99) mg/dl POC Glucose (70-99) mg/dl POC Lactic Acid Arter (0.36-1.25) mmol/L Calcium 8.2 L (8.5-10.1) mg/dl Magnesium 2.2 (1.8-2.4) mg/dl 10/24/21 10/23/21 10/23/21 Range/Units 17:36 15:41 15:37 WBC (4.8-10.8) K/uL RBC (4.2-5.4) M/uL Hgb (12.0-16.0) g/dL Hct (37-47) % MCV (80-100) fL MCH (25-34) pg MCHC (32-36) g/dL RDW Std Deviation (36.4-46.3) fL RDW Coeff of Apple (11.5-14.5) % Plt Count (130-400) K/uL MPV (7.4-10.4) fL Immature Gran % (Auto) % Neut % (Auto) % Lymph % (Auto) % Dickens % (Auto) % Eos % (Auto) % Baso % (Auto) % Neut # (Auto) (1.4-6.5) K/uL Lymph # (Auto) (1.2-3.4) K/uL Dickens # (Auto) (0.11-0.59) K/uL Eos # (Auto) (0-0.5) K/uL Baso # (Auto) (0-0.2) K/uL Immature Gran # (Auto) (0.00-0.02) K/uL PT (9.0-12.0) Seconds INR (0.9-1.1) Sodium (136-145) mmol/L Potassium (3.5-5.1) mmol/L Chloride (98-107) mmol/L Carbon Dioxide (21-32) mmol/L Anion Gap (3-11) BUN (7-18) mg/dl Creatinine (0.6-1.2) mg/dl Est Cr Clr Drug Dosing ml/min Est GFR ( Amer) ml/min Est GFR (Non-Af Amer) ml/min BUN/Creatinine Ratio (10-20) Glucose (70-99) mg/dl POC Glucose 95 (70-99) mg/dl POC Lactic Acid Arter 1.21 1.13 (0.36-1.25) mmol/L Calcium (8.5-10.1) mg/dl Magnesium (1.8-2.4) mg/dl Medications Administered Acetaminophen (Acetaminophen 325 Mg Tab) 650 mg PO QID АНДРЕЙ Stop: 11/23/21 12:59 Last Admin: 10/25/21 12:11 Dose: 650 mg Documented by: [id number] Admin: 10/25/21 07:51 Dose: 650 mg Documented by: [id number] Admin: 10/24/21 22:10 Dose: Not Given Documented by: [id number] Admin: 10/24/21 17:28 Dose: Not Given Documented by: [id number] Admin: 10/24/21 12:22 Dose: Not Given Documented by: [id number] Baclofen (Baclofen 10 Mg Tab) 10 mg PO TID АНДРЕЙ Stop: 11/24/21 08:59 Last Admin: 10/25/21 15:16 Dose: 10 mg Documented by: [id number] Admin: 10/25/21 10:58 Dose: 10 mg Documented by: [id number] Docusate Sodium (Docusate Sodium 100 Mg Cap) 100 mg PO BID АНДРЕЙ Stop: 11/22/21 20:59 Last Admin: 10/25/21 07:51 Dose: 100 mg Documented by: [id number] Admin: 10/24/21 22:10 Dose: Not Given Documented by: [id number] Admin: 10/24/21 08:13 Dose: Not Given Documented by: [id number] Admin: 10/23/21 21:11 Dose: 100 mg Documented by: [id number] Heparin Sodium (Porcine) (Heparin Sod 5,000 Unit/0.5 Ml Vial) 5,000 units SQ Q8 АНДРЕЙ Stop: 11/22/21 21:59 Last Admin: 10/25/21 15:16 Dose: 5,000 units Documented by: [id number] Admin: 10/25/21 06:22 Dose: 5,000 units Documented by: [id number] Admin: 10/24/21 23:43 Dose: 5,000 units Documented by: [id number] Admin: 10/24/21 15:40 Dose: 5,000 units Documented by: [id number] Admin: 10/24/21 05:28 Dose: 5,000 units Documented by: [id number] Admin: 10/23/21 22:28 Dose: 5,000 units Documented by: [id number] Parenteral Electrolytes (Normosol-R) 1,000 mls @ 125 mls/hr IV .Q8H АНДРЕЙ Stop: 11/22/21 13:14 Last Admin: 10/25/21 13:57 Dose: 125 mls/hr Documented by: [id number] Infusion: 10/25/21 13:31 Dose: 125 mls/hr Documented by: [id number] Admin: 10/25/21 07:43 Dose: Not Given Documented by: [id number] Admin: 10/25/21 05:31 Dose: 125 mls/hr Documented by: [id number] Infusion: 10/25/21 05:29 Dose: 125 mls/hr Documented by: [id number] Admin: 10/24/21 21:29 Dose: 125 mls/hr Documented by: [id number] Infusion: 10/24/21 14:23 Dose: 125 mls/hr Documented by: [id number] Admin: 10/24/21 06:23 Dose: 125 mls/hr Documented by: [id number] Infusion: 10/24/21 06:22 Dose: 125 mls/hr Documented by: [id number] Admin: 10/23/21 22:22 Dose: 125 mls/hr Documented by: [id number] Infusion: 10/23/21 22:22 Dose: 125 mls/hr Documented by: [id number] Admin: 10/23/21 14:47 Dose: 125 mls/hr Documented by: [id number] Ketorolac Tromethamine (Ketorolac Tromethamine 15 Mg/Ml Vial) 15 mg IV Q6H АНДРЕЙ Stop: 10/29/21 11:14 Last Admin: 10/25/21 12:11 Dose: 15 mg Documented by: [id number] Admin: 10/25/21 06:23 Dose: 15 mg Documented by: [id number] Admin: 10/24/21 23:45 Dose: 15 mg Documented by: [id number] Admin: 10/24/21 17:29 Dose: 15 mg Documented by: [id number] Admin: 10/24/21 12:12 Dose: 15 mg Documented by: [id number] Levetiracetam (Levetiracetam 250 Mg Tab) 250 mg PO BID АНДРЕЙ Stop: 11/24/21 08:59 Last Admin: 10/25/21 10:58 Dose: 250 mg Documented by: [id number] Pantoprazole Sodium (Pantoprazole 40 Mg Tab) 40 mg PO QAM АНДРЕЙ Stop: 11/23/21 08:59 Last Admin: 10/25/21 07:51 Dose: 40 mg Documented by: [id number] Admin: 10/24/21 08:13 Dose: Not Given Documented by: [id number] Sennosides (Senna 8.6 Mg Tab) 17.2 mg PO HS АНДРЕЙ Stop: 11/22/21 20:59 Last Admin: 10/24/21 22:10 Dose: Not Given Documented by: [id number] Admin: 10/23/21 21:11 Dose: 17.2 mg Documented by: [id number] Coding Level of Care Code 06119 Inpt Consult Level 3 Diagnoses Depression F32.9 Active/Remission status: in full remission Suicide attempt T14.91XA Polysubstance overdose T50.902A Encounter type: initial encounter Injury intent: intentional self-harm Aspiration pneumonitis J69.0 Lumbar radiculopathy M54.16
--- NOTE | 2021-10-25 18:23 | Hospitalist Progress Note ---
Date of Service October 25, 2021 Assessment & Plan (1) Polysubstance overdose: Plan: Reportedly overdose on Ambien and Dilaudidwas intubated and on pressors, but now improved. Extubated. Off pressors. Doing better in this respect. In regards to her depression, she relates that she believes if her back pain was better, her suicidality would be better as well. (2) Intractable back pain: Plan: Seems to be multifactorial: -Back pain itself: --- This appears to be both underlying bone/disc pain, as well as overlying muscle and ligamentous pain --- Bone and disc pain: Trial of Nucynta, continue Toradol, continue Tylenol, await Ortho/spine input, but doubt anything surgical would be of benefit --- Muscle/ligamentous pain: Trial of OMT, diclofenac gel, baclofen -Peripheral/spinal cord nervous system facilitation: ---Given that she was not really getting much benefit from gabapentin or pregabalin, pain management has initiated Keppra, titrate as needed. --- Trial of OMT and diclofenac gel, while directed to work directly on the muscle and ligamentous pain, may help with desensitization some -Central nervous system facilitation/paindepression playing off of each other: ----Trial of Cymbalta once QTC allows All of the above will benefit from mobilization as best as possiblePT/OT eval and treat (3) Acute respiratory failure with hypoxia: Plan: Intubated on arrival to ER, fortunately now extubated (4) Aspiration pneumonitis: Plan: Was initially on Unasyn, bronc cultures showing MRSAinitiated vancomycin instead (5) Acute kidney injury: Plan: Fortunately resolved with fluids and support (6) Prolonged QT interval: Plan: A bit longer againcross checking her medicines, there does not seem to be any major offenders, her magnesium is good her potassium was a little bit low for repolarization purposesreplacing. Also of note her QT on her previous hospital stay was anywhere from 4 65-4 98, suggesting maybe she runs a little bit long. We will continue to follow, and as we had medicines will need to continue to cross checkedthe main issue may be with the desire to initiate Cymbalta. We will continue to check EKGsif this becomes a "rate limiter" with her treatment for back pain/depression, then may need to get cardiology involvement (7) Depression: Plan: See above, would want to initiate Cymbalta in the near future, particularly as long as her QT can tolerate it. We will need to continue suicide precautions at the current time, and continue to reassess her suicidality as time goes bydepending on how she is doing with pain/depression/suicidality, it would be conceivable that she will need to go from the hospital to inpatient psych; at the same time, if she is doing much better, she may be more of a "medical" discharge with close psychiatric follow-up if she is doing much better (8) Lumbar spinal stenosis: Plan: See above under intractable back pain. Spinal stenosis is part of it. (9) Elevated troponin: Plan: Suspect demand-ischemia in setting of hypoxia. Fortunately only a mild elevation (10) Somatic dysfunction of lumbar region: Plan: OMT as above (11) DVT prophylaxis: Plan: Heparin subcu (12) Discharge planning issues: Plan: Stable on telemetry, would be stable for MedSurg once QTC has resolved. Otherwise as above, discharge from the hospital still up in the air depending on her pain control, mobility, depression, suicidality Admission and Anticipated Discharge Date Admission Date: October 23, 2021 Results & Data Results & Data ([facility]) Vital Signs (Past 12 Hours) Vital Signs Temp Pulse Resp BP Pulse Ox 10/25/21 12:00 98.2 F 58 L 18 129/68 90 10/25/21 10:00 59 L 21 90 10/25/21 09:00 55 L 15 92 10/25/21 07:00 98.4 F 55 L 16 119/47 L 94 PG Care Time/CCT Total # of Minutes Spent Total Time Spent with Patient: Total time spent is greater than 50% in coordination of care (as documented) at patient's floor/unit and/or counseling patient: Coding Level of Care Code 03486 Subseq Hosp Care Lvl 3 Diagnoses Polysubstance overdose T50.902A Encounter type: initial encounter Injury intent: intentional self-harm Acute respiratory failure with hypoxia J96.01 Aspiration pneumonitis J69.0 Acute kidney injury N17.9 Prolonged QT interval R94.31 Depression F32.9 Active/Remission status: in full remission Lumbar spinal stenosis M48.061 Elevated troponin R77.8 Intractable back pain M54.9 Somatic dysfunction of lumbar region M99.03 DVT prophylaxis Z29.9 Discharge planning issues Z02.9 CPT Codes Musculoskeletal - Musculoskeletal: [address] 1-2 Body regions ([id number]) (1) Polysubstance overdose Encounter type: initial encounter Injury intent: intentional self-harm Qualified Code(s): T50.902A - Poisoning by unspecified drugs, medicaments and biological substances, intentional self-harm, initial encounter (2) Depression Active/Remission status: in full remission
[2021-10-25] MEDS: DICLOFENAC SOD 1% GEL 100 GM TUBE EXT SCH (21:23)
[2021-10-25] MEDS: TAPENTADOL HCL ER 50 MG TABCR PO SCH (21:23)
[2021-10-25] MEDS: SENNA 8.6 MG TAB PO SCH (21:23)
[2021-10-25] MEDS: ZOLPIDEM TARTRATE 10 MG TAB PO PRN (21:23)
[2021-10-25] MEDS: VANCOMYCIN HCL 1,250 MG in SODIUM CHLORIDE 0.9% 250 ML IV SCH (21:24)
[2021-10-26] MEDS: ACETAMINOPHEN 325 MG TAB PO SCH ×5 (00:52→22:22)
[2021-10-26] MEDS: NORMOSOL-R 1,000 ML IV SCH ×3 (00:53→13:24)
[2021-10-26] MEDS: KETOROLAC TROMETHAMINE 15 MG/ML VIAL IV SCH ×4 (00:56→17:29)
[2021-10-26 06:32] LABS: Basophils # (auto) 0.04 K/uL (0-0.2); Basophils % (auto) 0.5 %; Eosinophils # (auto) 0.35 K/uL (0-0.5); Eosinophils % (auto) 4.5 %; Hematocrit (blood only) 34.2 % (37-47); Hemoglobin 10.8 g/dL (12.0-16.0); Immature Granulocytes # (auto) 0.01 K/uL (0.00-0.02); Immature Granulocytes % (auto) 0.1 %; Lymphocytes # (auto) 2.08 K/uL (1.2-3.4); Lymphocytes % (auto) 26.8 %; Mean Corpuscular Hemoglobin 30.6 pg (25-34); Mean Corpuscular Hgb Conc 31.6 g/dL (32-36); Mean Corpuscular Volume 96.9 fL (80-100); Monocytes # (auto) 0.71 K/uL (0.11-0.59); Monocytes % (auto) 9.1 %; Neutrophils # (auto) 4.57 K/uL (1.4-6.5); Platelet Count 232 K/uL (130-400); RDW Coefficient of Variation 15.7 % (11.5-14.5); RDW Standard Deviation 54.9 fL (36.4-46.3); Red Blood Count 3.53 M/uL (4.2-5.4); White Blood Count 7.76 K/uL (4.8-10.8)
[2021-10-26 06:37] LABS: Prothrombin Time 10.5 Seconds (9.0-12.0)
--- NOTE | 2021-10-26 06:37 | Electrocardiogram Report ---
Test Reason : Blood Pressure : / mmHG Vent. Rate : 066 BPM Atrial Rate : 066 BPM P-R Int : 000 ms QRS Dur : 078 ms QT Int : 470 ms P-R-T Axes : 000 -20 -22 degrees QTc Int : 492 ms Poor data quality, interpretation may be adversely affected Probable Sinus rhythm Low voltage QRS Nonspecific T wave abnormality Prolonged QT Abnormal ECG When compared with ECG of 23-OCT-2021 10:59, Nonspecific T wave abnormality is now Present Confirmed by Carlin Damico ([id number]) on 10/26/2021 6:36:45 AM Referred By: REFERRED SELF Confirmed By:Carlin Damico
[2021-10-26] MEDS: HEPARIN SOD 5,000 UNIT/0.5 ML VIAL SQ SCH ×3 (06:47→22:24)
[2021-10-26 07:49] LABS: BUN Creatinine Ratio 18.8 (10-20); Calcium 8.4 mg/dl (8.5-10.1); Creatinine Clr Calc Pharmacy 141.7 ml/min; Est GFR (African American) 121.5 ml/min; Est GFR (Non-African American) 104.8 ml/min; Potassium 4.6 mmol/L (3.5-5.1)
[2021-10-26] MEDS: BACLOFEN 10 MG TAB PO SCH ×3 (08:12→22:20)
[2021-10-26] MEDS: DOCUSATE SODIUM 100 MG CAP PO SCH ×2 (08:12→22:23)
[2021-10-26] MEDS: PANTOprazole 40 MG TAB PO SCH (08:12)
[2021-10-26] MEDS: levETIRAcetam 250 MG TAB PO SCH ×2 (08:12→22:20)
[2021-10-26] MEDS: DICLOFENAC SOD 1% GEL 100 GM TUBE EXT SCH ×4 (08:13→22:25)
[2021-10-26] MEDS: VANCOMYCIN HCL 1,250 MG in SODIUM CHLORIDE 0.9% 250 ML IV SCH ×2 (08:13→21:38)
[2021-10-26] MEDS: TAPENTADOL HCL ER 50 MG TABCR PO SCH ×2 (08:31→22:20)
--- NOTE | 2021-10-26 08:33 | Pain Management Progress Note ---
Date of Service October 26, 2021 Assessment & Plan (1) Lumbar spinal stenosis: (2) Compression fracture of L5 vertebra: (3) Lumbar radiculopathy: (4) Depression: Active/Remission status: in full remission (5) Polysubstance overdose: Encounter type: initial encounter Injury intent: intentional self-harm Qualified Code(s): T50.902A - Poisoning by unspecified drugs, medicaments and biological substances, intentional self-harm, initial encounter (6) Suicide attempt: Plan: Patient is reporting some improvement in pain since yesterday. Continue current Lyrica 150 twice daily, Tylenol 654 times daily, Toradol 15 mg every 6 hours, baclofen 10 mg 3 times daily, Keppra 250 mg twice daily, Nucynta 50 mg ER twice daily. I have urged the patient to get out of bed and walk around some today to see if the pain is improved and she is in agreement. She appears in good spirits this morning. Keppra and Nucynta dosing could be further adjusted if needed. Admission and Anticipated Discharge Date Admission Date: October 23, 2021 Subjective Mrs. Valencia had an L5 compression fracture from a fall and after conservative measures she received an L5 kyphoplasty and L4-S1 fusion by Dr. Lopez. Patient does have an opioid tolerance and looking into seeing a floral design teacher for further testing. There have been two recent suicide attempts as she states that the pain so bad that she could not live like that. Yesterday she was initiated on Keppra 250mg BID and Nucynta 50mg ER twice daily. Patient states that her pain is improved since last night. She was able to sleep without difficulty. The pain in her legs is slightly improved. She has not yet tried much movement getting out of bed yet. No constipation, confusion. Due to high QT interval on EKG Butrans could not be initiated so Nucynta was chosen instead. Physical Exam Physical Exam: GENERAL: This is an 81 year old female. Resting comfortably in the hospital bed. HEAD/FACE: Normocephalic and atraumatic. EYES: No drainage or conjunctival injection. ENT: Nose without bleeding or discharge. Oral mucosa moist. NECK: Full ROM without apparent pain. No swelling or masses noted. RESPIRATORY: Patient with unlabored breathing. No signs of respiratory distress. CHEST/AXILLA: Chest movement symmetrical. No deformities noted. BACK: Has not tried movement yet this morning. SKIN: [place], warm and dry. No rash noted. MS/EXTREMITY: No swelling, no deformities. Moving extremities appropriately. NEURO: Alert and appears oriented. Speech is fluent. Cranial Nerves are grossly intact. PSYCH: Alert, pleasant, affect is calm
[2021-10-26 09:33] LABS: Magnesium 2.3 mg/dl (1.8-2.4)
--- NOTE | 2021-10-26 12:01 | Orthopedic Consultation ---
Date of Consultation October 26, 2021 Assessment & Plan (1) Intractable back pain: At this time the CAT scan does not demonstrate any evidence of loosening of instrumentation or adjacent level fracture. I am awaiting an MRI of the lumbar spine to review as well. My concern would be an occult fracture that could be contributing to her symptom complex. This time and recommended transfers to chair as tolerated. History of Present Illness Reason for Consultation: Back and bilateral leg pain Attending Physician: Akshat Aguiar DO History of Present Illness This is an 81-year-old female known to me having undergone a decompression fusion several weeks ago. She presents with worsening back and description of bilateral leg pain. This morning she states her back and leg pain is controlled. She denies any radicular complaints. Denies any numbness or tingling in her legs. She describes pain mostly in the lumbosacral region of her spine. Allergies Allergy/AdvReac Type Severity Reaction Status Date / Time Sulfa (Sulfonamide Allergy Intermediate HIVES Verified 10/22/21 13:40 Antibiotics) trimethoprim Allergy Intermediate HIVES Verified 10/22/21 13:40 OPIODS AdvReac Severe TOLERANT--DON'T Uncoded 09/24/21 23:30 WORK. Home Medications Medication Instructions Recorded Confirmed Type calcium carbonate 500 mg calcium 0 mg PO QAM 01/31/20 10/23/21 History (1,250 mg) tablet (Calcium 500) cholecalciferol (vitamin D3) 50 0 units PO QAM 01/31/20 10/23/21 History mcg (2,000 unit) tablet multivitamin 1 tab PO QAM 01/31/20 10/23/21 History omega 5-hua-zvd-fish oil 1,000 mg 1 cap PO QAM 01/31/20 10/23/21 History (120 mg-180 mg) capsule (Fish Oil) fluticasone propionate 110 2 puff INH BID PRN gm 08/13/21 10/23/21 History mcg/actuation HFA aerosol inhaler (Flovent HFA) fluoxetine 20 mg capsule 20 mg PO DAILY #90 cap 09/14/21 10/23/21 Rx fluoxetine 40 mg capsule (Prozac) 40 mg PO QAM #90 cap 09/14/21 10/23/21 Rx calcitonin (salmon) 200 1 spray INTRANASAL (ALT) DAILY PRN 09/24/21 10/23/21 History unit/actuation nasal spray tizanidine 4 mg tablet 2 mg PO TID 30 Days #45 tab 10/06/21 10/23/21 Rx hydromorphone 4 mg tablet 4 mg PO Q8H PRN #30 tab 10/11/21 10/23/21 Rx (Dilaudid) meloxicam 15 mg tablet 15 mg PO DAILY #7 tab 10/22/21 10/23/21 Rx pregabalin 75 mg capsule (Lyrica) 75 mg PO TID #90 cap 10/22/21 10/23/21 Rx acetaminophen 500 mg tablet 0 mg PO Q6H 10/23/21 10/23/21 History (Tylenol Extra Strength) zolpidem 5 mg tablet 5 mg PO HS PRN 10/23/21 10/23/21 History Patient History Medical History Asthma Compression fracture of L5 vertebra Depression 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 History of Graves' disease Lumbar radiculopathy Lumbar spinal stenosis Osteoarthritis Osteoporosis Surgical History History of colonoscopy History of knee replacement procedure of left knee History of knee replacement procedure of right knee S/P ORIF (open reduction internal fixation) fracture Rt wrist Status post kyphoplasty Family History Mother Alzheimer disease Depression Father Myocardial infarction Brother Non-Hodgkin lymphoma Sister Stroke Other No family history of adverse response to anesthesia Denies family history of Ovarian cancer Prostate cancer Breast cancer Lung cancer Colorectal cancer Social History Smoking Status: Unknown if ever smoked Second Hand Exposure: No; Hx Substance Use: No Preferred Language: Lebanese Communication Ability: Effective Visual Impairment: Limited Hearing Ability: Normal Utilization Review Coordinator Required: No marital status: Current Living Situation: Spouse Current Living Situation Comment: Lives with current occupational status: retired Feels Safe at Home: Declines to Answer during the past year weight has: remained stable Physical Activity Frequency: 5-6 Times per Week Physical Activity Frequency Comment: walks her dog at least a mile daily and gardens Seatbelt Use: always Sunscreen Use: Yes Assistive Devices: Walker Physical Exam Physical Exam: She is alert and oriented. She remembered my name without difficulty. She exhibits a +5 of 5 plantar flexion dorsiflexion extensor hallucis longus bilaterally. Sensory is symmetric and intact. Results & Data ([facility]) Vital Signs (Past 12 Hours) Vital Signs Temp Pulse Pulse Resp BP Pulse Ox 10/26/21 10:54 36.6 C 58 L 18 128/70 92 10/26/21 08:00 57 L 10/26/21 07:05 36.7 C 60 16 133/66 92 10/26/21 03:06 36.0 C L 58 L 17 120/74 91
--- NOTE | 2021-10-26 12:18 | Communication Note ---
Date of Service: October 26, 2021 interim progress reviewed. She is more active today and was seen by pain management. QTc remains well over 500 so holding any trial of Cymbalta, liaison rounding for support, does not appear to have received any prn Ativan. Will follow.
--- NOTE | 2021-10-26 17:03 | Hospitalist Progress Note ---
Date of Service October 26, 2021 Assessment & Plan (1) Polysubstance overdose: Plan: Reportedly overdose on Ambien and Dilaudidwas intubated and on pressors, but now improved. Extubated. Off pressors. Doing better in this respect. In regards to her depression, she relates that she believes if her back pain was better, her suicidality would be better as well. (2) Intractable back pain: Plan: Seems to be multifactorial: -Back pain itself: --- This appears to be both underlying bone/disc pain, as well as overlying muscle and ligamentous pain --- Bone and disc pain: Trial of Nucynta, continue Toradol, continue Tylenol, await Ortho/spine input, but doubt anything surgical would be of benefit --- Muscle/ligamentous pain: Trial of OMT, diclofenac gel, baclofen -Peripheral/spinal cord nervous system facilitation: ---Given that she was not really getting much benefit from gabapentin or pregabalin, pain management has initiated Keppra, titrate as needed. --- Trial of OMT and diclofenac gel, while directed to work directly on the muscle and ligamentous pain, may help with desensitization some -Central nervous system facilitation/paindepression playing off of each other: ----Trial of Cymbalta once QTC allows All of the above will benefit from mobilization as best as possiblePT/OT eval and treat pleasantly doing better today - continue as above MRI today to r/o occult fracture (3) Acute respiratory failure with hypoxia: Plan: Intubated on arrival to ER, fortunately now extubated (4) Aspiration pneumonitis: Plan: Was initially on Unasyn, [facility] cultures showing MRSAcontinue vanco - although with so little respiratory sx hopefully short course (5) Acute kidney injury: Plan: Fortunately resolved with fluids and support (6) Prolonged QT interval: Plan: A bit longer againcross checking her medicines, there does not seem to be any major offenders, her magnesium is good her potassium was a little bit low for repolarization purposesreplacing. Also of note her QT on her previous hospital stay was anywhere from 4 65-4 98, suggesting maybe she runs a little bit long. We will continue to follow, and as we had medicines will need to continue to cross checkedmay be related to fluoxetine prior to admission. continue to follow - cant initiate cymbalta now (7) Depression: Plan: See above, would want to initiate Cymbalta in the near future, particularly as long as her QT can tolerate it. continue to follow QT. We will need to continue suicide precautions at the current time, and continue to reassess her suicidality as time goes bydepending on how she is doing with pain/depression/suicidality, it would be conceivable that she will need to go from the hospital to inpatient psych; at the same time, if she is doing much better, she may be more of a "medical" discharge with close psychiatric follow- up if she is doing much better (8) Lumbar spinal stenosis: Plan: See above under intractable back pain. Spinal stenosis is part of it. (9) Elevated troponin: Plan: Suspect demand-ischemia in setting of hypoxia. Fortunately only a mild elevation (10) Somatic dysfunction of lumbar region: Plan: OMT as above (11) DVT prophylaxis: Plan: Heparin subcu (12) Discharge planning issues: Plan: Stable on telemetry, would be stable for MedSurg once QTC has resolved. Otherwise as above, discharge from the hospital still up in the air depending on her pain control, mobility, depression, suicidality (13) Elevated troponin: Plan: demand ischemia related to physiologic stress of overdose/etc Admission and Anticipated Discharge Date Admission Date: October 23, 2021 Subjective back pain feeling better. worked with therapy today and felt like she did well. present at the bedside. updated pt and to the best of my ability d/w ortho - input appreciated d/w psych liaison nurse Review of Systems Review of Systems: All systems reviewed & are unremarkable except as noted in HPI & below Physical Exam Physical Exam: gen aao pleasant nad heent nc at mmm breathing unlabored no accessory muscles good effort skin no rashes no pallor or icterus neuro no focal deficits. ost/msk - R>L Lspine paraspinals high tone/tender/decreased ROM - direct myofasacial - improved some, pt tolerated well Results & Data Results & Data ([facility]) Vital Signs (Past 12 Hours) Vital Signs Temp Pulse Pulse Resp BP Pulse Ox 10/26/21 15:00 97.9 F 55 L 55 L 16 130/75 93 10/26/21 10:54 97.9 F 58 L 18 128/70 92 12/21/21 08:00 57 L 10/26/21 07:05 98.1 F 60 16 133/66 92 PG Care Time/CCT Total # of Minutes Spent Total Time Spent with Patient: Total time spent is greater than 50% in coordination of care (as documented) at patient's floor/unit and/or counseling patient: Coding Level of Care Code 19022 Subseq Hosp Care Lvl 3 Diagnoses Polysubstance overdose T50.902A Encounter type: initial encounter Injury intent: intentional self-harm Intractable back pain M54.9 Acute respiratory failure with hypoxia J96.01 Aspiration pneumonitis J69.0 Acute kidney injury N17.9 Prolonged QT interval R94.31 Depression F32.9 Active/Remission status: in full remission Lumbar spinal stenosis M48.061 Elevated troponin R77.8 Somatic dysfunction of lumbar region M99.03 DVT prophylaxis Z29.9 Discharge planning issues Z02.9 Elevated troponin R77.8 CPT Codes Musculoskeletal - Musculoskeletal: [address] 1-2 Body regions ([id number]) (1) Polysubstance overdose Encounter type: initial encounter Injury intent: intentional self-harm Qualified Code(s): T50.902A - Poisoning by unspecified drugs, medicaments and biological substances, intentional self-harm, initial encounter (2) Depression Active/Remission status: in full remission
--- NOTE | 2021-10-26 20:07 | Magnetic Resonance Report ---
MRI OF THE LUMBAR SPINE WITHOUT CONTRAST CLINICAL HISTORY: Severe back pain. COMPARISON STUDY: Lumbar spine MRI September 25, 2021. Lumbar spine CT and lumbar spine radiographs D [id number]. TECHNIQUE: Utilizing a 1.5 Gabriela magnet and dedicated coil, multiplanar, multiecho imaging of the [facility] spine was performed without IV contrast. FINDINGS: For purposes of numbering on this exam, the L5-S1 disc space is assigned to axial image 33 of 40. Sev ere L5 compression fracture is again noted. This was shown on MRI of September 25, 2021. Interval L5 k yphoplasty is noted. Loss of height of the superior endplate of L4 is new since previous MRI. This re presents an acute to subacute fracture. There is mild loss of vertebral body height without retropuls ion. In addition, there is abnormal signal within the left sacral ala suggestive of an acute to subac alissa fracture. L4-S1 posterior decompression is noted with bilateral pedicle screws at the L4 and S1 l evels. Note is made of a 3.6 x 2 x 2.9 cm laminectomy bed fluid collection which is not unexpected in the early postoperative setting. This has mass effect upon the thecal sac. There is adjacent edema w ithin the operative bed which is also expected in the early postoperative setting. The conus terminat es at the T12-L1 level. No intracanalicular mass or fluid collection is identified although sensitivi ty is diminished given motion artifact and artifact from the surgical hardware. Prominent epidural fa t is again noted. There is apparent clumping of nerve roots most pronounced at the L2-L3 and L3-L4 le vels. Increased fluid signal within the right psoas muscle is noted, best shown on axial image 36 of 40. L1-2: There is mild disc bulge facet arthrosis. Central canal is patent. There is mild narrowing of b oth neural foramen L2-3: There is disc bulge with ligamentous hypertrophy and facet arthrosis. There is severe central c anal stenosis. Patent AP diameter of the canal is 3.5 mm. Moderate to severe bilateral narrowing of t he bilateral lateral recesses and neural foramen at this level is noted. L3-4: There is facet arthrosis and ligamentous hypertrophy. Moderate central canal stenosis. Mild dorothy ateral neural foraminal stenosis is present. L4-5: Evaluation is compromised given artifact on this examination. Postoperative findings are noted. There is moderate central canal narrowing due to the operative bed fluid collection with mass effect upon the thecal sac. There is moderate bilateral neural foraminal stenosis. L5-S1: Evaluation is compromised by artifact. Central canal stenosis is noted although improved since previous MRI following posterior decompression. There is moderate to severe bilateral neural foramin al stenosis. IMPRESSION: 1. Status post L5 kyphoplasty, L4-S1 posterior decompression and bilateral pedicle screw fusion. 3.6 x 2 x 2.9 cm laminectomy bed fluid collection is not unexpected early postoperative setting. Mass eff ect upon the thecal sac, as above. Adjacent soft tissue edema, also expected in the early postoperati ve setting. 2. Mild compression fracture of the superior endplate of L4, new since previous MRI. In addition, erica pected acute to subacute nondisplaced left sacral ala fracture. Redemonstration of a severe L5 compre ssion fracture. 3. Evaluation of the central canal compromised by artifact, as described above. Severe central canal stenosis at L2-L3. Moderate central canal stenosis at L3-L4 and L4-L5. 4. Multilevel neural foraminal stenosis, as described above. 5. Apparent clumping of nerve roots within the lumbar canal. This is probably due to central canal st enosis however arachnoiditis could appear similar. 6. Nonspecific fluid signal within the right psoas muscle. ACT 112: Negative or not required by law. Electronically signed by: Andrez Gillis M.D. 10/26/2021 8:06 PM
[2021-10-26] MEDS: ZOLPIDEM TARTRATE 10 MG TAB PO PRN (22:20)
[2021-10-26] MEDS: SENNA 8.6 MG TAB PO SCH (22:24)
[2021-10-27] MEDS: KETOROLAC TROMETHAMINE 15 MG/ML VIAL IV SCH ×5 (01:34→23:25)
[2021-10-27] MEDS: HEPARIN SOD 5,000 UNIT/0.5 ML VIAL SQ SCH ×3 (06:14→21:44)
--- NOTE | 2021-10-27 06:21 | Electrocardiogram Report ---
Test Reason : Blood Pressure : / mmHG Vent. Rate : 060 BPM Atrial Rate : 060 BPM P-R Int : 166 ms QRS Dur : 076 ms QT Int : 568 ms P-R-T Axes : 041 -07 -17 degrees QTc Int : 568 ms Normal sinus rhythm Low voltage QRS Poor R wave progression, consider anterior IL vs. lead placement vs. LVH T wave abnormality, consider anterior ischemia Prolonged QT Abnormal ECG When compared with ECG of 24-OCT-2021 05:38, T wave inversion more evident in Anterior leads QT has lengthened Confirmed by Carlin Damico ([id number]) on 10/27/2021 6:20:59 AM Referred By: REFERRED SELF Confirmed By:Carlin Damico
[2021-10-27] MEDS ORDERED: VANCOMYCIN TROUGH ONE (08:30)
[2021-10-27] MEDS: PANTOprazole 40 MG TAB PO SCH (09:02)
[2021-10-27] MEDS: TAPENTADOL HCL ER 50 MG TABCR PO SCH ×2 (09:02→23:25)
[2021-10-27] MEDS: VANCOMYCIN HCL 1,250 MG in SODIUM CHLORIDE 0.9% 250 ML IV SCH ×2 (09:02→21:45)
[2021-10-27] MEDS: DICLOFENAC SOD 1% GEL 100 GM TUBE EXT SCH ×4 (09:03→21:44)
[2021-10-27] MEDS: DOCUSATE SODIUM 100 MG CAP PO SCH ×2 (09:03→21:46)
[2021-10-27] MEDS: levETIRAcetam 250 MG TAB PO SCH ×2 (09:03→23:25)
[2021-10-27] MEDS: BACLOFEN 10 MG TAB PO SCH ×3 (09:28→21:43)
[2021-10-27] MEDS: ACETAMINOPHEN 325 MG TAB PO SCH ×4 (09:28→21:43)
--- NOTE | 2021-10-27 10:26 | Pharmacy Report ---
Pharmacy Abx Dose Short Note - Date of Service October 27, 2021 - Assessment & Plan Assessment 81 year old F receiving Vancomycin for treatment of MRSA Pneumonia Day #3 of antimicrobial therapy. Plan Vancomycin * Trough level of 18.2 mcg/mL is therapeutic * Continue dose of Vancomycin 1250 mg IV every 12 hours * Goal trough level for Pneumonia: 15 to 20 mcg/mL * Will re-check trough Vanco level in around 2 to 3 days if therapy continues beyond that. Pharmacy will continue to follow and will adjust dose/frequency as necessary. Thank you.
--- NOTE | 2021-10-27 11:50 | Psychiatric Progress Note ---
Date of Service October 27, 2021 Impression / Recommendations Impression 81 yo female with chronic pain s/p significant suicide attempt with ongoing active SI. Appears improved and no longer focussed on DNR status. Perhaps does not remember OD. (1) Depression: (2) Suicide attempt: (3) Polysubstance overdose: case discussed with Dr. Aguiar as antidepressant use is limited due to QTc and certainly pain and underlying personality can present challenges to recovery and placement options. Cymbalta trial when able Dr. Aguiar will notify service when closer to medical clearance Risk Factors Assessment Do You Have Access To A Gun?: No (denies but need to confirm with if returns home) Interval History Identifying Information 81 yo female, chronic pain, s/p 2 suicide attempts Chief Complaint "I promised my son I'd try". Review of Systems Notes denies N/V/SOLORIO, "My opiod non responsive pain" Subjective Subjective Patient was seen & assessed and interval progress reviewed. Patient denies taking a drug OD, states that her attempt was via CO in the car and "my came home and messed that up". She is difficult to redirect to topic as gives emotional history about her pain and is focussed on how upsetting it was to see grown son crying. She remains focussed on doctors that did her "wrong" while o thers are all good. She appears much more comfortable but will not endorse that her pain is any better and started to discuss nurses/aides that she feels invalidated her pain. Physical Exam Psychiatric Orientation: alert Eye Contact: + fair eye contact Motor Behavior: no abnormal motor movements Speech: normal rate/rhythm/volume of speech Affect: + depressed affect Mood: + depressed mood Thought Process: + concrete thought process Thought Content: + preoccupation; not paranoid and no delusions Suicidal Thoughts: + reports suicidal thoughts Homicidal Thoughts: denies homicidal thoughts Hallucinations: no auditory hallucinations and no visual hallucinations Cognition: language grossly intact Estimated Intelligence: consistent with education level Vital Signs (Past 24 Hours) Last Vital Signs Temp 36.6 C 10/27/21 06:55 Pulse 59 L 10/27/21 08:00 Resp 18 10/27/21 06:55 BP 125/70 10/27/21 06:55 Pulse Ox 91 10/27/21 06:55 Results & Data ([facility]) Laboratory Results Laboratory Results - last 24 hr 10/27/21 10/27/21 08:27 08:27 25-OH Vitamin D Total 55.8 Vancomycin Trough 18.2 Current Inpatient Medications Current Inpatient Medications: Current Inpatient Medications Acetaminophen (Acetaminophen 325 Mg Tab) 650 mg PO QID [facility] Stop: 11/23/21 12:59 Last Admin: 10/27/21 09:28 Dose: 650 mg Documented by: Baclofen (Baclofen 10 Mg Tab) 10 mg PO TID [facility] Stop: 11/24/21 08:59 Last Admin: 10/27/21 09:28 Dose: 10 mg Documented by: Dextrose (Dextrose 50% 50 Ml Syringe) 25 - 50 ml IV UD PRN; Protocol PRN Reason: Hypoglycemia Protocol Stop: 11/22/21 13:03 Diclofenac Sodium (Diclofenac Sod 1% Gel 100 Gm Tube) 2 gm EXT QID [facility] Stop: 11/24/21 20:59 Last Admin: 10/27/21 09:03 Dose: Not Given Documented by: Docusate Sodium (Docusate Sodium 100 Mg Cap) 100 mg PO BID [facility] Stop: 11/22/21 20:59 Last Admin: 10/27/21 09:03 Dose: Not Given Documented by: Glucagon (Glucagon For Inj 1 Mg Vial) 1 mg SQ UD PRN; Protocol PRN Reason: Hypoglycemia Protocol Stop: 11/22/21 13:03 Glucose (Glucose 10 Tabs/Tube) 4 - 8 tabs PO UD PRN; Protocol PRN Reason: Hypoglycemia Protocol Stop: 11/22/21 13:03 Glucose (Glucose 40% Gel 15 Gm Tube) 15 - 30 gm PO UD PRN; Protocol PRN Reason: Hypoglycemia Protocol Stop: 11/22/21 13:03 Heparin Sodium (Porcine) (Heparin Sod 5,000 Unit/0.5 Ml Vial) 5,000 units SQ Q8 [facility] Stop: 11/22/21 21:59 Last Admin: 10/27/21 06:14 Dose: Not Given Documented by: Lorazepam (Ativan) 0.5 mg in 1 mls @ 1 mls/min IV Q4H PRN PRN Reason: anxiety, agitation Stop: 11/23/21 21:01 Vancomycin HCl 1,250 mg/ (Sodium Chloride) 275 mls @ 200 mls/hr IV Q12H [facility] Stop: 11/01/21 20:59 Last Infusion: 10/27/21 10:30 Dose: Infused Documented by: Ketorolac Tromethamine (Ketorolac Tromethamine 15 Mg/Ml Vial) 15 mg IV Q6H [facility] Stop: 10/29/21 11:14 Last Admin: 10/27/21 06:14 Dose: Not Given Documented by: Levetiracetam (Levetiracetam 250 Mg Tab) 250 mg PO BID [facility] Stop: 11/24/21 08:59 Last Admin: 10/27/21 09:03 Dose: 250 mg Documented by: Miscellaneous (Carbohydrates For Hypoglycemia ) 15 - 30 gm PO UD PRN PRN Reason: Hypoglycemia Protocol Stop: 11/22/21 13:03 Miscellaneous Information (Vancomycin Consult Active) 1 ea N/A UD PRN PRN Reason: Consult Stop: 11/24/21 08:28 Pantoprazole Sodium (Pantoprazole 40 Mg Tab) 40 mg PO QAM [facility] Stop: 11/23/21 08:59 Last Admin: 10/27/21 09:02 Dose: 40 mg Documented by: Polyethylene Glycol (Polyethylene (Miralax) 17 Gm Pack) 17 gm PO DAILY PRN PRN Reason: Constipation Stop: 11/22/21 13:03 Pregabalin (Pregabalin 150 Mg Cap) 150 mg PO BID [facility] Stop: 11/23/21 20:59 Sennosides (Senna 8.6 Mg Tab) 17.2 mg PO HS [facility] Stop: 11/22/21 20:59 Last Admin: 10/26/21 22:24 Dose: Not Given Documented by: Tapentadol (Tapentadol Hcl Er 50 Mg Tabcr) 50 mg PO Q12 [facility] Stop: 11/08/21 20:59 Last Admin: 10/27/21 09:02 Dose: 50 mg Documented by: Zolpidem Tartrate (Zolpidem Tartrate 10 Mg Tab) 10 mg PO HS PRN PRN Reason: Sleep Stop: 11/24/21 18:11 Last Admin: 10/26/21 22:20 Dose: 10 mg Documented by: (1) Depression Active/Remission status: in full remission (2) Polysubstance overdose Encounter type: initial encounter Injury intent: intentional self-harm Qualified Code(s): T50.902A - Poisoning by unspecified drugs, medicaments and biological substances, intentional self-harm, initial encounter
[2021-10-27 12:17] LABS: Codeine Urine NEGATIVE ng/mL (<50); Hydrocodone Urine NEGATIVE ng/mL (<50); Hydromor Urine >10000 ng/mL (<50); Morphine Urine NEGATIVE ng/mL (<50); Norhydrocodone Conf Ur NEGATIVE ng/mL (<50); Noroxycodone Urine NEGATIVE ng/mL (<50); Oxycodone Urine NEGATIVE ng/mL (<50); Oxymorph Urine NEGATIVE ng/mL (<50)
--- NOTE | 2021-10-27 17:20 | Hospitalist Progress Note ---
Date of Service October 27, 2021 Assessment & Plan (1) Polysubstance overdose: Plan: Reportedly overdose on Ambien and Dilaudidwas intubated and on pressors, but now improved. Extubated. Off pressors. Doing better in this respect. In regards to her depression, she relates that she believes if her back pain was better, her suicidality would be better as well. Does seem to be doing better in that regard (2) Intractable back pain: Plan: Seems to be multifactorial: -Back pain itself: --- This appears to be both underlying bone/disc pain, as well as overlying muscle and ligamentous pain --- Bone and disc pain: Trial of Nucynta, continue Toradol, continue Tylenol, await Ortho/spine input, but doubt anything surgical would be of benefit --- Muscle/ligamentous pain: Trial of OMT, diclofenac gel, baclofen -Peripheral/spinal cord nervous system facilitation: ---Given that she was not really getting much benefit from gabapentin or pregabalin, pain management has initiated Keppra, titrate as needed. --- Trial of OMT and diclofenac gel, while directed to work directly on the muscle and ligamentous pain, may help with desensitization some -Central nervous system facilitation/paindepression playing off of each other: ----Trial of Cymbalta once QTC allows All of the above will benefit from mobilization as best as possiblePT/OT eval and treat pleasantly continues to do better each day. Continue as above. MRI did show L4 osteoporotic type fracture, which may also be contributory to some of her paindiscussed with patient that with time and supportive care this should improve on its own. (3) Acute respiratory failure with hypoxia: Plan: Intubated on arrival to ER, fortunately now extubated (4) Aspiration pneumonitis: Plan: Was initially on Unasyn, [facility] cultures showing MRSAcontinue vanco - although with so little respiratory sx hopefully short course (given how good she is doing, would anticipate treating through 10/30) (5) Acute kidney injury: Plan: Fortunately resolved with fluids and support (6) Prolonged QT interval: Plan: Suspect related to outpatient fluoxetine. QT improved some, although still a little too long to start Cymbalta. (7) Depression: Plan: See above, would want to initiate Cymbalta in the near future, particularly as long as her QT can tolerate it. continue to follow QT. We will need to continue suicide precautions at the current time, and continue to reassess her suicidality as time goes bydepending on how she is doing with pain/depression/suicidality, it would be conceivable that she will need to go from the hospital to inpatient psych; at the same time, if she is doing much better, she may be more of a "medical" discharge with close psychiatric follow- up if she is doing much better (8) Lumbar spinal stenosis: Plan: See above under intractable back pain. Spinal stenosis is part of it. (9) Elevated troponin: Plan: Suspect demand-ischemia in setting of hypoxia. Fortunately only a mild elevation (10) Somatic dysfunction of lumbar region: Plan: OMT as above (lumbar and pelvis) (11) DVT prophylaxis: Plan: Heparin subcu (12) Discharge planning issues: Plan: Stable on telemetry, would be stable for MedSurg once QTC has resolved. Otherwise as above, discharge from the hospital still up in the air depending on her pain control, mobility, depression, suicidality Admission and Anticipated Discharge Date Admission Date: October 23, 2021 Subjective back pain doing better overall. did walk some - not intolerable pain. updated pt and on MRI as well. d/w psych, input appreciated Review of Systems Review of Systems: All systems reviewed & are unremarkable except as noted in HPI & below Physical Exam Physical Exam: In general she is awake and alert pleasant no distress. HEENT normocephalic atraumatic mucous membranes are moist. Breathing unlabored no accessory muscle use good effort. Skin shows no rashes no pallor or icterus. Right greater than left lumbar paraspinals and pelvic musculature (in the region of piriformis) high tone, tender, decreased range of motioninhibitory pressure/direct myofascialimproved, patient tolerated well. No focal neuro deficits. Results & Data Results & Data ([facility]) Vital Signs (Past 12 Hours) Vital Signs Temp Pulse Pulse Pulse Resp BP BP 10/27/21 16:00 69 10/27/21 15:06 98.1 F 55 L 20 132/71 10/27/21 11:43 98.2 F 76 18 143/79 H 10/27/21 08:00 59 L 10/27/21 06:55 97.9 F 58 L 18 125/70 Pulse Ox 10/27/21 16:00 10/27/21 15:06 92 10/27/21 11:43 93 10/27/21 08:00 10/27/21 06:55 91 PG Care Time/CCT Total # of Minutes Spent Total Time Spent with Patient: Total time spent is greater than 50% in coordination of care (as documented) at patient's floor/unit and/or counseling patient: Coding Level of Care Code 42983 Subseq Hosp Care Lvl 3 Diagnoses Polysubstance overdose T50.902A Encounter type: initial encounter Injury intent: intentional self-harm Intractable back pain M54.9 Acute respiratory failure with hypoxia J96.01 Aspiration pneumonitis J69.0 Acute kidney injury N17.9 Prolonged QT interval R94.31 Depression F32.9 Active/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
[2021-10-27] MEDS: ZOLPIDEM TARTRATE 10 MG TAB PO PRN (21:43)
[2021-10-27] MEDS: SENNA 8.6 MG TAB PO SCH (21:43)
--- NOTE | 2021-10-28 06:11 | Electrocardiogram Report ---
Test Reason : Blood Pressure : / mmHG Vent. Rate : 077 BPM Atrial Rate : 077 BPM P-R Int : 190 ms QRS Dur : 072 ms QT Int : 512 ms P-R-T Axes : 046 -10 -10 degrees QTc Int : 579 ms Sinus rhythm with Premature supraventricular complexes Low voltage QRS Poor R wave progression, consider anterior OR vs. lead placement vs. LVH Prolonged QT Abnormal ECG When compared with ECG of 25-OCT-2021 09:59, Premature supraventricular complexes are now Present Confirmed by Carlin Damico ([id number]) on 10/28/2021 6:11:29 AM Referred By: REFERRED SELF Confirmed By:Carlin Damico
[2021-10-28] MEDS: KETOROLAC TROMETHAMINE 15 MG/ML VIAL IV SCH ×3 (06:29→18:10)
[2021-10-28] MEDS: VANCOMYCIN HCL 1,250 MG in SODIUM CHLORIDE 0.9% 250 ML IV SCH ×2 (08:31→20:22)
[2021-10-28] MEDS: levETIRAcetam 250 MG TAB PO SCH ×2 (08:32→20:22)
[2021-10-28] MEDS: BACLOFEN 10 MG TAB PO SCH ×3 (08:32→20:22)
[2021-10-28] MEDS: PANTOprazole 40 MG TAB PO SCH (08:32)
[2021-10-28] MEDS: DICLOFENAC SOD 1% GEL 100 GM TUBE EXT SCH ×4 (08:32→20:22)
[2021-10-28] MEDS: DOCUSATE SODIUM 100 MG CAP PO SCH ×2 (08:32→20:22)
[2021-10-28] MEDS: HEPARIN SOD 5,000 UNIT/0.5 ML VIAL SQ SCH ×3 (08:33→20:23)
[2021-10-28] MEDS: TAPENTADOL HCL ER 50 MG TABCR PO SCH ×2 (08:38→20:22)
[2021-10-28] MEDS: ACETAMINOPHEN 325 MG TAB PO SCH ×4 (08:38→20:40)
[2021-10-28 09:23] LABS: Creatinine Clr Calc Pharmacy 82.2 ml/min; Est GFR (African American) 104.6 ml/min; Est GFR (Non-African American) 90.2 ml/min
--- NOTE | 2021-10-28 10:56 | Electrocardiogram Report ---
Test Reason : Blood Pressure : / mmHG Vent. Rate : 061 BPM Atrial Rate : 061 BPM P-R Int : 198 ms QRS Dur : 078 ms QT Int : 514 ms P-R-T Axes : 000 202 212 degrees QTc Int : 517 ms Sinus rhythm with Premature atrial complexes Right superior axis deviation Suspect limb lead reversal Low voltage QRS Inferior infarct , age undetermined Cannot rule out Anterior infarct , age undetermined T wave abnormality, consider anterior ischemia T wave abnormality, consider inferior ischemia Prolonged QT Abnormal ECG When compared with ECG of 26-OCT-2021 06:10, QRS axis Shifted left Limb lead reversal is now suspected Confirmed by Carlin Damico ([id number]) on 10/28/2021 10:56:30 AM Referred By: REFERRED SELF Confirmed By:Carlin Damico
--- NOTE | 2021-10-28 18:43 | Hospitalist Progress Note ---
Date of Service October 28, 2021 Assessment & Plan (1) Polysubstance overdose: Plan: Reportedly overdose on Ambien and Dilaudidwas intubated and on pressors, but now improved. Extubated. Off pressors. Doing better in this respect. In regards to her depression, she relates that she believes if her back pain was better, her suicidality would be better as well. Does seem to be doing better in that regard Plan for subacute rehab medically, will need to make sure is okay with psych once she is approved/accepted to a facility (2) Intractable back pain: Plan: Seems to be multifactorial: -Back pain itself: --- This appears to be both underlying bone/disc pain, as well as overlying muscle and ligamentous pain --- MRI showed L4 osteoporotic type fracture, also contributory, but will heal w ith time --- Bone and disc pain: Trial of Nucynta, continue Toradol, continue Tylenol, await Ortho/spine input, but doubt anything surgical would be of benefit --- Muscle/ligamentous pain: Trial of OMT, diclofenac gel, baclofen -Peripheral/spinal cord nervous system facilitation: ---Given that she was not really getting much benefit from gabapentin or pregabalin, pain management has initiated Keppra, titrate as needed. --- Trial of OMT and diclofenac gel, while directed to work directly on the muscle and ligamentous pain, may help with desensitization some -Central nervous system facilitation/paindepression playing off of each other: ----Trial of Cymbalta once QTC allows (improved today, but given that its the first time under 500, would like to see stability or ongoing improvement before introducing a potential QT prolonging agent) All of the above will benefit from mobilization as best as possiblePT/OT eval and treat Showing ongoing improvementplan will be to look at SNF/subacute rehab, as long as okay with psychiatry. Then continue above plan as an outpatient after discharge (3) Acute respiratory failure with hypoxia: Plan: Intubated on arrival to ER, fortunately now extubated (4) Aspiration pneumonitis: Plan: Was initially on Unasyn, bron cultures showing MRSAcontinue vanco - although with so little respiratory sx hopefully short course (given how good she is doing, would anticipate treating through 10/30), essentially no respiratory symptoms (5) Acute kidney injury: Plan: Fortunately resolved with fluids and support (6) Prolonged QT interval: Plan: Suspect related to outpatient fluoxetine. QT improvedsee above (7) Depression: Plan: See above, would want to initiate Cymbalta in the near future, particularly as long as her QT can tolerate it. continue to follow QT. We will need to continue suicide precautions at the current time, and continue to reassess her suicidality as time goes bydepending on how she is doing with pain/depression/suicidality, it would be conceivable that she will need to go from the hospital to inpatient psych; at the same time, it is looking more more likely that she may be more of a "medical" discharge with close psychiatric follow-up becauseshe is doing much better (8) Lumbar spinal stenosis: Plan: See above under intractable back pain. Spinal stenosis is part of it. (9) Elevated troponin: Plan: Suspect demand-ischemia in setting of hypoxia. Fortunately only a mild elevation (10) Somatic dysfunction of lumbar region: Plan: OMT done several times throughout her hospital stay, would benefit from ongoing OMT, particularly as an outpatient (11) DVT prophylaxis: Plan: Heparin subcu (12) Discharge planning issues: Plan: Stable on telemetry, would be stable for MedSurg once QTC has resolved. (Possibly tomorrow if QT stays shorter). At this point discharge from the hospital appears likely to be subacute rehab, as long as okay with psych once patient has a bed/approval/acceptance Admission and Anticipated Discharge Date Admission Date: October 23, 2021 Subjective Feeling better, pain under better control. Was able to get out of bed with assistance a little bit today. Seems pleasantly surprised that she was moving with far less pain. We discussed discharge planningfor now we both agreed that something along the lines of a subacute rehab would make the most sense. Later called and updatedanswered all questions to the best my ability. Review of Systems Review of Systems: All systems reviewed & are unremarkable except as noted in HPI & below Physical Exam Physical Exam: In general she is awake and alert pleasant no distress. HEENT normocephalic atraumatic mucous membranes moist. Breathing unlabored no accessory muscle use good effort. Skin shows no rashes no pallor or icterus. Neuro without focal deficits. Results & Data Results & Data ([facility]) Vital Signs (Past 12 Hours) Vital Signs Temp Pulse Pulse Pulse Resp BP BP 10/28/21 15:32 98.2 F 72 18 144/79 H 10/28/21 11:00 97.9 F 71 18 144/77 H 10/28/21 10:26 99.3 F 90 20 119/57 L 10/28/21 08:00 49 L 10/28/21 07:53 98.2 F 75 16 121/72 Pulse Ox 10/28/21 15:32 92 10/28/21 11:00 94 10/28/21 10:26 95 10/28/21 08:00 10/28/21 07:53 96 PG Care Time/CCT Total # of Minutes Spent Total Time Spent with Patient: Total time spent is greater than 50% in coordination of care (as documented) at patient's floor/unit and/or counseling patient: Coding Level of Care Code 81560 Subseq Hosp Care Lvl 3 Diagnoses Polysubstance overdose T50.902A Encounter type: initial encounter Injury intent: intentional self-harm Intractable back pain M54.9 Acute respiratory failure with hypoxia J96.01 Aspiration pneumonitis J69.0 Acute kidney injury N17.9 Prolonged QT interval R94.31 Depression F32.9 Active/Remission status: in full remission Lumbar spinal stenosis M48.061 Elevated troponin R77.8 Somatic dysfunction of lumbar region M99.03 DVT prophylaxis Z29.9 Discharge planning issues Z02.9 (1) Polysubstance overdose Encounter type: initial encounter Injury intent: intentional self-harm Qualified Code(s): T50.902A - Poisoning by unspecified drugs, medicaments and biological substances, intentional self-harm, initial encounter (2) Depression Active/Remission status: in full remission
[2021-10-28] MEDS: SENNA 8.6 MG TAB PO SCH (20:22)
[2021-10-28] MEDS: ZOLPIDEM TARTRATE 10 MG TAB PO PRN (22:40)
[2021-10-29] MEDS: KETOROLAC TROMETHAMINE 15 MG/ML VIAL IV SCH ×2 (00:48→06:06)
[2021-10-29] MEDS: HEPARIN SOD 5,000 UNIT/0.5 ML VIAL SQ SCH ×3 (06:06→22:04)
[2021-10-29] MEDS: PANTOprazole 40 MG TAB PO SCH (08:11)
[2021-10-29] MEDS: BACLOFEN 10 MG TAB PO SCH ×3 (08:11→20:15)
[2021-10-29] MEDS: levETIRAcetam 250 MG TAB PO SCH ×2 (08:11→20:16)
[2021-10-29] MEDS: DICLOFENAC SOD 1% GEL 100 GM TUBE EXT SCH ×4 (08:12→20:30)
--- NOTE | 2021-10-29 08:18 | Electrocardiogram Report ---
Test Reason : Blood Pressure : / mmHG Vent. Rate : 073 BPM Atrial Rate : 073 BPM P-R Int : 230 ms QRS Dur : 070 ms QT Int : 436 ms P-R-T Axes : 017 -27 -23 degrees QTc Int : 480 ms Sinus rhythm with 1st degree A-V block with Premature supraventricular complexes Low voltage QRS Nonspecific T wave abnormality Prolonged QT Abnormal ECG When compared with ECG of 27-OCT-2021 08:55, NH interval has increased Limb lead reversal is no longer present Confirmed by Carlin Damico ([id number]) on 10/29/2021 8:18:25 AM Referred By: REFERRED SELF Confirmed By:Carlin Damico
[2021-10-29] MEDS: TAPENTADOL HCL ER 50 MG TABCR PO SCH ×2 (08:22→20:29)
[2021-10-29] MEDS: DOCUSATE SODIUM 100 MG CAP PO SCH ×2 (08:23→20:15)
[2021-10-29] MEDS: ACETAMINOPHEN 325 MG TAB PO SCH ×4 (08:23→22:04)
[2021-10-29] MEDS ORDERED: VANCOMYCIN TROUGH ONE (08:30)
[2021-10-29 09:03] LABS: Creatinine Clr Calc Pharmacy 85.1 ml/min; Est GFR (African American) 105.9 ml/min; Est GFR (Non-African American) 91.4 ml/min
--- NOTE | 2021-10-29 09:43 | Pharmacy Report ---
Pharmacy Vanc AUC Short Note - Date of Service October 29, 2021 - Assessment & Plan Assessment 81 year old F receiving vancomycin for MRSA pneumonia Day # 5 of antimicrobial therapy. Plan Vancomycin * AUC/JAYLIN is the preferred PK/PD target for vancomycin * AUC guided dosing is effective and associated with decreased risk of nephrotoxicity compared to traditional trough targets * Slight bump in Scr yesterday, therefore trough level ordered for this morning. Trough level came back this morning at ~22 mcg/ml - this dosing is associated with AUC >600, therefore will decrease dosing to vancomycin 1000 mg iv q 12 hrs. This dosing is associated with predicated trough of ~18 mcg/ml, AUC 400- 600 and with 15% of nephrotoxicity * This AM vancomycin dose not given yet, therefore will place on hold then start new dosing of vancomycin when estimated level closer to ~15 mcg/ml * Will plan to reorder trough in next 2-3 days if plan is to continue longer Pharmacy will continue to follow and will adjust dose/frequency as necessary. Thank you.
--- NOTE | 2021-10-29 10:30 | Electrocardiogram Report ---
Test Reason : Blood Pressure : / mmHG Vent. Rate : 059 BPM Atrial Rate : 059 BPM P-R Int : 192 ms QRS Dur : 072 ms QT Int : 496 ms P-R-T Axes : 059 -18 -18 degrees QTc Int : 491 ms Sinus bradycardia with Premature atrial complexes Low voltage QRS Cannot rule out Anterior infarct , age undetermined Abnormal ECG When compared with ECG of 28-OCT-2021 09:04, (unconfirmed) ND interval has decreased Minimal criteria for Anterior infarct are now Present Confirmed by Joey Leone ([id number]) on 10/29/2021 10:30:03 AM Referred By: REFERRED SELF Confirmed By:Joey Leone
[2021-10-29] MEDS ORDERED: VANCOMYCIN HCL 1,000 MG in SODIUM CHLORIDE 0.9% 250 ML IV SCH (17:00)
--- NOTE | 2021-10-29 18:48 | Hospitalist Progress Note ---
Date of Service October 29, 2021 Assessment & Plan (1) Polysubstance overdose: Plan: Ambien and Dilaudid overdose at home prior to admission. Upon ER presentation was intubated. Admitted to ICU - extubated within 24 hours. Patient had thoughts of dying and suicide - driven by her acute/chronic back pain. Appreciate psych assistance. If physical rehab is not needed then inpatient psych post-discharge. (2) Intractable back pain: Plan: s/p extensive lumbar back surgery on 09/27/[address] Lopez. Post surgery had ongoing pain at home. This contributed to her suicidality and overdose. MRI lumbar spine earlier this week with sacral insufficiency fracture, previous L4 compression fracture, post-op seroma, intact hardware, etc. Spoke with Dr Lopez - nothing surgical at this time. Nothing infectious suspected. Appreciate pain management input as well as suggestions by previous attending - Dr Aguiar. Currently on nucynta 50mg BID, Keppra 250mg BID, scheduled tylenol, voltaren gel, baclofen. This combination seems to be helping her and she was comfortable today. Per the record she had little relief of pain from neuropathic pain agents - gabapentin or lyrica. Both stopped. Ideally cymbalta is added for mood & chronic pain - awaiting improvement in QTc. (3) Acute respiratory failure with hypoxia: Plan: Intubated on arrival to ER - 2nd to overdose. Resolved. (4) Aspiration pneumonitis: Plan: Was initially on Unasyn. Then bronch cultures grew MRSA. Changed to IV vanco on 10/25. Thus, today is day #5. Will change to PO doxy and complete 2 more days of such starting in am. Stop IV vanco tonight. (5) Acute kidney injury: Plan: resolved. Cr stable/improved. BMP am for stability. (6) Prolonged QT interval: Plan: but improving. recent K and mag wnl. (7) Depression: Plan: psych assistance appreciated. once QTc has normalized start cymbalta. see above. (8) Lumbar spinal stenosis: Plan: See above (9) Elevated troponin: Plan: 2nd myocardial demand ischemia rather than ACS (10) DVT prophylaxis: Plan: Heparin SC TID (11) Discharge planning issues: Plan: SNF vs acute inpatient rehab post-d/c vs psych admission Plan: d/c [facility] today d/c [facility] tomorrow updated at bedside Admission and Anticipated Discharge Date Admission Date: October 23, 2021 Subjective tele overnight wnl patient resting comfortably during my visit her arrived a few minutes I came to her room she reports her back pain is relatively controlled w/ current meds she has occasional radicular pain down the right posterior thigh denies significant cough denies dyspnea spirits are good today she is aware of needing rehab post-d/c -- not opposed to this Review of Systems Review of Systems: gen - no fever, eating well cv - no chest pain pulm - no congestion GI - no pain, mild constipation Physical Exam Physical Exam: gen - good spirits, NAD mouth - MMM neck - no JVD; L IJ CVC clean heart - RRR, s1 s2 lungs - mild rales bases, no wheeze abd - mild distension, BS+, NT ext - no edema, pulses 2+ b/l Results & Data Results & Data ([facility]) Vital Signs (Past 12 Hours) Vital Signs Temp Pulse Pulse Resp BP Pulse Ox 10/29/21 16:19 36.8 C 71 20 137/83 91 10/29/21 16:00 56 L 10/29/21 11:06 36.5 C 62 18 148/80 H 92 10/29/21 08:00 57 L 10/29/21 07:00 36.4 C L 71 16 133/77 93 Laboratory Results Laboratory Results - last 24 hr 10/29/21 10/29/21 08:19 08:19 Creatinine 0.50 L Est Cr Clr Drug Dosing 85.1 Est GFR ( Amer) 105.9 Est GFR (Non-Af Amer) 91.4 Vancomycin Trough 22.7 PG Care Time/CCT Total # of Minutes Spent Total Time Spent with Patient: Total time spent is greater than 50% in coordination of care (as documented) at patient's floor/unit and/or counseling patient: Coding Level of Care Code 43299 Subseq Hosp Care Lvl 3 Diagnoses Polysubstance overdose T50.902A Encounter type: initial encounter Injury intent: intentional self-harm Intractable back pain M54.9 Acute respiratory failure with hypoxia J96.01 Aspiration pneumonitis J69.0 Acute kidney injury N17.9 Prolonged QT interval R94.31 Depression F32.9 Active/Remission status: in full remission Lumbar spinal stenosis M48.061 Elevated troponin R77.8 DVT prophylaxis Z29.9 Discharge planning issues Z02.9 (1) Depression Active/Remission status: in full remission (2) Polysubstance overdose Encounter type: initial encounter Injury intent: intentional self-harm Qualified Code(s): T50.902A - Poisoning by unspecified drugs, medicaments and biological substances, intentional self-harm, initial encounter
[2021-10-29] MEDS: SENNA 8.6 MG TAB PO SCH (20:15)
[2021-10-29] MEDS: ZOLPIDEM TARTRATE 10 MG TAB PO PRN (23:01)
[2021-10-30] MEDS: HEPARIN SOD 5,000 UNIT/0.5 ML VIAL SQ SCH ×3 (06:08→22:55)
[2021-10-30 07:03] LABS: Hemoglobin 10.9 g/dL (12.0-16.0); Mean Corpuscular Hemoglobin 31.1 pg (25-34); Mean Corpuscular Hgb Conc 32.1 g/dL (32-36); Mean Corpuscular Volume 96.9 fL (80-100); Mean Platelet Volume 9.8 fL (7.4-10.4); Platelet Count 241 K/uL (130-400); RDW Coefficient of Variation 16.5 % (11.5-14.5); RDW Standard Deviation 58.3 fL (36.4-46.3); Red Blood Count 3.51 M/uL (4.2-5.4); White Blood Count 7.18 K/uL (4.8-10.8)
[2021-10-30 07:40] LABS: BUN Creatinine Ratio 17.5 (10-20); Calcium 8.4 mg/dl (8.5-10.1); Creatinine Clr Calc Pharmacy 96.6 ml/min; Est GFR (African American) 110.5 ml/min; Est GFR (Non-African American) 95.3 ml/min; Potassium 3.4 mmol/L (3.5-5.1)
[2021-10-30] MEDS: levETIRAcetam 250 MG TAB PO SCH ×2 (09:49→20:30)
[2021-10-30] MEDS: PANTOprazole 40 MG TAB PO SCH (09:50)
[2021-10-30] MEDS: BACLOFEN 10 MG TAB PO SCH ×3 (09:50→20:30)
[2021-10-30] MEDS: DICLOFENAC SOD 1% GEL 100 GM TUBE EXT SCH ×4 (09:52→20:30)
[2021-10-30] MEDS: POLYETHYLENE (MIRALAX) 17 GM PACK PO SCH ×2 (09:53→20:29)
[2021-10-30] MEDS: DOCUSATE SODIUM 100 MG CAP PO SCH ×2 (09:53→20:35)
[2021-10-30] MEDS: TAPENTADOL HCL ER 50 MG TABCR PO SCH ×2 (10:00→20:30)
[2021-10-30] MEDS: DOXYCYCLINE HYCLATE 100 MG CAP PO SCH ×2 (10:00→20:30)
[2021-10-30] MEDS: POTASSIUM CHLORIDE CRTAB 20 MEQ TABCR PO SCH ×2 (10:01→20:30)
[2021-10-30] MEDS: ACETAMINOPHEN 325 MG TAB PO SCH ×4 (10:01→21:55)
--- NOTE | 2021-10-30 19:46 | Hospitalist Progress Note ---
Date of Service October 30, 2021 Assessment & Plan (1) Polysubstance overdose: Plan: Ambien and Dilaudid overdose at home prior to admission. Upon ER presentation was intubated due to altered mental status. Admitted to ICU - extubated within 24 hours. Patient had thoughts of dying and suicide - driven by her acute/chronic back pain. Appreciate psych assistance. If physical rehab is not needed then inpatient psych post-discharge. (2) Intractable back pain: Plan: s/p extensive lumbar back surgery on 09/27/[address] Lopez. Post surgery had ongoing pain at home. This contributed to her suicidality and overdose. MRI lumbar spine earlier this week with sacral insufficiency fracture, previous L4 compression fracture, post-op seroma, intact hardware, etc. Spoke with Dr Lopez - nothing surgical at this time. Nothing infectious suspected either. Appreciate pain management input as well as suggestions by previous attending - Dr Aguiar. Currently on nucynta 50mg BID, Keppra 250mg BID, scheduled tylenol, voltaren gel, baclofen. This combination seems to be helping her and she was comfortable once again today. Declined any dose adjustment - pain is controlled. Per the record she had little relief of pain from neuropathic pain agents - gabapentin or lyrica. Both stopped. Ideally cymbalta is added for mood & chronic pain - awaiting improvement in QTc to initiate. (3) Acute respiratory failure with hypoxia: Plan: Intubated on arrival to ER - 2nd to overdose. Resolved. (4) Aspiration pneumonitis: Plan: Was initially on Unasyn. Then bronch cultures grew MRSA. Changed to IV vanco on 10/25. Today is day #6 of abx. Vanco stopped last pm. Changed to PO doxycycline today. Complete 2 more days of doxy then stop all abx. (5) Acute kidney injury: Plan: resolved. Cr stable. BMP today stable. (6) Prolonged QT interval: Plan: but improving. recent K and mag wnl. (7) Depression: Plan: psych assistance appreciated. once QTc has normalized start cymbalta. see above. (8) Lumbar spinal stenosis: Plan: See above (9) Elevated troponin: Plan: 2nd myocardial demand ischemia rather than ACS (10) DVT prophylaxis: Plan: Heparin SC TID (11) Discharge planning issues: Plan: SNF vs acute inpatient rehab post-d/c will be needed 50% functional loss on most recent PT/OT evals; both advising rehab post-d/c Plan: d/c central line today updated at bedside once again today Admission and Anticipated Discharge Date Admission Date: October 23, 2021 Subjective tele stable overnight pt resting in bed comfortably about to eat her meal at bedside offers no new complaints she didn't sleep well overnight but otherwise feels ok requests different sleep aid than her ambien back pain is controlled; doesn't feel she needs any dose adjustments voiding fine without her davidson Review of Systems Review of Systems: gen - no fevers or chills cv - no cp or orthopnea pulm - no cough or dyspnea GI - no pain, nausea or emesis Physical Exam Physical Exam: gen - good spirits, NAD, looks good mouth - MMM neck - no JVD; L IJ CVC clean heart - RRR, s1 s2 lungs - mild rales bases, no wheeze, good airation abd - soft, NT, ND, BS+ ext - no edema, pulses 2+ b/l psych - nl affect today Results & Data Results & Data ([facility]) Vital Signs (Past 12 Hours) Vital Signs Temp Pulse Pulse Pulse Resp BP Pulse Ox 10/30/21 18:46 36.7 C 76 18 130/78 93 10/30/21 16:18 36.9 C 62 18 147/88 H 93 10/30/21 16:00 83 10/30/21 11:14 36.6 C 80 18 133/81 91 10/30/21 08:00 81 Laboratory Results Laboratory Results - last 24 hr 10/30/21 10/30/21 06:32 06:32 WBC 7.18 RBC 3.51 L Hgb 10.9 L Hct 34.0 L MCV 96.9 MCH 31.1 MCHC 32.1 RDW Std Deviation 58.3 H RDW Coeff of Apple 16.5 H Plt Count 241 MPV 9.8 Sodium 144 Potassium 3.4 L Chloride 112 H Carbon Dioxide 29 Anion Gap 4.0 BUN 8 Creatinine 0.44 L Est Cr Clr Drug Dosing 96.6 Est GFR ( Amer) 110.5 Est GFR (Non-Af Amer) 95.3 BUN/Creatinine Ratio 17.5 Glucose 98 Calcium 8.4 L PG Care Time/CCT Total # of Minutes Spent Total Time Spent with Patient: Total time spent is greater than 50% in coordination of care (as documented) at patient's floor/unit and/or counseling patient: Coding Level of Care Code 35924 Subseq Hosp Care Lvl 2 Diagnoses Polysubstance overdose T50.902A Encounter type: initial encounter Injury intent: intentional self-harm Intractable back pain M54.9 Acute respiratory failure with hypoxia J96.01 Aspiration pneumonitis J69.0 Acute kidney injury N17.9 Prolonged QT interval R94.31 Depression F32.9 Active/Remission status: in full remission Lumbar spinal stenosis M48.061 Elevated troponin R77.8 DVT prophylaxis Z29.9 Discharge planning issues Z02.9 (1) Depression Active/Remission status: in full remission (2) Polysubstance overdose Encounter type: initial encounter Injury intent: intentional self-harm Qualified Code(s): T50.902A - Poisoning by unspecified drugs, medicaments and biological substances, intentional self-harm, initial encounter
[2021-10-30] MEDS: SENNA 8.6 MG TAB PO SCH (20:29)
[2021-10-30] MEDS: hydrOXYzine HCl 25 MG TAB PO PRN (22:55)
[2021-10-31] MEDS: HEPARIN SOD 5,000 UNIT/0.5 ML VIAL SQ SCH ×3 (05:47→21:32)
[2021-10-31] MEDS: POTASSIUM CHLORIDE CRTAB 20 MEQ TABCR PO SCH ×2 (08:27→20:15)
[2021-10-31] MEDS: ACETAMINOPHEN 325 MG TAB PO SCH ×4 (08:27→21:33)
[2021-10-31] MEDS: levETIRAcetam 250 MG TAB PO SCH ×2 (08:27→20:15)
[2021-10-31] MEDS: DICLOFENAC SOD 1% GEL 100 GM TUBE EXT SCH ×4 (08:28→20:15)
[2021-10-31] MEDS: DOXYCYCLINE HYCLATE 100 MG CAP PO SCH ×2 (08:28→20:15)
[2021-10-31] MEDS: DOCUSATE SODIUM 100 MG CAP PO SCH ×2 (08:28→20:13)
[2021-10-31] MEDS: PANTOprazole 40 MG TAB PO SCH (08:28)
[2021-10-31] MEDS: BACLOFEN 10 MG TAB PO SCH ×3 (08:28→20:15)
[2021-10-31] MEDS: POLYETHYLENE (MIRALAX) 17 GM PACK PO SCH ×2 (08:29→20:13)
[2021-10-31] MEDS: TAPENTADOL HCL ER 50 MG TABCR PO SCH ×2 (08:39→20:24)
[2021-10-31 09:17] LABS: BUN Creatinine Ratio 17.2 (10-20); Calcium 8.6 mg/dl (8.5-10.1); Creatinine Clr Calc Pharmacy 84.6 ml/min; Est GFR (African American) 105.9 ml/min; Est GFR (Non-African American) 91.4 ml/min; Magnesium 2.1 mg/dl (1.8-2.4); Potassium 3.9 mmol/L (3.5-5.1)
--- NOTE | 2021-10-31 15:48 | Hospitalist Progress Note ---
Date of Service October 31, 2021 Assessment & Plan (1) Polysubstance overdose: Plan: Ambien and Dilaudid overdose at home prior to admission. Both meds d/c. Upon ER presentation was intubated due to altered mental status. Admitted to ICU - extubated within 24 hours. Patient had thoughts of dying and suicide at home - instigated by her acute/chronic back pain. Appreciate psych assistance. If physical rehab is not needed then inpatient psych post-discharge. (2) Intractable back pain: Plan: s/p extensive lumbar back surgery on 09/27/[address] Lopez. Post surgery had ongoing pain at home. This contributed to her suicidality and overdose. MRI lumbar spine earlier this week with sacral insufficiency fracture, previous L4 compression fracture, post-op seroma, intact hardware, etc. Spoke with Dr Lopez - nothing surgical at this time. Nothing infectious suspected either. Appreciate pain management input as well as suggestions by previous attending - Dr Aguiar. Currently on nucynta 50mg BID, Keppra 250mg BID, scheduled tylenol, voltaren gel, baclofen. This combination is working well. Again declines any dose adjustment - pain controlled. Per the record she had little relief of pain from neuropathic pain agents - gabapentin or lyrica. Both stopped. Ideally cymbalta is added for mood & chronic pain - awaiting improvement in QTc to initiate. QTc is improved today - nearly normal. (3) Acute respiratory failure with hypoxia: Plan: Intubated on arrival to ER - 2nd to overdose. Resolved. (4) Aspiration pneumonitis: Plan: Was initially on Unasyn. Then bronch cultures grew MRSA. Changed to IV vanco on 10/25. Today is day #7 of abx. stop all abx today. (5) Acute kidney injury: Plan: resolved. Cr stable. (6) Prolonged QT interval: Plan: but improving. recent K and mag wnl. see above. (7) Depression: Plan: psych assistance appreciated. once QTc has normalized start cymbalta. see above. (8) Lumbar spinal stenosis: Plan: See above (9) Elevated troponin: Plan: 2nd myocardial demand ischemia rather than ACS (10) DVT prophylaxis: Plan: Heparin SC TID (11) Discharge planning issues: Plan: SNF for rehab at discharge. 50% functional loss on most recent PT/OT evals; both advising rehab post-d/c (12) Carpal tunnel syndrome of right wrist: Plan: pt reported today that she has annoying numbness of right hand from her CTS ordered wrist splint for her - wear at HS, and during the day as desired Plan: updated at bedside once again today can move to med/surg Admission and Anticipated Discharge Date Admission Date: October 23, 2021 Subjective patient slept well overnight feels good today voiding fine central line is out - she is more comfortable eating well back pain is controlled at bedside they asked about rehab, etc of note - tele wnl Review of Systems Review of Systems: gen - decent energy, good appetite CV - no chest pain pulm - no cough or congestion GI - no N/V/D - no dysuria Physical Exam Physical Exam: gen - NAD, looks rested neck - no JVD; L IJ CVC is now gone, dressing intact heart - RRR, s1 s2, no murmur lungs - CTA b/l abd - soft, NT, ND, BS+ ext - no edema, pulses 2+ b/l psych - nl affect today Results & Data Results & Data ([facility]) Vital Signs (Past 12 Hours) Vital Signs Temp Pulse Pulse Resp BP BP Pulse Ox 10/31/21 15:40 36.5 C 60 16 142/86 H 93 10/31/21 15:00 63 10/31/21 11:06 36.3 C L 69 16 118/73 91 10/31/21 08:00 56 L 10/31/21 07:12 36.6 C 68 16 158/76 H 94 10/31/21 04:00 36.8 C 62 18 108/68 92 Laboratory Results Laboratory Results - last 24 hr 10/31/21 07:34 Sodium 144 Potassium 3.9 Chloride 112 H Carbon Dioxide 27 Anion Gap 5.0 BUN 9 Creatinine 0.50 L Est Cr Clr Drug Dosing 84.6 Est GFR ( Amer) 105.9 Est GFR (Non-Af Amer) 91.4 BUN/Creatinine Ratio 17.2 Glucose 86 Calcium 8.6 Magnesium 2.1 Diagnostic Findings EKG - my reading - NSR, QTc about 470msec PG Care Time/CCT Total # of Minutes Spent Total Time Spent with Patient: Total time spent is greater than 50% in coordination of care (as documented) at patient's floor/unit and/or counseling patient: Coding Level of Care Code 09847 Subseq Hosp Care Lvl 2 Diagnoses Polysubstance overdose T50.902A Encounter type: initial encounter Injury intent: intentional self-harm Intractable back pain M54.9 Acute respiratory failure with hypoxia J96.01 Aspiration pneumonitis J69.0 Acute kidney injury N17.9 Prolonged QT interval R94.31 Depression F32.9 Active/Remission status: in full remission Lumbar spinal stenosis M48.061 Elevated troponin R77.8 DVT prophylaxis Z29.9 Discharge planning issues Z02.9 Carpal tunnel syndrome of right wrist G56.01 (1) Depression Active/Remission status: in full remission (2) Polysubstance overdose Encounter type: initial encounter Injury intent: intentional self-harm Qualified Code(s): T50.902A - Poisoning by unspecified drugs, medicaments and biological substances, intentional self-harm, initial encounter
[2021-10-31] MEDS: SENNA 8.6 MG TAB PO SCH (20:13)
[2021-10-31] MEDS: hydrOXYzine HCl 25 MG TAB PO PRN (21:34)
[2021-11-01] MEDS: HEPARIN SOD 5,000 UNIT/0.5 ML VIAL SQ SCH ×3 (05:41→21:27)
--- NOTE | 2021-11-01 07:46 | Electrocardiogram Report ---
Test Reason : Blood Pressure : / mmHG Vent. Rate : 072 BPM Atrial Rate : 072 BPM P-R Int : 226 ms QRS Dur : 074 ms QT Int : 434 ms P-R-T Axes : 063 -16 029 degrees QTc Int : 475 ms Sinus rhythm with 1st degree A-V block with Premature supraventricular complexes Low voltage QRS Nonspecific T wave abnormality Prolonged QT Abnormal ECG When compared with ECG of 29-OCT-2021 06:23, TN interval has increased Confirmed by Jordin House ([id number]) on 11/01/2021 7:45:32 AM Referred By: REFERRED SELF Confirmed By:Kash House
[2021-11-01] MEDS: ACETAMINOPHEN 325 MG TAB PO SCH ×4 (07:51→21:26)
[2021-11-01] MEDS: BACLOFEN 10 MG TAB PO SCH ×3 (07:51→20:38)
[2021-11-01] MEDS: TAPENTADOL HCL ER 50 MG TABCR PO SCH ×2 (07:51→20:38)
[2021-11-01] MEDS: DICLOFENAC SOD 1% GEL 100 GM TUBE EXT SCH ×4 (07:52→20:38)
[2021-11-01] MEDS: POTASSIUM CHLORIDE CRTAB 20 MEQ TABCR PO SCH ×2 (07:52→20:38)
[2021-11-01] MEDS: PANTOprazole 40 MG TAB PO SCH (07:56)
[2021-11-01] MEDS: POLYETHYLENE (MIRALAX) 17 GM PACK PO SCH ×2 (07:56→20:37)
[2021-11-01] MEDS: levETIRAcetam 250 MG TAB PO SCH ×2 (07:56→20:38)
[2021-11-01] MEDS: DOCUSATE SODIUM 100 MG CAP PO SCH ×2 (07:56→20:37)
--- NOTE | 2021-11-01 19:33 | Hospitalist Progress Note ---
Date of Service November 01, 2021 Assessment & Plan (1) Polysubstance overdose: Plan: Ambien and Dilaudid overdose at home prior to admission. Both meds d/c. Upon ER presentation was intubated due to altered mental status. Subsequently admitted to ICU - extubated within 24 hours. Patient had thoughts of dying and suicide at home - instigated by her acute/chronic back pain. Appreciate psych assistance. If physical rehab is not needed then inpatient psych post-discharge. Psych continues to follow. (2) Intractable back pain: Plan: s/p extensive lumbar back surgery on 09/27/[address] Lopez. Post surgery had ongoing pain at home. This contributed to her suicidality and overdose. MRI lumbar spine 10/26/21 with sacral insufficiency fracture, previous L4 compression fracture, post-op seroma, intact hardware, etc. Spoke with Dr Lopez - nothing surgical at this time. Nothing infectious suspected. Appreciate pain management input as well as suggestions by previous attending - Dr Aguiar. Currently on nucynta 50mg BID, Keppra 250mg BID, scheduled tylenol, voltaren gel, baclofen. She feels pain is adequately controlled w/ the above. Per the record she had little relief of pain from neuropathic pain agents - gabapentin or lyrica - both meds d/c. Ideally cymbalta is added for mood & chronic pain - awaiting improvement in QTc to initiate. QTc still about 480msec. (3) Acute respiratory failure with hypoxia: Plan: Intubated on arrival to ER - 2nd to overdose. Resolved. (4) Aspiration pneumonitis: Plan: Was initially on Unasyn. Then bronch cultures grew MRSA. Changed to IV vanco on 10/25. Received 5 days of IV vanco followed by 2 days of PO doxycycline - all abx d/c. Lungs clear, sats wnl, no pulmonary symptoms. (5) Acute kidney injury: Plan: resolved. Cr stable. (6) Prolonged QT interval: Plan: but improving. recent K and mag wnl. see above discussion in #2. (7) Depression: Plan: psych assistance appreciated. once QTc has normalized start cymbalta. see above. (8) Lumbar spinal stenosis: Plan: See above (9) Elevated troponin: Plan: 2nd myocardial demand ischemia rather than ACS (10) DVT prophylaxis: Plan: Heparin SC TID (11) Discharge planning issues: Plan: SNF for rehab at discharge. 50% functional loss on most recent PT/OT evals; both advising rehab post-d/c patient still wishing to attend rehab. (12) Carpal tunnel syndrome of right wrist: Plan: wrist splint ordered and is at bedside patient to start using dx with this by orthopedics in the past Plan: updated at bedside once again today awaiting tx to med/surg unit progressing nicely Admission and Anticipated Discharge Date Admission Date: October 23, 2021 Subjective no events overnight slept better yesterday evening did receive wrist splint for right CTS - will use it [employer] tele overnight wnl pt's at bedside - we discussed SNF placement post-discharge - she still wants to attend rehab denies any new complaints Review of Systems Review of Systems: gen - no fevers, chills, or appetite loss; no fatigue CV - no chest pain, tightness or orthopnea pulm - no cough, no dyspnea GI - no N/V/D/pain - voiding fine (davidson d/c 2 days ago) neuro - overall strength is improving; she is pleased with her progress with PT today Physical Exam Physical Exam: gen - NAD, looks very good today neck - no JVD; L IJ CVC is now gone, dressing intact, no hematoma heart - RRR, s1 s2, no murmur lungs - CTA b/l abd - soft, NT, ND, BS+ ext - no edema, pulses 2+ b/l psych - affect full, a/o x 3 neuro - strength 5/5 x 4 extremities Results & Data Results & Data ([facility]) Vital Signs (Past 12 Hours) Vital Signs Temp Pulse Pulse Resp BP Pulse Ox 11/01/21 16:00 37 C 61 14 116/79 92 11/01/21 15:00 59 L 11/01/21 11:10 36.5 C 62 16 129/78 94 11/01/21 07:46 37 C 73 16 151/75 H 92 PG Care Time/CCT Total # of Minutes Spent Total Time Spent with Patient: Total time spent is greater than 50% in coordination of care (as documented) at patient's floor/unit and/or counseling patient: Coding Level of Care Code 49778 Subseq Hosp Care Lvl 2 Diagnoses Polysubstance overdose T50.902A Encounter type: initial encounter Injury intent: intentional self-harm Intractable back pain M54.9 Acute respiratory failure with hypoxia J96.01 Aspiration pneumonitis J69.0 Acute kidney injury N17.9 Prolonged QT interval R94.31 Depression F32.9 Active/Remission status: in full remission Lumbar spinal stenosis M48.061 Elevated troponin R77.8 DVT prophylaxis Z29.9 Discharge planning issues Z02.9 Carpal tunnel syndrome of right wrist G56.01 (1) Depression Active/Remission status: in full remission (2) Polysubstance overdose Encounter type: initial encounter Injury intent: intentional self-harm Qualified Code(s): T50.902A - Poisoning by unspecified drugs, medicaments and biological substances, intentional self-harm, initial encounter
[2021-11-01] MEDS: SENNA 8.6 MG TAB PO SCH (20:37)
[2021-11-01] MEDS: hydrOXYzine HCl 25 MG TAB PO PRN (21:26)
[2021-11-02] MEDS: ACETAMINOPHEN 325 MG TAB PO SCH ×4 (07:41→21:22)
[2021-11-02] MEDS: TAPENTADOL HCL ER 50 MG TABCR PO SCH ×2 (07:41→21:26)
[2021-11-02] MEDS: DICLOFENAC SOD 1% GEL 100 GM TUBE EXT SCH ×4 (07:42→21:23)
[2021-11-02] MEDS: POTASSIUM CHLORIDE CRTAB 20 MEQ TABCR PO SCH ×2 (07:43→21:25)
[2021-11-02] MEDS: levETIRAcetam 250 MG TAB PO SCH ×2 (07:43→21:24)
[2021-11-02] MEDS: HEPARIN SOD 5,000 UNIT/0.5 ML VIAL SQ SCH ×3 (07:43→21:26)
[2021-11-02] MEDS: BACLOFEN 10 MG TAB PO SCH ×3 (07:44→21:23)
[2021-11-02] MEDS: PANTOprazole 40 MG TAB PO SCH (07:44)
[2021-11-02] MEDS: POLYETHYLENE (MIRALAX) 17 GM PACK PO SCH ×2 (07:44→21:25)
[2021-11-02] MEDS: DOCUSATE SODIUM 100 MG CAP PO SCH ×2 (07:44→21:24)
--- NOTE | 2021-11-02 18:48 | Hospitalist Progress Note ---
Date of Service November 02, 2021 Assessment & Plan (1) Polysubstance overdose: Plan: Reportedly overdose on Ambien and Dilaudidwas intubated and on pressors, but now improved. Extubated. Off pressors. Doing better in this respect. In regards to her depression, she relates that she believes if her back pain was better, her suicidality would be better as well. Does seem to be doing better in that regard Plan for subacute rehab medically, will need to make sure is okay with psych once she is approved/accepted to a facility, but appears this will be the case (2) Intractable back pain: Plan: Seems to be multifactorial: -Back pain itself: --- This appears to be both underlying bone/disc pain, as well as overlying muscle and ligamentous pain --- MRI showed L4 osteoporotic type fracture, also contributory, but will heal with time --- Bone and disc pain: Continue Nucynta, Keppra --- Muscle/ligamentous pain: Trial of OMT, diclofenac gel, baclofen -Peripheral/spinal cord nervous system facilitation: --- Continue Keppra --- Continue OMT and diclofenac gel, while directed to work directly on the muscle and ligamentous pain, may help with desensitization some -Central nervous system facilitation/paindepression playing off of each other: ----Trial of Cymbalta once QTC allows (still overall fairly long QT) All of the above will benefit from mobilization as best as possiblePT/OT eval and treat Showing ongoing improvementplan will be to look at SNF/subacute rehab, as long as okay with psychiatry. Then continue above plan as an outpatient after discharge (3) Acute respiratory failure with hypoxia: Plan: Intubated on arrival to ER, fortunately now extubated, breathing is stable (4) Aspiration pneumonitis: Plan: Treated and resolvedbronch cultures did show MRSAwas treated with vancomycin (5) Acute kidney injury: Plan: Fortunately resolved with fluids and support (6) Prolonged QT interval: Plan: Suspect related to outpatient fluoxetine. QT improvedsee above (7) Depression: Plan: See above, would want to initiate Cymbalta in the near future, particularly as long as her QT can tolerate it. continue to follow QT periodically. Appears to be doing much better from a suicidality standpoint. Suspect she will be stable for SNF/rehab emphasis with outpatient psych (8) Lumbar spinal stenosis: Plan: See above under intractable back pain. Spinal stenosis is part of it. (9) Elevated troponin: Plan: Suspect demand-ischemia in setting of hypoxia. Fortunately only a mild elevation (10) Somatic dysfunction of lumbar region: Plan: OMT as above t (11) DVT prophylaxis: Plan: Heparin subcu (12) [facility] issues: [facility] anticipate discharge to subacute rehab once bed available. Admission and Anticipated Discharge Date Admission Date: October 23, 2021 Subjective Back pain feeling better. Doing better with therapy overall. Still feels like she should go to rehab, as does her . Pleased with her progress. Review of Systems Review of Systems: All systems reviewed & are unremarkable except as noted in HPI & below Physical Exam Physical Exam: In general she is awake and alert pleasant no distress. HEENT normocephalic atraumatic mucous membranes moist. Breathing unlabored no accessory muscle use good effort. Skin shows no rashes no pallor or icterus. Right greater than left L-spine paraspinals high tone, tender, decreased range of motionboth improved fairly quickly with direct myofascial and a degree of inhibitory pressure. Patient tolerated well. Results & Data Results & Data ([facility]) Vital Signs (Past 12 Hours) Vital Signs Temp Pulse Pulse Pulse Resp BP BP 11/02/21 16:49 81 11/02/21 15:02 97.2 F L 74 15 117/71 11/02/21 10:51 97.9 F 71 12 114/71 11/02/21 07:32 100.4 F H 65 17 147/75 H 11/02/21 07:00 61 Pulse Ox 11/02/21 16:49 11/02/21 15:02 92 11/02/21 10:51 11/02/21 07:32 98 11/02/21 07:00 PG Care Time/CCT Total # of Minutes Spent Total Time Spent with Patient: Total time spent is greater than 50% in coordination of care (as documented) at patient's floor/unit and/or counseling patient: Coding Level of Care Code 66172 Subseq Hosp Care Lvl 2 Diagnoses Polysubstance overdose T50.902A Encounter type: initial encounter Injury intent: intentional self-harm Intractable back pain M54.9 Acute respiratory failure with hypoxia J96.01 Aspiration pneumonitis J69.0 Acute kidney injury N17.9 Prolonged QT interval R94.31 Depression F32.9 Active/Remission status: in full remission Lumbar spinal stenosis M48.061 Elevated troponin R77.8 Somatic dysfunction of lumbar region M99.03 DVT prophylaxis Z29.9 Discharge planning issues Z02.9 CPT Codes Musculoskeletal - Musculoskeletal: [address] 1-2 Body regions ([id number]) (1) Polysubstance overdose Encounter type: initial encounter Injury intent: intentional self-harm Qualified Code(s): T50.902A - Poisoning by unspecified drugs, medicaments and biological substances, intentional self-harm, initial encounter (2) Depression Active/Remission status: in full remission
[2021-11-02] MEDS: SENNA 8.6 MG TAB PO SCH (21:25)
[2021-11-02] MEDS: hydrOXYzine HCl 25 MG TAB PO PRN (21:26)
[2021-11-03] MEDS: HEPARIN SOD 5,000 UNIT/0.5 ML VIAL SQ SCH ×3 (05:31→21:04)
[2021-11-03] MEDS: ACETAMINOPHEN 325 MG TAB PO SCH ×4 (08:30→21:15)
[2021-11-03] MEDS: TAPENTADOL HCL ER 50 MG TABCR PO SCH ×2 (08:31→21:03)
[2021-11-03] MEDS: levETIRAcetam 250 MG TAB PO SCH ×2 (08:32→21:05)
[2021-11-03] MEDS: POLYETHYLENE (MIRALAX) 17 GM PACK PO SCH ×2 (08:32→21:03)
[2021-11-03] MEDS: BACLOFEN 10 MG TAB PO SCH ×3 (08:32→21:05)
[2021-11-03] MEDS: DOCUSATE SODIUM 100 MG CAP PO SCH ×2 (08:32→21:04)
[2021-11-03] MEDS: DICLOFENAC SOD 1% GEL 100 GM TUBE EXT SCH ×4 (08:32→21:03)
[2021-11-03] MEDS: PANTOprazole 40 MG TAB PO SCH (08:34)
--- NOTE | 2021-11-03 14:24 | Psychiatric Progress Note ---
Date of Service November 03, 2021 Impression / Recommendations Impression 81 yo female with chronic pain s/p significant suicide attempt. She has been receiving medical treatment following the overdose attempt and now is unsure if it was even intentional though does recall experiencing SI due to her high level of chronic pain. Now her pain has been improving and her mood as well, she denies SI, she is future-oriented, hopeful, motivated to participate in [facility]/PT and notes significant deterrents to suicide and multiple strong reasons for living. She is willing to participate in outpatient therapy and she consents to starting Cymbalta to help address pain and depression. Reviewed risks, benefits, alternatives including but not limited to QTc changes, GI symptoms, BP changes. QTc interval now <500 so appropriate to start low dose Cymbalta. Acute risk of harm to self is low given improvement in mood, motivation to participate in treatment, denial of SI, reasons to live, hopefulness and future- orientation. Chronic risk is moderate given prior attempts and chronic pain. She is not in need of inpatient psychiatric treatment and appropriate for subacute rehab which will help to continue to address her most significant modifiable risk factor of pain and decreased mobility to reduce acute and chronic risk. (1) Depression: (2) Intractable back pain: -Discontinue 1-on-1 -Start Cymbalta 20 mg qAM, can recheck QTc via EKG in 2-3 days to ensure <500 -Safe for subacute rehab from psychiatric standpoint -psych liason will work on setting up outpatient therapy Risk Factors Assessment Do You Have Access To A Gun?: No (denies but need to confirm with if returns home) Interval History Identifying Information 81 yo woman with chronic pain who was admitted following a suicide attempt via polypharmacy ingestion. Psychiatry consulted for recommendations. Chief Complaint "I didn't even realize why I was hospitalized, I don't remember taking the pills, I'm not even sure it was intentional". Review of Systems Notes Endorses hip and leg pain. Stable sleep and appetite. Subjective Subjective Patient was seen & assessed and interval progress reviewed.Kami reports her pain is getting better and her mobility is improving a lot and she is enjoying working with PT every day. However, she continues to have chronic sciatica pain which does negatively impact her mood. However she feels her mood is improving as the pain has gotten better and notes that she no longer has active SI. Sometimes she feels depressed from the pain and will have passive SI but she adamantly denies any active SI and notes "seeing how much it upset my and sons, I could never do that to them again, I promised them I need to keep living and I will". She notes significant deterrents to suicide and reasons for living including her family. She also expresses hopefulness about the pain getting better and options for other treatments to explore in the future if it doesn't such as ablation. She is interested in starting cymbalta. She is also interested in doing outpatient therapy again after she finishes subacute rehab. She feels safe in the hospital and feels she no longer needs a 1-on-1 to remain safe. Physical Exam Psychiatric Orientation: alert and oriented x 3 Apperance: appropriately dressed and appropriately groomed Eye Contact: good eye contact Motor Behavior: no abnormal motor movements Speech: normal rate/rhythm/volume of speech Affect: euthymic affect Mood: + depressed mood Thought Process: goal directed thought process Thought Content: reality based without delusions Suicidal Thoughts: denies suicidal thoughts Homicidal Thoughts: denies homicidal thoughts Hallucinations: no auditory hallucinations and no visual hallucinations Cognition: recent memory grossly intact, remote memory grossly intact, attention grossly intact and language grossly intact Estimated Intelligence: consistent with education level Insight: + fair insight Judgement: + fair judgement Vital Signs (Past 24 Hours) Last Vital Signs Temp 36.5 C 11/03/21 07:00 Pulse 65 11/03/21 07:00 Resp 18 11/03/21 07:00 BP 116/63 11/03/21 07:00 Pulse Ox 92 11/03/21 07:00 Results & Data ([facility]) Current Inpatient Medications Current Inpatient Medications: Current Inpatient Medications Acetaminophen (Acetaminophen 325 Mg Tab) 650 mg PO QID [facility] Stop: 11/23/21 12:59 Last Admin: 11/03/21 13:15 Dose: 650 mg Documented by: Baclofen (Baclofen 10 Mg Tab) 10 mg PO TID [facility] Stop: 11/24/21 08:59 Last Admin: 11/03/21 13:16 Dose: 10 mg Documented by: Dextrose (Dextrose 50% 50 Ml Syringe) 25 - 50 ml IV UD PRN; Protocol PRN Reason: Hypoglycemia Protocol Stop: 11/22/21 13:03 Diclofenac Sodium (Diclofenac Sod 1% Gel 100 Gm Tube) 2 gm EXT QID АНДРЕЙ Stop: 11/24/21 20:59 Last Admin: 11/03/21 13:16 Dose: 2 gm Documented by: Docusate Sodium (Docusate Sodium 100 Mg Cap) 100 mg PO BID [facility] Stop: 11/22/21 20:59 Last Admin: 11/03/21 08:32 Dose: Not Given Documented by: Glucagon (Glucagon For Inj 1 Mg Vial) 1 mg SQ UD PRN; Protocol PRN Reason: Hypoglycemia Protocol Stop: 11/22/21 13:03 Glucose (Glucose 10 Tabs/Tube) 4 - 8 tabs PO UD PRN; Protocol PRN Reason: Hypoglycemia Protocol Stop: 11/22/21 13:03 Glucose (Glucose 40% Gel 15 Gm Tube) 15 - 30 gm PO UD PRN; Protocol PRN Reason: Hypoglycemia Protocol Stop: 11/22/21 13:03 Heparin Sodium (Porcine) (Heparin Sod 5,000 Unit/0.5 Ml Vial) 5,000 units SQ Q8 АНДРЕЙ Stop: 11/22/21 21:59 Last Admin: 11/03/21 13:16 Dose: 5,000 units Documented by: Hydroxyzine HCl (Hydroxyzine Hcl 25 Mg Tab) 25 mg PO HS PRN PRN Reason: insomnia/sleep Stop: 11/29/21 18:56 Last Admin: 11/02/21 21:26 Dose: 25 mg Documented by: Levetiracetam (Levetiracetam 250 Mg Tab) 250 mg PO BID [facility] Stop: 11/24/21 08:59 Last Admin: 11/03/21 08:32 Dose: 250 mg Documented by: Miscellaneous (Carbohydrates For Hypoglycemia ) 15 - 30 gm PO UD PRN PRN Reason: Hypoglycemia Protocol Stop: 11/22/21 13:03 Pantoprazole Sodium (Pantoprazole 40 Mg Tab) 40 mg PO QAM [facility] Stop: 11/23/21 08:59 Last Admin: 11/03/21 08:34 Dose: 40 mg Documented by: Polyethylene Glycol (Polyethylene (Miralax) 17 Gm Pack) 17 gm PO BID [facility] Stop: 11/29/21 08:59 Last Admin: 11/03/21 08:32 Dose: Not Given Documented by: Sennosides (Senna 8.6 Mg Tab) 17.2 mg PO HS [facility] Stop: 11/22/21 20:59 Last Admin: 11/02/21 21:25 Dose: Not Given Documented by: Tapentadol (Tapentadol Hcl Er 50 Mg Tabcr) 50 mg PO Q12 АНДРЕЙ Stop: 11/08/21 20:59 Last Admin: 11/03/21 08:31 Dose: 50 mg Documented by: (1) Depression Active/Remission status: in full remission
--- NOTE | 2021-11-03 17:10 | Hospitalist Progress Note ---
Date of Service November 03, 2021 Assessment & Plan (1) Polysubstance overdose: Plan: Reportedly overdose on Ambien and Dilaudidwas intubated and on pressors, but now improved. Extubated. Off pressors. Doing better in this respect. In regards to her depression, she relates that she believes if her back pain was better, her suicidality would be better as well. Does seem to be doing better in that regard Now appearing that plan will be home/outpatient therapy. Psychiatry initiating Cymbalta today, one-to-one discontinued. (2) Intractable back pain: Plan: Seems to be multifactorial: -Back pain itself: --- This appears to be both underlying bone/disc pain, as well as overlying muscle and ligamentous pain --- MRI showed L4 osteoporotic type fracture, also contributory, but will heal w ith time --- Bone and disc pain: Continue Nucynta, Keppra --- Muscle/ligamentous pain: Trial of OMT, diclofenac gel, baclofen -Peripheral/spinal cord nervous system facilitation: --- Continue Keppra --- Continue OMT and diclofenac gel, while directed to work directly on the muscle and ligamentous pain, may help with desensitization some -Central nervous system facilitation/paindepression playing off of each other: ----Trial of Cymbaltafollow QTC periodically All of the above will benefit from mobilization as best as possiblePT/OT eval and treat ongoing Showing ongoing improvementgiven apparent long time for placement at subacute rehab, patient/ now looking at home with home PT/outpatient treatmentthis seems reasonable given her progress. (3) Acute respiratory failure with hypoxia: Plan: Intubated on arrival to ER, fortunately now extubated, breathing is stable (4) Aspiration pneumonitis: Plan: Treated and resolvedbronch cultures did show MRSAwas treated with vancomycin (5) Acute kidney injury: Plan: Fortunately resolved with fluids and support (6) Prolonged QT interval: Plan: Suspect related to outpatient fluoxetine. QT improvedsee above, follow periodically (7) Depression: Plan: See above, would want to initiate Cymbalta in the near future, particularly as long as her QT can tolerate it. continue to follow QT periodically. Appears to be doing much better from a suicidality standpoint. Suspect she will be stable for SNF/rehab emphasis with outpatient psych (8) Lumbar spinal stenosis: Plan: See above under intractable back pain. Spinal stenosis is part of it. (9) Elevated troponin: Plan: Suspect demand-ischemia in setting of hypoxia. Fortunately only a mild elevati on (10) Somatic dysfunction of lumbar region: Plan: OMT as abovepelvic region today (11) DVT prophylaxis: Plan: Heparin subcu (12) Discharge planning issues: Plan: Stable for MedSurg, anticipate discharge to home with outpatient PT, possibly as soon as tomorrow Admission and Anticipated Discharge Date Admission Date: October 23, 2021 Subjective Feeling better overall, back pain overall doing better. Sitting up in chair. Still having some pain but far better controlled. Whenever she and I were talking, the plan was still SNF, but once it was clear this was probably going to be a very long wait, she and her decided to look at homewith outpatient/home physical therapy. Review of Systems Review of Systems: All systems reviewed & are unremarkable except as noted in HPI & below Physical Exam Physical Exam: In general she is awake and alert pleasant no distress. HEENT normocephalic atraumatic mucous membranes moist. Breathing unlabored no accessory muscle use good effort. Skin shows no rashes no pallor or icterus. Right greater than left pelvic musculature in the region of piriformis, high tone/decreased range of motionpost isometric relaxation muscle energy technique done with improvement in range of motion. Patient tolerated well. Taught patient to do as a "self stretch" Results & Data Results & Data ([facility]) Vital Signs (Past 12 Hours) Vital Signs Temp Pulse Pulse Resp BP Pulse Ox 11/03/21 14:58 97.2 F L 74 18 120/73 94 11/03/21 07:00 97.7 F 65 18 116/63 92 PG Care Time/CCT Total # of Minutes Spent Total Time Spent with Patient: Total time spent is greater than 50% in coordination of care (as documented) at patient's floor/unit and/or counseling patient: Coding Level of Care Code 66686 Subseq Hosp Care Lvl 2 Diagnoses Polysubstance overdose T50.902A Encounter type: initial encounter Injury intent: intentional self-harm Intractable back pain M54.9 Acute respiratory failure with hypoxia J96.01 Aspiration pneumonitis J69.0 Acute kidney injury N17.9 Prolonged QT interval R94.31 Depression F32.9 Active/Remission status: in full remission Lumbar spinal stenosis M48.061 Elevated troponin R77.8 Somatic dysfunction of lumbar region M99.03 DVT prophylaxis Z29.9 Discharge planning issues Z02.9 CPT Codes Musculoskeletal - Musculoskeletal: [address] 1-2 Body regions ([id number]) (1) Polysubstance overdose Encounter type: initial encounter Injury intent: intentional self-harm Qualified Code(s): T50.902A - Poisoning by unspecified drugs, medicaments and biological substances, intentional self-harm, initial encounter (2) Depression Active/Remission status: in full remission
[2021-11-03] MEDS: CHOLECALCIFEROL 1,000 UNITS 25 MCG TAB PO SCH (17:21)
[2021-11-03] MEDS: SENNA 8.6 MG TAB PO SCH (21:04)
[2021-11-03] MEDS: hydrOXYzine HCl 25 MG TAB PO PRN (21:15)
[2021-11-04] MEDS: HEPARIN SOD 5,000 UNIT/0.5 ML VIAL SQ SCH (06:18)
[2021-11-04] MEDS: ACETAMINOPHEN 325 MG TAB PO SCH (08:24)
[2021-11-04] MEDS: BACLOFEN 10 MG TAB PO SCH (08:25)
[2021-11-04] MEDS: levETIRAcetam 250 MG TAB PO SCH (08:25)
[2021-11-04] MEDS: CHOLECALCIFEROL 1,000 UNITS 25 MCG TAB PO SCH (08:26)
[2021-11-04] MEDS: DOCUSATE SODIUM 100 MG CAP PO SCH (08:27)
[2021-11-04] MEDS: POLYETHYLENE (MIRALAX) 17 GM PACK PO SCH (08:27)
[2021-11-04] MEDS: TAPENTADOL HCL ER 50 MG TABCR PO SCH (08:29)
[2021-11-04] MEDS: DICLOFENAC SOD 1% GEL 100 GM TUBE EXT SCH (08:30)
[2021-11-04] MEDS ORDERED: DULoxetine HCL 20 MG CAP PO SCH (09:00)
[2021-11-04] MEDS: PANTOprazole 40 MG TAB PO SCH (09:13)
--- NOTE | 2021-11-04 17:15 | Communication Note ---
Date of Service: November 04, 2021 Received callNucynta not in stock at their pharmacy, and also not coveredabout $550 [id number]. Called patientdiscussed situation, offered multiple options We both agreed that given the multitude of interventions that were initiated at the same time as the Nucynta, it is not completely clear whether or not the Nucynta was even helping, or if it was the other interventions. Discussed that if it is clear that the Nucynta was helping, given everything she has tried and failed, there would probably be a reasonable cause for prior Auth, but we both agreed at this point time it made the most sense to simply stop the Nucynta and follow how she does (i.e. not pursuing getting the prescription filled at this time)and if she notices a clear worsening, then we can try to work on authorization/coverage/possibly a limited prescription with [id number] expense while we are waiting on the prior Auth process, etc.
--- NOTE | 2021-11-04 17:24 | Discharge Summary ---
Date of Service November 04, 2021 Admission HPI Per Admitting Provider Kami Valencia is an 81 year old female who presents to the ER with unresponsiveness and hypoxia. Unable to get any history from patient due to intubation and sedation. History obtained from EMS notes and ER physician. Patient found sleeping by this morning unresponsive with empty bottles of Ambien and Dilaudid. Estimated overdose on 15 tablets of each. Reportedly she tried to kill herself 2-3 days ago with carbon monoxide poisoning. Therefore current overdose suspected to be intentional. She has a history of poorly controlled back pain with an L5 compression fracture and lumbar spinal stenosis for which she underwent kyphoplasty, lumbar decompression and spinal fusion on September 27. On arrival in the ER RR 6-8, O2 sats n low 80s therefore was intubated in the ER. BP 64/45 after propofol started. When seen patient receiving propofol, IV NSS bolus running with Levophed. Principal Diagnosis intractable back pain improving Discharge Exam gen aao pleasant nad heent nc at mmm breathing unlabored no accessory muscles good effort skin no rashes no pallor or icterus ost/msk - L>R pelvic musculature (region of piriformis) high tone/decreased ROM - post-isometric relaxation - improved some - taught pt stretches, tolerated well Discharge Data Allergies Allergy/AdvReac Type Severity Reaction Status Date / Time Sulfa (Sulfonamide Allergy Intermediate HIVES Verified 10/22/21 13:40 Antibiotics) trimethoprim Allergy Intermediate HIVES Verified 10/22/21 13:40 OPIODS AdvReac Severe TOLERANT--DON'T Uncoded 09/24/21 23:30 WORK. Consultations 10/23/21 11:51 ED Decision to Admit Stat 10/23/21 16:40 Consult Visual Coordinator Routine 10/24/21 20:36 Consult Psychiatry Routine 10/24/21 20:37 Consult Pain Management Routine 10/25/21 08:52 Consult Orthopedic Surgery Routine 11/04/21 10:59 Consult MAURYG cylinder tester Routine Ordered Studies 10/23/21 09:59 CT head/brain wo con Stat 10/23/21 12:38 CT angio chest PE protocol Stat 10/25/21 08:49 CT lumbar spine wo con Routine 10/26/21 12:01 MR lumbar spine wo con Routine Hospital Course (1) Polysubstance overdose: Reportedly overdose on Ambien and Dilaudidwas intubated and on pressors, but now improved. Extubated. Off pressors. Doing better in this respect. In regards to her depression, she relates that she believes if her back pain was better, her suicidality would be better as well. Does seem to be doing better in that regard for home/outpatient therapy. Psychiatry initiated Cymbalta -- EKG to recheck QTc early next week (2) Intractable back pain: Seems to be multifactorial: -Back pain itself: --- This appears to be both underlying bone/disc pain, as well as overlying muscle and ligamentous pain --- MRI showed L4 osteoporotic type fracture, also contributory, but will heal with time --- Bone and disc pain: Continue Nucynta, Keppra --- Muscle/ligamentous pain: Trial of OMT, diclofenac gel, baclofen -Peripheral/spinal cord nervous system facilitation: --- Continue Keppra --- Continue OMT and diclofenac gel, while directed to work directly on the muscle and ligamentous pain, may help with desensitization some -Central nervous system facilitation/paindepression playing off of each other: ----Trial of Cymbaltafollow QTC periodically (next check early next week) All of the above will benefit from mobilization as best as possiblePT/OT eval and treat ongoing Showing ongoing improvementgiven apparent long time for placement at subacute rehab, patient/ now plan for home with home PT/outpatient treatmentthis seems reasonable given her progress. (3) Acute respiratory failure with hypoxia: Intubated on arrival to ER, fortunately now extubated, breathing is stable (4) Aspiration pneumonitis: Treated and resolvedbronch cultures did show MRSAwas treated with vancomycin (5) Acute kidney injury: Fortunately resolved with fluids and support (6) Prolonged QT interval: Suspect related to outpatient fluoxetine. QT improvedsee above, follow periodically (7) Depression: See above, started cymbalta. continue to follow QT periodically. Appears to be doing much better from a suicidality standpoint. discussed contract for safety/what to do if she felt suicidal again; safe for outpt f/u/treatment (8) Lumbar spinal stenosis: See above under intractable back pain. Spinal stenosis is part of it. (9) Elevated troponin: Suspect demand-ischemia in setting of hypoxia. Fortunately only a mild elevation (10) Somatic dysfunction of lumbar region: OMT as abovepelvic region today (11) DVT prophylaxis: Heparin subcu (12) Discharge planning issues: home, home PT, outpt OMT, outpt PCP f/u, ongoing med management and support, outpt psych Total Time Total Time Spent Total Time Spent (In Minutes): >30 Discharge Plan Discharge Items Patient Disposition: Home - Home Health Services Reason For Visit: OVERDOSE Discharge Diagnosis: back pain - improving - see below Activity: Per Instructions section Activity Comment: as much as you can, but follow PT guidance and prioritize safety Non-emergency contact: Primary Care Provider, Specialist and Psychiatrist Call non-emergency contact if: you have any medication questions and your symptoms worsen Follow-up/Referrals: [facility] [Other] [facility] [Other] (Therapist or staff will call patient to schedule appointment for outpatient therapy. ) Milka Velasquez MD [Primary Care Provider] - Diet: Regular Addtl Attending Provider Instructions: Back pain As is often the case in situations like yours, while the spinal disease was the initial cause of the back pain, now it is definitely a multifactorial problem: Pain in the back itself: -This is pain both from the underlying bone and disc disease, but also just as much from the overlying muscles and ligaments -In my experience, a large percentage of the pain is much more muscular and ligamentous, and while the muscle and ligament pain frequently is caused by the underlying anatomic (bone/disc) disease, treating the muscles and ligaments leads to very significant pain relief -To work on the muscle/ligament pain, we have been doing "manipulative medicine" (OMT)and it seems to be helping nicely. I would have you continue to do the stretches that we outlined twice a day at home; I have also set things in motion to have you see Dr. Vaibhav Schilling, DO, to continue more formal manipulative medicine in the office. Additionally, use the topical Voltaren (diclofenac gel) 4 times a day every day across your low back and both sides of your buttocks. Lastly, we will continue the baclofen (a muscle relaxant) as it seems to be help ing as well. As you improve, the baclofen would be "first on the cutting room floor" if we are able to start to undo your medication regimen. -To simply cover the bone and disc pain, we have had you on Nucyntaand we will send a prescription to continue this. On the off chance that the Nucynta is not covered by insurance, let us know, as we could try to find a viable substitution -Physical therapy will help with getting you stronger, and more movement will also help loosen the muscles and ligaments/help with the pain in the back itself. Peripheral and spinal cord "facilitation": -What this means is that when someone has significant pain for quite a period of time, the nerves that carry the pain signal from your back and up your spinal cord essentially get triggered. To that end, they start to generate a pain signal even on what "should be a good day." There are multiple medicines that can help slow that nerve transmissionand we have you on the Keppra (levetiracetam) at a fairly low dose, but it seems to be helping a good bit. -Further, while the main purpose of the OMT and diclofenac gel is to help calm muscle and ligamentous pain, the constant touch/pressure from having somebody work on your back, and from rubbing the gel in can help desensitize those nerves and have them function more normally. Central nervous system facilitation: -Similar to the peripheral nerves getting triggered to a state where "pain is their normal" the part of our brain that since his pain can also get triggered. This creates an interplay where "pain becomes the new normal" and also that pain can amplify depression, and in turn depression can amplify pain. -Reducing the pain in the back itself, and reducing the peripheral nerve signals transmitting the pain definitely help, but also medications like Cymbalta can help quiet how your brain perceives that pain signal. -We have started you on Cymbalta at 20 mg. This is a fairly low doseif needed Dr. Velasquez can slowly move it up to as much is 120 mg if it seems like it is helping. -We do need to monitor periodic EKG on you with this, as it is a medicine that can slow how quickly her heart recharge is for the next heartbeat, and you are showing a little bit of a "slow recharge" early in your hospital stay. -I would ask that you get an EKG at Dr. Velasquez's office on Monday in this respect Depression -It really does seem now that you have hope, and now that the back pain is doing better, the depression/suicidality has really faded. Please remember if the pain worsens, it is more likely a setback rather than a regression/new normal. If you were to start to feel dark/more depressed/suicidal at all again, we would want you back here in the hospital right away so that we can help get things back on track -The Steff should help with this as well -Psychiatry has you set up for outpatient follow-up in this regard as well. Pending Studies at Discharge: No Stand-Alone Forms: My [facility], Smoking Cessation Medications and DC Order Prescriptions: New baclofen 10 mg Tablet 10 mg PO TID Qty: 90 RF: 0 diclofenac sodium [Voltaren Arthritis Pain] 1 % Gel 2 g EXT QID Qty: 100 RF: 0 duloxetine 20 mg Capsule,Delayed Release(Dr/Ec) 20 mg PO QAM Qty: 30 RF: 0 hydroxyzine HCl 25 mg Tablet 25 mg PO HS PRN (Reason: insomnia) Qty: 30 RF: 0 levetiracetam [Keppra] 250 mg Tablet 250 mg PO BID Qty: 60 RF: 0 Nucynta ER 50 mg Tablet Extended Release 12 Hr 50 mg PO Q12 Qty: 60 RF: 0 sennosides [Senokot] 8.6 mg Tablet 17.2 mg PO HS Qty: 30 RF: 0 Continued cholecalciferol (vitamin D3) 50 mcg (2,000 unit) tablet 0 units PO QAM RF: 0 multivitamin Tablet 1 tab PO QAM RF: 0 calcium carbonate [Calcium 500] 500 mg calcium (1,250 mg) tablet 0 mg PO QAM RF: 0 omega [id number]-[id number]-fish oil [Fish Oil] 1,000 mg (120 mg-180 mg) capsule 1 cap PO QAM RF: 0 Flovent HFA 110 mcg/actuation HFA aerosol inhaler 2 puff INH BID PRN (Reason: asthma) RF: 0 acetaminophen [Tylenol Extra Strength] 500 mg tablet 0 mg PO Q6H RF: 0 Discontinued fluoxetine 20 mg capsule 20 mg PO DAILY Qty: 90 RF: 3 fluoxetine [Prozac] 40 mg capsule 40 mg PO QAM Qty: 90 RF: 3 hydromorphone [Dilaudid] 4 mg tablet 4 mg PO Q8H PRN (Reason: severe pain) Qty: 30 RF: 0 meloxicam 15 mg tablet 15 mg PO DAILY Qty: 7 RF: 0 pregabalin [Lyrica] 75 mg capsule 75 mg PO TID Qty: 90 RF: 2 calcitonin (salmon) 200 unit/actuation spray,non-aerosol 1 spray intranasal (ALT) DAILY PRN (Reason: NEEDED) RF: 0 tizanidine 4 mg Tablet 2 mg PO TID 30 Days Qty: 45 RF: 0 zolpidem 5 mg tablet 5 mg PO HS PRN (Reason: Insomnia) RF: 0 Discharge Orders: Discharge Order (Routine); Ordered 11/04/21 Ordered By: Akshat Aguiar Admission Data Admit Date/Time: 10/23/21 12:19 Attending Provider: Akshat Aguiar Admit Provider: Magdaleno Leggett Primary Care Provider: Milka Velasquez Other Providers: Magdaleno Leggett ; Valerie Bush [facility] ; [place] ; Magdaleno De La Cruz ; Rodríguez Field ; Kenn Johnson ; Deepika Johnson ; Karen Seals ; Judith Fernandez ; Cr Tello ; Milka Berger ; Kenn Lopez Other Interventions: Discharge Summary Assessment (RN) Last Done: 11/04/21 10:02 Coding Level of Care Code D/C DAY MANAGEMENT >30 MINS Diagnoses Polysubstance overdose T50.902A Encounter type: initial encounter Injury intent: intentional self-harm Intractable back pain M54.9 Acute respiratory failure with hypoxia J96.01 Aspiration pneumonitis J69.0 Acute kidney injury N17.9 Prolonged QT interval R94.31 Depression F32.9 Active/Remission status: in full remission Lumbar spinal stenosis M48.061 Elevated troponin R77.8 Somatic dysfunction of lumbar region M99.03 DVT prophylaxis Z29.9 Discharge planning issues Z02.9
== END 2021-11-04 11:33 | disposition home health service (06) | DRG 917 ==
LOC: ED 09:46 → 1E 12:19 → SUATTDRO 12:19 → 1E 16:04 → 2S 10-25 18:41 → 3E 11-03 08:31

== ENCOUNTER 2021-12-02 19:31 | Observation (INO) ==
[2021-12-02 20:29] LABS: Basophils # (auto) 0.07 K/uL (0-0.2); Eosinophils # (auto) 0.04 K/uL (0-0.5); Eosinophils % (auto) 0.6 %; Hematocrit (blood only) 44.2 % (37-47); Hemoglobin 14.4 g/dL (12.0-16.0); Immature Granulocytes # (auto) 0.01 K/uL (0.00-0.02); Immature Granulocytes % (auto) 0.1 %; Lymphocytes # (auto) 1.11 K/uL (1.2-3.4); Lymphocytes % (auto) 15.7 %; Mean Corpuscular Hemoglobin 30.9 pg (25-34); Mean Corpuscular Hgb Conc 32.6 g/dL (32-36); Mean Corpuscular Volume 94.8 fL (80-100); Mean Platelet Volume 10.9 fL (7.4-10.4); Monocytes # (auto) 0.54 K/uL (0.11-0.59); Monocytes % (auto) 7.6 %; Neutrophils # (auto) 5.31 K/uL (1.4-6.5); Platelet Count 288 K/uL (130-400); RDW Coefficient of Variation 14.7 % (11.5-14.5); Red Blood Count 4.66 M/uL (4.2-5.4); White Blood Count 7.08 K/uL (4.8-10.8)
--- NOTE | 2021-12-02 20:29 | XRay Report ---
SINGLE VIEW PELVIS; 2 VIEWS RIGHT HIP CLINICAL HISTORY: Right leg pain. FINDINGS: An AP view of the pelvis with AP and frog-leg views of the right hip are obtained. No prior studies are available for comparison at the time of dictation. The skeletal structures are osteopeni c. There is no radiographic evidence of acute fracture involving the hips or bony pelvis. Mild degene rative joint space narrowing and arthritic change is seen in the hips. Fusion hardware is noted at th e lumbosacral junction. Sclerotic change is noted in the sacroiliac joints and pubic symphysis. The o verlying soft tissues are within normal limits. IMPRESSION: No acute bony abnormality is identified. Electronically signed by: Nghia Marley M.D. 12/02/2021 8:27 PM
[2021-12-02 20:52] LABS: Albumin Globulin Ratio 1.2 (0.9-2); Albumin Level 3.8 gm/dl (3.4-5.0); BUN Creatinine Ratio 12.5 (10-20); Bilirubin,Total 0.5 mg/dl (0.2-1.0); Calcium 9.4 mg/dl (8.5-10.1); Creatinine Clr Calc Pharmacy 94.1 ml/min; Est GFR (African American) 107.4 ml/min; Est GFR (Non-African American) 92.6 ml/min; Globulin 3.2 gm/dl (2.5-4.0); Potassium 3.9 mmol/L (3.5-5.1)
[2021-12-02] MEDS ORDERED: KETOROLAC TROMETHAMINE 15 MG/ML VIAL IV ONE (21:01)
--- NOTE | 2021-12-02 23:40 | Emergency Department Note ---
History of Present Illness General Chief complaint: Weakness Stated complaint: s/p COVID SHOT now VERY FATIGUED AND WEAK Time Seen by Provider: 12/02/21 19:41 Source: patient Mode of arrival: EMS Limitations: patient cooperation History of Present Illness Provider complaint: weakness Onset (ago): day(s) 1 Maximum Pain Intensity: 7 Treatments prior to arrival: none This is an 81-year-old male who presents emergency department complaining of r ight leg pain and generalized weakness. Patient's concern for difficulty walking and risk of fall. Patient states she got her Covid booster yesterday and is felt worse since that time. Patient states the pain in her right leg feels like sciatica which she has had previously. Patient has a prior history of low back surgery performed by Dr. Lopez. Patient denies fevers, chills, cough, or shortness of breath. Patient states she does not have a normal appetite. Patient denies any other sick contact. Patient lives at home with her , and this evening was unable to stand up in order to get to the bathroom. Pt seen during a time of high acuity and national emergency pandemic while w earing PPE. Home Medications Medication Instructions Recorded Confirmed Type multivitamin 1 tab PO QAM 01/31/20 12/03/21 History omega 9-mpf-tse-fish oil 1,000 mg 1 cap PO QAM 01/31/20 12/03/21 History (120 mg-180 mg) capsule (Fish Oil) fluticasone propionate 110 2 puff INH BID PRN gm 08/13/21 12/03/21 History mcg/actuation HFA aerosol inhaler (Flovent HFA) diclofenac sodium 1 % topical gel 2 g EXT QID #100 g 11/04/21 12/03/21 Rx (Voltaren Arthritis Pain) tapentadol 50 mg tablet,extended 50 mg PO Q12 #60 tab 11/04/21 12/03/21 Rx release,12 hr (Nucynta ER) duloxetine 20 mg capsule,delayed 20 mg PO DAILY #30 cap 11/05/21 12/03/21 Rx release (Cymbalta) hydroxyzine HCl 25 mg tablet 25 mg PO HS PRN #30 tab 11/29/21 12/03/21 Rx levetiracetam 250 mg tablet 250 mg PO BID #60 tab 11/29/21 12/03/21 Rx (Keppra) acetaminophen 500 mg tablet 500 mg PO Q6H tab 12/01/21 12/03/21 History (Tylenol Extra Strength) baclofen 10 mg tablet 10 mg PO TID #90 tab 12/01/21 12/03/21 Rx cholecalciferol (vitamin D3) 50 2,000 unit PO QAM tab 12/01/21 12/03/21 History mcg (2,000 unit) tablet sennosides 8.6 mg tablet (Senokot) 17.2 mg PO HS PRN tab 12/01/21 12/03/21 Hi story Allergies Allergy/AdvReac Type Severity Reaction Status Date / Time Sulfa (Sulfonamide Allergy Intermediate HIVES Verified 12/01/21 15:26 Antibiotics) trimethoprim Allergy Intermediate HIVES Verified 12/01/21 15:26 OPIODS AdvReac Severe TOLERANT--DON'T Uncoded 12/01/21 15:26 WORK. 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 History of Graves' disease Lumbar radiculopathy Lumbar spinal stenosis Osteoarthritis Osteoporosis Suicide attempt Surgical History History of colonoscopy History of knee replacement procedure of left knee History of knee replacement procedure of right knee S/P ORIF (open reduction internal fixation) fracture Rt wrist Status post kyphoplasty Family History Mother Alzheimer disease Depression Father Myocardial infarction Brother Non-Hodgkin lymphoma Sister Stroke Other No family history of adverse response to anesthesia Denies family history of Ovarian cancer Prostate cancer Breast cancer Lung cancer Colorectal cancer Social History Smoking Status: Never smoker Second Hand Exposure: No; Hx Alcohol Use: No Hx Substance Use: No Preferred Language: Maori Communication Ability: Effective Visual Impairment: No Limitations Hearing Ability: Normal Stacker Straightener Required: No Beliefs That Will Affect Care: None marital status: Current Living Situation: Spouse Current Living Situation Comment: Lives with current occupational status: retired How many Children do You have: 2 Feels Safe at Home: Yes during the past year weight has: remained stable Physical Activity Frequency: 5-6 Times per Week Physical Activity Frequency Comment: walks her dog at least a mile daily and gardens Seatbelt Use: always Sunscreen Use: Yes Assistive Devices: Walker Review of Systems A total of 10 systems reviewed and were otherwise negative All systems reviewed & are unremarkable except as noted in HPI & below Physical Exam Vital Signs Vital Signs - 24 hr 12/03/21 00:00 12/03/21 00:31 Pulse Rate 89 74 Pulse Rate from SpO2 Sensor 75 Respiratory Rate 20 20 Blood Pressure 115/45 L Blood Pressure Mean 68 Pulse Oximetry 90 90 Oxygen Delivery Method Room Air GENERAL: alert, well appearing, well nourished, no distress, non-toxic EYE EXAM: normal conjunctiva, PERRL and EOM's grossly intact OROPHARYNX: no exudate, no erythema, lips, buccal mucosa, and tongue normal and mucous membranes are moist NECK: supple, no nuchal rigidity, no adenopathy, non-tender LUNGS: Clear to auscultation. Normal chest wall mechanics, no w/r/r HEART: no murmurs, S1 normal and S2 normal ABDOMEN: abdomen soft, non-tender, normo-active bowel sounds, no masses, no rebound or guarding. BACK: Back is symmetrical on inspection and there is no deformity, no midline tenderness, no CVA tenderness. SKIN: no rashes and no bruising UPPER EXTREMITIES: upper extremities are grossly normal. FROM, nml pulses b/l. LOWER EXTREMITIES: No pitting edema. FROM, nml pulses b/l. No evidence of trauma. Sensation intact. NEURO EXAM: Normal sensorium, cranial nerves II-XII grossly intact, normal speech, no gross weakness of arms, no gross weakness of legs. Gross sensation intact. Course Course 2310: Patient states pain is improved although it is still present. Patient was unsteady and shuffling on an attempt at standing and bedside ambulation 2344: Discussed with . He states patient has been profoundly weak since the Covid booster. She has had a decrease in appetite. He states he had to call friends and call EMS several times in order to help get her up and down as she could not even stand up from a seated position or walk to the bathroom. He is concerned that she may fall given she was so unsteady and required significant help. He is concerned as he is 85 years old and unable to completely care for her in the state. He states she is still getting home physical therapy 3 days a week ever since her back surgery in October. Prior to the Covid booster she had been showing improvement and she seemed in her usual state of health. Administered Medications Acetaminophen (Acetaminophen 500 Mg Tab) 500 mg PO Q6H АНДРЕЙ Stop: 01/02/22 05:59 Last Admin: 12/03/21 23:17 Dose: 500 mg Documented by: [id number] Admin: 12/03/21 17:28 Dose: 500 mg Documented by: [id number] Admin: 12/03/21 13:01 Dose: 500 mg Documented by: [id number] Admin: 12/03/21 06:12 Dose: 500 mg Documented by: [id number] Baclofen (Baclofen 10 Mg Tab) 10 mg PO TID АНДРЕЙ Stop: 01/02/22 08:59 Last Admin: 12/03/21 20:46 Dose: 10 mg Documented by: [id number] Admin: 12/03/21 13:01 Dose: 10 mg Documented by: [id number] Admin: 12/03/21 08:06 Dose: 10 mg Documented by: [id number] Diclofenac Sodium (Diclofenac Sod 1% Gel 100 Gm Tube) 2 gm EXT QID АНДРЕЙ Stop: 01/02/22 08:59 Last Admin: 12/03/21 20:47 Dose: 2 gm Documented by: [id number] Admin: 12/03/21 17:29 Dose: 2 gm Documented by: [id number] Admin: 12/03/21 13:01 Dose: 2 gm Documented by: [id number] Admin: 12/03/21 08:05 Dose: 2 gm Documented by: [id number] Enoxaparin Sodium (Enoxaparin Inj 40 Mg/0.4 Ml Syr) 40 mg SQ Q24H АНДРЕЙ Stop: 01/02/22 08:59 Last Admin: 12/03/21 08:06 Dose: 40 mg Documented by: [id number] Levetiracetam (Levetiracetam 250 Mg Tab) 250 mg PO BID АНДРЕЙ Stop: 01/02/22 08:59 Last Admin: 12/03/21 20:46 Dose: 250 mg Documented by: [id number] Admin: 12/03/21 08:06 Dose: 250 mg Documented by: [id number] Tapentadol (Tapentadol Hcl Er 50 Mg Tabcr) 50 mg PO Q12 PRN PRN Reason: pain Stop: 12/17/21 08:59 Last Admin: 12/03/21 20:46 Dose: 50 mg Documented by: [id number] Admin: 12/03/21 10:31 Dose: 50 mg Documented by: [id number] Discontinued Medications Duloxetine HCl (Duloxetine Hcl 20 Mg Cap) 20 mg PO DAILY АНДРЕЙ Stop: 01/02/22 08:59 Last Admin: 12/03/21 08:06 Dose: 20 mg Documented by: [id number] Lactated Ringer's (Lr) 1,000 mls @ 80 mls/hr IV .[id number] АНДРЕЙ Stop: 12/03/21 15:09 Last Infusion: 12/03/21 10:34 Dose: 0 mls/hr Documented by: [id number] Infusion: 12/03/21 10:32 Dose: 0 mls/hr Documented by: [id number] Infusion: 12/03/21 10:24 Dose: 0 mls/hr Documented by: [id number] Admin: 12/03/21 03:07 Dose: 80 mls/hr Documented by: [id number] Ketorolac Tromethamine (Ketorolac Tromethamine 15 Mg/Ml Vial) 10 mg IV NOW ONE Stop: 12/02/21 21:02 Last Admin: 12/02/21 21:28 Dose: 10 mg Documented by: [id number] Morphine Sulfate (Morphine Sulfate 2 Mg/Ml Carp) 2 mg IV NOW STA Stop: 12/03/21 10:44 Last Admin: 12/03/21 20:54 Dose: Not Given Documented by: [id number] Morphine Sulfate (Morphine Sulfate 2 Mg/Ml Carp) Confirm Administered Dose 2 mg .ROUTE .STK-MED ONE Stop: 12/03/21 20:53 Last Admin: 12/03/21 20:53 Dose: 2 mg Documented by: [id number] Medical Decision Making Differential Diagnosis Differential Diagnosis includes but is not limited to dehydration, stroke, anemia, hypoglycemia, hyponatremia, hypernatremia, urinary tract infection, pneumonia, bronchitis, sepsis, gastroenteritis, additional abdominal pathology, metabolic abnormalities and infections. Medical Records Attestation: I reviewed the patient's medical records. Home Medications Current Medication List: was personally reviewed by me Laboratory Data Attestation: I reviewed the patient's lab results. Result diagrams: 12/02/21 20:09 12/02/21 20:09 Lab Results 12/02/21 12/02/21 12/03/21 Range/Units 20:09 20:09 00:31 WBC 7.08 (4.8-10.8) K/uL RBC 4.66 (4.2-5.4) M/uL Hgb 14.4 (12.0-16.0) g/dL Hct 44.2 (37-47) % MCV 94.8 (80-100) fL MCH 30.9 (25-34) pg MCHC 32.6 (32-36) g/dL RDW Std Deviation 51.0 H (36.4-46.3) fL RDW Coeff of Apple 14.7 H (11.5-14.5) % Plt Count 288 (130-400) K/uL MPV 10.9 H (7.4-10.4) fL Immature Gran % (Auto) 0.1 % Neut % (Auto) 75.0 % Lymph % (Auto) 15.7 % [place] % (Auto) 7.6 % Eos % (Auto) 0.6 % Baso % (Auto) 1.0 % Neut # (Auto) 5.31 (1.4-6.5) K/uL Lymph # (Auto) 1.11 L (1.2-3.4) K/uL [place] # (Auto) 0.54 (0.11-0.59) K/uL Eos # (Auto) 0.04 (0-0.5) K/uL Baso # (Auto) 0.07 (0-0.2) K/uL Immature Gran # (Auto) 0.01 (0.00-0.02) K/uL Sodium 136 (136-145) mmol/L Potassium 3.9 (3.5-5.1) mmol/L Chloride 103 (98-107) mmol/L Carbon Dioxide 26 (21-32) mmol/L Anion Gap 7 (3-11) BUN 6 (6-23) mg/dl Creatinine 0.48 L (0.6-1.2) mg/dl Est Cr Clr Drug Dosing 94.1 ml/min Est GFR ( Amer) 107.4 ml/min Est GFR (Non-Af Amer) 92.6 ml/min BUN/Creatinine Ratio 12.5 (10-20) Glucose 105 H (70-99(Fasting)) mg/dl Calcium 9.4 (8.5-10.1) mg/dl Magnesium 2.0 (1.7-2.4) mg/dl Total Bilirubin 0.5 (0.2-1.0) mg/dl AST 20 (13-39) U/L ALT 11 (7-52) U/L Alkaline Phosphatase 88 (34-104) U/L Total Creatine Kinase 29 (26-192) U/L Total Protein 7.0 (6.0-8.3) gm/dl Albumin 3.8 (3.4-5.0) gm/dl Globulin 3.2 (2.5-4.0) gm/dl Albumin/Globulin Ratio 1.2 (0.9-2) SARS-CoV-2, RNA, NAAT NEGATIVE (NEGATIVE) Imaging Data Radiologist's Impression: Hip/Pelvis X-Ray 12/02/21 20:04 SINGLE VIEW PELVIS; 2 VIEWS RIGHT HIP CLINICAL HISTORY: Right leg pain. FINDINGS: An AP view of the pelvis with AP and frog-leg views of the right hip are obtained. No prior studies are available for comparison at the time of dictation. The skeletal structures are osteopenic. There is no radiographic evidence of acute fracture involving the hips or bony pelvis. Mild degenerative joint space narrowing and arthritic change is seen in the hips. Fusion hardware is noted at the lumbosacral junction. Sclerotic change is noted in the sacroiliac joints and pubic symphysis. The overlying soft tissues are within normal limits. IMPRESSION: No acute bony abnormality is identified. Electronically signed by: Nghia Marley M.D. 12/02/2021 8:27 PM ECG Data Attestation: I personally reviewed and interpreted this ECG as follows: Indication: + weakness Rate (beats per minute): 91 Rhythm: + normal sinus ECG Intervals/blocks: + Normal QRS and + Normal QT ECG [place]: + Left axis deviation ECG ST segments: + Nonspecific ST abnormalities Additional Comments: Low voltage MDM Narrative This is an 81-year-old female presents emergency department due to increased weakness since receiving her Covid booster yesterday. Patient denied any other changes prior to the booster. Patient does have significant past medical histo ry including 2 recent surgeries, 1 of which was at her back. At this time given timing of worsening symptoms I suspect this is an exacerbation of her underlying pain and weakness as a side effect of the Covid booster. I do not suspect new underlying spine pathology or other occult infection. Given patient failed ambulatory trial, and lives with her elderly without any additional help or ability to make additional arrangements for help at this time, I do not feel we have a safe discharge plan for the patient. We will discuss additional monitoring and likely involvement of case management in the morning to discuss options for disposition. If patient significantly improves and returns to her baseline, I suspect she could return home. An order was placed for continuous cardiac monitoring. The monitor shows a rate of _62_ with _normal sinus_ rhythm. Impression & Plan Generalized weakness, Ambulatory dysfunction, Chronic back pain, Hypomagnesemia Discharge Plan Visit Data Chief Complaint: Weakness Stated Complaint: s/p COVID SHOT now VERY FATIGUED AND WEAK ED Provider: Jaqueline Ríos Discharge Problem: Generalized weakness, Ambulatory dysfunction, Chronic back pain, Hypomagnesemia Patient Disposition: Admitted As Inpatient Discharge Instructions Interventions: ED Discharge Assessment Last Done: 12/03/21 02:17 Discharge Problem: Chronic back pain Qualifiers: Back pain location: low back pain Back pain laterality: midline Sciatica presence: with sciatica Sciatica laterality: sciatica of right side Qualified Code(s): M54.41 - Lumbago with sciatica, right side
--- NOTE | 2021-12-03 01:21 | History & Physical Report ---
Date of Service December 03, 2021 Assessment & Plan (1) Weakness: Plan: 81yo female presenting with weakness, fatigue and ambulatory dysfunction following her Covid-19 booster vaccine. Patient lives at home with her elderly , was unable to get out of bed or ambulate to the bathroom. Most likely secondary to vaccine side effects No focal deficits on exam Labs are largely unremarkable -Observation to medical -PT/OT evaluations appreciated -Fall precautions -Gentle hydration with LR at 80mL/hr x 1liter -UA ordered in ER and pending (2) Asthma: Plan: Well controlled. No cough, SOB or wheeze -Montior (3) Depression: Plan: Patient is very depressed at present given her multiple hospitalizations of late and loss of functional status. She reports being active and independent a short while ago and now feels that she is unable to do anything due to functional limits and chronic pain. Denies current SI/HI -Continue Cymbalta -Encouraged patient to set small goals for herself to slowly regain function and activities that she enjoys (4) Chronic pain: Plan: With genetic opioid intolerance -Continue Cymbalta -Continue Diclofenac -Continue Baclofen -Continue Tylenol Plan: F/E/N - LR at 80mL/hr x 1, electrolytes WNL, regular diet as tolerated Ppx - Lovenox 40 Code - Full Dispo - Observation to medical History of Present Illness Chief Complaint: weakness Primary Care Provider: Milka Velasquez MD Kami Valencia is an 81yo female presenting with weakness and fatigue following her Covid-19 booster vaccine. She was in her usual state of health until she received the booster vaccine yesterday after which she became fatigued, achy with difficulty ambulating. Patient lives with her elderly and ambulates with a walker at home. had to call for help to get patient out of bed yesterday and had to call EMS later in the day for lift assist to get her to the bathroom. Patient has had poor appetite and decreased intake over the last day as well. Difficulty ambulating in the ER with unsteady gait requring assistance. ER course: Toradol Allergies Allergy/AdvReac Type Severity Reaction Status Date / Time Sulfa (Sulfonamide Allergy Intermediate HIVES Verified 12/01/21 15:26 Antibiotics) trimethoprim Allergy Intermediate HIVES Verified 12/01/21 15:26 OPIODS AdvReac Severe TOLERANT--DON'T Uncoded 12/01/21 15:26 WORK. Home Medications Medication Instructions Recorded Confirmed Type multivitamin 1 tab PO QAM 01/31/20 12/03/21 History omega 0-wld-nae-fish oil 1,000 mg 1 cap PO QAM 01/31/20 12/03/21 History (120 mg-180 mg) capsule (Fish Oil) fluticasone propionate 110 2 puff INH BID PRN gm 08/13/21 12/03/21 History mcg/actuation HFA aerosol inhaler (Flovent HFA) diclofenac sodium 1 % topical gel 2 g EXT QID #100 g 11/04/21 12/03/21 Rx (Voltaren Arthritis Pain) tapentadol 50 mg tablet,extended 50 mg PO Q12 #60 tab 11/04/21 12/03/21 Rx release,12 hr (Nucynta ER) duloxetine 20 mg capsule,delayed 20 mg PO DAILY #30 cap 11/05/21 12/03/21 Rx release (Cymbalta) hydroxyzine HCl 25 mg tablet 25 mg PO HS PRN #30 tab 11/29/21 12/03/21 Rx levetiracetam 250 mg tablet 250 mg PO BID #60 tab 11/29/21 12/03/21 Rx (Keppra) acetaminophen 500 mg tablet 500 mg PO Q6H tab 12/01/21 12/03/21 History (Tylenol Extra Strength) baclofen 10 mg tablet 10 mg PO TID #90 tab 12/01/21 12/03/21 Rx cholecalciferol (vitamin D3) 50 2,000 unit PO QAM tab 12/01/21 12/03/21 History mcg (2,000 unit) tablet sennosides 8.6 mg tablet (Senokot) 17.2 mg PO HS PRN tab 12/01/21 12/03/21 History Past Med/Surg History Medical History (Updated 12/03/21 @ 01:17 by Aurelia Boswell DO) Aspiration pneumonitis Asthma Compression fracture of L5 vertebra Depression 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 History of Graves' disease Lumbar radiculopathy Lumbar spinal stenosis Osteoarthritis Osteoporosis Suicide attempt Surgical History History of colonoscopy History of knee replacement procedure of left knee History of knee replacement procedure of right knee S/P ORIF (open reduction internal fixation) fracture Rt wrist Status post kyphoplasty Family History Mother Alzheimer disease Depression Father Myocardial infarction Brother Non-Hodgkin lymphoma Sister Stroke Other No family history of adverse response to anesthesia Denies family history of Ovarian cancer Prostate cancer Breast cancer Lung cancer Colorectal cancer Social History Smoking Status: Unknown if ever smoked Second Hand Exposure: No; Hx Substance Use: No Preferred Language: Honduran Communication Ability: Effective Visual Impairment: No Limitations Hearing Ability: Normal Collections Rep Required: No marital status: Current Living Situation: Spouse Current Living Situation Comment: Lives with current occupational status: retired How many Children do You have: 2 Feels Safe at Home: Yes during the past year weight has: remained stable Physical Activity Frequency: 5-6 Times per Week Physical Activity Frequency Comment: walks her dog at least a mile daily and gardens Seatbelt Use: always Sunscreen Use: Yes Assistive Devices: Walker Review of Systems Review of Systems: All systems reviewed & are unremarkable except as noted in HPI & below +weakness, fatigue, body aches +decreased appetite +back pain Physical Exam Physical Exam: General: patient resting comfortably, NAD, non-toxic in appearance, AA&O x 4 Skin: warm, dry, intact, no rashes or lesions HEENT: NC/AT, PERRL, EOMI, anicteric sclera, conjunctiva without injection, external ear normal to inspection and nontender, nares patent, moist mucus membranes, dentition intact, no oropharyngeal lesions, neck supple, trachea midline, no LAD, no thyromegaly, no JVD Heart: +S1/S2, regular, no m/r/g Lungs: equal air entry bilaterally, no rales/rhonchi/wheezes Abd: +BS, soft, NT/ND, no masses/organomegaly/ascites Ext: warm, 2+ pulses in UE/LE bilaterally, no clubbing/cyanosis or edema Neuro: nonfocal, patient AA&O x 4, speech intact, no facial droop, moving all extremities on command with equal strength 5/5 Results & Data Results & Data (MN) Vital Signs (Past 12 Hours) Vital Signs Temp Pulse Pulse Resp BP BP Pulse Ox 12/03/21 00:31 74 20 115/45 L 90 12/03/21 00:00 89 20 90 12/02/21 23:20 98 H 18 115/70 90 12/02/21 21:21 36.9 C 80 16 144/76 H 93 12/02/21 21:20 90 16 144/76 H 90 12/02/21 19:41 37.3 C 85 19 126/84 95 Laboratory Results Laboratory Results WBC 7.08 K/uL (4.8-10.8) 12/02/21 20:09 RBC 4.66 M/uL (4.2-5.4) 12/02/21 20:09 Hgb 14.4 g/dL (12.0-16.0) 12/02/21 20:09 Hct 44.2 % (37-47) 12/02/21 20:09 MCV 94.8 fL (80-100) 12/02/21 20:09 MCH 30.9 pg (25-34) 12/02/21 20:09 MCHC 32.6 g/dL (32-36) 12/02/21 20:09 RDW Std Deviation 51.0 fL (36.4-46.3) H 12/02/21 20:09 RDW Coeff of Apple 14.7 % (11.5-14.5) H 12/02/21 20:09 Plt Count 288 K/uL (130-400) 12/02/21 20:09 MPV 10.9 fL (7.4-10.4) H 12/02/21 20:09 Immature Gran % (Auto) 0.1 % 12/02/21 20:09 Neut % (Auto) 75.0 % 12/02/21 20:09 Lymph % (Auto) 15.7 % 12/02/21 20:09 [place] % (Auto) 7.6 % 12/02/21 20:09 Eos % (Auto) 0.6 % 12/02/21 20:09 Baso % (Auto) 1.0 % 12/02/21 20:09 Neut # (Auto) 5.31 K/uL (1.4-6.5) 12/02/21 20:09 Lymph # (Auto) 1.11 K/uL (1.2-3.4) L 12/02/21 20:09 [place] # (Auto) 0.54 K/uL (0.11-0.59) 12/02/21 20:09 Eos # (Auto) 0.04 K/uL (0-0.5) 12/02/21 20:09 Baso # (Auto) 0.07 K/uL (0-0.2) 12/02/21 20:09 Immature Gran # (Auto) 0.01 K/uL (0.00-0.02) 12/02/21 20:09 Sodium 136 mmol/L (136-145) 12/02/21 20:09 Potassium 3.9 mmol/L (3.5-5.1) 12/02/21 20:09 Chloride 103 mmol/L (98-107) 12/02/21 20:09 Carbon Dioxide 26 mmol/L (21-32) 12/02/21 20:09 Anion Gap 7 (3-11) 12/02/21 20:09 BUN 6 mg/dl (6-23) 12/02/21 20:09 Creatinine 0.48 mg/dl (0.6-1.2) L 12/02/21 20:09 Est Cr Clr Drug Dosing 94.1 ml/min 12/02/21 20:09 Est GFR ( Amer) 107.4 ml/min 12/02/21 20:09 Est GFR (Non-Af Amer) 92.6 ml/min 12/02/21 20:09 BUN/Creatinine Ratio 12.5 (10-20) 12/02/21 20:09 Glucose 105 mg/dl (70-99(Fasting)) H 12/02/21 20:09 Calcium 9.4 mg/dl (8.5-10.1) 12/02/21 20:09 Magnesium 2.0 mg/dl (1.7-2.4) 12/02/21 20:09 Total Bilirubin 0.5 mg/dl (0.2-1.0) 12/02/21 20:09 AST 20 U/L (13-39) 12/02/21 20:09 ALT 11 U/L (7-52) 12/02/21 20:09 Alkaline Phosphatase 88 U/L (34-104) 12/02/21 20:09 Total Creatine Kinase 29 U/L (26-192) 12/02/21 20:09 Total Protein 7.0 gm/dl (6.0-8.3) 12/02/21 20:09 Albumin 3.8 gm/dl (3.4-5.0) 12/02/21 20:09 Globulin 3.2 gm/dl (2.5-4.0) 12/02/21 20:09 Albumin/Globulin Ratio 1.2 (0.9-2) 12/02/21 20:09 SARS-CoV-2, RNA, NAAT NEGATIVE (NEGATIVE) 12/03/21 00:31 Impressions Hip/Pelvis X-Ray 12/02/21 20:04 SINGLE VIEW PELVIS; 2 VIEWS RIGHT HIP CLINICAL HISTORY: Right leg pain. FINDINGS: An AP view of the pelvis with AP and frog-leg views of the right hip are obtained. No prior studies are available for comparison at the time of dictation. The skeletal structures are osteopenic. There is no radiographic evidence of acute fracture involving the hips or bony pelvis. Mild degenerative joint space narrowing and arthritic change is seen in the hips. Fusion hardware is noted at the lumbosacral junction. Sclerotic change is noted in the sacroiliac joints and pubic symphysis. The overlying soft tissues are within normal limits. IMPRESSION: No acute bony abnormality is identified. Electronically signed by: Nghia Marley M.D. 12/02/2021 8:27 PM Code Status & VTE Plan VTE Prophylaxis Plan VTE Prophylaxis will be ordered: Yes PG Care Time/CCT Total # of Minutes Spent Total Time Spent with Patient: Total time spent is greater than 50% in coordination of care (as documented) at patient's floor/unit and/or counseling patient: Coding Level of Care Code INT OBSERVATION CARE 50M LVL 2 Diagnoses Asthma J45.20 Asthma severity: mild Asthma persistence: intermittent Asthma complication type: uncomplicated Depression F32.9 Active/Remission status: in full remission Weakness R53.1 Chronic pain G89.29 (1) Asthma Asthma severity: mild Asthma persistence: intermittent Asthma complication type: uncomplicated Qualified Code(s): J45.20 - Mild intermittent asthma, uncomplicated (2) Depression Active/Remission status: in full remission
[2021-12-03] MEDS ORDERED: SENNA 8.6 MG TAB PO PRN (02:40)
[2021-12-03] MEDS ORDERED: ONDANSETRON INJ 2 MG/ML 2 ML VIAL IV PRN (02:40)
[2021-12-03] MEDS ORDERED: hydrOXYzine HCl 25 MG TAB PO PRN (02:40)
[2021-12-03] MEDS ORDERED: LACTATED RINGER'S 1,000 ML IV SCH (02:40)
[2021-12-03] MEDS: ACETAMINOPHEN 500 MG TAB PO SCH ×4 (06:12→23:17)
--- NOTE | 2021-12-03 08:01 | Hospitalist Progress Note ---
Date of Service December 03, 2021 Assessment & Plan (1) Weakness: Plan: 81yo female presenting with weakness, fatigue and ambulatory dysfunction following her Covid-19 booster vaccine. Patient lives at home with her elderly , was unable to get out of bed or ambulate to the bathroom. Complaints of increased RLE pain following the booster.. Recent admission ICU/intubation for OD dilaudid/ambien. Weakness felt most likely secondary to vaccine side effects but still with weakness, worse than baseline, with increased pain reported to RLE with attempts at movement No focal deficits on exam Labs are largely unremarkable -Observation to medical -PT/OT evaluations appreciated -Fall precautions -Gentle hydration with LR at 80mL/hr x 1liter -UA ordered in ER and pending 12/03 MRI lumbar spine 10/26/21 with sacral insufficiency fracture, previous L4 compression fracture, post-op seroma, intact hardware, etc. At that time discussion was had with Dr Lopez who felt nothing surgical at this time. --> Given increased symptoms, but worsened by vaccine, will repeat MRI lumbar spine. ALso, obtain CT Head. UA ordered but not collected as of yet -- FOLLOW Prior admission following OD with ambien/dilaudid requiring intubation (eval by psych during that stay, started on Cymbalta for chronic pain/mood). Was tx for aspiration pna with Vanco x 5 days followed by Doxy x 2 during that stay. Bronch cultures grew MRSA. Will also check a CXR to r/o any residual process that could be contributing Checking Lyme/B12/TSH/procal/ESR/CRP PT/OT consults pending If unrevealing, consider consultation with Neurology (2) Asthma: Plan: Well controlled. No cough, SOB or wheeze -Montior on room air lungs diminished but no wheezing (3) Depression: Plan: Patient is very depressed at present given her multiple hospitalizations of late and loss of functional status. She reports being active and independent a short while ago and now feels that she is unable to do anything due to functional limits and chronic pain. 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 I agree w/ the goodman components of her documentation. Magdaleno De La Cruz MD Subjective BRIDGE NOTE: ADMIT AFTER MIDNIGHT, NO BILL patient eval this morning increased weakness to RLE after booster, increased pain as well and inability to ambulate no hx tick bites [place] not gotten anything for pain -- has been taking nucynta BID at home. Unable to get MRI due to pain -- asking RN to administer and obtain and will discuss results with dr lopez if significant changes had been wanting to go up on cymbalta but needing to check QT but is agreeable to increase for better pain control no headaches/blurred vision/lightheadedness or dizziness. +joint pain all over. no other complaints at this time regarding fever, chills, chest pain, shortness of breath, abd pain/ +BM this morning. 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 Review of Systems Review of Systems: All systems reviewed & are unremarkable except as noted in HPI & below Physical Exam Physical Exam: General: WN/WD female sitting up in bed, no acute distress ENT:mmm, trachea midline Resp: CTAB, diminished in the bases with associated crackles, on room air CV: RRR, no m/r/g, no edema GI: +BS, soft, nontender : no Martínez MSK/Neuro:speech clear, no facial droop, pain with R straight leg, plantar/dorsiflexion equal bilaterally, sensation to light touch slightly diminished, pulses palpable bilaterally, calves non-tender to palpation Psych: alert, oriented x 3, cooperative Results & Data Results & Data ([facility]) Vital Signs (Past 12 Hours) Vital Signs Temp Pulse Pulse Resp BP BP Pulse Ox 12/03/21 07:24 36.8 C 60 16 123/71 90 12/03/21 02:40 36.6 C 60 16 133/79 95 12/03/21 00:31 74 20 115/45 L 90 12/03/21 00:00 89 20 90 12/02/21 23:20 98 H 18 115/70 90 12/02/21 21:21 36.9 C 80 16 144/76 H 93 12/02/21 21:20 90 16 144/76 H 90 Laboratory Results 12/03/21 12/02/21 12/02/21 Range/Units 00:31 20:09 20:09 WBC 7.08 (4.8-10.8) K/uL RBC 4.66 (4.2-5.4) M/uL Hgb 14.4 (12.0-16.0) g/dL Hct 44.2 (37-47) % MCV 94.8 (80-100) fL MCH 30.9 (25-34) pg MCHC 32.6 (32-36) g/dL RDW Std Deviation 51.0 H (36.4-46.3) fL RDW Coeff of Apple 14.7 H (11.5-14.5) % Plt Count 288 (130-400) K/uL MPV 10.9 H (7.4-10.4) fL Immature Gran % (Auto) 0.1 % Neut % (Auto) 75.0 % Lymph % (Auto) 15.7 % [place] % (Auto) 7.6 % Eos % (Auto) 0.6 % Baso % (Auto) 1.0 % Neut # (Auto) 5.31 (1.4-6.5) K/uL Lymph # (Auto) 1.11 L (1.2-3.4) K/uL [place] # (Auto) 0.54 (0.11-0.59) K/uL Eos # (Auto) 0.04 (0-0.5) K/uL Baso # (Auto) 0.07 (0-0.2) K/uL Immature Gran # (Auto) 0.01 (0.00-0.02) K/uL Sodium 136 (136-145) mmol/L Potassium 3.9 (3.5-5.1) mmol/L Chloride 103 (98-107) mmol/L Carbon Dioxide 26 (21-32) mmol/L Anion Gap 7 (3-11) BUN 6 (6-23) mg/dl Creatinine 0.48 L (0.6-1.2) mg/dl Est Cr Clr Drug Dosing 94.1 ml/min Est GFR ( Amer) 107.4 ml/min Est GFR (Non-Af Amer) 92.6 ml/min BUN/Creatinine Ratio 12.5 (10-20) Glucose 105 H (70-99(Fasting)) mg/dl Calcium 9.4 (8.5-10.1) mg/dl Magnesium 2.0 (1.7-2.4) mg/dl Total Bilirubin 0.5 (0.2-1.0) mg/dl AST 20 (13-39) U/L ALT 11 (7-52) U/L Alkaline Phosphatase 88 (34-104) U/L Total Creatine Kinase 29 (26-192) U/L Total Protein 7.0 (6.0-8.3) gm/dl Albumin 3.8 (3.4-5.0) gm/dl Globulin 3.2 (2.5-4.0) gm/dl Albumin/Globulin Ratio 1.2 (0.9-2) SARS-CoV-2, RNA, NAAT NEGATIVE (NEGATIVE) PG Care Time/CCT Total # of Minutes Spent Total Time Spent with Patient: Total time spent is greater than 50% in coordination of care (as documented) at patient's floor/unit and/or counseling patient: Coding Level of Care Code None Diagnoses Weakness R53.1 Asthma J45.20 Asthma complication type: uncomplicated Asthma persistence: intermittent Asthma severity: mild Depression F32.9 Active/Remission status: in full remission Chronic pain G89.29 (1) Depression Active/Remission status: in full remission (2) Asthma Asthma complication type: uncomplicated Asthma persistence: intermittent Asthma severity: mild Qualified Code(s): J45.20 - Mild intermittent asthma, uncomplicated
[2021-12-03] MEDS: DICLOFENAC SOD 1% GEL 100 GM TUBE EXT SCH ×4 (08:05→20:47)
[2021-12-03] MEDS: ENOXAPARIN INJ 40 MG/0.4 ML SYR SQ SCH (08:06)
[2021-12-03] MEDS: levETIRAcetam 250 MG TAB PO SCH ×2 (08:06→20:46)
[2021-12-03] MEDS: BACLOFEN 10 MG TAB PO SCH ×3 (08:06→20:46)
[2021-12-03] MEDS ORDERED: DULoxetine HCL 20 MG CAP PO SCH (09:00)
--- NOTE | 2021-12-03 09:32 | CT Scan Report ---
CT OF THE HEAD WITHOUT CONTRAST CLINICAL HISTORY: weakness after vaccine COMPARISON STUDY: Head CT October 23, 2021. CT DOSE: 767.83 mGy.cm TECHNIQUE: Helical axial images of the head were obtained without IV contrast. Automated exposure con trol was utilized for the study. A dose lowering technique was utilized adhering to the principles o f ALARA. FINDINGS: No acute intracranial hemorrhage, midline shift or mass effect is present. Cavum septum pel lucidum is incidentally noted. Mild ventricular dilatation is unchanged and likely due to central atr ophy. Basal cisterns are patent. There are no extra-axial collections. White matter hypodensities are unchanged and favor small vessel disease. There are no findings to suggest acute dural sinus thrombo sis or acute territorial infarct. The appearance of the brain is unchanged. 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 This is unchanged. There is no acute calvarial fracture. IMPRESSION: No acute intracranial findings. No change in appearance of the brain. ACT 112: Negative or not required by law. Electronically signed by: Andrez Gillis M.D. 12/03/2021 9:31 AM
--- NOTE | 2021-12-03 10:02 | XRay Report ---
SINGLE VIEW CHEST CLINICAL HISTORY: Generalized weakness. Recent aspiration pneumonia. FINDINGS: An AP, portable, upright chest radiograph is compared to study dated 10/23/2021. The heart is enlarged noting atherosclerotic calcification of the thoracic aorta. The pulmonary vasculature is noncongested. Chronic interstitial thickening is similar to previous. There is bibasilar scarring/ate lectasis. No airspace consolidation or large pleural effusion is identified. No pneumothorax is seen. The skeletal structures are osteopenic. The bony thorax is grossly intact. Degenerative change is no pelon in the shoulders and thoracic spine. IMPRESSION: Cardiomegaly with no acute cardiopulmonary abnormality. ACT 112: Negative or not required by law. Electronically signed by: Nghia Marley M.D. 12/03/2021 10:00 AM
[2021-12-03 10:20] LABS: Procalcitonin 0.49 ng/ml (0-0.5)
[2021-12-03 10:26] LABS: Lyme Ab IgG w/WB Rflx Negative (Negative); Lyme Ab IgM w/WB Rflx Negative (Negative)
[2021-12-03] MEDS: TAPENTADOL HCL ER 50 MG TABCR PO PRN ×2 (10:31→20:46)
[2021-12-03] MEDS ORDERED: MoRPHine SULFATE 2 MG/ML CARP IV STA (10:43)
[2021-12-03 12:02] LABS: Appearance Urine Clear (Clear); Bilirubin Urine Negative (Negative); Blood Urine Negative (Negative); Color Urine Yellow; Glucose Urine UA Negative (Negative); Ketones Urine Negative (Negative); Leukocyte Esterase Urine Negative (Negative); Nitrite Urine Negative (Negative); Protein Urine Negative (Negative); Specific Gravity Urine 1.012 (1.000-1.030); Urobilinogen Urine Negative (Negative); pH Urine 6.5 (4.5-7.5)
--- NOTE | 2021-12-03 14:11 | Electrocardiogram Report ---
Test Reason : Blood Pressure : / mmHG Vent. Rate : 091 BPM Atrial Rate : 091 BPM P-R Int : 216 ms QRS Dur : 070 ms QT Int : 396 ms P-R-T Axes : 000 -35 001 degrees QTc Int : 487 ms Sinus rhythm with 1st degree A-V block with Premature atrial complexes Left axis deviation Low voltage QRS Nonspecific ST abnormality Cannot rule out Anterior infarct , age undetermined Abnormal ECG When compared with ECG of 31-OCT-2021 15:57, Minimal criteria for Anterior infarct are now Present No significant change was found Confirmed by Jordin House ([id number]) on 12/03/2021 2:11:00 PM Referred By: REFERRED SELF Confirmed By:Kash House
--- NOTE | 2021-12-03 17:08 | XCELERA ---
[id number]
[2021-12-03] MEDS ORDERED: MoRPHine SULFATE 2 MG/ML CARP ONE (20:52)
[2021-12-04] MEDS: ACETAMINOPHEN 500 MG TAB PO SCH ×3 (05:16→17:16)
[2021-12-04 06:01] LABS: Hematocrit (blood only) 38.8 % (37-47); Hemoglobin 12.5 g/dL (12.0-16.0); Mean Corpuscular Hemoglobin 30.6 pg (25-34); Mean Corpuscular Hgb Conc 32.2 g/dL (32-36); Mean Corpuscular Volume 95.1 fL (80-100); Mean Platelet Volume 10.4 fL (7.4-10.4); Platelet Count 253 K/uL (130-400); RDW Coefficient of Variation 14.7 % (11.5-14.5); RDW Standard Deviation 51.6 fL (36.4-46.3); Red Blood Count 4.08 M/uL (4.2-5.4); White Blood Count 4.89 K/uL (4.8-10.8)
[2021-12-04 06:20] LABS: BUN Creatinine Ratio 23.2 (10-20); Calcium 8.6 mg/dl (8.5-10.1); Creatinine Clr Calc Pharmacy 78.1 ml/min; Est GFR (African American) 102.1 ml/min; Est GFR (Non-African American) 88.1 ml/min; Potassium 3.9 mmol/L (3.5-5.1)
[2021-12-04 07:06] LABS: Basophils # (auto) 0.07 K/uL (0-0.2); Basophils % (auto) 1.4 %; Eosinophils # (auto) 0.39 K/uL (0-0.5); Immature Granulocytes # (auto) 0.01 K/uL (0.00-0.02); Immature Granulocytes % (auto) 0.2 %; Lymphocytes # (auto) 2.55 K/uL (1.2-3.4); Lymphocytes % (auto) 52.1 %; Monocytes % (auto) 18.4 %; Neutrophils # (auto) 0.97 K/uL (1.4-6.5); Neutrophils % (auto) 19.9 %
--- NOTE | 2021-12-04 07:48 | Hospitalist Progress Note ---
Date of Service December 04, 2021 Assessment & Plan (1) Weakness: Plan: 81yo female presenting with weakness, fatigue and ambulatory dysfunction following her Covid-19 booster vaccine. Patient lives at home with her elderly , was unable to get out of bed or ambulate to the bathroom. Complaints of increased RLE pain following the booster.. Recent admission ICU/intubation for OD dilaudid/ambien. Weakness felt most likely secondary to vaccine side effects but still with weakness, worse than baseline, with increased pain reported to RLE with attempts at movement Prior admission following OD with ambien/dilaudid requiring intubation (eval by psych during that stay, started on Cymbalta for chronic pain/mood). Was tx for aspiration pna with Vanco x 5 days followed by Doxy x 2 during that stay. Bronch cultures grew MRSA. Will also check a CXR to r/o any residual process that could be contributing CXR negative for acute process 12/04 MRI lumbar spine without acute finding, decrease in operative fluid bed collection compared to prior (MRI lumbar spine 10/26/21 with sacral insufficiency fracture, previous L4 compression fracture, post-op seroma, intact hardware, etc. At that time discussion was had with Dr Lopez who felt nothing surgical at this time.) CT head negative for acute process UA negative for infection Checking Lyme/B12/TSH/procal/ESR/CRP --> Lyme negative. B12/TSH unremarkable. ESR 18 (prior ). CRP 3.0 (prior 4.3). Procal 0.39 ECHO unremarkable PT/OT consults -- continue to see while inpatient Did have neutropenia on AM labs, ANC 0.97 --> no new meds other than morphine x 1. Repeated and ANC 2.15 6 hours later. Suspect some degree of lab error. Bacon elevated --> repeat flu/RSV/COVID --> NEGATIVE Could have been transient effect from vaccination --> improvement and wanting to see overnight to see if any changes/remains stable/continued ambulation. Now pain more sciatic sounding --> voltaren topical. has used husbands in past with effectiveness DId increase cymbalta to 40mg daily. QTc acceptable. Would consider increasing further to 60mg outpatient for both mood/pain/energy monitor overnight, likely d/c in AM if stable (2) Asthma: Plan: Well controlled. No cough, SOB or wheeze -Montior on room air but SpO2 90%. ENcouraged IS. lungs diminished but no wheezing (3) Depression: Plan: Patient is very depressed at present given her multiple hospitalizations of late and loss of functional status. She reports being active and independent a short while ago and now feels that she is unable to do anything due to functional limits and chronic pain. 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 I agree w/ the goodman components of her documentation. Magdaleno De La Cruz MD Subjective patient lawrence this morning doing better up at side of bed eating lunch pain controlled -- opiate tolerance/insensitivity but no increase in pain wanting to get up and get cleaned up in bathroom. no fever, chills, chest pain, shortness of breath, abd pain wanting to ask about rec for bowel regimen-- added senna/docusate daily to help. Did have BM yesterday and if effective would continue daily at d/c to help with bowels. tolerated Cymbalta increase this morning, no issues. discussed would ideally like to get to 60mg daily will monitor overnight and if labs improved/she remains stable can d/c and have outpatient follow up anxious to get home to her dog to snuggle tomorrow, beagle. Review of Systems Review of Systems: All systems reviewed & are unremarkable except as noted in HPI & below Physical Exam Physical Exam: General: WN/WD female sitting up at side of bed eating lunch, no acute distress ENT:mmm, trachea midline Resp: CTAB, diminished in the bases with associated crackles, on room air CV: RRR, no m/r/g, no edema GI: +BS, soft, nontender : no Martínez MSK/Neuro:speech clear, no facial droop, moves all extremities, R sciatic type pain/increased with straight leg, calves non-tender to palpation Psych: aox3, pleasant and cooperative (reports brain fog) Results & Data Results & Data ([facility]) Vital Signs (Past 12 Hours) Vital Signs Temp Pulse Resp BP Pulse Ox 12/04/21 07:05 36.6 C 58 L 16 117/68 90 12/03/21 22:13 36.6 C 59 L 18 112/66 91 Laboratory Results 12/04/21 12/04/21 12/04/21 Range/Units 11:58 11:58 11:58 WBC (4.8-10.8) K/uL RBC (4.2-5.4) M/uL Hgb (12.0-16.0) g/dL Hct (37-47) % MCV (80-100) fL MCH (25-34) pg MCHC (32-36) g/dL RDW Std Deviation (36.4-46.3) fL RDW Coeff of Apple (11.5-14.5) % Plt Count (130-400) K/uL MPV (7.4-10.4) fL Immature Gran % (Auto) % Neut % (Auto) % Lymph % (Auto) % [place] % (Auto) % Eos % (Auto) % Baso % (Auto) % Neut # (Auto) (1.4-6.5) K/uL Lymph # (Auto) (1.2-3.4) K/uL [place] # (Auto) (0.11-0.59) K/uL Eos # (Auto) (0-0.5) K/uL Baso # (Auto) (0-0.2) K/uL Immature Gran # (Auto) (0.00-0.02) K/uL Peripher Smr Path Cons ESR (0-30) mm/hr Sodium (136-145) mmol/L Potassium (3.5-5.1) mmol/L Chloride (98-107) mmol/L Carbon Dioxide (21-32) mmol/L Anion Gap (3-11) BUN (6-23) mg/dl Creatinine (0.6-1.2) mg/dl Est Cr Clr Drug Dosing ml/min Est GFR ( Amer) ml/min Est GFR (Non-Af Amer) ml/min BUN/Creatinine Ratio (10-20) Glucose (70-99(Fasting)) mg/dl Calcium (8.5-10.1) mg/dl Total Bilirubin 0.2 (0.2-1.0) mg/dl Direct Bilirubin 0.0 (0-0.2) mg/dl AST 29 (13-39) U/L ALT 18 (7-52) U/L Alkaline Phosphatase 80 (34-104) U/L Troponin I (0-0.04) ng/ml C-Reactive Protein 3.08 H (0-0.5) mg/dl Total Protein 6.2 (6.0-8.3) gm/dl Albumin 3.5 (3.4-5.0) gm/dl Procalcitonin 0.39 (0-0.5) ng/ml SARS-CoV-2 (PCR) (Negative) Influenza Type A (PCR) (Neg) Influenza Type B (PCR) (Neg) RSV (RT-PCR) (Neg) 12/04/21 12/04/21 12/04/21 Range/Units 11:58 11:58 09:50 WBC 5.52 (4.8-10.8) K/uL RBC 4.38 (4.2-5.4) M/uL Hgb 13.4 (12.0-16.0) g/dL Hct 42.0 (37-47) % MCV 95.9 (80-100) fL MCH 30.6 (25-34) pg MCHC 31.9 L (32-36) g/dL RDW Std Deviation 52.3 H (36.4-46.3) fL RDW Coeff of Apple 14.7 H (11.5-14.5) % Plt Count 258 (130-400) K/uL MPV 10.3 (7.4-10.4) fL Immature Gran % (Auto) 0.2 % Neut % (Auto) 39.0 % Lymph % (Auto) 38.6 % [place] % (Auto) 14.1 % Eos % (Auto) 7.2 % Baso % (Auto) 0.9 % Neut # (Auto) 2.15 (1.4-6.5) K/uL Lymph # (Auto) 2.13 (1.2-3.4) K/uL [place] # (Auto) 0.78 H (0.11-0.59) K/uL Eos # (Auto) 0.40 (0-0.5) K/uL Baso # (Auto) 0.05 (0-0.2) K/uL Immature Gran # (Auto) 0.01 (0.00-0.02) K/uL Peripher Smr Path Cons Pending ESR 18 (0-30) mm/hr Sodium (136-145) mmol/L Potassium (3.5-5.1) mmol/L Chloride (98-107) mmol/L Carbon Dioxide (21-32) mmol/L Anion Gap (3-11) BUN (6-23) mg/dl Creatinine (0.6-1.2) mg/dl Est Cr Clr Drug Dosing ml/min Est GFR ( Amer) ml/min Est GFR (Non-Af Amer) ml/min BUN/Creatinine Ratio (10-20) Glucose (70-99(Fasting)) mg/dl Calcium (8.5-10.1) mg/dl Total Bilirubin (0.2-1.0) mg/dl Direct Bilirubin (0-0.2) mg/dl AST (13-39) U/L ALT (7-52) U/L Alkaline Phosphatase (34-104) U/L Troponin I (0-0.04) ng/ml C-Reactive Protein (0-0.5) mg/dl Total Protein (6.0-8.3) gm/dl Albumin (3.4-5.0) gm/dl Procalcitonin (0-0.5) ng/ml SARS-CoV-2 (PCR) NEGATIVE (Negative) Influenza Type A (PCR) Negative (Neg) Influenza Type B (PCR) Negative (Neg) RSV (RT-PCR) Negative (Neg) 12/04/21 12/04/21 12/03/21 Range/Units 05:36 05:36 08:50 WBC 4.89 (4.8-10.8) K/uL RBC 4.08 L (4.2-5.4) M/uL Hgb 12.5 (12.0-16.0) g/dL Hct 38.8 (37-47) % MCV 95.1 (80-100) fL MCH 30.6 (25-34) pg MCHC 32.2 (32-36) g/dL RDW Std Deviation 51.6 H (36.4-46.3) fL RDW Coeff of Apple 14.7 H (11.5-14.5) % Plt Count 253 (130-400) K/uL MPV 10.4 (7.4-10.4) fL Immature Gran % (Auto) 0.2 % Neut % (Auto) 19.9 % Lymph % (Auto) 52.1 % [place] % (Auto) 18.4 % Eos % (Auto) 8.0 % Baso % (Auto) 1.4 % Neut # (Auto) 0.97 L* (1.4-6.5) K/uL Lymph # (Auto) 2.55 (1.2-3.4) K/uL [place] # (Auto) 0.90 H (0.11-0.59) K/uL Eos # (Auto) 0.39 (0-0.5) K/uL Baso # (Auto) 0.07 (0-0.2) K/uL Immature Gran # (Auto) 0.01 (0.00-0.02) K/uL Peripher Smr Path Cons ESR (0-30) mm/hr Sodium 139 (136-145) mmol/L Potassium 3.9 (3.5-5.1) mmol/L Chloride 108 H (98-107) mmol/L Carbon Dioxide 26 (21-32) mmol/L Anion Gap 5 (3-11) BUN 13 (6-23) mg/dl Creatinine 0.56 L (0.6-1.2) mg/dl Est Cr Clr Drug Dosing 78.1 ml/min Est GFR ( Amer) 102.1 ml/min Est GFR (Non-Af Amer) 88.1 ml/min BUN/Creatinine Ratio 23.2 H (10-20) Glucose 86 (70-99(Fasting)) mg/dl Calcium 8.6 (8.5-10.1) mg/dl Total Bilirubin (0.2-1.0) mg/dl Direct Bilirubin (0-0.2) mg/dl AST (13-39) U/L ALT (7-52) U/L Alkaline Phosphatase (34-104) U/L Troponin I 0.03 (0-0.04) ng/ml C-Reactive Protein (0-0.5) mg/dl Total Protein (6.0-8.3) gm/dl Albumin (3.4-5.0) gm/dl Procalcitonin (0-0.5) ng/ml SARS-CoV-2 (PCR) (Negative) Influenza Type A (PCR) (Neg) Influenza Type B (PCR) (Neg) RSV (RT-PCR) (Neg) Diagnostic Findings Head CT 12/03/21 07:57 CT OF THE HEAD WITHOUT CONTRAST CLINICAL HISTORY: weakness after vaccine COMPARISON STUDY: Head CT October 23, 2021. CT DOSE: 767.83 mGy.cm TECHNIQUE: Helical axial images of the head were obtained without IV contrast. Automated exposure control was utilized for the study. A dose lowering technique was utilized adhering to the principles of ALARA. FINDINGS: No acute intracranial hemorrhage, midline shift or mass effect is present. Cavum septum pellucidum is incidentally noted. Mild ventricular dilatation is unchanged and likely due to central atrophy. Basal cisterns are patent. There are no extra-axial collections. White matter hypodensities are unchanged and favor small vessel disease. There are no findings to suggest acute dural sinus thrombosis or acute territorial infarct. The appearance of the brain is unchanged. 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 This is unchanged. There is no acute calvarial fracture. IMPRESSION: No acute intracranial findings. No change in appearance of the brain. ACT 112: Negative or not required by law. Electronically signed by: Andrez Gillis M.D. 12/03/2021 9:31 AM Chest X-Ray 12/03/21 08:04 SINGLE VIEW CHEST CLINICAL HISTORY: Generalized weakness. Recent aspiration pneumonia. FINDINGS: An AP, portable, upright chest radiograph is compared to study dated 10/23/2021. The heart is enlarged noting atherosclerotic calcification of the thoracic aorta. The pulmonary vasculature is noncongested. Chronic interstitial thickening is similar to previous. There is bibasilar scarring/atelectasis. No airspace consolidation or large pleural effusion is identified. No pneumothorax is seen. The skeletal structures are osteopenic. The bony thorax is grossly intact. Degenerative change is noted in the shoulders and thoracic spine. IMPRESSION: Cardiomegaly with no acute cardiopulmonary abnormality. ACT 112: Negative or not required by law. Electronically signed by: Nghia Marley M.D. 12/03/2021 10:00 AM PG Care Time/CCT Total # of Minutes Spent Total Time Spent with Patient: Total time spent is greater than 50% in coordination of care (as documented) at patient's floor/unit and/or counseling patient: Coding Level of Care Code 44615 Subseq Obs Care Lvl 3 Diagnoses Weakness R53.1 Asthma J45.20 Asthma complication type: uncomplicated Asthma persistence: intermittent Asthma severity: mild Depression F32.9 Active/Remission status: in full remission Chronic pain G89.29 (1) Depression Active/Remission status: in full remission (2) Asthma Asthma complication type: uncomplicated Asthma persistence: intermittent Asthma severity: mild Qualified Code(s): J45.20 - Mild intermittent asthma, uncomplicated
[2021-12-04] MEDS: ENOXAPARIN INJ 40 MG/0.4 ML SYR SQ SCH (08:16)
[2021-12-04] MEDS: BACLOFEN 10 MG TAB PO SCH ×3 (08:16→20:28)
[2021-12-04] MEDS: levETIRAcetam 250 MG TAB PO SCH ×2 (08:16→20:27)
[2021-12-04] MEDS: DICLOFENAC SOD 1% GEL 100 GM TUBE EXT SCH ×4 (08:16→20:24)
[2021-12-04] MEDS: DULoxetine HCL 20 MG CAP PO SCH (08:18)
--- NOTE | 2021-12-04 08:21 | Magnetic Resonance Report ---
MRI OF THE LUMBAR SPINE WITHOUT CONTRAST CLINICAL HISTORY: weakness, inability to ambulate after vaccine COMPARISON STUDY: Lumbar spine MRI October 26, 2021. Lumbar spine radiographs October 25, 2021. TECHNIQUE: Utilizing a 1.5 Gabriela magnet and dedicated coil, multiplanar, multiecho imaging of the [facility] spine was performed without IV contrast. FINDINGS: For purposes of numbering on this exam, the L5-S1 disc space is assigned to axial image 32 of 44. L4- S1 posterior decompression and bilateral pedicle screw fusion is noted. L4 and L5 kyphoplasties are n oted. Severe compression fracture of L5 is unchanged. A mild compression fracture of the superior end plate of L4 is also unchanged since MRI of October 26, 2021. Healing left sacral ala fracture is not ed. There is an old T11 compression fracture. No acute lumbar spine fracture is present. There is no suspicious marrow replacement. Exam is mildly compromised by motion artifact. No intracanalicular mas s or fluid collection is present. The operative bed fluid collection shown on MRI of October 26 has decreased in size. Conus terminates at the T12-L1 level. L1-2: There is mild disc bulge with ligamentous hypertrophy and facet arthrosis. Central canal and ne ural foramen are patent. L2-3: Disc bulge is noted with ligamentous hypertrophy and facet arthrosis. This results in severe ce ntral canal stenosis. Patent AP diameter of the canal is 2.5 mm. This is similar to previous MRI. The re is narrowing of both lateral recesses. Moderate narrowing of the bilateral lateral recesses and ne ural foramen is noted. L3-4: There is facet arthrosis with ligamentous hypertrophy. There is moderate central canal and left neural foraminal narrowing. There is mild right neural foraminal narrowing. L4-5: There is no significant central canal stenosis. Neural foramen are suboptimally assessed due to artifact. Suspected moderate bilateral neural foraminal stenosis is present L5-S1: There is no central canal stenosis. Severe right and moderate left neural foraminal stenosis i s present. Evaluation is compromised by artifact from hardware. IMPRESSION: 1. Status post L4-S1 posterior decompression and bilateral pedicle screw fusion and L4 and L5 kyphopl asties. Interval decrease in operative bed fluid collection since MRI of October 26, 2021. Otherwise , no significant change in appearance of the lumbar spine. 2. Severe L5 and mild L4 compression fractures which are unchanged. Healing left sacral ala fracture. 3. No change in severe central canal stenosis at L2-L3. 4. Moderate to severe multilevel neural foraminal narrowing, similar to prior exam. ACT 112: Negative or not required by law. Electronically signed by: Andrez Gillis M.D. 12/04/2021 8:20 AM
[2021-12-04] MEDS ORDERED: DULoxetine HCL 20 MG CAP PO SCH ×2 (09:00)
[2021-12-04 11:34] LABS: Influenza A virus by PCR Negative (Neg); Influenza B virus by PCR Negative (Neg); RSV by PCR Negative (Neg); SARS CoV2 RNA(COVID-19) InHosp NEGATIVE (Negative)
[2021-12-04 12:22] LABS: Basophils # (auto) 0.05 K/uL (0-0.2); Basophils % (auto) 0.9 %; Eosinophils % (auto) 7.2 %; Hemoglobin 13.4 g/dL (12.0-16.0); Immature Granulocytes # (auto) 0.01 K/uL (0.00-0.02); Immature Granulocytes % (auto) 0.2 %; Lymphocytes # (auto) 2.13 K/uL (1.2-3.4); Lymphocytes % (auto) 38.6 %; Mean Corpuscular Hemoglobin 30.6 pg (25-34); Mean Corpuscular Hgb Conc 31.9 g/dL (32-36); Mean Corpuscular Volume 95.9 fL (80-100); Mean Platelet Volume 10.3 fL (7.4-10.4); Monocytes # (auto) 0.78 K/uL (0.11-0.59); Monocytes % (auto) 14.1 %; Neutrophils # (auto) 2.15 K/uL (1.4-6.5); Platelet Count 258 K/uL (130-400); RDW Coefficient of Variation 14.7 % (11.5-14.5); RDW Standard Deviation 52.3 fL (36.4-46.3); Red Blood Count 4.38 M/uL (4.2-5.4); White Blood Count 5.52 K/uL (4.8-10.8)
[2021-12-04] MEDS: TAPENTADOL HCL ER 50 MG TABCR PO PRN (12:35)
[2021-12-04 13:08] LABS: Albumin Level 3.5 gm/dl (3.4-5.0); Bilirubin,Total 0.2 mg/dl (0.2-1.0); Total Protein 6.2 gm/dl (6.0-8.3)
[2021-12-04] MEDS: DOCUSATE SODIUM/SENNA 50/8.6MG TAB PO SCH (13:25)
[2021-12-04] MEDS ORDERED: ALBUTEROL HFA 8 GM INHALER INH PRN (14:10)
[2021-12-04] MEDS ORDERED: ALBUTEROL HFA 8 GM INHALER INH ONE (14:10)
[2021-12-05] MEDS: ACETAMINOPHEN 500 MG TAB PO SCH ×3 (00:17→12:12)
[2021-12-05] MEDS: TAPENTADOL HCL ER 50 MG TABCR PO PRN (00:19)
--- NOTE | 2021-12-05 07:59 | Hospitalist Progress Note ---
Date of Service December 05, 2021 Assessment & Plan (1) Weakness: Plan: 81yo female presenting with weakness, fatigue and ambulatory dysfunction following her Covid-19 booster vaccine. Patient lives at home with her elderly , was unable to get out of bed or ambulate to the bathroom. Complaints of increased RLE pain following the booster.. Recent admission ICU/intubation for OD dilaudid/ambien. Weakness felt most likely secondary to vaccine side effects but still with weakness, worse than baseline, with increased pain reported to RLE with attempts at movement Prior admission following OD with ambien/dilaudid requiring intubation (eval by psych during that stay, started on Cymbalta for chronic pain/mood). Was tx for aspiration pna with Vanco x 5 days followed by Doxy x 2 during that stay. Bronch cultures grew MRSA. Will also check a CXR to r/o any residual process that could be contributing CXR negative for acute process 12/04 MRI lumbar spine without acute finding, decrease in operative fluid bed collection compared to prior (MRI lumbar spine 10/26/21 with sacral insufficiency fracture, previous L4 compression fracture, post-op seroma, intact hardware, etc. At that time discussion was had with Dr Lopez who felt nothing surgical at this time.) CT head negative for acute process UA negative for infection Checking Lyme/B12/TSH/procal/ESR/CRP --> Lyme negative. B12/TSH unremarkable. ESR 18 (prior ). CRP 3.0 (prior 4.3). Procal 0.39 ECHO unremarkable PT/OT consults -- continue to see while inpatient Did have neutropenia on AM labs, ANC 0.97 --> no new meds other than morphine x 1. Repeated and ANC 2.15 6 hours later. Suspect some degree of lab error. [place] elevated --> repeat flu/RSV/COVID --> NEGATIVE Could have been transient effect from vaccination --> improvement and wanting to see overnight to see if any changes/remains stable/continued ambulation. Now pain more sciatic sounding --> voltaren topical. has used husbands in past with effectiveness DId increase cymbalta to 40mg daily. QTc acceptable. Would consider increasing further to 60mg outpatient for both mood/pain/energy monitor overnight, likely d/c in AM if stable 12/05 (2) Asthma: Plan: Well controlled. No cough, SOB or wheeze -[place] on room air but SpO2 90%. ENcouraged IS. lungs diminished but no wheezing (3) Depression: Plan: Patient is very depressed at present given her multiple hospitalizations of late and loss of functional status. She reports being active and independent a short while ago and now feels that she is unable to do anything due to functional limits and chronic pain. 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 -Continue Cymbalta -- increase to 40mg for AM, titrate further outptatient -Continue Diclofenac -Continue Baclofen -Continue Tylenol On nucynta 50mg BID, resumed Morphine x 1 for MRI Lumbar spine as above for eval weakness -- see above Pain well controlled today Plan: Ppx - Lovenox 40 while inpatient Admission and Anticipated Discharge Date Admission Date: December 03, 2021 Results & Data Results & Data ([facility]) Vital Signs (Past 12 Hours) Vital Signs Temp Pulse Pulse Resp BP Pulse Ox Pulse Ox 12/05/21 07:25 36.3 C L 54 L 16 100/59 L 94 12/05/21 05:00 57 L 90 12/05/21 03:48 64 90 12/05/21 00:21 64 97 12/04/21 22:10 36.4 C L 54 L 18 99/64 L 91 12/04/21 21:46 53 L 100 PG Care Time/CCT Total # of Minutes Spent Total Time Spent with Patient: Total time spent is greater than 50% in coordination of care (as documented) at patient's floor/unit and/or counseling patient: Coding Diagnoses Weakness R53.1 Asthma J45.20 Asthma severity: mild Asthma persistence: intermittent Asthma complication type: uncomplicated Depression F32.9 Active/Remission status: in full remission Chronic pain G89.29 (1) Asthma Asthma severity: mild Asthma persistence: intermittent Asthma complication type: uncomplicated Qualified Code(s): J45.20 - Mild intermittent asthma, uncomplicated (2) Depression Active/Remission status: in full remission
[2021-12-05] MEDS: BACLOFEN 10 MG TAB PO SCH ×2 (08:13→13:44)
[2021-12-05] MEDS: levETIRAcetam 250 MG TAB PO SCH (08:13)
[2021-12-05] MEDS: DULoxetine HCL 20 MG CAP PO SCH (08:13)
[2021-12-05] MEDS: DOCUSATE SODIUM/SENNA 50/8.6MG TAB PO SCH (08:14)
[2021-12-05] MEDS: DICLOFENAC SOD 1% GEL 100 GM TUBE EXT SCH ×2 (08:15→12:12)
[2021-12-05] MEDS: ENOXAPARIN INJ 40 MG/0.4 ML SYR SQ SCH (08:15)
[2021-12-05 08:29] LABS: Hematocrit (blood only) 41.6 % (37-47); Hemoglobin 13.1 g/dL (12.0-16.0); Mean Corpuscular Hemoglobin 30.1 pg (25-34); Mean Corpuscular Hgb Conc 31.5 g/dL (32-36); Mean Corpuscular Volume 95.6 fL (80-100); Mean Platelet Volume 10.5 fL (7.4-10.4); Platelet Count 286 K/uL (130-400); RDW Coefficient of Variation 14.7 % (11.5-14.5); RDW Standard Deviation 51.9 fL (36.4-46.3); Red Blood Count 4.35 M/uL (4.2-5.4); White Blood Count 6.08 K/uL (4.8-10.8)
[2021-12-05 08:56] LABS: ALC (manual) 3.54 K/uL (1.2-3.4); ANC (manual) 1.74 K/uL (1.4-6.5); Eosinophils # (manual) 0.32 K/uL (0-0.5); Eosinophils % (manual) 5.2 %; Lymphocytes # (manual) 2.59 K/uL (1.2-3.4); Lymphocytes % (manual) 42.6 %; Monocytes # (manual) 0.47 K/uL (0.11-0.59); Monocytes % (manual) 7.8 %; Neutrophils # (manual) 1.74 K/uL (1.4-6.5); Neutrophils % (manual) 28.7 %; Reactive Lymphocytes # (manual) 0.95 K/uL; Reactive Lymphocytes % (manual) 15.7 %
[2021-12-05 09:15] LABS: C Reactive Protein 1.88 mg/dl (0-0.5); Calcium 8.6 mg/dl (8.5-10.1); Creatinine Clr Calc Pharmacy 68.4 ml/min; Est GFR (African American) 97.7 ml/min; Est GFR (Non-African American) 84.3 ml/min; Potassium 4.3 mmol/L (3.5-5.1)
--- NOTE | 2021-12-05 11:11 | Discharge Summary ---
Date of Service December 05, 2021 Admission HPI Per Admitting Provider Kami Valencia is an 81yo female presenting with weakness and fatigue following her Covid-19 booster vaccine. She was in her usual state of health until she received the booster vaccine yesterday after which she became fatigued, achy with difficulty ambulating. Patient lives with her elderly and ambulates with a walker at home. had to call for help to get patient out of bed yesterday and had to call EMS later in the day for lift assist to get her to the bathroom. Patient has had poor appetite and decreased intake over the last day as well. Difficulty ambulating in the ER with unsteady gait requring assistance. ER course: Toradol Admission Exam Per Admitting Provider General: patient resting comfortably, NAD, non-toxic in appearance, AA&O x 4 Skin: warm, dry, intact, no rashes or lesions HEENT: NC/AT, PERRL, EOMI, anicteric sclera, conjunctiva without injection, external ear normal to inspection and nontender, nares patent, moist mucus membranes, dentition intact, no oropharyngeal lesions, neck supple, trachea midline, no LAD, no thyromegaly, no JVD Heart: +S1/S2, regular, no m/r/g Lungs: equal air entry bilaterally, no rales/rhonchi/wheezes Abd: +BS, soft, NT/ND, no masses/organomegaly/ascites Ext: warm, 2+ pulses in UE/LE bilaterally, no clubbing/cyanosis or edema Neuro: nonfocal, patient AA&O x 4, speech intact, no facial droop, moving all extremities on command with equal strength 5/5 Principal Diagnosis Gait Instability, Vaccine Reaction Discharge Exam General: WN/WD female sitting up at side of bed eating lunch, no acute distress, general pallor ENT:mmm, trachea midline Resp: CTAB, diminished in the bases with associated crackles, no wheezing, on room air CV: RRR, no m/r/g, no edema GI: +BS, soft, nontender : no Martínez MSK/Neuro:speech clear, no facial droop, moves all extremities, R sciatic type pain/increased with straight leg (decreased), calves non-tender to palpation Psych: aox3, pleasant and cooperative Discharge Data Allergies Allergy/AdvReac Type Severity Reaction Status Date / Time Sulfa (Sulfonamide Allergy Intermediate HIVES Verified 12/01/21 15:26 Antibiotics) trimethoprim Allergy Intermediate HIVES Verified 12/01/21 15:26 OPIODS AdvReac Severe TOLERANT--DON'T Uncoded 12/01/21 15:26 WORK. Ordered Studies Hip/Pelvis X-Ray 12/02/21 20:04 SINGLE VIEW PELVIS; 2 VIEWS RIGHT HIP CLINICAL HISTORY: Right leg pain. FINDINGS: An AP view of the pelvis with AP and frog-leg views of the right hip are obtained. No prior studies are available for comparison at the time of dictation. The skeletal structures are osteopenic. There is no radiographic evidence of acute fracture involving the hips or bony pelvis. Mild degenerative joint space narrowing and arthritic change is seen in the hips. Fusion hardware is noted at the lumbosacral junction. Sclerotic change is noted in the sacroiliac joints and pubic symphysis. The overlying soft tissues are within normal limits. IMPRESSION: No acute bony abnormality is identified. Electronically signed by: Nghia Marley M.D. 12/02/2021 8:[address] 12/03/21 07:57 CT OF THE HEAD WITHOUT CONTRAST CLINICAL HISTORY: weakness after vaccine COMPARISON STUDY: Head CT October 23, 2021. CT DOSE: 767.83 mGy.cm TECHNIQUE: Helical axial images of the head were obtained without IV contrast. Automated exposure control was utilized for the study. A dose lowering technique was utilized adhering to the principles of ALARA. FINDINGS: No acute intracranial hemorrhage, midline shift or mass effect is present. Cavum septum pellucidum is incidentally noted. Mild ventricular dilatation is unchanged and likely due to central atrophy. Basal cisterns are patent. There are no extra-axial collections. White matter hypodensities are unchanged and favor small vessel disease. There are no findings to suggest acute dural sinus thrombosis or acute territorial infarct. The appearance of the brain is unchanged. 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 This is unchanged. There is no acute calvarial fracture. IMPRESSION: No acute intracranial findings. No change in appearance of the brain. ACT 112: Negative or not required by law. Electronically signed by: Andrez Gillis M.D. 12/03/2021 9:31 AM Lumbar Spine MRI 12/03/21 07:57 MRI OF THE LUMBAR SPINE WITHOUT CONTRAST CLINICAL HISTORY: weakness, inability to ambulate after vaccine COMPARISON STUDY: Lumbar spine MRI October 26, 2021. Lumbar spine radiographs October 25, 2021. TECHNIQUE: Utilizing a 1.5 Gabriela magnet and dedicated coil, multiplanar, multiecho imaging of the lumbar spine was performed without IV contrast. FINDINGS: For purposes of numbering on this exam, the L5-S1 disc space is assigned to axial image 32 of 44. L4-S1 posterior decompression and bilateral pedicle screw fusion is noted. L4 and L5 kyphoplasties are noted. Severe compression fracture of L5 is unchanged. A mild compression fracture of the superior endplate of L4 is also unchanged since MRI of October 26, 2021. Healing left sacral ala fracture is noted. There is an old T11 compression fracture. No acute lumbar spine fracture is present. There is no suspicious marrow replacement. Exam is mildly compromised by motion artifact. No intracanalicular mass or fluid collection is present. The operative bed fluid collection shown on MRI of October 26, 2021 has decreased in size. Conus terminates at the T12-L1 level. L1-2: There is mild disc bulge with ligamentous hypertrophy and facet arthrosis. Central canal and neural foramen are patent. L2-3: Disc bulge is noted with ligamentous hypertrophy and facet arthrosis. This results in severe central canal stenosis. Patent AP diameter of the canal is 2.5 mm. This is similar to previous MRI. There is narrowing of both lateral recesses. Moderate narrowing of the bilateral lateral recesses and neural foramen is noted. L3-4: There is facet arthrosis with ligamentous hypertrophy. There is moderate central canal and left neural foraminal narrowing. There is mild right neural foraminal narrowing. L4-5: There is no significant central canal stenosis. Neural foramen are suboptimally assessed due to artifact. Suspected moderate bilateral neural foraminal stenosis is present L5-S1: There is no central canal stenosis. Severe right and moderate left neural foraminal stenosis is present. Evaluation is compromised by artifact from hardware. IMPRESSION: 1. Status post L4-S1 posterior decompression and bilateral pedicle screw fusion and L4 and L5 kyphoplasties. Interval decrease in operative bed fluid collection since MRI of October 26, 2021. Otherwise, no significant change in appearance of the lumbar spine. 2. Severe L5 and mild L4 compression fractures which are unchanged. Healing left sacral ala fracture. 3. No change in severe central canal stenosis at L2-L3. 4. Moderate to severe multilevel neural foraminal narrowing, similar to prior exam. ACT 112: Negative or not required by law. Electronically signed by: Andrez Gillis M.D. 12/04/2021 8:20 AM Chest X-Ray 12/03/21 08:04 SINGLE VIEW CHEST CLINICAL HISTORY: Generalized weakness. Recent aspiration pneumonia. FINDINGS: An AP, portable, upright chest radiograph is compared to study dated 10/23/2021. The heart is enlarged noting atherosclerotic calcification of the thoracic aorta. The pulmonary vasculature is noncongested. Chronic interstitial thickening is similar to previous. There is bibasilar scarring/atelectasis. No airspace consolidation or large pleural effusion is identified. No pneumothorax is seen. The skeletal structures are osteopenic. The bony thorax is grossly intact. Degenerative change is noted in the shoulders and thoracic spine. IMPRESSION: Cardiomegaly with no acute cardiopulmonary abnormality. ACT 112: Negative or not required by law. Electronically signed by: Nghia Marley M.D. 12/03/2021 10:00 AM [place] Hospital Course (1) Weakness: 81yo female presenting with weakness, fatigue and ambulatory dysfunction following her Covid-19 booster vaccine. Patient lives at home with her elderly , was unable to get out of bed or ambulate to the bathroom. Complaints of increased RLE pain following the booster.. Recent admission ICU/intubation for OD dilaudid/ambien. Weakness felt most likely secondary to vaccine side effects but still with weakness, worse than baseline, with increased pain reported to RLE with attempts at movement Prior admission following OD with ambien/dilaudid requiring intubation (eval by psych during that stay, started on Cymbalta for chronic pain/mood). Was tx for aspiration pna with Vanco x 5 days followed by Doxy x 2 during that stay. Bronch cultures grew MRSA. Will also check a CXR to r/o any residual process that could be contributing CXR negative for acute process MRI lumbar spine without acute finding, decrease in operative fluid bed collection compared to prior (MRI lumbar spine 10/26/21 with sacral insufficiency fracture, previous L4 compression fracture, post-op seroma, intact hardware, etc. At that time discussion was had with Dr Lopez who felt nothing surgical at this time.) CT head negative for acute process UA negative for infection Checking Lyme/B12/TSH/procal/ESR/CRP --> Lyme negative. B12/TSH unremarkable. ESR 18 (prior 29). CRP 3.0 (prior 4.3). Procal 0.39 ECHO unremarkable PT/OT consults -- continue to see while inpatient Did have neutropenia on AM labs, ANC 0.97 --> no new meds other than morphine x 1. Repeated and ANC 2.15 6 hours later. Suspect some degree of lab error. [place] elevated --> repeat flu/RSV/COVID --> NEGATIVE Could have been transient effect from vaccination --> improvement and wanting to see overnight to see if any changes/remains stable/continued ambulation. Voltaren topical for sciatic type pain utilized, and increased her cymbalta to 40mg daily to help with both mood/pain/energy --> TO further discuss with her PCP about increasing to 60mg daily. QTC acceptable Stated she felt much improved and was ambulating around the room at baseline at felt stable for discharge. TO continue to work with home energy PT as she had previous arranged (2) Asthma: Well controlled. No cough, SOB or wheeze lungs diminished but no wheezing albuterol prn encouraged incentive spirometer -- no issues during inpatient stay (3) Depression: Patient is very depressed at present given her multiple hospitalizations of late and loss of functional status. She reports being active and independent a short while ago and now feels that she is unable to do anything due to functional limits and chronic pain. 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 -Continue Cymbalta -- increase to 40mg for AM, titrate further outptatient -Continue Diclofenac -Continue Baclofen -Continue Tylenol On nucynta 50mg BID, resumed Morphine x 1 for MRI Lumbar spine as above for eval weakness -- see above Pain well controlled today and discharged on 40mg daily, titrate to 60mg with her PCP and instructed to attempt to decrease the baclofen as this is effective and this may help some of the weakness and brain fog Ppx - Lovenox 40 while inpatient Total Time Total Time Spent Total Time Spent (In Minutes): 45 Discharge Plan Discharge Items Patient Disposition: Home - Self-Care Reason For Visit: WEAKNESS Discharge Diagnosis: Weakness, Adverse Reaction to Vaccine Goals: You have been hospitalized for an acute medical problem. During your stay at [facility], we have made an effort to correct the problem that brought you to the hospital while keeping you as comfortable as possible. Medications were used to bring your condition under control and your discharge instructions will include directions for any medications you should take after leaving the hospital. Please make sure you see your Primary Care Provider as part of your follow up plan. Activity: As commented below Activity Comment: increase activity with therapy Non-emergency contact: Primary Care Provider Call non-emergency contact if: you have any medication questions, your symptoms worsen, your pain is not controlled and you have a fever Follow-up/Referrals: Milka Velasquez MD [Primary Care Provider] - Diet: Heart Healthy Addtl Attending Provider Instructions: You have been hospitalized for weakness. Imaging did not show any acute findings, and MRI of your back is improved from prior. Labs were unrevealing and likely a response from the vaccine and have returned to normal or trending down. You have had you cymbalta increased to 40mg daily and should talk with Dr Velasquez about increasing this to 60mg daily as an outpatient. You should attempt to limit the baclofen use as this medication is helping to improve pain as this baclofen can cause weakness as well.. You should follow up with your PCP in the next week to monitor your progress and repeat blood counts to ensure lymphocyte count returns to normal. You were repeat tested for covid and this was also negative, however if develop any loss of taste/smell or shortness of breath you should consider repeat testing as there have been cases of patients getting vaccinated who have been recently exposed. Again, your testing has been negative x2. Please return to the emergency department with any fever, chills, chest pain, shortness of breath, increased weakness, or for any other symptoms concerning for you. It has been a pleasure being a part of the medical team providing for you while you have been in the hospital. Take care! Pending Studies at Discharge: Yes Studies:: peripheral blood smear Stand-Alone Forms: My [facility], Opioid Pain Management, Smoking Cessation Medications and DC Order Prescriptions: New duloxetine [Cymbalta] 20 mg Capsule,Delayed Release(Dr/Ec) 40 mg PO DAILY Qty: 30 RF: 0 Continued levetiracetam [Keppra] 250 mg tablet 250 mg PO BID Qty: 60 RF: 5 hydroxyzine HCl 25 mg tablet 25 mg PO HS PRN (Reason: insomnia) Qty: 30 RF: 5 multivitamin Tablet 1 tab PO QAM RF: 0 omega 1-jvw-tpd-fish oil [Fish Oil] 1,000 mg (120 mg-180 mg) capsule 1 cap PO QAM RF: 0 cholecalciferol (vitamin D3) 50 mcg (2,000 unit) tablet 2,000 unit PO QAM RF: 0 Flovent HFA 110 mcg/actuation HFA aerosol inhaler 2 puff INH BID PRN (Reason: asthma) RF: 0 sennosides [Senokot] 8.6 mg tablet 17.2 mg PO HS PRN (Reason: constipation) RF: 0 baclofen 10 mg tablet 10 mg PO TID Qty: 90 RF: 5 diclofenac sodium [Voltaren Arthritis Pain] 1 % Gel 2 g EXT QID Qty: 100 RF: 0 Nucynta ER 50 mg Tablet Extended Release 12 Hr 50 mg PO Q12 Qty: 60 RF: 0 acetaminophen [Tylenol Extra Strength] 500 mg tablet 500 mg PO Q6H RF: 0 Discontinued duloxetine [Cymbalta] 20 mg capsule,delayed release(DR/EC) 20 mg PO DAILY Qty: 30 RF: 0 Discharge Orders: Discharge Order (Routine); Ordered 12/05/21 Ordered By: Cherry Chavez Admission Data Admit Date/Time: 12/03/21 01:11 Attending Provider: Kamran Freire Admit Provider: Aurelia Boswell Primary Care Provider: Milka Velasquez Other Interventions: Discharge Summary Assessment (RN) Last Done: 12/05/21 12:07 Supervising Physician Co-Signing Physician Notes Attending note: patient seen and examined with Betsey Callahan PA-C. I agree with her discharge summary. I personally reviewed the labs and imaging findings. patient doing well, able to ambulate much better, feeling stronger eating and drinking well, breathing stable - Ambulatory dysfunction after COVID vaccine: transient weakness, has back pain which is chronic will discharge to home with home health Coding Level of Care Code 85322 OBS Care - Discharge Diagnoses Weakness R53.1 Asthma J45.20 Asthma complication type: uncomplicated Asthma persistence: intermittent Asthma severity: mild Depression F32.9 Active/Remission status: in full remission Chronic pain G89.29
== END 2021-12-05 15:49 | disposition home or self-care (01) ==
LOC: ED 19:31 → 3E 19:31 → SUATTDRO 12-03 01:11 → 3E 12-03 02:17
DX: Z20.822 Contact with and (suspected) exposure to COVID-19; J45.20 Mild intermittent asthma, uncomplicated; R53.1 Weakness; Z79.899 Other long term (current) drug therapy; F32.A Depression, unspecified; Z88.2 Allergy status to sulfonamides; G89.29 Other chronic pain

== ENCOUNTER 2025-09-26 12:50 | Inpatient (IN) ==
--- NOTE | 2025-09-26 14:16 | Emergency Department Note ---
History of Present Illness General Chief complaint: Back Injury/Pain Stated complaint: BACK INJURY L2 COMPRESSION FRACTURE Time Seen by Provider: 09/26/25 14:14 History of Present Illness Maximum Pain Intensity: 9 This is an 85-year-old female that presents to the emergency department via private vehicle for evaluation of right lower back pain. Patient notes that she fell about a month ago and since then has had right lower back pain. Patient notes PCP visit yesterday, x-ray was performed and showed compression fracture of L2. History of spinal fusion in 2020. No radiation to the extremities. Pain localized to the back. No numbness or tingling. Patient has difficulty with walking. Pain better with heating pad. Home Medications Medication Instructions Recorded Confirmed Type multivitamin 1 tab PO QAM 01/31/20 09/26/25 History acetylcysteine 600 mg capsule (NAC) 600 mg PO QID 05/23/24 09/26/25 History s-adenosylmethionine 200 mg tablet 400 mg PO BID 05/23/24 09/26/25 History (SHWETA-e) ibuprofen 200 mg capsule 400 mg PO Q6H PRN Pain 06/12/24 09/26/25 History cholecalciferol (vitamin D3) 25 25 mcg PO DAILY #30 caps 11/28/24 09/26/25 Rx mcg (1,000 unit) capsule buspirone 5 mg tablet 0 mg PO DAILY 05/12/25 09/26/25 History diclofenac sodium 1 % topical gel 2 g topical QID PRN Pain 05/12/25 09/26/25 History aripiprazole 2 mg tablet 2 mg PO DAILY 06/05/25 09/26/25 History venlafaxine 150 mg 225 mg PO QAM 06/12/25 09/26/25 History capsule,extended release 24 hr (Effexor XR) albuterol sulfate 90 mcg/actuation 2 puff inhalation QID PRN 09/12/25 09/26/25 Rx aerosol inhaler shortness of breath or wheezing #6.7 grams fluticasone fur. 200 mcg-umeclid 1 inh inhalation DAILY #28 ea 09/12/25 09/26/25 Rx 62.5 mcg-vilant 25 mcg inhalat.powder (Trelegy Ellipta) alendronate 70 mg tablet 70 mg PO Q7D #12 tabs 09/25/25 09/26/25 Rx lidocaine 5 % topical patch 1 patch topical DAILY #30 ea 09/25/25 09/26/25 Rx oxybutynin chloride 5 mg tablet 5 mg PO BID #180 tabs 09/25/25 09/26/25 Rx Brush Oil 1 cap PO DAILY 09/26/25 09/26/25 History Allergies Allergy/AdvReac Type Severity Reaction Status Date / Time Sulfa (Sulfonamide Allergy Intermediate HIVES Verified 09/25/25 12:57 Antibiotics) trimethoprim Allergy Intermediate HIVES Verified 09/25/25 12:57 OPIODS AdvReac Severe TOLERANT--DON'T Uncoded 09/25/25 12:57 WORK. Past Med/Surg History Problem List Low back pain (Acute) Closed burst fracture of lumbar vertebra (Acute) Compression fracture of L2 lumbar vertebra an interval moderate vertebral body compression fracture at L2 from a fall about a month ago per the provider note Class 1 obesity BMI 34.0-34.9,adult Other obesity due to excess calories Asthma "haven't used inhaler in a long time" Overactive bladder Osteoporosis Chronic pain Ambulatory dysfunction (Acute) Depression Lumbar spinal stenosis History of lumbar spinal fusion (~09/2021) Medical History (Updated 09/27/25 @ 01:03 by Ricci King PA-C) BMI 35.0-35.9,adult Class 2 obesity Abnormal TSH Weight loss Hx of carpal tunnel syndrome right Prolonged QT interval Suicide attempt (~09/2021) Polysubstance overdose Compression fracture of L5 vertebra hx 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 Osteoporosis Osteoarthritis History of Graves' disease in remission Surgical History History of tooth extraction Hx of cataract extraction bilateral Hx of tonsillectomy Hx of carpal tunnel repair right Status post kyphoplasty (~09/2021) History of knee replacement procedure of right knee History of knee replacement procedure of left knee History of colonoscopy S/P ORIF (open reduction internal fixation) fracture (~05/2021) Rt wrist Family History Mother Alzheimer disease Depression Father Myocardial infarction Brother Non-Hodgkin lymphoma Dementia Sister Stroke Other No family history of adverse response to anesthesia Denies family history of Ovarian cancer Prostate cancer Breast cancer Lung cancer Colorectal cancer Social History Smoking Status: Never smoker Second Hand Exposure: No; Do You Dip or Chew Tobacco: No; Hx Alcohol Use: No Hx Substance Use: No Preferred Language: Libyan Communication Ability: Effective Visual Impairment: Limited Hearing Ability: Normal [employer] Representative Required: No marital status: Current Living Situation: Spouse current occupational status: retired How many Children do You have: 2 Feels Safe at Home: Yes Childhood Exposure to Second-Hand Smoke: Yes Diet: regular Diet Comment: no meat caffeine: Yes during the past year weight has: remained stable Dental Care, Regularly: Yes Physical Activity Frequency: 1-2 Times per Week Physical Activity Frequency Comment: daily house work /PT Seatbelt Use: always Sunscreen Use: Yes Assistive Devices: Glasses Review of Systems A total of 10 systems reviewed and were otherwise negative Physical Exam Vital Signs Vital Signs - 24 hr 09/26/25 13:04 09/26/25 16:15 09/26/25 18:10 Temperature 36.5 C Temperature Source Temporal Artery Scan Pulse Rate 83 Pulse Rate [Right Finger] 72 Respiratory Rate 18 18 Respiratory Effort / Characteristics Non-Labored Spontaneous Respiratory Depth Normal Normal Normal Respiratory Pattern Regular Blood Pressure 133/84 Blood Pressure [Right Arm] 145/86 H Blood Pressure Mean 100 Blood Pressure Mean [Right Arm] 105 Blood Pressure Position Sitting Pulse Oximetry 96 96 Oxygen Delivery Method Room Air Room Air Sepsis Recent Fever Within 48 Hours No Sepsis New/Unexplained Change in Mental Status N/A Sepsis Action Taken by Nursing No Action Required VITAL SIGNS - Vital signs and nursing notes were reviewed. Stable and afebrile. GENERAL -85-year-old female appearing her stated age who is in no acute distress. Communicates well with provider and answers questions appropriately. SKIN - Without rashes. No meningeal or petechial rash. HEAD - NC/AT. EYES - PERRL with EOMI bilaterally. Sclera anicteric. EARS - No deformities of external structures noted on gross examination bilaterally. NOSE - Midline and without cyanosis. No epistaxis or purulent drainage noted. MOUTH/OROPHARYNX - Without perioral cyanosis. NECK - Neck with FROM.No nuchal rigidity. LUNGS - CTA CARDIAC - RRR ABDOMEN - Abdominal contour normal without pulsations or visible masses. BS normoactive all four quadrants. No tenderness, palpable masses, hepatosplenomegaly, or ascites noted. MSKthere is tenderness overlying the L-spine. EXTREMITIES - No clubbing or peripheral cyanosis. +5/5 strength noted in UE/LE bilaterally. NEUROLOGIC - Cranial nerves grossly intact. PSYCH -alert, oriented and pleasant on exam Course Administered Medications Hydromorphone HCl (Hydromorphone Inj 0.5 Mg/0.5 Ml Syr) 0.5 mg IV Q6H PRN PRN Reason: Pain, breakthrough Stop: 10/10/25 19:31 Last Admin: 09/26/25 22:59 Dose: 0.5 mg Documented By: [id number] Ketorolac Tromethamine (Ketorolac Tromethamine 15 Mg/Ml Vial) 10 mg IV Q6H PRN PRN Reason: Pain, second line Stop: 10/01/25 19:31 Last Admin: 09/26/25 20:23 Dose: 10 mg Documented By: ROCCOD Miscellaneous (Remove Lidoderm Patch) 1 each N/A DAILY@2100 [facility] Stop: 10/26/25 21:52 Last Admin: 09/26/25 22:03 Dose: 1 each Documented By: [id number] Oxybutynin Chloride (Oxybutynin Chloride 5 Mg Tab) 5 mg PO BID [facility] Stop: 10/26/25 21:52 Last Admin: 09/26/25 22:33 Dose: 5 mg Documented By: [id number] Medical Decision Making Laboratory Data 09/26/25 15:36 09/26/25 15:36 Lab Results 09/26/25 Range/Units 15:36 WBC 9.07 (4.8-10.8) K/ul RBC 4.72 (4.20-5.40) M/uL Hgb 14.7 (12.0-16.0) g/dL Hct 44.9 (37.0-47.0) % MCV 95.1 (80.0-100.0) fL MCH 31.1 (25.0-34.0) pg MCHC 32.7 (32.0-36.0) g/dL RDW Std Deviation 47.9 H (36.4-46.3) fL RDW Coeff of Apple 13.7 (11.5-14.5) % Plt Count 263 (130-400) K/uL MPV 10.0 (9.4-12.4) fL Immature Gran % (Auto) 0.2 % Neut % (Auto) 67.9 % Lymph % (Auto) 23.6 % [place] % (Auto) 5.7 % Eos % (Auto) 1.7 % Baso % (Auto) 0.9 % Neut # (Auto) 6.16 (1.40-6.50) K/uL Lymph # (Auto) 2.14 (1.20-3.40) K/uL [place] # (Auto) 0.52 (0.11-0.59) K/uL Eos # (Auto) 0.15 (0.00-0.50) K/uL Baso # (Auto) 0.08 (0.00-0.20) K/uL Immature Gran # (Auto) 0.02 (0.01-0.20) K/uL Sodium 141 (136-145) mmol/L Potassium 4.2 (3.5-5.1) mmol/L Chloride 103 (98-107) mmol/L Carbon Dioxide 31 (21-32) mmol/L Anion Gap 7 (3-11) BUN 15 (6-23) mg/dl Creatinine 0.59 L (0.6-1.2) mg/dl Est Cr Clr Drug Dosing Not Reportable eGFR 88.81 BUN/Creatinine Ratio 25.4 H (10-20) Glucose 97 (70-99(Fasting)) mg/dl Calcium 9.7 (8.6-10.3) mg/dl Total Bilirubin 0.6 (0.2-1.0) mg/dl AST 23 (13-39) U/L ALT 13 (7-52) U/L Alkaline Phosphatase 96 (34-104) U/L Total Protein 7.4 (6.0-8.3) gm/dl Albumin 4.2 (3.4-5.0) gm/dl Globulin 3.2 (2.5-4.0) gm/dl Albumin/Globulin Ratio 1.3 (0.9-2) Imaging Data Radiologist's Impression: Lumbar Spine CT 09/26/25 14:52 CT LUMBAR SPINE WITHOUT CONTRAST: HISTORY: PAIN TECHNIQUE: Noncontrast CT examination of the lumbar spine is performed. Coronal and sagittal reformats were created. COMPARISON: Lumbar spine CT October 25, 2020 FINDINGS: LUMBAR SPINE: There is an acute burst type fracture of L2 vertebral body without significant retropulsion. There is a probably chronic but age-indeterminate compression fracture changes along the inferior endplate of T12 vertebral body without retropulsion. Chronic appearing anterior wedging of the T11 vertebral body Redemonstrated chronic compression fractures of L4 and L5 vertebral bodies. Also redemonstrated are posterior instrumented fusion at L4-S1 with laminectomies Grade 1 anterolisthesis of L5 on S1 is unchanged Usual lumbar lordosis is preserved. Multilevel degenerative changes characterized by disc space loss, broad based disc bulge/herniations with endplate changes of the vertebral bodies with small marginal osteophytes as well as bilateral facet hypertrophy and thickening of the ligamentum flavum resulting in crowding of the subarticular recesses and narrowing of neural foramina worst at L4-S1. IMPRESSION: Acute burst type fracture of L2 vertebral body without significant retropulsion. Probably chronic but age-indeterminate compression fracture changes along the inferior endplate of T12 vertebral body without retropulsion. Chronic appearing anterior wedging of the T11 vertebral body Redemonstrated chronic compression fractures of L4 and L5 vertebral bodies with postoperative changes. Multilevel degenerative changes as above. Electronically signed by Jose Chavez 09-26-2025 5:[address] 09/26/25 14:52 CT PELVIS WITHOUT CONTRAST: TECHNIQUE: Un-enhanced CT examination of the pelvis was performed. IV CONTRAST: 100 mL of OMNIPAQUE 300. HISTORY: Pelvic pain COMPARISON: FINDINGS: URINARY BLADDER: Unremarkable REPRODUCTIVE ORGANS: Unremarkable AORTA and ILIAC ARTERIES: No aneurysmal dilatation of the visualized portion of the aorta or iliac arteries seen. LYMPH NODES: No pelvic lymph adenopathy identified. GASTROINTESTINAL: The visualized bowel is normal in caliber. PERITONEUM: No ascites is seen. No peritoneal masses seen. PELVIC WALL: No hernia is identified OSSEOUS STRUCTURES: No acute or suspicious process identified. IMPRESSION: No acute traumatic fracture is identified in the pelvis. Electronically signed by Jose Chavez 09-26-2025 5:27 PM MDM Narrative Patient was seen and evaluated as above in room D03a. Review was performed of nursing notes and vital signs. I did review pertinent previous visits and patient history. After obtaining a thorough history and physical examination the above work up was performed. Patient presents to us today for evaluation of back pain. This is status post fall that happened about 30 days ago. She had an x-ray yesterday that showed L2 compression fracture. On my assessment she is neurovascularly intact this is a closed injury. She has a benign abdomen. No other signs of trauma or injury. Options of care were discussed with the patient. IV access was established. Labs were drawn. Patient notes minimal relief with any pain medication and cannot take opiates. She tried ibuprofen, acetaminophen and lidocaine patches. Labs reveal no leukocytosis or concerning anemia. No evidence of emergent kidney or liver failure. A CT scan was obtained noncontrast of the L-spine and pelvis. Results as above. Acute burst type fracture of L2 vertebral body without significant retropulsion. Likely chronic but age-indeterminate fracture noted of T12 endplate and chronic appearing wedge of the T11. [id number] did speak with PETEY Hou with orthopedic spine. We discussed the findings. At this time recommendation is TLSO brace, and we agree this is not requiring surgery at this time. I discussed this with the patient. She was happy with the plan. I discussed benefit versus risk of inpatient versus outpatient management with the patient. Ultimately decision was made to proceed with inpatient management. Spine service will see the patient during her time here and hopefully we are able to fit the patient with a brace while she is here. She may also benefit from PT/OT evaluation GCS: 15 In the evaluation and treatment of this patient the following differential diagnoses were entertained: Fracture, dislocation, subluxation, contusion, sprain, strain, among others Impression & Plan Closed burst fracture of lumbar vertebra, Low back pain Discharge Plan Visit Data Chief Complaint: Back Injury/Pain Stated Complaint: BACK INJURY L2 COMPRESSION FRACTURE ED Provider: Pramod Tavares ED Midlevel Provider: Ricci King Discharge Problem: Closed burst fracture of lumbar vertebra, Low back pain Patient Disposition: Admitted As Inpatient Condition: Good Discharge Instructions Interventions: ED Discharge Assessment Last Done: 09/26/25 21:15
[2025-09-26 15:55] LABS: Hematocrit (blood only) 44.9 % (37.0-47.0); Hemoglobin 14.7 g/dL (12.0-16.0); Immature Granulocytes # (auto) 0.02 K/uL (0.01-0.20); Immature Granulocytes % (auto) 0.2 %; Mean Corpuscular Hemoglobin 31.1 pg (25.0-34.0); Mean Corpuscular Volume 95.1 fL (80.0-100.0); Platelet Count 263 K/uL (130-400); RDW Standard Deviation 47.9 fL (36.4-46.3); Red Blood Count 4.72 M/uL (4.20-5.40); White Blood Count 9.07 K/ul (4.8-10.8)
[2025-09-26 16:14] LABS: Alanine Aminotransferase 13 U/L (7-52); Albumin Globulin Ratio 1.3 (0.9-2); Albumin Level 4.2 gm/dl (3.4-5.0); Alkaline Phosphatase 96 U/L (34-104); Anion Gap 7 (3-11); Bilirubin,Total 0.6 mg/dl (0.2-1.0); Blood Urea Nitrogen 15 mg/dl (6-23); Calcium 9.7 mg/dl (8.6-10.3); Carbon Dioxide 31 mmol/L (21-32); Chloride 103 mmol/L (98-107); Globulin 3.2 gm/dl (2.5-4.0); Glucose 97 mg/dl (70-99(Fasting)); Potassium 4.2 mmol/L (3.5-5.1); Sodium 141 mmol/L (136-145); Total Protein 7.4 gm/dl (6.0-8.3)
--- NOTE | 2025-09-26 17:01 | CT Scan Report ---
CT LUMBAR SPINE WITHOUT CONTRAST: HISTORY: PAIN TECHNIQUE: Noncontrast CT examination of the lumbar spine is performed. Coronal and sagittal reformats were created. COMPARISON: Lumbar spine CT October 25, 2020 FINDINGS: LUMBAR SPINE: There is an acute burst type fracture of L2 vertebral body without significant retropulsion. There is a probably chronic but age-indeterminate compression fracture changes along the inferior endplate of T12 vertebral body without retropulsion. Chronic appearing anterior wedging of the T11 vertebral body Redemonstrated chronic compression fractures of L4 and L5 vertebral bodies. Also redemonstrated are posterior instrumented fusion at L4-S1 with laminectomies Grade 1 anterolisthesis of L5 on S1 is unchanged Usual lumbar lordosis is preserved. Multilevel degenerative changes characterized by disc space loss, broad based disc bulge/herniations with endplate changes of the vertebral bodies with small marginal osteophytes as well as bilateral facet hypertrophy and thickening of the ligamentum flavum resulting in crowding of the subarticular recesses and narrowing of neural foramina worst at L4-S1. IMPRESSION: Acute burst type fracture of L2 vertebral body without significant retropulsion. Probably chronic but age-indeterminate compression fracture changes along the inferior endplate of T12 vertebral body without retropulsion. Chronic appearing anterior wedging of the T11 vertebral body Redemonstrated chronic compression fractures of L4 and L5 vertebral bodies with postoperative changes. Multilevel degenerative changes as above. Electronically signed by Jose Chavez 09-26-2025 5:01 PM
--- NOTE | 2025-09-26 17:28 | CT Scan Report ---
CT PELVIS WITHOUT CONTRAST: TECHNIQUE: Un-enhanced CT examination of the pelvis was performed. IV CONTRAST: 100 mL of OMNIPAQUE 300. HISTORY: Pelvic pain COMPARISON: FINDINGS: URINARY BLADDER: Unremarkable REPRODUCTIVE ORGANS: Unremarkable AORTA and ILIAC ARTERIES: No aneurysmal dilatation of the visualized portion of the aorta or iliac arteries seen. LYMPH NODES: No pelvic lymph adenopathy identified. GASTROINTESTINAL: The visualized bowel is normal in caliber. PERITONEUM: No ascites is seen. No peritoneal masses seen. PELVIC WALL: No hernia is identified OSSEOUS STRUCTURES: No acute or suspicious process identified. IMPRESSION: No acute traumatic fracture is identified in the pelvis. Electronically signed by Jose Chavez 09-26-2025 5:27 PM
--- NOTE | 2025-09-26 18:57 | History & Physical Report ---
Date of Service September 26, 2025 Assessment & Plan (1) Compression fracture of L2 lumbar vertebra: Plan: Fall, burst fracture Fall 1 month ago, subsequent back pain which is not resolving over the last 2 weeks. No recurrent falls since this time. Patient with history of prior lumbar surgery with Dr. Lopez several years ago. Has had chronic back pain generally tolerable however much worse after fall [address]: Acute burst fracture L2, likely chronic compression fracture at T12, chronic wedging of T11, chronic compression fracture L4/L5 CTpelvis: No acute traumatic pelvic injury seen No lower extremity weakness, saddle anesthesia, incontinence, or sensory change Was reviewed with on-call orthospine by ER at time of ER presentation. Recommended for nonop management, admission, TLSO brace and will be seen in consultation. Reports she follows with Dr. Lopez who has been consulted, likely nonop management however she notes that due to the severity of her prior findings would likely require intervention at [facility] if this were ever required Continue multimodal pain control. Tylenol first-line. Toradol second-line. Lidocaine patch. Will add calcitonin given compression fractures/burst fracture. Hydromorphone for breakthrough. Orthotics consulted for TLSO brace Asthma She reports she no longer uses a daily inhaler, does well with an inhaler seasonally but has needed to use her inhalers this time of year. Will continue Trelegy/formulary equivalent albuterol as needed. No significant wheezing on admission Depression Continue aripiprazole, Effexor, BuSpar Urgent continence Continue oxybutynin DVT prophylaxis: SCDs, Lovenox if no intervention is anticipated Disposition: MSO Diet: Regular CODE STATUS: Full code (2) BMI 34.0-34.9,adult: (3) Asthma: (4) Depression: History of Present Illness Primary Care Provider: Gareth Crane DO Vannesa is an 85-year-old female with past medical history of a fall approximately 1 month ago with continued right lower back pain since, and with compression fracture at L2 noted on PCP visit. She has had difficulty walking, chronic low back pain, and generalized weakness. In the ER she had a lumbar spine CT which showed acute burst fracture of L2 without retropulsion, age-indeterminate compression fracture along T12, chronic wedging of T11 and chronic compression fractures of L4/L5. Case was discussed between ER PA and construction director ortho Spine. Patient was not recommended for operative management, was recommended for admission for medical management, TLSO brace, PT/OT. She is a prior Dr. Lopez pt. Kami is seen at the bedside with her Had a fall 1 month ago. Worsened back pain ~[address] Lopez in 2020 for back surgery "my spine is old and not in good shape." Has chronic L2 issues Back pain prior to this past month (before the fall) was chronic, but generally tolerable. No numbness/tingling in the legs, no leg weakness. Currently 8/10, not radiating, low back from middle and slightly to the Right along her underwear line. No lesions. No fevers/chills. No falls since 1 month ago. She is having difficulty ambulated due to her chronic pain which is not improving. Recommended for mission for pain control, PT/OT, spine consultation, orthotics bracing Has chronic urinary intemittent incontinence, +urge. No rojas ein this. No saddle anesthesia. - She denies taking acetylcystine. - She only uses an inhaler seasonally - Has not started alendronate yet Medical History: Reviewed Medications: Reviewed Surgical History: Reviewed Family history: Reviewed Allergies: Reviewed Social History: No tobacco, No etoh use Code Status: Full Allergies Allergy/AdvReac Type Severity Reaction Status Date / Time Sulfa (Sulfonamide Allergy Intermediate HIVES Verified 09/25/25 12:57 Antibiotics) trimethoprim Allergy Intermediate HIVES Verified 09/25/25 12:57 OPIODS AdvReac Severe TOLERANT--DON'T Uncoded 09/25/25 12:57 WORK. Home Medications Medication Instructions Recorded Confirmed Type multivitamin 1 tab PO QAM 01/31/20 09/26/25 History acetylcysteine 600 mg capsule (NAC) 600 mg PO QID 05/23/24 09/26/25 History s-adenosylmethionine 200 mg tablet 400 mg PO BID 05/23/24 09/26/25 History (SHWETA-e) ibuprofen 200 mg capsule 400 mg PO Q6H PRN Pain 06/12/24 09/26/25 History cholecalciferol (vitamin D3) 25 25 mcg PO DAILY #30 caps 11/28/24 09/26/25 Rx mcg (1,000 unit) capsule buspirone 5 mg tablet 0 mg PO DAILY 05/12/25 09/26/25 History diclofenac sodium 1 % topical gel 2 g topical QID PRN Pain 05/12/25 09/26/25 History aripiprazole 2 mg tablet 2 mg PO DAILY 06/05/25 09/26/25 History venlafaxine 150 mg 225 mg PO QAM 06/12/25 09/26/25 History capsule,extended release 24 hr (Effexor XR) albuterol sulfate 90 mcg/actuation 2 puff inhalation QID PRN 09/12/25 09/26/25 Rx aerosol inhaler shortness of breath or wheezing #6.7 grams fluticasone fur. 200 mcg-umeclid 1 inh inhalation DAILY #28 ea 09/12/25 09/26/25 Rx 62.5 mcg-vilant 25 mcg inhalat.powder (Trelegy Ellipta) alendronate 70 mg tablet 70 mg PO Q7D #12 tabs 09/25/25 09/26/25 Rx lidocaine 5 % topical patch 1 patch topical DAILY #30 ea 09/25/25 09/26/25 Rx oxybutynin chloride 5 mg tablet 5 mg PO BID #180 tabs 09/25/25 09/26/25 Rx [place] Oil 1 cap PO DAILY 09/26/25 09/26/25 History Past Med/Surg History Problem List Compression fracture of L2 lumbar vertebra an interval moderate vertebral body compression fracture at L2 from a fall about a month ago per the provider note Class 1 obesity BMI 34.0-34.9,adult Other obesity due to excess calories Asthma "haven't used inhaler in a long time" Overactive bladder Osteoporosis Chronic pain Ambulatory dysfunction (Acute) Depression Lumbar spinal stenosis History of lumbar spinal fusion (~09/2021) Medical History (Updated 09/26/25 @ 10:02 by Tiago Christiansen LPN) BMI 35.0-35.9,adult Class 2 obesity Abnormal TSH Weight loss Hx of carpal tunnel syndrome right Prolonged QT interval Suicide attempt (~09/2021) Polysubstance overdose Compression fracture of L5 vertebra hx 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 Osteoporosis Osteoarthritis History of Graves' disease in remission Surgical History History of tooth extraction Hx of cataract extraction bilateral Hx of tonsillectomy Hx of carpal tunnel repair right Status post kyphoplasty (~09/2021) History of knee replacement procedure of right knee History of knee replacement procedure of left knee History of colonoscopy S/P ORIF (open reduction internal fixation) fracture (~05/2021) Rt wrist Family History Mother Alzheimer disease Depression Father Myocardial infarction Brother Non-Hodgkin lymphoma Dementia Sister Stroke Other No family history of adverse response to anesthesia Denies family history of Ovarian cancer Prostate cancer Breast cancer Lung cancer Colorectal cancer Social History Smoking Status: Never smoker Second Hand Exposure: No; Do You Dip or Chew Tobacco: No; Hx Alcohol Use: No Hx Substance Use: No Preferred Language: Chadian Communication Ability: Effective Visual Impairment: Limited Hearing Ability: Normal Traffic Line Painter Required: No marital status: Current Living Situation: Spouse current occupational status: retired How many Children do You have: 2 Feels Safe at Home: Yes Childhood Exposure to Second-Hand Smoke: Yes Diet: regular Diet Comment: no meat caffeine: Yes during the past year weight has: remained stable Dental Care, Regularly: Yes Physical Activity Frequency: 1-2 Times per Week Physical Activity Frequency Comment: daily house work /PT Seatbelt Use: always Sunscreen Use: Yes Assistive Devices: Glasses Physical Exam Physical Exam: General: A&Ox3. NAD. Cooperative. HEENT: Atraumatic, normocephalic. Vision and hearing grossly intact Pulm: CTAB A&P. -wheezes, -rales, -rhonchi. Symmetrical chest rise. No increased work of breathing. No respiratory distress. Cardiac: RRR, -mrg. Radial pulses intact and symmetrical. Abdominal: Nontender, nondistended, soft. BS present. Extremities: Meat Grader strength, ankle dorsiflexion/plantarflexion robust 5/5 without deficit or asymmetry. Sensation to soft touch intact in hands, feet and thighs without deficit or asymmetry. No saddle anesthesia is present. Back: Well-healed postop back scar. She is tender to palpation overlying midline lumbar back with slight radiation to her right flank. There is no overlying warmth or lesions Results & Data Results & Data Vital Signs (Past 12 Hours) Vital Signs Temp Pulse Pulse Resp BP BP Pulse Ox 09/26/25 18:10 72 18 145/86 H 96 09/26/25 13:04 36.5 C 83 18 133/84 96 O2 Del Method 09/26/25 18:10 Room Air 09/26/25 13:04 Room Air PG Care Time/CCT Total # of Minutes Spent Total Time Spent with Patient: Total time spent is greater than 50% in coordination of care (as documented) at patient's floor/unit and/or counseling patient: Coding Level of Care Code 47401 INT INP/OBS CARE 75MIN Diagnoses Compression fracture of L2 lumbar vertebra S32.020A BMI 34.0-34.9,adult Z68.34 Asthma J45.909 Depression F32.9 Active/Remission status: in full remission (4) Depression Active/Remission status: in full remission
[2025-09-26] MEDS: KETOROLAC TROMETHAMINE 15 MG/ML VIAL IV PRN (20:23)
[2025-09-26] MEDS ORDERED: ALBUTEROL HFA 8 GM INHALER INH PRN (21:53)
[2025-09-26] MEDS ORDERED: ACETAMINOPHEN 325 MG TAB PO PRN (21:53)
[2025-09-26] MEDS: REMOVE LIDODERM PATCH SCH (22:03)
[2025-09-26] MEDS: HYDROmorphone INJ 0.5 MG/0.5 ML SYR IV PRN (22:59)
[2025-09-27 06:55] LABS: Hematocrit (blood only) 38.2 % (37.0-47.0); Hemoglobin 12.9 g/dL (12.0-16.0); Immature Granulocytes # (auto) 0.02 K/uL (0.01-0.20); Immature Granulocytes % (auto) 0.3 %; Mean Corpuscular Hemoglobin 32.3 pg (25.0-34.0); Mean Corpuscular Volume 95.5 fL (80.0-100.0); Platelet Count 225 K/uL (130-400); RDW Standard Deviation 48.4 fL (36.4-46.3); Red Blood Count 4.00 M/uL (4.20-5.40); White Blood Count 7.70 K/ul (4.8-10.8)
[2025-09-27 07:24] LABS: Anion Gap 4.0 (3-11); Blood Urea Nitrogen 15.0 mg/dl (6-23); Calcium 8.7 mg/dl (8.6-10.3); Carbon Dioxide 34.0 mmol/L (21-32); Chloride 103.0 mmol/L (98-107); Creatinine Clr Calc Pharmacy 64.2 ml/min; Glucose 89.0 mg/dl (70-99(Fasting)); Potassium 4.1 mmol/L (3.5-5.1); Sodium 141.0 mmol/L (136-145)
[2025-09-27] MEDS: busPIRone 5 MG TAB PO SCH (08:14)
[2025-09-27] MEDS: CALCITONIN SALMON NA 200 IU/AC 3.7 ML BTL SCH (08:15)
[2025-09-27] MEDS: LIDOCAINE 5% 1 PATCH TD SCH (08:16)
[2025-09-27] MEDS: FLUTICASONE FUROATE 200MCG 14 PUFFS/INHALER INH SCH (08:16)
[2025-09-27] MEDS: MULTIVITAMIN TAB PO SCH (08:17)
[2025-09-27] MEDS: UMECLIDINIUM/VILANTEROL 62.5/25MCG 7 PUFFS/INHALER INH SCH (08:18)
[2025-09-27] MEDS: VENLAFAXINE HCL XR 75 MG CAPXR PO SCH (08:19)
[2025-09-27] MEDS ORDERED: NON-FORMULARY MEDICATION (Fluticasone-Umeclidin-Vilanter [Trelegy Ellipta] 200-62.5-25 mcg INH SCH (09:00)
--- NOTE | 2025-09-27 09:07 | Orthopedic Consultation ---
Date of Consultation September 27, 2025 Assessment & Plan (1) Closed burst fracture of lumbar vertebra: At this time I would like to obtain an MRI lumbar spine to assess the acuity of the fracture. Pending her response to therapy and bracing she may ultimately be a candidate for kyphoplasty to help her pain and allow her to be more independent. Patient understands and agrees with this plan. History of Present Illness Reason for Consultation: Back pain Attending Physician: Asya Marc MD History of Present Illness This is a very pleasant 85-year-old female who presents to the hospital with 2 weeks of chronic persistent back pain. She sustained a fall at home and has had pain since. CAT scan demonstrates evidence of a L2 compression fracture. This morning she states she has back pain. Is markedly worse with activity. She has not been out of bed yet. Allergies Allergy/AdvReac Type Severity Reaction Status Date / Time Sulfa (Sulfonamide Allergy Intermediate HIVES Verified 09/25/25 12:57 Antibiotics) trimethoprim Allergy Intermediate HIVES Verified 09/25/25 12:57 OPIODS AdvReac Severe TOLERANT--DON'T Uncoded 09/25/25 12:57 WORK. Home Medications Medication Instructions Recorded Confirmed Type multivitamin 1 tab PO QAM 01/31/20 09/26/25 History acetylcysteine 600 mg capsule (NAC) 600 mg PO QID 05/23/24 09/26/25 History s-adenosylmethionine 200 mg tablet 400 mg PO BID 05/23/24 09/26/25 History (SHWETA-e) ibuprofen 200 mg capsule 400 mg PO Q6H PRN Pain 06/12/24 09/26/25 History cholecalciferol (vitamin D3) 25 25 mcg PO DAILY #30 caps 11/28/24 09/26/25 Rx mcg (1,000 unit) capsule buspirone 5 mg tablet 0 mg PO DAILY 05/12/25 09/26/25 History diclofenac sodium 1 % topical gel 2 g topical QID PRN Pain 05/12/25 09/26/25 History aripiprazole 2 mg tablet 2 mg PO DAILY 06/05/25 09/26/25 History venlafaxine 150 mg 225 mg PO QAM 06/12/25 09/26/25 History capsule,extended release 24 hr (Effexor XR) albuterol sulfate 90 mcg/actuation 2 puff inhalation QID PRN 09/12/25 09/26/25 Rx aerosol inhaler shortness of breath or wheezing #6.7 grams fluticasone fur. 200 mcg-umeclid 1 inh inhalation DAILY #28 ea 09/12/25 09/26/25 Rx 62.5 mcg-vilant 25 mcg inhalat.powder (Trelegy Ellipta) alendronate 70 mg tablet 70 mg PO Q7D #12 tabs 09/25/25 09/26/25 Rx lidocaine 5 % topical patch 1 patch topical DAILY #30 ea 09/25/25 09/26/25 Rx oxybutynin chloride 5 mg tablet 5 mg PO BID #180 tabs 09/25/25 09/26/25 Rx [place] Oil 1 cap PO DAILY 09/26/25 09/26/25 History Patient History Medical History (Updated 09/27/25 @ 01:03 by Ricci King PA-C) BMI 35.0-35.9,adult Class 2 obesity Abnormal TSH Weight loss Hx of carpal tunnel syndrome right Prolonged QT interval Suicide attempt (~09/2021) Polysubstance overdose Compression fracture of L5 vertebra hx 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 Osteoporosis Osteoarthritis History of Graves' disease in remission Surgical History History of tooth extraction Hx of cataract extraction bilateral Hx of tonsillectomy Hx of carpal tunnel repair right Status post kyphoplasty (~09/2021) History of knee replacement procedure of right knee History of knee replacement procedure of left knee History of colonoscopy S/P ORIF (open reduction internal fixation) fracture (~05/2021) Rt wrist Family History Mother Alzheimer disease Depression Father Myocardial infarction Brother Non-Hodgkin lymphoma Dementia Sister Stroke Other No family history of adverse response to anesthesia Denies family history of Ovarian cancer Prostate cancer Breast cancer Lung cancer Colorectal cancer Social History Smoking Status: Never smoker Second Hand Exposure: No; Do You Dip or Chew Tobacco: No; Hx Alcohol Use: No Hx Substance Use: No Preferred Language: [place]ib[place]ian Communication Ability: Effective Visual Impairment: Limited Hearing Ability: Normal Anesthesia Assistant Required: No Beliefs That Will Affect Care: None marital status: Current Living Situation: Spouse current occupational status: retired How many Children do You have: 2 Other Information That Helps Us Care for You: No Feels Safe at Home: Yes Safety Concerns: Feels Safe At This Time Childhood Exposure to Second-Hand Smoke: Yes Diet: regular Diet Comment: no meat caffeine: Yes during the past year weight has: remained stable Dental Care, Regularly: Yes Physical Activity Frequency: 1-2 Times per Week Physical Activity Frequency Comment: daily house work /PT Seatbelt Use: always Sunscreen Use: Yes Assistive Devices: None and Glasses Physical Exam Physical Exam: Patient is alert and oriented. She is good strength testing to lower extremities. Sensory is intact. Results & Data Vital Signs (Past 12 Hours) Vital Signs Temp Pulse Resp BP Pulse Ox O2 Del Method 09/27/25 07:58 36.7 C 68 16 106/71 95 Room Air 09/26/25 21:35 36.6 C 75 18 122/77 95 Room Air 09/26/25 21:30 36.6 C 75 18 122/77 95 Room Air 09/26/25 21:29 36.6 C 75 18 122/77 95 Room Air
--- NOTE | 2025-09-27 13:56 | Hospitalist Progress Note ---
"Date of Service September 27, 2025 Assessment & Plan (1) Compression fracture of L2 lumbar vertebra: (2) Closed burst fracture of lumbar vertebra: (3) T12 compression fracture: (4) Low back pain: Plan Vannesa is an 85-year-old female with past medical history of lumbar spinal stenosis, L4-L5 lumbar spinal fusion in 2020, asthma, hypothyroidism, overactive bladder, chronic pain, osteoporosis, depression. She fell about 1 month ago with progressive lumbar back pain since then. She saw her PCP the day prior to admission where an x-ray revealed an L2 compression fracture. She presented to the ED due to ongoing severe pain. Case was reviewed with on-call orthospine by ER at time of ER presentation. Recommended for nonop management, admission, TLSO brace and will be seen in consultation; likely nonop management however due to the severity of her prior findings would likely require intervention at [facility] if surgery is required. She was admitted for management of such. #Fall | Acute L2 burst/compression fracture Patient with history of prior L4- L5 lumbar spinal fusion with Dr. Lopez in 2020. Has had chronic back pain generally tolerable however much worse after fall 1 month ago. No lower extremity weakness, saddle anesthesia, incontinence, or sensory change. No repeat falls or trauma - Lumbar CT: Acute burst fracture L2, likely chronic compression fracture at T12, chronic wedging of T11, chronic compression fracture L4/L5. CTpelvis with no acute traumatic pelvic injury seen - Lumbar MRI: Acute T12 and L2 inferior endplate compression fracture without retropulsion - Ortho spine consulted - ordered lumbar MRI, considering kyphoplasty - Orthotics consulted for TLSO brace, unfortunately not yet delivered - Continue multimodal pain control. Tylenol first-line, Toradol second-line, Lidocaine patch daily, Hydromorphone for breakthrough - Continue calcitonin given compression fractures/burst fracture - PT/OT consulted but evaluations are pending until TLSO brace is provided #Asthma - She reports she no longer uses a daily inhaler, does well with an inhaler seasonally but has needed to use her inhalers this time of year. Will continue Trelegy/formulary equivalent albuterol as needed. - No current exacerbation #Depression Continue aripiprazole, Effexor, BuSpar #Urgent continence Continue oxybutynin DVT prophylaxis: SCDs, Lovenox if no intervention is anticipated Disposition: continued inpatient stay Admission and Anticipated Discharge Date Admission Date: September 26, 2025 Supervising Physician Co-Signing Physician Notes PA Supervision Note: I did not personally see or examine the patient today, but I verified all goodman points of ROBLES Foss's assessment and plan with the following exceptions/additions: None Subjective Patient seen and evaluated at bedside. She reports lower back pain, most prominent with activity. She reports her current pain regimen is helping her pain stay under control. I informed her of her lumbar MRI results. Orthotics has not delivered her TLSO brace and this therapy has not evaluated her yet. She reports her appetite is reduced secondary to ongoing pain. She did sleep well overnight fortunately. She denies any other complaints or concerns at this time. Physical Exam Physical Exam: General: No acute distress, nondiaphoretic, well-developed, well-nourished. Skin: Warm, dry. No rashes or peripheral edema noted. Cardiac: Regular rate and rhythm without murmurs gallops or rubs. Pulm: Clear to auscultation bilaterally without wheezes, rales or rhonchi. No retractions or accessory muscle use. Abdominal: Soft, nontender, nondistended. Bowel sounds present. MSK: Midline tenderness over lumbar region. Neurovascularly intact in lower extremities bilaterally. Normal strength and sensation in lower extremities bilaterally. Neuro: A&O x3. No focal neurological deficits. Results & Data Results & Data Vital Signs (Past 12 Hours) Vital Signs Temp Pulse Resp BP Pulse Ox O2 Del Method 09/27/25 07:58 98.1 F 68 16 106/71 95 Room Air Laboratory Results Reviewed CBC with differential, BMP Diagnostic Findings Reviewed lumbar spine CT, pelvis CT, lumbar spine MRI PG Care Time/CCT Total # of Minutes Spent Total Time Spent with Patient: Total time spent is greater than 50% in coordination of care (as documented) at patient's floor/unit and/or counseling patient: Coding Level of Care Code 49337 SUB INP/OBS CARE 2/35MIN Diagnoses Compression fracture of L2 vertebra, initial encounter S32.020A Encounter type: initial encounter Closed burst fracture of lumbar vertebra, initial encounter S32.001A Encounter type: initial encounter Compression fracture of T12 vertebra, initial encounter S22.080A Encounter type: initial encounter Low back pain M54.50 (1) Compression fracture of L2 lumbar vertebra Encounter type: initial encounter Qualified Code(s): S32.020A - Wedge compression fracture of second lumbar vertebra, initial encounter for closed fracture (2) Closed burst fracture of lumbar vertebra Encounter type: initial encounter Qualified Code(s): S32.001A - Stable burst fracture of unspecified lumbar vertebra, initial encounter for closed fracture (3) T12 compression fracture Encounter type: initial encounter Qualified Code(s): S22.080A - Wedge compression fracture of T11-T12 vertebra, initial encounter for closed fracture"
--- NOTE | 2025-09-27 13:56 | Magnetic Resonance Report ---
MRI of the lumbar spine without contrast Technique: Multiplanar multisequence MRI images of the lumbar spineWere obtained without IV contrast Comparison made to prior exam dated 12/03/2021. Reference is also made to prior CT performed earlier on 09/26/2025 Findings: Postoperative changes L4-S1 interbody fusion with chronic compression fracture of the L5 vertebral body resulting in 80% vertebral body height loss. Acute L2 superior endplate compression fracture without retropulsion. Acute T12 inferior endplate compression fracture retropulsion. Cord terminates normally at the L1 vertebral body. Posterior disc bulge slightly asymmetric to the right superimposed upon facet ligamentous hypertrophic changes resulting in mild canal and severe bilateral foraminal narrowing Posterior disc bulge at L2-L3 superimposed upon severe facet and ligamentous hypertrophic changes results in mild canal and severe bilateral foraminal narrowing Posterior disc bulge at L5 3 L4 superimposed upon mild facet and ligamentous hypertrophic changes resulting in mild to moderate bilateral foraminal narrowing. Base posterior disc bulge superimposed upon facet and ligamentous hypertrophic changes without significant foraminal narrowing. L5-S1: Posterior disc bulge seen in the lateral recesses bilaterally resulting in mild bilateral foraminal narrowing Impression: Acute T12 inferior endplate compression fracture without retropulsion Acute L2 superior endplate compression fracture without retropulsion Multilevel degenerative changes as described above. Electronically signed by Akshat Elaine 09-27-2025 13:56 PM
[2025-09-28 07:29] LABS: Hematocrit (blood only) 38.9 % (37.0-47.0); Hemoglobin 12.7 g/dL (12.0-16.0); Immature Granulocytes # (auto) 0.02 K/uL (0.01-0.20); Immature Granulocytes % (auto) 0.3 %; Mean Corpuscular Hemoglobin 31.4 pg (25.0-34.0); Mean Corpuscular Volume 96.3 fL (80.0-100.0); Platelet Count 208 K/uL (130-400); RDW Standard Deviation 49.1 fL (36.4-46.3); Red Blood Count 4.04 M/uL (4.20-5.40); White Blood Count 7.58 K/ul (4.8-10.8)
[2025-09-28 07:40] LABS: Anion Gap 4.0 (3-11); Blood Urea Nitrogen 19.0 mg/dl (6-23); Calcium 8.4 mg/dl (8.6-10.3); Carbon Dioxide 29.0 mmol/L (21-32); Chloride 107.0 mmol/L (98-107); Creatinine Clr Calc Pharmacy 63.1 ml/min; Glucose 95.0 mg/dl (70-99(Fasting)); Potassium 4.3 mmol/L (3.5-5.1); Sodium 140.0 mmol/L (136-145)
--- NOTE | 2025-09-28 15:39 | Hospitalist Progress Note ---
"Date of Service September 28, 2025 Assessment & Plan (1) Compression fracture of L2 lumbar vertebra: (2) Closed burst fracture of lumbar vertebra: (3) T12 compression fracture: (4) Low back pain: Plan Vannesa is an 85-year-old female with past medical history of lumbar spinal stenosis, L4-L5 lumbar spinal fusion in 2020, asthma, hypothyroidism, overactive bladder, chronic pain, osteoporosis, depression. She fell about 1 month ago with progressive lumbar back pain since then. She saw her PCP the day prior to admission where an x-ray revealed an L2 compression fracture. She presented to the ED due to ongoing severe pain. Case was reviewed with on-call orthospine by ER at time of ER presentation. Recommended for nonop management, admission, TLSO brace and will be seen in consultation; likely nonop management however due to the severity of her prior findings would likely require intervention at [place] if surgery is required. She was admitted for management of such. #Fall | Acute L2 burst/compression fracture Patient with history of prior L4- L5 lumbar spinal fusion with Dr. Lopez in 2020. Has had chronic back pain generally tolerable however much worse after fall 1 month ago. No lower extremity weakness, saddle anesthesia, incontinence, or sensory change. No repeat falls or trauma - Lumbar CT: Acute burst fracture L2, likely chronic compression fracture at T12, chronic wedging of T11, chronic compression fracture L4/L5. CTpelvis with no acute traumatic pelvic injury seen - Lumbar MRI: Acute T12 and L2 inferior endplate compression fracture without retropulsion - Ortho spine consulted - ordered lumbar MRI, considering kyphoplasty - Orthotics consulted for TLSO brace, unfortunately not yet delivered - Continue multimodal pain control. Tylenol first-line, Toradol second-line, Lidocaine patch daily, Hydromorphone for breakthrough - Continue calcitonin given compression fractures/burst fracture - PT/OT consulted but evaluations are pending until TLSO brace is provided #Asthma - She reports she no longer uses a daily inhaler, does well with an inhaler seasonally but has needed to use her inhalers this time of year. Will continue Trelegy/formulary equivalent albuterol as needed. - No current exacerbation #Depression Continue aripiprazole, Effexor, BuSpar #Urgent continence Continue oxybutynin DVT prophylaxis: SCDs. Also added on Lovenox given very reduced activity level Disposition: Continued inpatient stay while awaiting TLSO brace, PT/OT evals, and plan from Dr. Lopez Updated at bedside Started Lovenox Admission and Anticipated Discharge Date Admission Date: September 26, 2025 Supervising Physician Co-Signing Physician Notes PA Supervision Note: I did not personally see or examine the patient today, but I verified all goodman points of ROBLES Foss's assessment and plan with the following exceptions/additions: None Subjective Patient seen and evaluated at bedside with her present. She reports ongoing lumbar back pain but notes her pain regimen makes this tolerable. She does not have too significant of pain while at rest, but any type of movement causes significant pain. She is nervous to work with therapy due to the pain she has with activity. She reports orthotics will be delivering her TLSO brace tomorrow. She is sleeping well at night. She continues to have a reduced appetite. No additional complaints or concerns at this time. Physical Exam Physical Exam: General: No acute distress, nondiaphoretic, well-developed, well-nourished. Skin: Warm, dry. No rashes or peripheral edema noted. Cardiac: Regular rate and rhythm without murmurs gallops or rubs. Pulm: Clear to auscultation bilaterally without wheezes, rales or rhonchi. Normal respiratory effort. 93% on room air. Abdominal: Soft, nontender, nondistended. Bowel sounds present. MSK: Midline tenderness over lumbar region. Neurovascularly intact in lower extremities bilaterally. Normal strength and sensation in lower extremities bilaterally. Neuro: A&O x3. No focal neurological deficits. Results & Data Results & Data Vital Signs (Past 12 Hours) Vital Signs Temp Pulse Resp BP Pulse Ox O2 Del Method 09/28/25 15:18 97.5 F L 77 16 144/66 H 93 Room Air 09/28/25 08:11 98.8 F 82 18 125/78 93 Room Air Laboratory Results Reviewed CBC with differential, BMP PG Care Time/CCT Total # of Minutes Spent Total Time Spent with Patient: Total time spent is greater than 50% in coordination of care (as documented) at patient's floor/unit and/or counseling patient: Coding Level of Care Code 81655 SUB INP/OBS CARE 3/50MIN Diagnoses Compression fracture of L2 vertebra, initial encounter S32.020A Encounter type: initial encounter Closed burst fracture of lumbar vertebra, initial encounter S32.001A Encounter type: initial encounter Compression fracture of T12 vertebra, initial encounter S22.080A Encounter type: initial encounter Low back pain M54.50 (1) Compression fracture of L2 lumbar vertebra Encounter type: initial encounter Qualified Code(s): S32.020A - Wedge compression fracture of second lumbar vertebra, initial encounter for closed fracture (2) Closed burst fracture of lumbar vertebra Encounter type: initial encounter Qualified Code(s): S32.001A - Stable burst fracture of unspecified lumbar vertebra, initial encounter for closed fracture (3) T12 compression fracture Encounter type: initial encounter Qualified Code(s): S22.080A - Wedge com pression fracture of T11-T12 vertebra, initial encounter for closed fracture"
[2025-09-28] MEDS: ENOXAPARIN INJ 40 MG/0.4 ML SYR SQ ONE (16:04)
[2025-09-29 07:05] LABS: Hematocrit (blood only) 41.6 % (37.0-47.0); Hemoglobin 13.5 g/dL (12.0-16.0); Immature Granulocytes # (auto) 0.04 K/uL (0.01-0.20); Immature Granulocytes % (auto) 0.4 %; Mean Corpuscular Hemoglobin 31.2 pg (25.0-34.0); Mean Corpuscular Volume 96.1 fL (80.0-100.0); Platelet Count 237 K/uL (130-400); RDW Standard Deviation 49.0 fL (36.4-46.3); Red Blood Count 4.33 M/uL (4.20-5.40); White Blood Count 8.98 K/ul (4.8-10.8)
[2025-09-29 07:26] LABS: Anion Gap 5.0 (3-11); Blood Urea Nitrogen 13.0 mg/dl (6-23); Calcium 8.9 mg/dl (8.6-10.3); Carbon Dioxide 31.0 mmol/L (21-32); Chloride 106.0 mmol/L (98-107); Creatinine Clr Calc Pharmacy 60.2 ml/min; Glucose 96.0 mg/dl (70-99(Fasting)); Potassium 4.1 mmol/L (3.5-5.1); Sodium 142.0 mmol/L (136-145)
[2025-09-29] MEDS: ENOXAPARIN INJ 40 MG/0.4 ML SYR SQ SCH (09:00)
--- NOTE | 2025-09-29 10:47 | Hospitalist Progress Note ---
Date of Service September 29, 2025 Assessment & Plan (1) Compression fracture of L2 lumbar vertebra: Plan: Lumbar MRI scan reveals L2 superior endplate compression fracture and T12 inferior endplate compression fracture. No apparent burst fracture involving L2. Await orthopedic spine consultation recommendations. TLSO brace placement is pending. (2) Closed burst fracture of lumbar vertebra: Plan: Not seen on lumbar MRI scan. Await orthopedic spine consultation and recommendations (3) T12 compression fracture: Plan: Acute T12 inferior endplate compression fracture noted on MRI scan. Pain control measures. TLSO brace ordered and pending (4) Low back pain: Plan: Pain control measures. TLSO brace ordered and pending. Plan Await OT and PT evaluations after TLSO brace is in place. She may require temporary rehab placement before she can return home although she currently refuses to even consider it. Admission and Anticipated Discharge Date Admission Date: September 26, 2025 Subjective Alert and oriented. No distress. She is anxiously awaiting orthopedic spine follow-up with Dr. Lopez. Lumbar MRI does not show a burst fracture at L2 but there is T12 inferior endplate compression fracture and L2 superior endplate compression fracture. TLSO brace fitting is pending. OT and PT assessments will be completed after the TLSO brace is in place. Review of Systems 2 Review of Systems: Constitutionalno fever or chills ENTno blurred vision, no double vision, no epistaxis, no sore throat Respiratoryno cough, no wheezing, no shortness of breath Cardiacno palpitations, no chest pain, no syncope Christ nausea, vomiting, diarrhea, melena, hematochezia GUno urinary retention, no urinary incontinence, no dysuria, no hematuria Musculoskeletallumbar back pain present on admission, no muscle tenderness Skinno bruising, no rashes, no pruritus Neurono isolated weakness, no paresthesia, no weakness Psychno depression, no anxiety Physical Exam 2 Physical Exam: General-alert and oriented x3, no fever, no chills HEENT-head atraumatic and normocephalic, pupils equal and reactive to light, extraocular muscles intact Neck-no lymphadenopathy or thyromegaly, trachea midline Chest-clear to auscultation. No rales, wheezing or rhonchi Cardiac-regular rate and rhythm, normal S1 and S2 Abdomen-normal bowel sounds, no hepatosplenomegaly Extremities-no cyanosis, clubbing, or edema Neuro-cranial nerves II through XII intact, motor and sensory function within normal limits, strength symmetrical, no focal deficits Psych-normal affect, normal mood Results & Data Results & Data Vital Signs (Past 12 Hours) Vital Signs Temp Pulse Resp BP Pulse Ox O2 Del Method 09/29/25 07:08 36.7 C 72 16 127/68 92 Room Air Laboratory Results 09/29/25 06:38 09/29/25 06:38 PG Care Time/CCT Total # of Minutes Spent Total Time Spent with Patient: Total time spent is greater than 50% in coordination of care (as documented) at patient's floor/unit and/or counseling patient: Coding Level of Care Code 36813 SUB INP/OBS CARE 3/50MIN Diagnoses Compression fracture of L2 vertebra, initial encounter S32.020A Encounter type: initial encounter Closed burst fracture of lumbar vertebra, initial encounter S32.001A Encounter type: initial encounter Compression fracture of T12 vertebra, initial encounter S22.080A Encounter type: initial encounter Low back pain M54.50 (1) Compression fracture of L2 lumbar vertebra Encounter type: initial encounter Qualified Code(s): S32.020A - Wedge compression fracture of second lumbar vertebra, initial encounter for closed fracture (2) Closed burst fracture of lumbar vertebra Encounter type: initial encounter Qualified Code(s): S32.001A - Stable burst fracture of unspecified lumbar vertebra, initial encounter for closed fracture (3) T12 compression fracture Encounter type: initial encounter Qualified Code(s): S22.080A - Wedge compression fracture of T11-T12 vertebra, initial encounter for closed fracture
[2025-09-30 07:06] VITALS: BP 126/87; PULSE 65; RESP 15; TEMP 97.9; O2SAT 93
--- NOTE | 2025-09-30 09:40 | Discharge Summary ---
Discharge Summary Date of Service September 30, 2025 Principal Dx & Hospital Course #1 = Principal Diagnosis (1) Compression fracture of L2 lumbar vertebra: Lumbar MRI scan reveals L2 superior endplate compression fracture and T12 inferior endplate compression fracture. No apparent burst fracture involving L2. Orthopedic spine consultation noted. TLSO brace has been fitted and she will wear this when ambulating. She will use Dilaudid as needed for back pain. A prescription has been sent to her pharmacy at [facility] (2) Closed burst fracture of lumbar vertebra: Not seen on lumbar MRI scan. Orthopedic spine consultation noted. (3) T12 compression fracture: Acute T12 inferior endplate compression fracture noted on MRI scan. Pain control with as needed Dilaudid. TLSO brace has been fitted and she will use this while ambulating. (4) Low back pain: Pain control measures. TLSO brace when ambulating Plan Home today, September 30, with home health services. She refuses to consider rehab placement. She will wear her TLSO brace while ambulating. Take Dilaudid every 6 hours as needed for recurrent back pain. Follow-up with PCP as soon as possible and orthopedic spine surgery in 2 weeks. Admission HPI Per Admitting Provider Vannesa is an 85-year-old female with past medical history of a fall approximately 1 month ago with continued right lower back pain since, and with compression fracture at L2 noted on PCP visit. She has had difficulty walking, chronic low back pain, and generalized weakness. In the ER she had a lumbar spine CT which showed acute burst fracture of L2 without retropulsion, age-indeterminate compression fracture along T12, chronic wedging of T11 and chronic compression fractures of L4/L5. 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 Patient was not recommended for operative management, was recommended for admission for medical management, TLSO brace, PT/OT. She is a prior Dr. Lopez pt. Kami is seen at the bedside with her Had a fall 1 month ago. Worsened back pain ~[address] Lopez in 2020 for back surgery "my spine is old and not in good shape." Has chronic L2 issues Back pain prior to this past month (before the fall) was chronic, but generally tolerable. No numbness/tingling in the legs, no leg weakness. Currently 8/10, not radiating, low back from middle and slightly to the Right along her underwear line. No lesions. No fevers/chills. No falls since 1 month ago. She is having difficulty ambulated due to her chronic pain which is not improving. Recommended for mission for pain control, PT/OT, spine consultation, orthotics bracing Has chronic urinary intemittent incontinence, +urge. No rojas ein this. No saddle anesthesia. - She denies taking acetylcystine. - She only uses an inhaler seasonally - Has not started alendronate yet Medical History: Reviewed Medications: Reviewed Surgical History: Reviewed Family history: Reviewed Allergies: Reviewed Social History: No tobacco, No etoh use Code Status: Full Discharge Exam General-alert and oriented x3, no fever, no chills HEENT-head atraumatic and normocephalic, pupils equal and reactive to light, extraocular muscles intact Neck-no lymphadenopathy or thyromegaly, trachea midline Chest-clear to auscultation. No rales, wheezing or rhonchi Cardiac-regular rate and rhythm, normal S1 and S2 Abdomen-normal bowel sounds, no hepatosplenomegaly Extremities-no cyanosis, clubbing, or edema Neuro-cranial nerves II through XII intact, motor and sensory function within normal limits, strength symmetrical, no focal deficits Psych-normal affect, normal mood Discharge Plan Discharge Items Patient Disposition: Home - Home Health Services Reason For Visit: BURST FRACTURE, BACK PAIN Discharge Diagnosis: Acute T12 and L2 endplate compression fractures, low back pain Condition on Discharge: Good Activity: Per Instructions section Non-emergency contact: Primary Care Provider and Surgeon Call non-emergency contact if: your symptoms worsen Follow-up/Referrals: Gareth Crane DO [Primary Care Provider] - Diet: Regular Addtl Attending Provider Instructions: Wear back brace as directed when ambulating. Take Dilaudid (hydromorphone) as needed for back pain. A prescription has been sent to [email or web address] pharmacy on [facility]. Follow-up with Dr. Lopez in the office in 2 to 3 weeks. See primary care provider for follow-up as soon as possible Pending Studies at Discharge: No Stand-Alone Forms: My [employer], Smoking Cessation Medications and DC Order Prescriptions: New hydromorphone [Dilaudid] 2 mg tablet 2 mg PO Q6H PRN (Reason: pain) Qty: 14 0RF Continued cholecalciferol (vitamin D3) 25 mcg (1,000 unit) capsule 25 mcg PO DAILY Qty: 30 0RF Patient Comments: 09/26- otc unable to verify albuterol sulfate 90 mcg/actuation HFA aerosol inhaler 2 puff inhalation QID PRN (Reason: shortness of breath or wheezing) Qty: 6.7 0RF Trelegy Ellipta 200-62.5-25 mcg blister with device 1 inh inhalation DAILY Qty: 28 2RF multivitamin Tablet 1 tab PO QAM Patient Comments: 09/26- otc unable to verify venlafaxine [Effexor XR] 150 mg capsule,extended release 24hr 225 mg PO QAM buspirone 5 mg tablet 0 mg PO DAILY Patient Comments: 09/26- 10 mg last filled 04/28 30 day supply #90; 5 mg dose last filled 03/20 30 day supply #90 SHWETA-e 200 mg tablet 400 mg PO BID Patient Comments: 09/26- otc unable to verify Rx Instructions: administer on an empty stomach acetylcysteine [NAC] 600 mg capsule 600 mg PO QID Patient Comments: 09/26- otc unable to verify aripiprazole 2 mg tablet 2 mg PO DAILY diclofenac sodium 1 % gel 2 g topical QID PRN (Reason: Pain) Patient Comments: 09/26- otc unable to verify Rx Instructions: apply to single elbow, wrist or hand; for hand includes palm/fingers/back of hand alendronate 70 mg tablet 70 mg PO Q7D Qty: 12 3RF oxybutynin chloride 5 mg tablet 5 mg PO BID Qty: 180 3RF lidocaine 5 % adhesive patch,medicated 1 patch topical DAILY Qty: 30 0RF Patient Comments: 09/26- otc unable to verify Rx Instructions: leave on most painful area for up to 12 hrs ibuprofen 200 mg capsule 400 mg PO Q6H PRN (Reason: Pain) Patient Comments: 09/26- otc unable to verify Willard Oil 1 cap PO DAILY Patient Comments: 09/26- otc unable to verify Discharge Orders: Discharge Order (Routine); Ordered 09/30/25 Ordered By: Jackson Payan Admission Data Admit Date/Time: 09/26/25 19:32 Attending Provider: Jackson Payan Admit Provider: Cr Mckinnon Primary Care Provider: Gareth Crane Other Providers: Cr Mckinnon; Kenn Lopez; [facility] Hospital Stay Data Consultations 09/26/25 18:17 ED Decision to Admit Stat 09/26/25 21:53 Consult Orthopedic Spine Surgery Routine Diagnostic Imagining Performed 09/26/25 14:52 CT lumbar spine wo con Stat CT pelvis wo con Stat 09/27/25 09:07 MRI Lumbar Spine [MR lumbar spine wo con] Routine Pending Results Patient Have Any Pending Studies at Discharge: No Discharge Instructions Given to Patient (Per Discharging Provider) Wear back brace as directed when ambulating. Take Dilaudid (hydromorphone) as needed for back pain. A prescription has been sent to [email or web address] pharmacy on [facility]. Follow-up with Dr. Lopez in the office in 2 to 3 weeks. See primary care provider for follow-up as soon as possible Total Time Total Time Spent Total Time Spent (In Minutes): 45 minutes. Total time included patient exam, discharge planning, medication reconciliation, and communication with other providers. Coding Level of Care Code 26063 INP/OBS DISCH >30 MIN Diagnoses Compression fracture of L2 vertebra, initial encounter S32.020A Encounter type: initial encounter Closed burst fracture of lumbar vertebra, initial encounter S32.001A Encounter type: initial encounter Compression fracture of T12 vertebra, initial encounter S22.080A Encounter type: initial encounter Low back pain M54.50
--- NOTE | 2025-09-30 11:48 | Orthopedic Progress Note ---
Date of Service September 30, 2025 Assessment & Plan (1) T12 compression fracture: Plan: Patient is 4 to 5 weeks status post acute T12 and L2 compression fracture. These are not burst in nature. She is orthopedically stable for discharge. We are hoping to manage this conservatively. Ambulate ad efren. No lifting over 5 to 10 pounds. She has been encouraged to wear the TLSO brace with ambulation and standing. Can remove when in a seated position or lying down. She can follow-up in our office in 2 weeks for reassessment. Admission and Anticipated Discharge Date Admission Date: September 26, 2025 Subjective Patient's pain has been under better control. She is struggling with wearing the TLSO brace as she reports this increases her pain. No new complaints. She has been discharged today Review of Systems Review of Systems: All systems reviewed & are unremarkable except as noted in HPI & below Physical Exam Physical Exam: Unchanged She is in bed in no acute distress dressed in her street close alert and oriented x 3 Strength intact bilateral lower EXTR Results & Data Vital Signs (Past 12 Hours) Vital Signs Temp Pulse Resp BP Pulse Ox O2 Del Method 09/30/25 11:15 36.6 C 65 15 126/87 93 09/30/25 08:00 Room Air 09/30/25 07:06 36.6 C 65 15 126/87 93 Room Air Diagnostic Findings [place], [place] [phone] Magnetic Resonance Report Patient: IRA SABA Admit Date: 09/26/25 MR#: [id number] Address1: [facility] JAMAAL ENRIQUE Acct ID:[id number] Address2: Date: 1940 [facility] Zip: [place] [address] Age: 85 Location: 3N Sex: F Room/Bed: [facility] Att Phy: Asya Marc MD Diagnosis: BURST FRACTURE, BACK PAIN Uzma Phy: Gareth Crane DO Service Date: 09/27/25 Fam Phy: Interpreting Phy: Akshat Elaine MDAdmit Phy: Cr Mckinnon MD Ordering Phy: Kenn LopezD.O. cc: ~ MRI of the lumbar spine without contrast Technique: Multiplanar multisequence MRI images of the lumbar spineWere obtained without IV contrast Comparison made to prior exam dated 12/03/2021. Reference is also made to prior CT performed earlier on 09/26/2025 Findings: Postoperative changes L4-S1 interbody fusion with chronic compression fracture of the L5 vertebral body resulting in 80% vertebral body height loss. Acute L2 superior endplate compression fracture without retropulsion. Acute T12 inferior endplate compression fracture retropulsion. Cord terminates normally at the L1 vertebral body. Posterior disc bulge slightly asymmetric to the right superimposed upon facet ligamentous hypertrophic changes resulting in mild canal and severe bilateral foraminal narrowing Posterior disc bulge at L2-L3 superimposed upon severe facet and ligamentous hypertrophic changes results in mild canal and severe bilateral foraminal narrowing Posterior disc bulge at L5 3 L4 superimposed upon mild facet and ligamentous hypertrophic changes resulting in mild to moderate bilateral foraminal narrowing. Base posterior disc bulge superimposed upon facet and ligamentous hypertrophic changes without significant foraminal narrowing. L5-S1: Posterior disc bulge seen in the lateral recesses bilaterally resulting in mild bilateral foraminal narrowing Impression: Acute T12 inferior endplate compression fracture without retropulsion Acute L2 superior endplate compression fracture without retropulsion Multilevel degenerative changes as described above. Electronically signed by Akshat Elaine 09-27-2025 13:56 PM Dictated: 09/27/25 1115 Transcribed: (1) T12 compression fracture Encounter type: initial encounter Qualified Code(s): S22.080A - Wedge compression fracture of T11-T12 vertebra, initial encounter for closed fracture
== END 2025-09-30 14:27 | disposition home health service (06) | DRG 552 ==
LOC: ED 12:50 → 3N 19:32 → SUATTDRO 19:32 → 3N 21:15